=== PATIENT | female | born 1970 | race Caucasian/White ===

== ENCOUNTER 2019-08-29 17:28 | Emergency (ER) | payer MEDICARE, SELFPAY ==
[2019-08-29 17:28] VITALS: BP 150/85; BMI 53.7
[2019-08-29 17:34] VITALS: BP 175/94; PULSE 75; RESP 18; TEMP 36.6; O2SAT 99; BMI 51.6
--- NOTE | 2019-08-29 17:40 | XR_ITS ---
WS: [id number] CHEST XRAY TECHNIQUE: Portable chest. CLINICAL INFORMATION: chest pain COMPARISON: None. FINDINGS: Heart: Normal cardiac silhouette. Lungs: Lungs are clear. No consolidation or pleural effusion. No focal pneumonia. Bones: Hypertrophic changes thoracic spine. Mild thoracic curve convex right. XR/XR chest 1V portable [id number] IMPRESSION: No acute chest findings
--- NOTE | 2019-08-29 17:40 | ECG_ITS ---
Measurements Intervals [place] Rate: 73 P: 30 TN: 150 QRS: -33 QRSD: 93 T: 61 QT: 389 QTc: 430 SINUS RHYTHM Possible old septal LA MARKED LEFT AXIS DEVIATION [QRS AXIS < -30] LOW QRS VOLTAGE IN PRECORDIAL LEADS [QRS DEFLECTION < 1.0 mV IN CHEST LEADS] Compared to ECG 07/31/2019 11:41:28 No significant changes Electronically Signed On 08-30-2019 20:21:47 PUBLIC HEALTH EDUCATOR by Lizz Galan M.D. [email or web address]
[2019-08-29 18:26] LABS: Basophils % 0.3 %; Eosinophils # 0.2 10^3/uL (0.0-0.8); Eosinophils % 2.2 %; Hematocrit 42.3 % (37.0-47.0); Hemoglobin 13.5 g/dL (11.5-15.3); Lymphocytes # 3.2 10^3/uL (0.8-4.8); Lymphocytes % 35.9 %; Mean Corpuscular HGB Conc 31.9 g/dL (30.0-36.0); Mean Corpuscular Hemoglobin 27.1 pg (28.0-34.0); Mean Corpuscular Volume 84.9 fL (81-99); Mean Platelet Volume 11.5 fL (7.4-10.4); Monocytes # 0.5 10^3/uL (0.2-0.9); Neutrophils # 4.9 10^3/uL (1.8-7.7); Neutrophils % 55.3 %; Nucleated Red Blood Cells % 0 %; Platelet Count 262 10^3/cmm (130-400); Red Blood Count 4.98 10^6/uL (4.1-5.3); White Blood Count 8.8 10^3/uL (4.0-10.0)
[2019-08-29 18:45] LABS: Alanine Aminotransferase 16 U/L (0-33); Albumin Level 4.2 g/dL (3.5-5.2); Alkaline Phosphatase 101 IU/L (35-105); Anion Gap 15.3 (5-19); Aspartate Amino Transferase 14 U/L (0-32); Blood Urea Nitrogen 15 mg/dL (6-20); Carbon Dioxide 26 mmol/L (22-29); Chloride 101 mmol/L (98-107); Globulin 3.3 g/dL (1.3-4.6); Glomerular Filtration Rate 106.3 mL/min (90-130); Glucose 237 mg/dL (74-109); Potassium 4.3 mmol/L (3.5-5.1); Sodium 138 mmol/L (136-145); Total Bilirubin 0.6 mg/dL (0.15-1.2); Total Protein 7.5 g/dL (6.6-8.7)
[2019-08-29 18:46] LABS: Troponin(5th) Baseline 8 ng/mL (0-10)
--- NOTE | 2019-08-29 19:40 | ECG_ITS ---
Measurements Intervals [place] Rate: 70 P: 41 CO: 157 QRS: -29 QRSD: 93 T: 57 QT: 382 QTc: 414 SINUS RHYTHM BORDERLINE LEFT AXIS DEVIATION [QRS AXIS < -20] LOW QRS VOLTAGE IN PRECORDIAL LEADS [QRS DEFLECTION < 1.0 mV IN CHEST LEADS] Compared to ECG 07/31/2019 11:41:28 No significant changes Electronically Signed On 08-30-2019 20:31:58 FILTER TIP CATCHER by Lizz Galan M.D. [id number]
[2019-08-29 20:15] LABS: Troponin 5 2HR 8.68 ng/mL (0-10); Troponin 5 2HR Delta 0.68 ABS# (0-10)
--- NOTE | 2019-08-29 20:26 | ED_ITS ---
Entered by Winsome Goyal, acting as scribe for Trey Tomas MD, [facility] Aug 29, 2019 17:28 HPI - Chest Pain General: Chief Complaint: Chest Pain Stated Complaint: left arm pain/cp Time Seen by Provider: 08/29/19 20:26 Source: patient Mode of arrival: ambulatory Limitations: no limitations History of Present Illness: HPI narrative: 49 yo Female presents to ED with complaint of chest pain. Pt states that she was watching tv when her left arm started hurting. Pt states that she has had heart problems before. Pt states that her chest started hurting. Pt states that her chest pain has stopped but she can barely move her arm and her pain is a 10/10. Pt states that her pain goes from her shoulder down to her wrist. Pt states that she takes hydrocodone 10-325 at home. MD complaint: chest pain Pertinent past history: prior [place] Onset (ago): hour(s) Timing of current episode: still present Prior episodes: No Onset: during rest Pain location: left chest Pain radiation: left arm Pain scale (0-10): 10 Quality: sharp Relieving factors: nothing Exacerbating factors: nothing Associated symptoms: Deny abdominal pain, dyspnea, fever(s), nausea, palpitations or vomiting Review of Systems General: Reports: 10 or more systems reviewed and unremarkable except in HPI and below Const: Denies: fever, chills or body aches Eyes: Reports: blind spots; Denies: change in vision or blurry vision ENMT: Denies: throat pain, enlarged tonsils, painful swallowing, hoarseness, mouth pain or swelling of lips/tongue Card: Reports: chest pain; Denies: palpitations, irregular heart rhythm, edema or swelling of feet/ankles Resp: Denies: shortness of breath, productive cough or non-productive cough GI: Denies: abdominal pain, nausea or vomiting : Denies: flank pain, difficulty urinating, painful urination, urinary frequency, urinary urgency or urinary hesitancy Musc: Reports: extremity pain (left shoulder), joint pain (left shoulder) and limited range of motion; Denies: neck pain, back pain or extremity swelling Skin/Breast: Denies: rash, itching or redness Neuro: Denies: headache, numbness in extremities or weakness in extremities Endo: Denies: excessive urination, excessive thirst or tired all the time PFSH ED PFSH: Statuses (acute, chronic, etc) shown below reflect problem list status as previously entered and may not be historically accurate Medical History (Updated 08/29/19 @ 21:12 by Trey Tomas MD, [facility] [place]) Diabetes (Acute) Social History Smoking and tobacco status: never smoked Physical Exam Const: COMMON NORMALS: no apparent distress, average body habitus, oriented x3, no limitations, healthy appearing, alert and well nourished HENMT: COMMON NORMALS: normocephalic, head/scalp atraumatic and moist oral mucous membranes HEAD & SCALP: normocephalic and atraumatic Eye: COMMON NORMALS: PERRL, EOMs intact bilaterally, conjunctivae normal and no scleral icterus CONJUNCTIVA: Yes conjunctivae normal PUPIL: Yes PERRL Neck/C-Spine: COMMON NORMALS: full ROM, supple, no meningeal signs, no JVD and no carotid bruits Chest: COMMONS NORMALS: inspection of chest normal and palpation of chest normal Resp: COMMON NORMALS: normal respiratory effort, no retractions, no use of accessory muscles, clear to auscultation bilaterally and percussion normal AUSCULTATION: clear to auscultation bilaterally PERCUSSION: percussion normal Cardio: COMMON NORMALS: no JVD, regular rate, regular rhythm, S1 normal heart sound, S2 normal heart sound, no gallops, no clicks, no murmurs, no rub and peripheral pulses 2+ throughout RATE: regular rate RHYTHM: regular rhythm HEART SOUNDS: S1 normal and S2 normal PERIPHERAL PULSES: pulses 2+ throughout GI: COMMON NORMALS: normal to inspection, nondistended, normoactive bowel sounds, soft to palpation, non-tender, no hepatosplenomegaly, no masses and no bruits PALPATION: Yes soft and Yes no hepatosplenomegaly : COMMON NORMALS: Yes no CVA tenderness BLADDER/KIDNEY EXAM: Yes no CVA tenderness Back/Pelvis: COMMON NORMALS: no CVA tenderness Extremity: COMMON NORMALS: normal to inspection, full ROM, normal capillary refill, no calf tenderness and no pedal edema Neuro: COMMON NORMALS: oriented x3 SENSORIUM/ORIENTATION: Yes alert MENINGEAL SIGNS: Yes no meningeal signs Skin: COMMON NORMALS: no rashes or lesions noted, no wounds, skin turgor normal, no jaundice, no petechiae and no mottling GENERAL SKIN EXAM: no rashes or lesions noted and turgor normal Course Vital Signs: Vital signs: Vital Signs Temperature 97.8 F 08/29/19 17:34 Pulse Rate 71 08/29/19 22:02 Respiratory Rate 16 08/29/19 22:02 Blood Pressure 149/99 08/29/19 22:02 Pulse Oximetry 98 08/29/19 22:02 MDM - Chest Pain MDM Narrative: Medical decision making narrative: Patient who presents with left arm/shoulder pain which radiated to her chest. She has had 2 negative high sensitive troponins. Other labs and chest x-ray normal. Her examination findings are consistent with rotator cuff tendinitis of the left shoulder. Advised that she needs to get an MRI of the shoulder and perform exercises for the shoulder. She declined steroids as she is diabetic and does not want to increase her blood glucose. She will be discharged home on NSAIDs and she is to follow-up with her primary care provider soon as she can get them. She voiced understanding and is in agreement with the plan. Lab Data: Labs: Lab Results 08/29/19 08/29/19 08/29/19 Range/Units 18:12 18:12 18:12 WBC 8.8 (4.0-10.0) 10^3/ uL RBC 4.98 (4.1-5.3) 10^6/u L Hgb 13.5 (11.5-15.3) g/dL Hct 42.3 (37.0-47.0) % MCV 84.9 (81-99) fL MCH 27.1 L (28.0-34.0) pg MCHC 31.9 (30.0-36.0) g/dL RDW 14.0 (12.1-15.1) % Plt Count 262 (130-400) 10^3/c mm MPV 11.5 H (7.4-10.4) fL Neut % (Auto) 55.3 % Lymph % (Auto) 35.9 % Chaves % (Auto) 6.0 % Eos % (Auto) 2.2 % Baso % (Auto) 0.3 % Neut # (Auto) 4.9 (1.8-7.7) 10^3/u L Lymph # (Auto) 3.2 (0.8-4.8) 10^3/u L Chaves # (Auto) 0.5 (0.2-0.9) 10^3/u L Eos # (Auto) 0.2 (0.0-0.8) 10^3/u L Baso # (Auto) 0.0 (0.0-0.1) 10^3/u L Nucleated RBC % (a uto) 0 % Nucleated RBCs # 0.0 /100WBC Sodium 138 (136-145) mmol/L Potassium 4.3 (3.5-5.1) mmol/L Chloride 101 (98-107) mmol/L Carbon Dioxide 26 (22-29) mmol/L Anion Gap 15.3 (5-19) BUN 15 (6-20) mg/dL Creatinine 0.6 (0.5-0.9) mg/dL GFR Calculation 106.3 (90-130) mL/min Glucose 237 H (74-109) mg/dL Calcium 10.0 (8.6-10.0) mg/Dl Total Bilirubin 0.6 (0.15-1.2) mg/dL AST 14 (0-32) U/L ALT 16 (0-33) U/L Alkaline Phosphata se 101 (35-105) IU/L Troponin T Baselin e 8 (0-10) ng/mL Troponin T 120 Min [place] (0-10) ng/mL Delta Troponin T (0-10) ABS# Total Protein 7.5 (6.6-8.7) g/dL Albumin 4.2 (3.5-5.2) g/dL Globulin 3.3 (1.3-4.6) g/dL 08/29/19 Range/Units 19:46 WBC (4.0-10.0) 10^3/ uL RBC (4.1-5.3) 10^6/u L Hgb (11.5-15.3) g/dL Hct (37.0-47.0) % MCV (81-99) fL MCH (28.0-34.0) pg MCHC (30.0-36.0) g/dL RDW (12.1-15.1) % Plt Count (130-400) 10^3/c mm MPV (7.4-10.4) fL Neut % (Auto) % Lymph % (Auto) % Chaves % (Auto) % Eos % (Auto) % Baso % (Auto) % Neut # (Auto) (1.8-7.7) 10^3/u L Lymph # (Auto) (0.8-4.8) 10^3/u L Chaves # (Auto) (0.2-0.9) 10^3/u L Eos # (Auto) (0.0-0.8) 10^3/u L Baso # (Auto) (0.0-0.1) 10^3/u L Nucleated RBC % (a uto) % Nucleated RBCs # /100WBC Sodium (136-145) mmol/L Potassium (3.5-5.1) mmol/L Chloride (98-107) mmol/L Carbon Dioxide (22-29) mmol/L Anion Gap (5-19) BUN (6-20) mg/dL Creatinine (0.5-0.9) mg/dL GFR Calculation (90-130) mL/min Glucose (74-109) mg/dL Calcium (8.6-10.0) mg/Dl Total Bilirubin (0.15-1.2) mg/dL AST (0-32) U/L ALT (0-33) U/L Alkaline Phosphata se (35-105) IU/L Troponin T Baselin e (0-10) ng/mL Troponin T 120 Min [place] 8.68 (0-10) ng/mL Delta Troponin T 0.68 (0-10) ABS# Total Protein (6.6-8.7) g/dL Albumin (3.5-5.2) g/dL Globulin (1.3-4.6) g/dL EKG Data^: EKG 1: Attestation: I personally reviewed and interpreted this EKG as follows: EKG interpretation date: 08/29/19 EKG interpretation time: 17:37 Prior EKG tracings: not available for review Interpretation: Normal sinus rhythm. Heart rate 73. Left axis deviation. Discharge Plan Discharge Patient Disposition: Home, Self-Care Clinical Impression: Tendonitis of left rotator cuff Condition: Stable Prescriptions: New naproxen 500 mg tablet,delayed release (DR/EC) 500 mg PO BID PRN (Reason: pain) Qty: 30 RF: 0 Discharge Orders: Discharge Order (Routine); Ordered 08/29/19 Ordered By: Trey Tomas Referrals: Delaney Frazier MD [Primary Care Provider] - 1-3 days Activity Restrictions/Additional Instructions: Return for any new or worsening symptoms. Follow-up with your primary care provider within 3 days. Perform the shoulder exercises that I showed you. Take the naproxen as needed for pain. You probably need an MRI of the shoulder to look at your rotator cuff muscles and to see if you need further evaluation by orthopedic surgery. Discharge Date/Time: 08/29/19 22:01 Coding Level of Care Code ED Graduation Coach for Chg Fwd Exam Problem Focused The documentation recorded by the Jay Jay garvin Carmen, accurately reflects the service I personally performed and the decisions made by , Trey Tomas MD, [facility] Aug 29, 2019 17:28
[2019-08-29 20:40] VITALS: BP 155/93; PULSE 72; RESP 14; O2SAT 98
[2019-08-29] MEDS: orphenadrine 30 mg/mL Inj 2 mL 60 MG IM (21:22)
[2019-08-29] MEDS: acetaminophen 500 mg Tablet PO (21:22)
[2019-08-29] MEDS: ketorolac 60 mg/2 mL INJ IM (21:22)
[2019-08-29 22:02] VITALS: BP 149/99; PULSE 71; RESP 16; O2SAT 98
== END 2019-08-29 22:01 | disposition home or self-care (01) ==
PROVIDERS: Family Medicine; Emergency Provider Family Medicine; Family Provider Family Medicine; PCP Family Medicine
DX: M77.9 Enthesopathy, unspecified (principal); E11.9 Type 2 diabetes mellitus without complications
CPT/HCPCS: 36415; 71045; 80053; 84484; 85025; 93005; 96372; 99281; J1885; J2360

== ENCOUNTER 2019-09-14 10:30 | Outpatient (CLI) | payer MEDICARE, SELFPAY | END 2019-09-24 13:24 | disposition home or self-care (01) | LOC: ER 09-24 13:54 → LAB 09-26 11:57 | PROVIDERS: Family Provider Family Medicine; PCP Family Medicine; Visit Provider Specialist | DX: Z76.89 Persons encountering health services in other specified circumstances (principal) ==

== ENCOUNTER → 2019-09-22 13:39 | Outpatient (BNVA) | payer MEDICARE, SELFPAY | PROVIDERS: Family Provider Family Medicine; PCP Family Medicine; Visit Provider Anesthesiology | DX: G89.29 Other chronic pain (principal); M54.5 Low back pain; M79.651 Pain in right thigh; M79.652 Pain in left thigh; Z79.891 Long term (current) use of opiate analgesic | CPT/HCPCS: 99214 ==

== ENCOUNTER 2019-09-24 12:14 | Emergency (ER) | payer MEDICARE, SELFPAY ==
[2019-09-24 12:23] VITALS: BP 151/102; PULSE 76; RESP 16; TEMP 36.6; O2SAT 98; BMI 52.7
--- NOTE | 2019-09-24 12:32 | ED_ITS ---
Entered by Anusha Ba, acting as scribe for Trey Tomas MD, [facility] HPI - General Adult General: Chief complaint: General Medical Stated complaint: Tongue issuses Time Seen by Provider: 09/24/19 12:32 Source: patient and RN notes reviewed Mode of arrival: ambulatory Limitations: no limitations History of Present Illness: HPI narrative: 49 yo female presents to ED with complaints of her tongue having a white coating and it is painful. 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 She has been taking Doxycycline since 09.14.2019. She is having slight difficulty swallowing. The patient has a healing wound on her nose. MD complaint: tongue pain, white film on tongue Onset (ago): day(s) (1) Location: mouth Radiation: non-radiation Severity: mild Quality: aching and constant Pain Consistency: constant Relieving factors: none Exacerbating factors: none Associated symptoms: Reports chest pain and other (difficulty swallowing); Deny dyspnea, headache(s), nausea, rash, palpitations or vomiting Treatments prior to arrival: none Review of Systems General: Reports: 10 or more systems reviewed and unremarkable except in HPI and below Const: Denies: fever, chills or body aches Eyes: Reports: blind spots; Denies: change in vision or blurry vision ENMT: Denies: throat pain, enlarged tonsils, painful swallowing, hoarseness, mouth pain or swelling of lips/tongue Card: Reports: chest pain; Denies: palpitations, irregular heart rhythm, edema or swelling of feet/ankles Resp: Denies: shortness of breath, productive cough or non-productive cough GI: Denies: abdominal pain, nausea or vomiting : Denies: flank pain, difficulty urinating, painful urination, urinary frequency, urinary urgency or urinary hesitancy Musc: Denies: neck pain, back pain or extremity swelling Skin/Breast: Reports: surgical incision (nose); Denies: rash, itching or redness Neuro: Denies: headache, numbness in extremities or weakness in extremities Endo: Denies: excessive urination, excessive thirst or tired all the time [facility] ED PFSH: Medical History (Updated 09/24/19 @ 12:42 by Trey Tomas MD, [facility]) Chronic back pain Diabetes Encounter for long-term use of opiate analgesic Family History (Updated 09/22/19 @ 13:53 by Mckenna Bejarano LPN) Other Cancer Diabetes Stroke Social History (Updated 09/22/19 @ 13:52 by Mckenna Bejarano LPN) Smoking and tobacco status: never smoked Alcohol intake: unknown Physical Exam Const: COMMON NORMALS: no apparent distress, average body habitus, oriented x3, no limitations, healthy appearing, alert and well nourished HENMT: COMMON NORMALS: normocephalic, head/scalp atraumatic and moist oral mucous membranes; external nose not normal (Patient with a surgical wound on her nose, healing well. No drainage.) HEAD & SCALP: normocephalic and atraumatic NOSE: external nose not normal (Patient with a surgical wound on her nose, healing well. No drainage.) MOUTH: oral and palatal mucosa abnormal white patches (on tongue, adherent, consistent with thrush) Eye: COMMON NORMALS: PERRL, EOMs intact bilaterally, conjunctivae normal and no scleral icterus CONJUNCTIVA: Yes conjunctivae normal PUPIL: Yes PERRL Neck/C-Spine: COMMON NORMALS: full ROM, supple, no meningeal signs, no JVD and no carotid bruits Chest: COMMONS NORMALS: inspection of chest normal and palpation of chest normal Resp: COMMON NORMALS: normal respiratory effort, no retractions, no use of accessory muscles, clear to auscultation bilaterally and percussion normal AUSCULTATION: clear to auscultation bilaterally PERCUSSION: percussion normal Cardio: COMMON NORMALS: no JVD, regular rate, regular rhythm, S1 normal heart sound, S2 normal heart sound, no gallops, no clicks, no murmurs, no rub and peripheral pulses 2+ throughout RATE: regular rate RHYTHM: regular rhythm HEART SOUNDS: S1 normal and S2 normal PERIPHERAL PULSES: pulses 2+ throughout GI: COMMON NORMALS: normal to inspection, nondistended, normoactive bowel sounds, soft to palpation, non-tender, no hepatosplenomegaly, no masses and no bruits PALPATION: Yes soft and Yes no hepatosplenomegaly : COMMON NORMALS: Yes no CVA tenderness BLADDER/KIDNEY EXAM: Yes no CVA tenderness Back/Pelvis: COMMON NORMALS: no CVA tenderness Extremity: COMMON NORMALS: normal to inspection, full ROM, normal capillary refill, no calf tenderness and no pedal edema Neuro: COMMON NORMALS: oriented x3 SENSORIUM/ORIENTATION: Yes alert MENINGEAL SIGNS: Yes no meningeal signs Skin: COMMON NORMALS: no rashes or lesions noted, no wounds, skin turgor normal, no jaundice, no petechiae and no mottling GENERAL SKIN EXAM: no rashes or lesions noted and turgor normal Course Vital Signs: Vital signs: Vital Signs Temperature 98 F 09/24/19 12:23 Pulse Rate 76 09/24/19 12:23 Respiratory Rate 16 09/24/19 12:23 Blood Pressure 151/102 09/24/19 12:23 Pulse Oximetry 98 09/24/19 12:23 MDM - General Adult MDM Narrative: Medical decision making narrative: patient who has been on antibiotics for about 10 days following nasal surgery. She now has tongue pain and exam findings are consistent with oral candidiasis. She is discharged home on nystatin swish and swallow. She is to f/u with her PCP. Medical Records: Attestation: I reviewed the patient's medical records. Discharge Plan Discharge Patient Disposition: Home, Self-Care Clinical Impression: Candidiasis of mouth Condition: Stable Prescriptions: New nystatin 100,000 unit/mL suspension 4 ml BUCCAL QID Qty: 200 RF: 0 Continued metoprolol tartrate 25 mg tablet 12.5 mg PO DAILY RF: 0 clopidogrel [Plavix] 75 mg tablet 75 mg PO DAILY RF: 0 pravastatin 40 mg tablet 40 mg PO DAILY RF: 0 Levemir FlexTouch U-100 Insuln 100 unit/mL (3 mL) insulin pen 46 unit SUBCUT .AT BEDTIME RF: 0 Victoza 3-Olman 0.6 mg/0.1 mL (18 mg/3 mL) pen injector See Rx Instructions SUBCUT DAILY RF: 0 levothyroxine 50 mcg capsule See Rx Instructions PO DAILY RF: 0 aspirin [Adult Aspirin Regimen] 81 mg tablet,delayed release (DR/EC) 81 mg PO DAILY RF: 0 metformin 500 mg tablet 500 mg PO BID RF: 0 hydrocodone-acetaminophen 10-325 mg tablet 1 tab PO TID PRN (Reason: pain) 30 Days Qty: 90 RF: 0 Discharge Orders: Discharge Order (Routine); Ordered 09/24/19 Ordered By: Trey Tomas Referrals: Delaney Frazier MD [Primary Care Provider] - 4-7 days Patient Instructions: Oral Candidiasis (ED) Activity Restrictions/Additional Instructions: return for any new or worsening symptoms. Take the medication as prescribed. FOllow up with your primary care provider within one week. Coding Level of Care Code ED Speeder Machine Operator for Chg Fwd Exam Comprehensive The documentation recorded by the Mejia garvin Valerie R, accurately reflects the service I personally performed and the decisions made by Thom ramirez Adegoke I, MD, [facility]
--- NOTE | 2019-09-24 12:34 | PC.NURSE ---
Patient presents to ED with complaints of tongue discomfort. Patient is on Day 11 of Doxycycline. Patient reports discomfort in tongue started yesterday, nothing makes it better or worse. Patient has some white discoloration to generalized tongue area.
[2019-09-24 13:19] VITALS: PULSE 97; RESP 16; O2SAT 98
== END 2019-09-24 13:18 | disposition home or self-care (01) ==
LOC: ER 12:53
PROVIDERS: Emergency Provider Family Medicine; Family Provider Family Medicine; PCP Family Medicine
DX: B37.0 Candidal stomatitis (principal); E11.9 Type 2 diabetes mellitus without complications; Z79.4 Long term (current) use of insulin
CPT/HCPCS: 99281

== ENCOUNTER → 2019-12-11 08:16 | Outpatient (BNVA) | payer MEDICARE, SELFPAY | PROVIDERS: Family Provider Family Medicine; PCP Family Medicine; Visit Provider Psychiatry & Neurology Psychiatry | DX: F43.12 Post-traumatic stress disorder, chronic (principal); F33.2 Major depressive disorder, recurrent severe without psychotic features | CPT/HCPCS: 99204 ==

== ENCOUNTER → 2020-01-11 10:35 | Outpatient (BNVA) | payer MEDICARE, SELFPAY | PROVIDERS: Family Provider Family Medicine; PCP Family Medicine; Visit Provider Anesthesiology | DX: G89.29 Other chronic pain (principal); M54.42 Lumbago with sciatica, left side; M54.9 Dorsalgia, unspecified; Z79.891 Long term (current) use of opiate analgesic; M54.41 Lumbago with sciatica, right side | CPT/HCPCS: 99213; 99214 ==

== ENCOUNTER 2020-01-23 05:26 | Emergency (ER) | payer MEDICARE, SELFPAY ==
[2020-01-11 11:16] VITALS: BP 150/85; BMI 53.7
[2020-01-23 05:34] VITALS: BP 153/91; PULSE 84; RESP 18; TEMP 35.7; O2SAT 98; BMI 54.9
--- NOTE | 2020-01-23 05:46 | PC.NURSE ---
Received patient to Er via pov with complaint of right flank pain. Patient stated she has had multiple UTI's and kidney problems in the past.
--- NOTE | 2020-01-23 06:37 | CTR_ITS ---
PROCEDURE INFORMATION: Exam: CT Abdomen And Pelvis Without Contrast Exam date and time: 01/23/2020 6:41 AM Age: 49 years old Clinical indication: Abdominal pain; Prior surgery; Surgery type: Hysterectomy; Patient HX: Severe left flank pain. TECHNIQUE: Imaging protocol: Computed tomography of the abdomen and pelvis without contrast. Radiation optimization: All CT scans at this facility use at least one of these dose optimization techniques: automated exposure control; mA and/or kV adjustment per patient size (includes targeted exams where dose is matched to clinical indication); or iterative reconstruction. COMPARISON: No relevant prior studies available. RADIATION DOSE METRICS: Total DLP: 1193.84 mGy-cm FINDINGS: Liver: Normal. No mass. Gallbladder and bile ducts: Normal. No calcified stones. No ductal dilation. Pancreas: Severe pancreatic atrophy. Spleen: Normal. No splenomegaly. Adrenals: Normal. No mass. Kidneys and ureters: Left renal lower pole 1.8 mm calyceal calculus. No left hydronephrosis. Mild right renal pelviectasis. Stomach and bowel: There is mild caliber prominence of the distal duodenum and a few proximal jejunal small bowel loops with increased intraluminal fluid and without definite wall thickening. No abrupt caliber transition identified. Sigmoid colonic diverticula are present without evidence of diverticulitis. Appendix: The vermiform appendix is normal. Intraperitoneal space: Unremarkable. No free air. No significant fluid collection. Vasculature: Atherosclerotic calcifications are present involving the RCA coronary artery. Lymph nodes: No enlarged lymph nodes. Bladder: Unremarkable as visualized. Reproductive: The uterus is status post hysterectomy. The ovaries are not identified. Bones/joints: Unremarkable. No acute fracture. Soft tissues: A tiny paraumbilical hernia containing only abdominal fat is noted. Anterior left abdominal wall subcutaneous adipose edema consistent with prior injections. CT/CT kidney stone [id number] IMPRESSION: 1. Left renal calyceal lithiasis. 2. Mild right renal pelviectasis. 3. Possible mild enteritis. Clinical correlation is recommended. 4. Diverticulosis. 5. Prior hysterectomy. 6. Coronary atherosclerosis. Radiation Dose CTDIVOL = (mGy): DLP = 1193.84 (mGy-cm)
--- NOTE | 2020-01-23 06:37 | ED_ITS ---
HPI - Back Pain/Injury General: Chief Complaint: Back Pain/Injury Stated Complaint: lower back pain; vaginal bleed last week Time Seen by Provider: 01/23/20 05:37 History of Present Illness: HPI Narrative: 49 yo female comes in complaining of back pain she had some hematuria couple days ago she has a little bit of dysuria she complains of some left right flank pain radiating down into her groin area. She has not noticed any gross hematuria yet today. She denies any fever sweats or chills. She does have a history of nephrolithiasis. MD elicited complaint: back pain Pertinent past history: prior back pain Onset (ago): day(s) Timing: constant Severity: severe Similar Symptoms Previously: Yes Quality: aching and spasming Location: lumbar spine and right lower back Radiation: groin Exacerbating factors: movement Associated symptoms: Reports hematuria; Deny abdominal pain, chills, dysuria, fatigue, fever(s), nausea, urinary urgency or vomiting Treatments prior to arrival: other medications Work related injury: No Review of Systems Const: Denies: fever(s), chills, body aches, change in appetite, fatigue or malaise ENMT: Denies: throat pain, ear or mastoid pain, nasal discharge or nasal congestion Card: Denies: chest pain, edema, dyspnea on exertion or orthopnea Resp: Denies: dyspnea, productive cough or non-productive cough GI: Denies: abdominal pain, nausea, vomiting, hematemesis, coffee ground emesis, diarrhea, constipation, bloating, hematochezia or melena : Reports: hematuria; Denies: flank pain, difficulty voiding, dysuria, urinary frequency or urinary urgency Skin/Breast: Denies: rash or pruritus PFSH ED PFSH: Medical History Chronic back pain Diabetes Encounter for long-term use of opiate analgesic HTN (hypertension) with goal to be determined Family History Other Cancer Diabetes Stroke Social History Smoking and tobacco status: never smoked Second hand smoke exposure: No Alcohol intake: never History of recent travel: No Physical Exam Const: COMMON NORMALS: average body habitus, patient oriented x3 and alert GENERAL APPEARANCE: cooperative, comfortable, well kempt and well developed NUTRITIONAL APPEARANCE: obese ORIENTATION/CONSCIOUSNESS: Yes awake, Yes oriented to person and Yes oriented to place HENMT: COMMON NORMALS: normocephalic, atraumatic, EAC's normal, TM's normal bilaterally, Normal external nose present, moist oral mucous membranes and oropharynx normal HEAD & SCALP: normocephalic and atraumatic NOSE: Normal external nose present EXTERNAL AUDITORY CANAL: EAC's normal TYMPANIC MEMBRANE: TM's normal bilaterally MOUTH: Normal oral and palatal mucosa present, lip normal and tongue normal THROAT: posterior oropharynx normal and tonsils normal Eye: COMMON NORMALS: Equal, round and reactive pupils present, EOMs intact bilaterally, conjunctivae normal and no scleral icterus CONJUNCTIVA: Yes conjunctivae normal PUPIL: Yes Equal, round and reactive pupils present Neck/C-Spine: COMMON NORMALS: full ROM, no lymphadenopathy, supple, no mening eal signs and Thyroid normal THYROID: Thyroid normal and asymmetrical Lymph: LYMPHATIC: no lymphadenopathy noted Resp: COMMON NORMALS: normal respiratory effort, No retractions, No use of accessory muscles and clear to auscultation bilaterally AUSCULTATION: clear to auscultation bilaterally Cardio: COMMON NORMALS: regular rate and regular rhythm RATE: regular rate RHYTHM: regular rhythm HEART SOUNDS: no murmurs GI: COMMON NORMALS: Normal to inspection, nondistended, normoactive bowel sounds present, Soft to palpation and No hepatosplenomegaly present PALPATION: Yes Soft to palpation and Yes No hepatosplenomegaly present : COMMON NORMALS: Yes no CVA tenderness BLADDER/KIDNEY EXAM: Yes no CVA tenderness Back/Pelvis: COMMON NORMALS: no CVA tenderness LUMBAR SPINE/LOWER BACK: Yes normal to inspection Extremity: COMMON NORMALS: no clubbing, cyanosis or edema, no calf tenderness and no pedal edema Neuro: COMMON NORMALS: patient oriented x3 SENSORIUM/ORIENTATION: Yes aler t, Yes oriented to person and Yes oriented to place MENINGEAL SIGNS: Yes no meningeal signs Psych: APPEARANCE: Yes well kempt Skin: COMMON NORMALS: no rashes or lesions noted and turgor normal GENERAL SKIN EXAM: no rashes or lesions noted and turgor normal Course Vital Signs: Vital signs: Vital Signs Temperature 96.2 F L 06/16/20 05:34 Pulse Rate 70 01/23/20 07:29 Respiratory Rate 19 H 01/23/20 07:55 Blood Pressure 151/105 01/23/20 07:29 Pulse Oximetry 99 01/23/20 07:29 MDM - Back Pain/Injury MDM Narrative: Medical decision making narrative: Reviewed findings the patient CT does not show any nephrolithiasis she does not have any hematuria will treat as exacerbation of her chronic back pain is given more medications here as well as a muscle relaxer and some narcotics for immediate relief. She has oral narcotics she can use at home gave her prescription for tizanidine as well consider giving her steroids but she already has significant hyperglycemia with her diabetes and is poorly controlled to steroids and make that even more difficult. Lab Data: Labs: Lab Results 01/23/20 01/23/20 01/23/20 Range/Units 06:00 06:50 06:50 WBC 10.4 H (4.0-10.0) 10^3/ uL RBC 4.88 (4.1-5.3) 10^6/u L Hgb 13.1 (11.5-15.3) g/dL Hct 41.5 (37.0-47.0) % MCV 85.0 (81-99) fL MCH 26.8 L (28.0-34.0) pg MCHC 31.6 (30.0-36.0) g/dL RDW 12.8 (12.1-15.1) % Plt Count 266 (130-400) 10^3/c mm MPV 11.6 H (7.4-10.4) fL Neut % (Auto) 60.1 % Lymph % (Auto) 32.0 % [place] % (Auto) 5.5 % Eos % (Auto) 1.8 % Baso % (Auto) 0.3 % Neut # (Auto) 6.3 (1.8-7.7) 10^3/u L Lymph # (Auto) 3.3 (0.8-4.8) 10^3/u L [place] # (Auto) 0.6 (0.2-0.9) 10^3/u L Eos # (Auto) 0.2 (0.0-0.8) 10^3/u L Baso # (Auto) 0.0 (0.0-0.1) 10^3/u L Nucleated RBC % (a uto) 0 % Nucleated RBCs # 0.0 /100WBC Sodium 136 (136-145) mmol/L Potassium 4.5 (3.5-5.1) mmol/L Chloride 98 (98-107) mmol/L Carbon Dioxide 26 (22-29) mmol/L Anion Gap 16.5 (5-19) BUN 16 (6-20) mg/dL Creatinine 0.5 (0.5-0.9) mg/dL GFR Calculation 131.1 H (90-130) mL/min Glucose 352 H (65-115) mg/dL Calculated Osmolal ity 292 (285-295) mOsm/k g Lactate (0.5-2.2) mmol/L Calcium 10.1 (8.5-10.5) mg/dL Total Bilirubin 0.5 (0.15-1.2) mg/dL AST 14 (0-32) U/L ALT 18 (0-33) U/L Alkaline Phosphata se 108 H (35-105) IU/L Total Protein 7.1 (6.6-8.7) g/dL Albumin 4.4 (3.5-5.2) g/dL Globulin 2.7 (1.3-4.6) g/dL Lipase 60 (13-60) U/L Urine Color Yellow (Yellow) Urine Appearance Clear (CLEAR) Urine pH 5 (5-7) Ur Specific Gravit y 1.020 (1.005-1.030) Urine Protein Neg (Negative) Urine Glucose (UA) 4+ H (Normal) Urine Ketones Negative (Negative) Urine Blood Neg (Negative) Urine Nitrate Negative (Negative) Urine Bilirubin Neg (NEGATIVE) Urine Urobilinogen Norm (Negative) mg/dL Ur Leukocyte Raquel ase Negative (Negative) 01/23/20 Range/Units 06:50 WBC (4.0-10.0) 10^3/ uL RBC (4.1-5.3) 10^6/u L Hgb (11.5-15.3) g/dL Hct (37.0-47.0) % MCV (81-99) fL MCH (28.0-34.0) pg MCHC (30.0-36.0) g/dL RDW (12.1-15.1) % Plt Count (130-400) 10^3/c mm MPV (7.4-10.4) fL Neut % (Auto) % Lymph % (Auto) % [place] % (Auto) % Eos % (Auto) % Baso % (Auto) % Neut # (Auto) (1.8-7.7) 10^3/u L Lymph # (Auto) (0.8-4.8) 10^3/u L [place] # (Auto) (0.2-0.9) 10^3/u L Eos # (Auto) (0.0-0.8) 10^3/u L Baso # (Auto) (0.0-0.1) 10^3/u L Nucleated RBC % (a uto) % Nucleated RBCs # /100WBC Sodium (136-145) mmol/L Potassium (3.5-5.1) mmol/L Chloride (98-107) mmol/L Carbon Dioxide (22-29) mmol/L Anion Gap (5-19) BUN (6-20) mg/dL Creatinine (0.5-0.9) mg/dL GFR Calculation (90-130) mL/min Glucose (65-115) mg/dL Calculated Osmolal ity (285-295) mOsm/k g Lactate 1.2 (0.5-2.2) mmol/L Calcium (8.5-10.5) mg/dL Total Bilirubin (0.15-1.2) mg/dL AST (0-32) U/L ALT (0-33) U/L Alkaline Phosphata se (35-105) IU/L Total Protein (6.6-8.7) g/dL Albumin (3.5-5.2) g/dL Globulin (1.3-4.6) g/dL Lipase (13-60) U/L Urine Color (Yellow) Urine Appearance (CLEAR) Urine pH (5-7) Ur Specific Gravit y (1.005-1.030) Urine Protein (Negative) Urine Glucose (UA) (Normal) Urine Ketones (Negative) Urine Blood (Negative) Urine Nitrate (Negative) Urine Bilirubin (NEGATIVE) Urine Urobilinogen (Negative) mg/dL Ur Leukocyte Raquel ase (Negative) Discharge Plan Discharge Patient Disposition: Home, Self-Care Clinical Impression: Chronic back pain, HTN (hypertension) with goal to be determined Condition: Stable Prescriptions: New tizanidine 4 mg capsule 4 mg PO Q6H PRN (Reason: muscle spasticity) Qty: 20 RF: 0 No Action metoprolol tartrate 25 mg tablet 12.5 mg PO DAILY RF: 0 clopidogrel [Plavix] 75 mg tablet 75 mg PO DAILY RF: 0 pravastatin 40 mg tablet 40 mg PO DAILY RF: 0 Levemir FlexTouch U-100 Insuln 100 unit/mL (3 mL) insulin pen 46 unit SUBCUT .AT BEDTIME RF: 0 Victoza 3-Olman 0.6 mg/0.1 mL (18 mg/3 mL) pen injector See Rx Instructions SUBCUT DAILY RF: 0 levothyroxine 50 mcg capsule See Rx Instructions PO DAILY RF: 0 aspirin [Adult Aspirin Regimen] 81 mg tablet,delayed release (DR/EC) 81 mg PO DAILY RF: 0 metformin 500 mg tablet 500 mg PO BID RF: 0 prazosin 5 mg capsule 5 mg PO .HS Qty: 30 RF: 1 lamotrigine [Lamictal] 25 mg tablet 25 mg PO DAILY Qty: 150 RF: 0 hydrocodone-acetaminophen 10-325 mg tablet 1 tab PO TID PRN (Reason: pain) 30 Days Qty: 90 RF: 0 hydrocodone-acetaminophen 10-325 mg tablet 1 tab PO TID PRN (Reason: pain) 30 Days Qty: 90 RF: 0 nystatin 100,000 unit/mL suspension 4 ml BUCCAL QID Qty: 200 RF: 0 Discharge Orders: Discharge Order (Routine); Ordered 01/23/20 Ordered By: Freddy Phan Referrals: Delaney Frazier MD [Primary Care Provider] - Discharge Diet: Advance as tolerated Discharge Activity: Increase activity as tolerated Activity Restrictions/Additional Instructions: Follow-up with your primary care doctor. Coding Level of Care Code ED Production Director for Glenn Zuniga
[2020-01-23] MEDS: sodium chloride 0.9% 1,000 ML 999 ML IV (06:53)
[2020-01-23] MEDS: ondansetron 2 mg/ML SDV 2 mL 4 MG IVP (06:53)
[2020-01-23] MEDS: morphine 4 mg/mL SDV 1 mL IVP ×2 (06:53→07:55)
--- NOTE | 2020-01-23 07:00 | PC.NURSE ---
Report received from KAY Macdonald.
[2020-01-23 07:04] LABS: Add Urine Microscopic? NO
[2020-01-23 07:06] LABS: Basophils % 0.3 %; Eosinophils # 0.2 10^3/uL (0.0-0.8); Eosinophils % 1.8 %; Hematocrit 41.5 % (37.0-47.0); Hemoglobin 13.1 g/dL (11.5-15.3); Lymphocytes # 3.3 10^3/uL (0.8-4.8); Mean Corpuscular HGB Conc 31.6 g/dL (30.0-36.0); Mean Corpuscular Hemoglobin 26.8 pg (28.0-34.0); Mean Platelet Volume 11.6 fL (7.4-10.4); Monocytes # 0.6 10^3/uL (0.2-0.9); Monocytes % 5.5 %; Neutrophils # 6.3 10^3/uL (1.8-7.7); Neutrophils % 60.1 %; Nucleated Red Blood Cells % 0 %; Platelet Count 266 10^3/cmm (130-400); Red Blood Count 4.88 10^6/uL (4.1-5.3); Red Cell Distribution Width 12.8 % (12.1-15.1); White Blood Count 10.4 10^3/uL (4.0-10.0)
[2020-01-23 07:10] LABS: Bilirubin Urine Neg (NEGATIVE); Blood Urine Neg (Negative); Glucose Urine UA 4+ (Normal); Ketones Urine Negative (Negative); Leukocyte Esterase Urine Negative (Negative); Nitrate Urine Negative (Negative); Protein Urine Neg (Negative); Urine Appearance Clear (CLEAR); Urine Color Yellow (Yellow); Urobilinogen Urine Norm (Negative); pH Urine 5 (5-7)
[2020-01-23 07:17] LABS: Alanine Aminotransferase 18 U/L (0-33); Albumin Level 4.4 g/dL (3.5-5.2); Alkaline Phosphatase 108 IU/L (35-105); Anion Gap 16.5 (5-19); Aspartate Amino Transferase 14 U/L (0-32); Blood Urea Nitrogen 16 mg/dL (6-20); Calcium 10.1 mg/dL (8.5-10.5); Carbon Dioxide 26 mmol/L (22-29); Chloride 98 mmol/L (98-107); Globulin 2.7 g/dL (1.3-4.6); Glomerular Filtration Rate 131.1 mL/min (90-130); Glucose 352 mg/dL (65-115); Lactate (Lactic Acid level) 1.2 mmol/L (0.5-2.2); Lipase 60 U/L (13-60); Osmolality Calculated 292 mOsm/kg (285-295); Potassium 4.5 mmol/L (3.5-5.1); Sodium 136 mmol/L (136-145); Total Bilirubin 0.5 mg/dL (0.15-1.2); Total Protein 7.1 g/dL (6.6-8.7)
[2020-01-23 07:29] VITALS: BP 151/105; PULSE 70; RESP 18; O2SAT 99
[2020-01-23] MEDS: ketorolac 30 mg/mL INJ IVP (07:54)
[2020-01-23 07:55] VITALS: RESP 19
[2020-01-23] MEDS: orphenadrine 30 mg/mL Inj 2 mL 60 MG IVP (08:19)
[2020-01-23 08:25] VITALS: BP 138/90; PULSE 76; RESP 17; O2SAT 97
== END 2020-01-23 08:25 | disposition home or self-care (01) ==
PROVIDERS: Emergency Provider Family Medicine; PCP Family Medicine
DX: G89.29 Other chronic pain (principal); M54.9 Dorsalgia, unspecified; I10 Essential (primary) hypertension; Z79.02 Long term (current) use of antithrombotics/antiplatelets; Z79.4 Long term (current) use of insulin; Z79.82 Long term (current) use of aspirin
CPT/HCPCS: 12345; 74176; 80053; 81003; 83605; 83690; 85025; 87040; 96360; 96361; 96374; 96375; 96376; 99282; 99284; J1885; J2270; J2360; J2405; J7030

== ENCOUNTER 2020-01-25 09:32 | Outpatient (CLI) | payer MEDICARE, SELFPAY ==
[2020-01-11 11:16] VITALS: BP 150/85; BMI 53.7
--- NOTE | 2020-01-25 10:00 | XR_ITS ---
WS: [id number] XR KUB [id number] REASON FOR EXAM: STONE FINDINGS: Nonspecific gas and feces are seen throughout the colon. No definite calcifications are not ed in the region of the kidneys, ureters, bladder. XR/XR KUB [id number] IMPRESSION: No stones are demonstrated by radiographic means.
== END 2020-01-25 09:33 | disposition home or self-care (01) ==
LOC: RAD 09:40
PROVIDERS: PCP Family Medicine; Visit Provider Urology
DX: N20.0 Calculus of kidney (principal); N20.9 Urinary calculus, unspecified; R10.9 Unspecified abdominal pain; R30.0 Dysuria; B37.3 Candidiasis of vulva and vagina
CPT/HCPCS: 74018; 80053; 87077; 87086; 87186

== ENCOUNTER 2020-03-18 18:03 | Emergency (ER) | payer MEDICARE, SELFPAY ==
[2020-01-11 11:16] VITALS: BP 150/85; BMI 53.7
[2020-03-18 18:15] VITALS: BP 139/87; PULSE 78; RESP 18; TEMP 36.6; O2SAT 95; BMI 54.9
[2020-03-18 18:54] LABS: Basophils % 0.3 %; Eosinophils # 0.2 10^3/uL (0.0-0.8); Eosinophils % 1.6 %; Hematocrit 43.4 % (37.0-47.0); Hemoglobin 13.7 g/dL (11.5-15.3); Lymphocytes # 2.8 10^3/uL (0.8-4.8); Lymphocytes % 30.2 %; Mean Corpuscular HGB Conc 31.6 g/dL (30.0-36.0); Mean Corpuscular Hemoglobin 26.5 pg (28.0-34.0); Mean Corpuscular Volume 83.9 fL (81-99); Mean Platelet Volume 11.4 fL (7.4-10.4); Monocytes # 0.5 10^3/uL (0.2-0.9); Monocytes % 5.4 %; Neutrophils # 5.84 10^3/uL (1.8-7.7); Neutrophils % 62.3 %; Nucleated Red Blood Cells % 0 %; Platelet Count 302 10^3/cmm (130-400); Red Blood Count 5.17 10^6/uL (4.1-5.3); Red Cell Distribution Width 13.2 % (12.1-15.1); White Blood Count 9.4 10^3/uL (4.0-10.0)
[2020-03-18 19:06] LABS: HCG, Serum Qual Negative (Negative)
[2020-03-18 19:11] LABS: Alanine Aminotransferase 19 U/L (0-33); Albumin Level 4.3 g/dL (3.5-5.2); Alkaline Phosphatase 109 IU/L (35-105); Aspartate Amino Transferase 16 U/L (0-32); Blood Urea Nitrogen 13 mg/dL (6-20); Carbon Dioxide 25 mmol/L (22-29); Chloride 99 mmol/L (98-107); Globulin 2.7 g/dL (1.3-4.6); Glomerular Filtration Rate 106.3 mL/min (90-130); Glucose 403 mg/dL (65-115); Lipase 174 U/L (13-60); Osmolality Calculated 289 mOsm/kg (285-295); Sodium 133 mmol/L (136-145); Total Bilirubin 0.7 mg/dL (0.15-1.2)
[2020-03-18 19:47] VITALS: BP 149/101; PULSE 82; RESP 20; O2SAT 98
--- NOTE | 2020-03-18 19:47 | CTR_ITS ---
PROCEDURE INFORMATION: Exam: CT Abdomen And Pelvis Without Contrast Exam date and time: 03/18/2020 7:52 PM Age: 49 years old Clinical indication: Abdominal pain; Localized; Left upper quadrant (luq); Prior surgery; Surgery type: Hyst; Additional info: Abd pain TECHNIQUE: Imaging protocol: Computed tomography of the abdomen and pelvis without contrast. Radiation optimization: All CT scans at this facility use at least one of these dose optimization techniques: automated exposure control; mA and/or kV adjustment per patient size (includes targeted exams where dose is matched to clinical indication); or iterative reconstruction. COMPARISON: CT Abdomen/Pelvis Renal [id number] 10/27/2018 8:06 PM RADIATION DOSE METRICS: Total DLP (mGy-cm): 1938.2 FINDINGS: Mediastinal space: A small hiatal hernia is present. Liver: Unremarkable.No mass. Gallbladder and bile ducts: Normal. No calcified stones. No ductal dilation. Pancreas: Normal. No ductal dilation. Spleen: Normal. No splenomegaly. Adrenals: Normal. No mass. Kidneys and ureters: There is punctate nephrolithiasis. No hydronephrosis or obstructing calculi. Stomach and bowel: Moderate diverticulosis is present in the distal colon. There is no evidence of colitis/diverticulitis. Appendix: A normal appendix is identified. Intraperitoneal space: Unremarkable. No free air. No significant fluid collection. Vasculature: Unremarkable.No abdominal aortic aneurysm. Lymph nodes: Unremarkable.No enlarged lymph nodes. Bladder: Unremarkable as visualized. Reproductive: There has been a hysterectomy. Bones/joints: Unremarkable. No acute fracture. Soft tissues: There is mild subcutaneous edema in the upper abdominal wall that may be due to a contusion, cellulitis or subcutaneous injections. No subcutaneous abscess. No ventral hernia is identified. Postoperative changes of probable ventral hernia repair are noted. CT/CT abdomen pelvis wo con [id number] IMPRESSION: 1. There is mild subcutaneous edema in the upper abdominal wall that may be due to a contusion, cellulitis or subcutaneous injections. 2. Otherwise no acute abnormality. No bowel thickening or inflammatory changes. There is incidental nonobstructive nephrolithiasis. Radiation Dose CTDIVOL = (mGy): DLP = 1938.2 (mGy-cm)
--- NOTE | 2020-03-18 19:49 | W.ED.ABDPA2 ---
HPI - Abdominal Pain General: Chief Complaint: Abdominal Pain Stated Complaint: upper abd pain Time Seen by Provider: 03/18/20 19:38 Source: patient Mode of arrival: ambulatory Limitations: no limitations History of Present Illness: HPI narrative: 49-year-old female states she been having epigastric along with left upper quadrant abdominal pain over the last week. States he got much worse today and rates it a 9 out of 10. She had some nausea denies vomiting or fever. She denies any worsening or improving factors. MD elicited complaint: abdominal pain Pertinent past history: none Onset (ago): day(s) Pain Consistency: constant Location: LUQ Severity: moderate Quality: stabbing Radiation: none Exacerbating factors: nothing Relieving factors: nothing Associated Symptoms: Denies chills, dysuria and fever(s) Review of Systems Const: Denies: fever(s), chills, body aches or change in appetite Eyes: Denies: blurry vision or eye discomfort ENMT: Denies: throat pain or dental pain Card: Denies: chest pain Resp: Denies: dyspnea GI: Reports: abdominal pain : Denies: dysuria Musc: Denies: neck pain or back pain Skin/Breast: Denies: rash Neuro: Denies: headache(s) Psych: Denies: depression Farhan/Lymph: Denies: easy bruising All/Imm: Denies: urticaria PFSH ED PFSH: Medical History Chronic back pain Diabetes Encounter for long-term use of opiate analgesic HTN (hypertension) with goal to be determined Urolithiasis Family History Other Cancer Diabetes Stroke Social History Smoking and tobacco status: never smoked Second hand smoke exposure: No Alcohol intake: never Adopted: No Caregiver/support person: No Lives independently: No Household members: spouse Marital status: Current occupational status: disabled History of recent travel: No Physical Exam Const: COMMON NORMALS: no acute distress, patient oriented x3 and healthy appearing HENMT: COMMON NORMALS: normocephalic and atraumatic HEAD & SCALP: normocephalic and atraumatic Eye: COMMON NORMALS: Equal, round and reactive pupils present and EOMs intact bilaterally PUPIL: Yes Equal, round and reactive pupils present Neck/C-Spine: COMMON NORMALS: full ROM and supple Chest: COMMONS NORMALS: normal inspection of the chest and normal palpation of entire chest wall Resp: COMMON NORMALS: normal respiratory effort, No retractions, No use of accessory muscles and clear to auscultation bilaterally AUSCULTATION: clear to auscultation bilaterally Cardio: COMMON NORMALS: regular rate, regular rhythm and No murmurs present (Cardio) RATE: regular rate RHYTHM: regular rhythm GI: COMMON NORMALS: Normal to inspection, nondistended, normoactive bowel sounds present, Soft to palpation and no masses PALPATION: Yes Soft to palpation and Yes Tenderness to palpation present (GI) Details: LUQ Extremity: COMMON NORMALS: normal to inspection and full ROM Neuro: COMMON NORMALS: patient oriented x3, moves all extremities and no focal motor deficits Psych: COMMON NORMALS: mental status grossly normal, Normal thought process present and cooperative THOUGHT PROCESS: Normal thought process present Skin: COMMON NORMALS: no rashes or lesions noted and no wounds GENERAL SKIN EXAM: no rashes or lesions noted Course Vital Signs: Vital signs: Vital Signs Temperature 97.8 F 03/18/20 18:15 Pulse Rate 82 03/18/20 19:47 Respiratory Rate 20 H 03/18/20 19:47 Blood Pressure 149/101 03/18/20 19:47 Pulse Oximetry 98 03/18/20 19:47 MDM - Abdominal Pain MDM Narrative: Medical decision making narrative: Fatou presents with abdominal pain that is improved. CT scan here shows either contusion or cellulitis at the area. Will start her on antibiotics to cover for possible cellulitis. No other acute findings. Patient is stable for discharge and is to return if worsening. Lab Data: Labs: Lab Results 03/18/20 03/18/20 03/18/20 Range/Units 08:30 18:40 18:40 WBC 9.4 (4.0-10.0) 10^3/ uL RBC 5.17 (4.1-5.3) 10^6/u L Hgb 13.7 (11.5-15.3) g/dL Hct 43.4 (37.0-47.0) % MCV 83.9 (81-99) fL MCH 26.5 L (28.0-34.0) pg MCHC 31.6 (30.0-36.0) g/dL RDW 13.2 (12.1-15.1) % Plt Count 302 (130-400) 10^3/c mm MPV 11.4 H (7.4-10.4) fL Neut % (Auto) 62.3 % Lymph % (Auto) 30.2 % [place] % (Auto) 5.4 % Eos % (Auto) 1.6 % Baso % (Auto) 0.3 % Neut # (Auto) 5.84 (1.8-7.7) 10^3/u L Lymph # (Auto) 2.8 (0.8-4.8) 10^3/u L [place] # (Auto) 0.5 (0.2-0.9) 10^3/u L Eos # (Auto) 0.2 (0.0-0.8) 10^3/u L Baso # (Auto) 0.0 (0.0-0.1) 10^3/u L Nucleated RBC % (a uto) 0 % Nucleated RBCs # 0.0 /100WBC Sodium 133 L (136-145) mmol/L Potassium 4.0 (3.5-5.1) mmol/L Chloride 99 (98-107) mmol/L Carbon Dioxide 25 (22-29) mmol/L Anion Gap 13.0 (5-19) BUN 13 (6-20) mg/dL Creatinine 0.6 (0.5-0.9) mg/dL GFR Calculation 106.3 (90-130) mL/min Glucose 403 H (65-115) mg/dL Calculated Osmolal ity 289 (285-295) mOsm/k g Calcium 10.0 (8.5-10.5) mg/dL Total Bilirubin 0.7 (0.15-1.2) mg/dL AST 16 (0-32) U/L ALT 19 (0-33) U/L Alkaline Phosphata se 109 H (35-105) IU/L Total Protein 7.0 (6.6-8.7) g/dL Albumin 4.3 (3.5-5.2) g/dL Globulin 2.7 (1.3-4.6) g/dL Lipase 174 H (13-60) U/L HCG, Qual (Negative) Urine Color Yellow (Yellow) Urine Appearance Clear (CLEAR) Urine pH 6 (5-7) Ur Specific Gravit y 1.020 (1.005-1.030) Urine Protein Neg (Negative) Urine Glucose (UA) 4+ H (Normal) Urine Ketones Negative (Negative) Urine Blood Neg (Negative) Urine Nitrate Negative (Negative) Urine Bilirubin Neg (NEGATIVE) Urine Urobilinogen Norm (Negative) mg/dL Ur Leukocyte Raquel ase Negative (Negative) 03/18/20 Range/Units 18:40 WBC (4.0-10.0) 10^3/ uL RBC (4.1-5.3) 10^6/u L Hgb (11.5-15.3) g/dL Hct (37.0-47.0) % MCV (81-99) fL MCH (28.0-34.0) pg MCHC (30.0-36.0) g/dL RDW (12.1-15.1) % Plt Count (130-400) 10^3/c mm MPV (7.4-10.4) fL Neut % (Auto) % Lymph % (Auto) % [place] % (Auto) % Eos % (Auto) % Baso % (Auto) % Neut # (Auto) (1.8-7.7) 10^3/u L Lymph # (Auto) (0.8-4.8) 10^3/u L [place] # (Auto) (0.2-0.9) 10^3/u L Eos # (Auto) (0.0-0.8) 10^3/u L Baso # (Auto) (0.0-0.1) 10^3/u L Nucleated RBC % (a uto) % Nucleated RBCs # /100WBC Sodium (136-145) mmol/L Potassium (3.5-5.1) mmol/L Chloride (98-107) mmol/L Carbon Dioxide (22-29) mmol/L Anion Gap (5-19) BUN (6-20) mg/dL Creatinine (0.5-0.9) mg/dL GFR Calculation (90-130) mL/min Glucose (65-115) mg/dL Calculated Osmolal ity (285-295) mOsm/k g Calcium (8.5-10.5) mg/dL Total Bilirubin (0.15-1.2) mg/dL AST (0-32) U/L ALT (0-33) U/L Alkaline Phosphata se (35-105) IU/L Total Protein (6.6-8.7) g/dL Albumin (3.5-5.2) g/dL Globulin (1.3-4.6) g/dL Lipase (13-60) U/L HCG, Qual Negative (Negative) Urine Color (Yellow) Urine Appearance (CLEAR) Urine pH (5-7) Ur Specific Gravit y (1.005-1.030) Urine Protein (Negative) Urine Glucose (UA) (Normal) Urine Ketones (Negative) Urine Blood (Negative) Urine Nitrate (Negative) Urine Bilirubin (NEGATIVE) Urine Urobilinogen (Negative) mg/dL Ur Leukocyte Raquel ase (Negative) Imaging Data ^: CT Abd/Pel: Radiologist's impression: [place] [address] CT Scan Report Signed Patient: Fatou Khanna Unit #: [id number] : 1970 Age/Sex: 49 / F ADM Date: 03/18/20 Loc: ER Room/Bed: Attending Dr: Ordering Provider/Ordering MD: Carmenza Blevins MD Date of Service: 03/18/20 Procedure(s): CT abdomen pelvis wo con [id number] Accession Number(s): [id number] Report Number: [id number] PROCEDURE INFORMATION: Exam: CT Abdomen And Pelvis Without Contrast Exam date and time: 03/18/2020 7:52 PM Age: 49 years old Clinical indication: Abdominal pain; Localized; Left upper quadrant (luq); Prior surgery; Surgery type: Hyst; Additional info: Abd pain TECHNIQUE: Imaging protocol: Computed tomography of the abdomen and pelvis without contrast. Radiation optimization: All CT scans at this facility use at least one of these dose optimization techniques: automated exposure control; mA and/or kV adjustment per patient size (includes targeted exams where dose is matched to clinical indication); or iterative reconstruction. COMPARISON: CT Abdomen/Pelvis Renal [id number] 10/27/2018 8:06 PM RADIATION DOSE METRICS: Total DLP (mGy-cm): 1938.2 FINDINGS: Mediastinal space: A small hiatal hernia is present. Liver: Unremarkable.No mass. Gallbladder and bile ducts: Normal. No calcified stones. No ductal dilation. Pancreas: Normal. No ductal dilation. Spleen: Normal. No splenomegaly. Adrenals: Normal. No mass. Kidneys and ureters: There is punctate nephrolithiasis. No hydronephrosis or obstructing calculi. Stomach and bowel: Moderate diverticulosis is present in the distal colon. There is no evidence of colitis/diverticulitis. Appendix: A normal appendix is identified. Intraperitoneal space: Unremarkable. No free air. No significant fluid collection. Vasculature: Unremarkable.No abdominal aortic aneurysm. Lymph nodes: Unremarkable.No enlarged lymph nodes. Bladder: Unremarkable as visualized. Reproductive: There has been a hysterectomy. Bones/joints: Unremarkable. No acute fracture. Soft tissues: There is mild subcutaneous edema in the upper abdominal wall that may be due to a contusion, cellulitis or subcutaneous injections. No subcutaneous abscess. No ventral hernia is identified. Postoperative changes of probable ventral hernia repair are noted. CT/CT abdomen pelvis wo con [id number] IMPRESSION: 1. There is mild subcutaneous edema in the upper abdominal wall that may be due to a contusion, cellulitis or subcutaneous injections. 2. Otherwise no acute abnormality. No bowel thickening or inflammatory changes. There is incidental nonobstructive nephrolithiasis. Discharge Plan Discharge Patient Disposition: Home Clinical Impression: Abdominal pain Qualifiers: Abdominal location: left upper quadrant Qualified Code(s): R10.12 - Left upper quadrant pain Condition: Stable Prescriptions: New Keflex 500 mg capsule 500 mg PO Q6H 7 Days Qty: 28 RF: 0 No Action clopidogrel [Plavix] 75 mg tablet 75 mg PO DAILY RF: 0 pravastatin 40 mg tablet 40 mg PO DAILY RF: 0 Levemir FlexTouch U-100 Insuln 100 unit/mL (3 mL) insulin pen 46 unit SUBCUT .AT BEDTIME RF: 0 Victoza 3-Olman 0.6 mg/0.1 mL (18 mg/3 mL) pen injector See Rx Instructions SUBCUT DAILY RF: 0 aspirin [Adult Aspirin Regimen] 81 mg tablet,delayed release (DR/EC) 81 mg PO DAILY RF: 0 metformin 500 mg tablet 500 mg PO BID RF: 0 hydrocodone-acetaminophen 10-325 mg tablet 1 tab PO TID PRN (Reason: pain) 30 Days Qty: 90 RF: 0 metoprolol tartrate 25 mg tablet 12.5 mg PO DAILY Qty: 45 RF: 3 Euthyrox 75 mcg tablet 75 mcg PO DAILY RF: 0 Discharge Orders: Discharge Order (Routine); Ordered 03/18/20 Ordered By: Carmenza Blevins Discharge Diet: Advance as tolerated Discharge Activity: Resume usual activity Patient Instructions: Abdominal Pain (ED) Coding Level of Care Code ED Slitter Processed Film for Deong Fwd Exam Comprehensive
[2020-03-18 19:53] LABS: Add Urine Microscopic? NO
[2020-03-18 20:08] LABS: Bilirubin Urine Neg (NEGATIVE); Blood Urine Neg (Negative); Glucose Urine UA 4+ (Normal); Ketones Urine Negative (Negative); Leukocyte Esterase Urine Negative (Negative); Nitrate Urine Negative (Negative); Protein Urine Neg (Negative); Urine Appearance Clear (CLEAR); Urine Color Yellow (Yellow); Urobilinogen Urine Norm (Negative); pH Urine 6 (5-7)
[2020-03-18] MEDS: ondansetron 2 mg/ML SDV 2 mL 4 MG IVP (20:56)
[2020-03-18] MEDS: cefTRIAXone 1,000 MG in sodium chloride 0.9% (plus) 50 ML 100 MG IV (20:56)
[2020-03-18] MEDS: morphine 4 mg/mL SDV 1 mL IVP ×2 (20:56)
[2020-03-18 21:05] VITALS: BP 140/92; PULSE 86; RESP 14; O2SAT 97
[2020-03-18] MEDS: fluconazole 100 mg Tablet 150 MG PO (21:19)
== END 2020-03-18 21:33 | disposition home or self-care (01) ==
PROVIDERS: Physician Assistant; Emergency Provider Emergency Medicine
DX: R10.12 Left upper quadrant pain (principal); Z79.02 Long term (current) use of antithrombotics/antiplatelets; Z79.82 Long term (current) use of aspirin; Z79.4 Long term (current) use of insulin; E11.9 Type 2 diabetes mellitus without complications; I10 Essential (primary) hypertension
CPT/HCPCS: 12345; 36415; 74176; 80053; 81003; 83690; 84703; 85025; 96365; 96375; 96376; 99283; J0696; J2270; J2405

== ENCOUNTER 2020-03-20 07:00 | Emergency (ER) | payer OTHER, MEDICARE, SELFPAY ==
[2020-01-11 11:16] VITALS: BP 150/85; BMI 53.7
[2020-03-20 07:10] VITALS: BMI 54.9
--- NOTE | 2020-03-20 07:10 | XR_ITS ---
WS: [id number] Portable AP upright chest, 03/20/2020 Clinical Data: abd pain Comparison: Portable chest, 08/29/2019. Findings: No nodules, masses or effusions are seen. The heart is normal. The pulmonary vascularity is not increased. No pneumonia or pneumothorax is seen. XR/XR chest 1V portable [id number] Impression: Negative chest.
[2020-03-20 07:13] VITALS: BP 143/101; PULSE 91; RESP 18; TEMP 36.7; O2SAT 98
--- NOTE | 2020-03-20 07:23 | CT_ITS ---
WS: [id number] CT ABDOMEN PELVIS TECHNIQUE: Contrast-enhanced CT of the abdomen and pelvis with coronal and sagittal reformatted image s. CLINICAL INFORMATION: abd pain COMPARISON: CTA May 28, 2020 DLP: 1945.[address] scans at [facility] use at least one of these dose optimization techniques: automat ed exposure control; mA and/or kV adjustment per patient size (includes targeted exams where dose is matched to clinical indication); or iterative reconstruction. FINDINGS: Normal liver. Normal gallbladder. Normal portal vein and splenic vein. Normal spleen. Fatty atrophy o f the pancreas. No evidence of pancreatitis. Adrenal glands are normal. No hydronephrosis. Normal ana al cortical atrophy. Small left renal cyst. Normal caliber abdominal aorta. No abdominal lymphadenopa thy. Lung bases are well aerated. Normal appendix. Evidence of prior ventral abdominal wall hernia repair. Surgical clips in the pelvis. Normal sigmoid colon. Normal lumbar spine. Induration in the subcutane ous fat left abdominal wall likely due to prior injections or contusion. This is unchanged from previ ous. No drainable abscess or fluid collection. Notified Freddy Phan DO at 03/20/2020 8:[address]/CT abdomen pelvis w con* [id number] IMPRESSION: 1. Normal pancreas. No evidence of pancreatitis. 2. Normal caliber abdominal aorta. 3. No hydronephrosis in either kidney. 4. No abdominal or pelvic lymphadenopathy. 5. No free Fluid in the pelvis. 6. Normal appendix in the right lower quadrant. 7. Prior ventral abdominal wall hernia repair. Surgical clips in the pelvis. 8. Subcutaneous edema in the left ventral abdominal wall is unchanged since 2019 likely due to injections or contusion.
--- NOTE | 2020-03-20 07:23 | ED_ITS ---
HPI - Abdominal Pain General: Chief Complaint: Abdominal Pain Stated Complaint: abd pain Time Seen by Provider: 03/20/20 07:01 History of Present Illness: HPI narrative: 49-year-old female who was seen 2 days ago with abdominal pain found to have pancreatitis and discharged home with some oral antibiotics she states her pain is worsening since then she vomited once this morning did not have any bright red blood. She had no bowel movement since then she has had very poor p.o. intake since she received a 810. She denies any dysuria urgency or frequency she is not had any chest pain she denies any respiratory symptoms. MD elicited complaint: abdominal pain Pertinent past history: other (Pancreatitis) Onset (ago): day(s) Pain Consistency: constant Location: LUQ Severity: severe Quality: cramping and stabbing Radiation: back Migration to: no migration Exacerbating factors: eating Relieving factors: other (Not eating) Associated Symptoms: Reports bloating, constipation, GI cramping and poor appetite; Denies anorexia, coffee ground emesis, diarrhea, dyspepsia, dysuria, fever(s), heartburn, hematochezia, hematuria, hematemesis, fecal incontinence, loose stools, melena and vomiting Treatments prior to arrival: other Review of Systems Const: Denies: fever(s) ENMT: Denies: throat pain, ear or mastoid pain, nasal discharge or nasal congestion Card: Denies: chest pain, edema, dyspnea on exertion or orthopnea Resp: Denies: dyspnea, productive cough or non-productive cough GI: Reports: constipation, bloating and GI cramping; Denies: vomiting, hematemesis, coffee ground emesis, heartburn, diarrhea, fecal incontinence, hematochezia or melena : Denies: dysuria or hematuria Skin/Breast: Denies: rash or pruritus PFSH ED PFSH: Medical History Chronic back pain Diabetes Encounter for long-term use of opiate analgesic HTN (hypertension) with goal to be determined Urolithiasis Family History Other Cancer Diabetes Stroke Social History Smoking and tobacco status: never smoked Second hand smoke exposure: No Alcohol intake: never Adopted: No Caregiver/support person: No Lives independently: No Household members: spouse Marital status: Current occupational status: disabled History of recent travel: No Physical Exam Const: COMMON NORMALS: no acute distress GENERAL APPEARANCE: cooperative and comfortable ORIENTATION/CONSCIOUSNESS: Yes awake, Yes oriented to person, Yes oriented to place and Yes oriented to time HENMT: COMMON NORMALS: normocephalic, atraumatic and hearing grossly normal bilaterally HEAD & SCALP: normocephalic and atraumatic Eye: COMMON NORMALS: Equal, round and reactive pupils present, EOMs intact bilaterally, conjunctivae normal and no scleral icterus CONJUNCTIVA: Yes conjunctivae normal PUPIL: Yes Equal, round and reactive pupils present Neck/C-Spine: COMMON NORMALS: full ROM, no lymphadenopathy, supple and no JVD Lymph: LYMPHATIC: no lymphadenopathy noted and no lymphedema noted Resp: COMMON NORMALS: normal respiratory effort, No retractions, No use of accessory muscles and clear to auscultation bilaterally AUSCULTATION: clear to auscultation bilaterally Cardio: COMMON NORMALS: no JVD, regular rate, regular rhythm and No murmurs present (Cardio) RATE: regular rate RHYTHM: regular rhythm GI: COMMON NORMALS: No hepatosplenomegaly present AUSCULTATION: Yes normoactive bowel sounds PALPATION: Yes Tenderness to palpation present (GI) Details: LUQ, No Guarding due to palpation present (GI) and Yes No hepatosplenomegaly present Extremity: COMMON NORMALS: normal to inspection, capillary refill normal, no clubbing, cyanosis or edema, no calf tenderness and no pedal edema Neuro: SENSORIUM/ORIENTATION: Yes oriented to person, Yes oriented to place and Yes oriented to time Skin: COMMON NORMALS: no rashes or lesions noted NARRATIVE SKIN EXAM: No rash or sign of varicella on the skin in the left upper quadrant area where the pain is located GENERAL SKIN EXAM: no rashes or lesions noted LESIONS: no lesions Course Vital Signs: Vital signs: Vital Signs Temperature 98.1 F 03/20/20 07:13 Pulse Rate 73 03/20/20 10:09 Respiratory Rate 18 03/20/20 10:09 Blood Pressure 144/96 03/20/20 10:09 Pulse Oximetry 96 03/20/20 10:09 MDM - Abdominal Pain MDM Narrative: Medical decision making narrative: Reviewed findings with the patient her lipase has significantly decreased to normal range she does have a bladder infection at this time we will start her on Keflex have her follow-up with culture when available continue clear liquid diet for the next 24 to 48 hours then advance as tolerated if has worsening symptoms recheck follow-up with primary care doctor for follow-up on urine culture results Lab Data: Attestation: I reviewed the patient's lab results. Labs: Lab Results 03/20/20 03/20/20 03/20/20 Range/Units 08:07 08:07 08:45 WBC 10.0 (4.0-10.0) 10^3/ uL RBC 4.78 (4.1-5.3) 10^6/u L Hgb 12.9 (11.5-15.3) g/dL Hct 40.1 (37.0-47.0) % MCV 83.9 (81-99) fL MCH 27.0 L (28.0-34.0) pg MCHC 32.2 (30.0-36.0) g/dL RDW 13.2 (12.1-15.1) % Plt Count 232 (130-400) 10^3/c mm MPV 11.6 H (7.4-10.4) fL Neut % (Auto) 64.8 % Lymph % (Auto) 26.5 % [place] % (Auto) 6.5 % Eos % (Auto) 1.5 % Baso % (Auto) 0.4 % Neut # (Auto) 6.51 (1.8-7.7) 10^3/u L Lymph # (Auto) 2.7 (0.8-4.8) 10^3/u L [place] # (Auto) 0.7 (0.2-0.9) 10^3/u L Eos # (Auto) 0.2 (0.0-0.8) 10^3/u L Baso # (Auto) 0.0 (0.0-0.1) 10^3/u L Nucleated RBC % (a uto) 0 % Nucleated RBCs # 0.0 /100WBC Sodium 133 L (136-145) mmol/L Potassium 3.7 (3.5-5.1) mmol/L Chloride 99 (98-107) mmol/L Carbon Dioxide 24 (22-29) mmol/L Anion Gap 13.7 (5-19) BUN 14 (6-20) mg/dL Creatinine 0.6 (0.5-0.9) mg/dL GFR Calculation 106.3 (90-130) mL/min Glucose 288 H (65-115) mg/dL Calculated Osmolal ity 283 L (285-295) mOsm/k g Calcium 9.1 (8.5-10.5) mg/dL Total Bilirubin 0.9 (0.15-1.2) mg/dL AST 19 (0-32) U/L ALT 20 (0-33) U/L Alkaline Phosphata se 102 (35-105) IU/L Total Protein 6.7 (6.6-8.7) g/dL Albumin 4.1 (3.5-5.2) g/dL Globulin 2.6 (1.3-4.6) g/dL Lipase 44 (13-60) U/L Urine Color Yellow (Yellow) Urine Appearance Clear (CLEAR) Urine pH 6.0 (5-7) Ur Specific Gravit y 1.010 (1.005-1.030) Urine Protein Neg (Negative) Urine Glucose (UA) 2+ (Normal) Urine Ketones 1+ H (Negative) Urine Blood Neg (Negative) Urine Nitrate Negative (Negative) Urine Bilirubin Neg (NEGATIVE) Urine Urobilinogen Norm (Negative) mg/dL Ur Leukocyte Raquel ase 2+ H (Negative) Urine RBC 10-15 H (0-2) /hpf Urine WBC 25-40 H (0-5) /hpf Ur Squamous Epith Cells 0-4 H (0-5) Amorphous Sediment Not Reportable Urine Bacteria Trace (NONE) Discharge Plan Discharge Patient Disposition: Home Clinical Impression: Cystitis Condition: Stable Prescriptions: Discontinued cephalexin [Keflex] 500 mg capsule 500 mg PO Q6H 7 Days Qty: 28 RF: 0 No Action clopidogrel [Plavix] 75 mg tablet 75 mg PO DAILY RF: 0 pravastatin 40 mg tablet 40 mg PO BEDTIME RF: 0 Levemir FlexTouch U-100 Insuln 100 unit/mL (3 mL) insulin pen 34 unit SUBCUT QPM RF: 0 Victoza 3-Olman 0.6 mg/0.1 mL (18 mg/3 mL) pen injector See Rx Instructions SUBCUT DAILY RF: 0 aspirin [Adult Aspirin Regimen] 81 mg tablet,delayed release (DR/EC) 81 mg PO DAILY RF: 0 metformin 500 mg tablet 500 mg PO BID RF: 0 hydrocodone-acetaminophen 10-325 mg tablet 1 tab PO TID PRN (Reason: pain) 30 Days Qty: 90 RF: 0 metoprolol tartrate 25 mg tablet 12.5 mg PO DAILY Qty: 45 RF: 3 levothyroxine [Euthyrox] 75 mcg tablet 75 mcg PO DAILY RF: 0 Discharge Orders: Discharge Order (Routine); Ordered 03/20/20 Ordered By: Freddy Phan Discharge Diet: Usual diet Discharge Activity: Resume usual activity Activity Restrictions/Additional Instructions: Follow-up with your primary care doctor in 3 to 5 days if not improving Discharge Date/Time: 03/20/20 10:06 Coding Level of Care Code ED Runstitching Machine Operator for Glenn Fwfahad Exam Comprehensive
[2020-03-20 08:16] VITALS: RESP 18
[2020-03-20] MEDS: ondansetron 2 mg/ML SDV 2 mL 4 MG IVP (08:16)
[2020-03-20] MEDS: morphine 4 mg/mL SDV 1 mL IVP (08:16)
[2020-03-20] MEDS: diphenhydrAMINE 50 mg/mL SDV 1mL IVP (08:17)
[2020-03-20] MEDS: hydrocortisone 100 mg/2 mL SDV IVP (08:17)
[2020-03-20] MEDS: sodium chloride 0.9% 1,000 ML 999 ML IV (08:17)
[2020-03-20 08:24] LABS: Basophils % 0.4 %; Eosinophils # 0.2 10^3/uL (0.0-0.8); Eosinophils % 1.5 %; Hematocrit 40.1 % (37.0-47.0); Hemoglobin 12.9 g/dL (11.5-15.3); Lymphocytes # 2.7 10^3/uL (0.8-4.8); Lymphocytes % 26.5 %; Mean Corpuscular HGB Conc 32.2 g/dL (30.0-36.0); Mean Corpuscular Volume 83.9 fL (81-99); Mean Platelet Volume 11.6 fL (7.4-10.4); Monocytes # 0.7 10^3/uL (0.2-0.9); Monocytes % 6.5 %; Neutrophils # 6.51 10^3/uL (1.8-7.7); Neutrophils % 64.8 %; Nucleated Red Blood Cells % 0 %; Platelet Count 232 10^3/cmm (130-400); Red Blood Count 4.78 10^6/uL (4.1-5.3); Red Cell Distribution Width 13.2 % (12.1-15.1)
[2020-03-20] MEDS: iodixanol 320 mg/mL 100mL Btl IV (08:34)
[2020-03-20 08:50] LABS: Alanine Aminotransferase 20 U/L (0-33); Albumin Level 4.1 g/dL (3.5-5.2); Alkaline Phosphatase 102 IU/L (35-105); Anion Gap 13.7 (5-19); Aspartate Amino Transferase 19 U/L (0-32); Blood Urea Nitrogen 14 mg/dL (6-20); Calcium 9.1 mg/dL (8.5-10.5); Carbon Dioxide 24 mmol/L (22-29); Chloride 99 mmol/L (98-107); Globulin 2.6 g/dL (1.3-4.6); Glomerular Filtration Rate 106.3 mL/min (90-130); Glucose 288 mg/dL (65-115); Lipase 44 U/L (13-60); Osmolality Calculated 283 mOsm/kg (285-295); Potassium 3.7 mmol/L (3.5-5.1); Sodium 133 mmol/L (136-145); Total Bilirubin 0.9 mg/dL (0.15-1.2); Total Protein 6.7 g/dL (6.6-8.7)
[2020-03-20 09:12] LABS: Add Urine Microscopic? YES; Bilirubin Urine Neg (NEGATIVE); Blood Urine Neg (Negative); Glucose Urine UA 2+ (Normal); Ketones Urine 1+ (Negative); Leukocyte Esterase Urine 2+ (Negative); Nitrate Urine Negative (Negative); Protein Urine Neg (Negative); Urine Appearance Clear (CLEAR); Urine Color Yellow (Yellow); Urobilinogen Urine Norm (Negative)
[2020-03-20 09:24] LABS: Add Urine Culture? Yes; Bacteria Urine TRACE; Squamous Epithelial Cell Urine 0-4 (0-5); WBC Urine 25-40 /hpf (0-5)
[2020-03-20 10:09] VITALS: BP 144/96; PULSE 73; RESP 18; O2SAT 96
== END 2020-03-20 10:06 | disposition home or self-care (01) ==
PROVIDERS: Emergency Provider Family Medicine
DX: N30.90 Cystitis, unspecified without hematuria (principal); Z79.02 Long term (current) use of antithrombotics/antiplatelets; Z79.82 Long term (current) use of aspirin; Z79.4 Long term (current) use of insulin; E11.9 Type 2 diabetes mellitus without complications; I10 Essential (primary) hypertension
CPT/HCPCS: 12345; 36415; 71045; 74177; 80053; 81001; 83690; 85025; 87086; 96361; 96374; 96375; 99282; 99283; J1200; J1720; J2270; J2405; J7030; Q9967

== ENCOUNTER → 2020-03-26 07:44 | Outpatient (BNVA) | payer MEDICARE, SELFPAY ==
[2020-01-11 11:16] VITALS: BP 150/85; BMI 53.7
== END ==
PROVIDERS: Visit Provider Anesthesiology
DX: G89.29 Other chronic pain (principal); M54.42 Lumbago with sciatica, left side; M54.9 Dorsalgia, unspecified; Z79.891 Long term (current) use of opiate analgesic
CPT/HCPCS: 99213; 99214

== ENCOUNTER 2020-04-07 18:49 | Emergency (ER) | payer MEDICARE, SELFPAY ==
[2020-01-11 11:16] VITALS: BP 150/85; BMI 53.7
[2020-04-07 19:07] VITALS: BP 183/101; PULSE 82; RESP 16; TEMP 36.7; O2SAT 98; BMI 54.9
[2020-04-07 19:52] VITALS: BP 150/101; PULSE 77; RESP 16; O2SAT 97
[2020-04-07 19:54] LABS: Basophils % 0.3 %; Eosinophils # 0.1 10^3/uL (0.0-0.8); Eosinophils % 1.6 %; Hematocrit 43.5 % (37.0-47.0); Hemoglobin 13.8 g/dL (11.5-15.3); Lymphocytes # 2.5 10^3/uL (0.8-4.8); Lymphocytes % 28.3 %; Mean Corpuscular HGB Conc 31.7 g/dL (30.0-36.0); Mean Corpuscular Hemoglobin 26.5 pg (28.0-34.0); Mean Corpuscular Volume 83.7 fL (81-99); Mean Platelet Volume 11.6 fL (7.4-10.4); Monocytes # 0.5 10^3/uL (0.2-0.9); Neutrophils # 5.69 10^3/uL (1.8-7.7); Neutrophils % 63.7 %; Nucleated Red Blood Cells % 0 %; Platelet Count 267 10^3/cmm (130-400); Red Cell Distribution Width 13.3 % (12.1-15.1); White Blood Count 8.9 10^3/uL (4.0-10.0)
[2020-04-07 20:06] LABS: HCG, Serum Qual Negative (Negative)
[2020-04-07 20:13] LABS: Alanine Aminotransferase 17 U/L (0-33); Albumin Level 4.3 g/dL (3.5-5.2); Alkaline Phosphatase 91 IU/L (35-105); Aspartate Amino Transferase 13 U/L (0-32); Blood Urea Nitrogen 10 mg/dL (6-20); Carbon Dioxide 30 mmol/L (22-29); Chloride 102 mmol/L (98-107); Globulin 3.1 g/dL (1.3-4.6); Glomerular Filtration Rate 131.1 mL/min (90-130); Glucose 275 mg/dL (65-115); H. Pylori IgG Antibody Positive (Negative); Lipase 46 U/L (13-60); Osmolality Calculated 292 mOsm/kg (285-295); Sodium 138 mmol/L (136-145); Total Bilirubin 0.8 mg/dL (0.15-1.2); Total Protein 7.4 g/dL (6.6-8.7)
--- NOTE | 2020-04-07 20:23 | CTR_ITS ---
PROCEDURE INFORMATION: Exam: CT Abdomen And Pelvis Without Contrast Exam date and time: 04/07/2020 8:30 PM Age: 49 years old Clinical indication: Abdominal pain; Localized; Left upper quadrant (luq); Prior surgery; Surgery date: 6+ months; Surgery type: Heat, hyst; Patient HX: C/O luq abd pain w nausea; Additional info: Luq pian TECHNIQUE: Imaging protocol: Computed tomography of the abdomen and pelvis without contrast. Radiation optimization: All CT scans at this facility use at least one of these dose optimization techniques: automated exposure control; mA and/or kV adjustment per patient size (includes targeted exams where dose is matched to clinical indication); or iterative reconstruction. COMPARISON: CT abdomen pelvis w con* [id number] 03/20/2020 8:27 AM RADIATION DOSE METRICS: Total DLP (mGy-cm): 1839.08 FINDINGS: Liver: Normal. No mass. Gallbladder and bile ducts: Normal. No calcified stones. No ductal dilation. Pancreas: Normal. No ductal dilation. Spleen: Normal. No splenomegaly. Adrenals: Normal. No mass. Kidneys and ureters: A tiny renal stone is present in the left kidney. No ureteral stone or hydronephrosis. Mild bilateral perinephric stranding is again seen which is due to chronic changes. Stomach and bowel: Diverticulosis coli is seen, without evidence of diverticulitis. No intestinal obstruction. Appendix: The appendix is normal. Intraperitoneal space: Unremarkable. No free air. No significant fluid collection. Vasculature: Unremarkable. No abdominal aortic aneurysm. Lymph nodes: Unremarkable. No enlarged lymph nodes. Bladder: Unremarkable as visualized. Reproductive: The uterus has been resected. Bones/joints: Unremarkable. No acute fracture. Soft tissues: Small focus of superficial subcutaneous fat stranding is again seen in the anterior abdominal wall in the left supraumbilical region, which is nonspecific and may be an area of scarring. No abscess is seen. CT/CT abdomen pelvis wo con [id number] IMPRESSION: 1. No acute abnormality is seen in the abdomen or pelvis. 2. Nonobstructing left kidney renal stone. No ureteral stone or hydronephrosis. 3. Diverticulosis coli is noted. The Radiation Dose CTDIVOL = (mGy): DLP = 1839.08 (mGy-cm)
--- NOTE | 2020-04-07 20:38 | ED_ITS ---
HPI - Abdominal Pain General: Chief Complaint: Abdominal Pain Stated Complaint: upper abd pain/ [place] Time Seen by Provider: 04/07/20 19:55 History of Present Illness: HPI narrative: 49-year-old female presenting with left upper quadrant pain. This is her third visit to the ER for the same complaint. She states is been going on about a month. She says that her skin is even somewhat tender. Sometimes closer to it. She has not noticed a rash. She is not vomited more than a couple of times. She has had no fever, no diarrhea. No dark stool. She has been treated for pancreatitis versus cystitis in the past. MD elicited complaint: abdominal pain Pain Consistency: constant Location: LUQ Severity: moderate Quality: stabbing and sharp Radiation: L flank and back Migration to: no migration Exacerbating factors: movement Relieving factors: nothing Associated Symptoms: Reports nausea and vomiting; Denies diarrhea, dysuria, fever(s), hematochezia, hematuria, hematemesis and fecal incontinence Review of Systems Const: Denies: fever(s) Eyes: Denies: change in vision or blurry vision ENMT: Denies: swelling of lips/tongue, dental pain, change in hearing or sinus pain Card: Denies: chest pain, palpitations or irregular heart rhythm Resp: Denies: dyspnea, productive cough, non-productive cough or wheezing GI: Reports: nausea and vomiting; Denies: hematemesis, diarrhea, fecal incontinence or hematochezia : Denies: dysuria, urinary frequency or hematuria Musc: Reports: back pain; Denies: neck pain Skin/Breast: Denies: rash, pruritus or erythema Neuro: Denies: headache(s), dizziness, vertigo or confusion Psych: Denies: anxiety PFSH ED PFSH: Medical History (Updated 04/07/20 @ 21:29 by Bereket Chapman DO) Chronic back pain Diabetes Encounter for long-term use of opiate analgesic HTN (hypertension) with goal to be determined Urolithiasis Family History Other Cancer Diabetes Stroke Social History Smoking and tobacco status: never smoked Second hand smoke exposure: No Alcohol intake: never Adopted: No Caregiver/support person: No Lives independently: No Household members: spouse Marital status: Current occupational status: disabled History of recent travel: No Physical Exam Const: GENERAL APPEARANCE: well developed ORIENTATION/CONSCIOUSNESS: Yes oriented to person, Yes oriented to place and Yes oriented to time HENMT: COMMON NORMALS: normocephalic, external ears normal and Normal external nose present HEAD & SCALP: normocephalic FACE & SINUS: normal facial exam NOSE: Normal external nose present and No nasal discharge present EXTERNAL EAR: Yes external ears normal Eye: COMMON NORMALS: Equal, round and reactive pupils present, EOMs intact bilaterally and conjunctivae normal EYELID: eyelids normal CONJUNCTIVA: Yes conjunctivae normal PUPIL: Yes Equal, round and reactive pupils present Neck/C-Spine: GENERAL: No tracheal deviation Chest: COMMONS NORMALS: normal inspection of the chest CHEST: No tenderness Resp: COMMON NORMALS: clear to auscultation bilaterally EFFORT & INSPECTION: No tachypneic, No respiratory distress, No retractions, No uses accessory muscles and No tracheal deviation AUSCULTATION: clear to auscultation bilaterally, no rhonchi, no wheezes and lung sounds not diminished Cardio: COMMON NORMALS: regular rate and regular rhythm RATE: regular rate RHYTHM: regular rhythm HEART SOUNDS: no murmurs PERIPHERAL PULSES: radial pulses present GI: INSPECTION: No abdominal distension AUSCULTATION: No Hyperactive bowel sounds present and No Hypoactive bowel sounds present PALPATION: Yes Tenderness to palpation present (GI) Details: LUQ, Yes Guarding due to palpation present (GI) and No Rigid due to palpation PERCUSSION: no dullness to percussion and no tympanic to percussion Neuro: SENSORIUM/ORIENTATION: Yes oriented to person, Yes oriented to place an d Yes oriented to time Psych: COMMON NORMALS: mental status grossly normal Skin: COMMON NORMALS: no rashes or lesions noted GENERAL SKIN EXAM: no rashes or lesions noted Course Vital Signs: Vital signs: Vital Signs Temperature 98.0 F 04/07/20 19:07 Pulse Rate 74 04/07/20 21:20 Respiratory Rate 16 04/07/20 21:20 Blood Pressure 132/89 04/07/20 21:20 Pulse Oximetry 96 04/07/20 21:20 MDM - Abdominal Pain MDM Narrative: Medical decision making narrative: This patient has had 3 visits for the same complaint. She holds her left upper quadrant. Her white count is 9. Hemoglobin 13.8. Her lipase is 46. Liver enzymes are normal. Other labs are benign, save a positive IgG antibody for H. pylori. To be treated for gastric ulcer. Lab Data: Attestation: I reviewed the patient's lab results. Labs: Lab Results 04/07/20 04/07/20 04/07/20 Range/Units 19:44 19:44 19:44 WBC 8.9 (4.0-10.0) 10^3/ uL RBC 5.20 (4.1-5.3) 10^6/u L Hgb 13.8 (11.5-15.3) g/dL Hct 43.5 (37.0-47.0) % MCV 83.7 (81-99) fL MCH 26.5 L (28.0-34.0) pg MCHC 31.7 (30.0-36.0) g/dL RDW 13.3 (12.1-15.1) % Plt Count 267 (130-400) 10^3/c mm MPV 11.6 H (7.4-10.4) fL Neut % (Auto) 63.7 % Lymph % (Auto) 28.3 % [place] % (Auto) 6.0 % Eos % (Auto) 1.6 % Baso % (Auto) 0.3 % Neut # (Auto) 5.69 (1.8-7.7) 10^3/u L Lymph # (Auto) 2.5 (0.8-4.8) 10^3/u L [place] # (Auto) 0.5 (0.2-0.9) 10^3/u L Eos # (Auto) 0.1 (0.0-0.8) 10^3/u L Baso # (Auto) 0.0 (0.0-0.1) 10^3/u L Nucleated RBC % (a uto) 0 % Nucleated RBCs # 0.0 /100WBC Sodium 138 (136-145) mmol/L Potassium 4.0 (3.5-5.1) mmol/L Chloride 102 (98-107) mmol/L Carbon Dioxide 30 H (22-29) mmol/L Anion Gap 10.0 (5-19) BUN 10 (6-20) mg/dL Creatinine 0.5 (0.5-0.9) mg/dL GFR Calculation 131.1 H (90-130) mL/min Glucose 275 H (65-115) mg/dL Calculated Osmolal ity 292 (285-295) mOsm/k g Calcium 9.0 (8.5-10.5) mg/dL Total Bilirubin 0.8 (0.15-1.2) mg/dL AST 13 (0-32) U/L ALT 17 (0-33) U/L Alkaline Phosphata se 91 (35-105) IU/L Total Protein 7.4 (6.6-8.7) g/dL Albumin 4.3 (3.5-5.2) g/dL Globulin 3.1 (1.3-4.6) g/dL Lipase 46 (13-60) U/L HCG, Qual (Negative) Urine Color (Yellow) Urine Appearance (CLEAR) Urine pH (5-7) Ur Specific Gravit y (1.005-1.030) Urine Protein (Negative) Urine Glucose (UA) (Normal) Urine Ketones (Negative) Urine Blood (Negative) Urine Nitrate (Negative) Urine Bilirubin (NEGATIVE) Urine Urobilinogen (Negative) mg/dL Ur Leukocyte Raquel ase (Negative) Urine RBC (0-2) /hpf Urine WBC (0-5) /hpf Ur Squamous Epith Cells (0-5) Amorphous Sediment Urine Bacteria (NONE) Urine Mucus H. pylori IgG Anti body Positive H (Negative) 04/07/20 04/07/20 Range/Units 19:44 20:05 WBC (4.0-10.0) 10^3/ uL RBC (4.1-5.3) 10^6/u L Hgb (11.5-15.3) g/dL Hct (37.0-47.0) % MCV (81-99) fL MCH (28.0-34.0) pg MCHC (30.0-36.0) g/dL RDW (12.1-15.1) % Plt Count (130-400) 10^3/c mm MPV (7.4-10.4) fL Neut % (Auto) % Lymph % (Auto) % [place] % (Auto) % Eos % (Auto) % Baso % (Auto) % Neut # (Auto) (1.8-7.7) 10^3/u L Lymph # (Auto) (0.8-4.8) 10^3/u L [place] # (Auto) (0.2-0.9) 10^3/u L Eos # (Auto) (0.0-0.8) 10^3/u L Baso # (Auto) (0.0-0.1) 10^3/u L Nucleated RBC % (a uto) % Nucleated RBCs # /100WBC Sodium (136-145) mmol/L Potassium (3.5-5.1) mmol/L Chloride (98-107) mmol/L Carbon Dioxide (22-29) mmol/L Anion Gap (5-19) BUN (6-20) mg/dL Creatinine (0.5-0.9) mg/dL GFR Calculation (90-130) mL/min Glucose (65-115) mg/dL Calculated Osmolal ity (285-295) mOsm/k g Calcium (8.5-10.5) mg/dL Total Bilirubin (0.15-1.2) mg/dL AST (0-32) U/L ALT (0-33) U/L Alkaline Phosphata se (35-105) IU/L Total Protein (6.6-8.7) g/dL Albumin (3.5-5.2) g/dL Globulin (1.3-4.6) g/dL Lipase (13-60) U/L HCG, Qual Negative (Negative) Urine Color Yellow (Yellow) Urine Appearance Sl hazy (CLEAR) Urine pH 7 (5-7) Ur Specific Gravit y 1.005 (1.005-1.030) Urine Protein Neg (Negative) Urine Glucose (UA) 2+ (Normal) Urine Ketones Negative (Negative) Urine Blood Neg (Negative) Urine Nitrate Negative (Negative) Urine Bilirubin Neg (NEGATIVE) Urine Urobilinogen Norm (Negative) mg/dL Ur Leukocyte Raquel ase 2+ H (Negative) Urine RBC 0-4 H (0-2) /hpf Urine WBC 25-40 H (0-5) /hpf Ur Squamous Epith Cells 40-55 H (0-5) Amorphous Sediment Not Reportable Urine Bacteria Trace (NONE) Urine Mucus Trace H. pylori IgG Anti body (Negative) Discharge Plan Discharge Patient Disposition: Home Clinical Impression: Gastric ulcer Qualifiers: Gastric ulcer chronicity: acute Gastric ulcer complication status: without hemorrhage or perforation Qualified Code(s): K25.3 - Acute gastric ulcer without hemorrhage or perforation Condition: Stable Prescriptions: New Prevacid 30 mg capsule,delayed release(DR/EC) 30 mg PO BID Qty: 60 RF: 0 Carafate 1 gram tablet 1 gm PO Q6H 28 Days Qty: 112 RF: 0 clarithromycin 500 mg tablet 500 mg PO Q12H Qty: 60 RF: 0 amoxicillin 875 mg tablet 875 mg PO BID Qty: 60 RF: 0 No Action clopidogrel [Plavix] 75 mg tablet 75 mg PO DAILY RF: 0 pravastatin 40 mg tablet 40 mg PO BEDTIME RF: 0 Levemir FlexTouch U-100 Insuln 100 unit/mL (3 mL) insulin pen 34 unit SUBCUT QPM RF: 0 Victoza 3-Olman 0.6 mg/0.1 mL (18 mg/3 mL) pen injector See Rx Instructions SUBCUT DAILY RF: 0 aspirin [Adult Aspirin Regimen] 81 mg tablet,delayed release (DR/EC) 81 mg PO DAILY RF: 0 metformin 500 mg tablet 500 mg PO BID RF: 0 hydrocodone-acetaminophen 10-325 mg tablet 1 tab PO TID PRN (Reason: pain) 30 Days Qty: 90 RF: 0 hydrocodone-acetaminophen 10-325 mg tablet 1 tab PO TID PRN (Reason: pain) 30 Days Qty: 90 RF: 0 metoprolol tartrate 25 mg tablet 12.5 mg PO DAILY Qty: 45 RF: 3 levothyroxine [Euthyrox] 75 mcg tablet 75 mcg PO DAILY RF: 0 Discharge Orders: Discharge Order (Routine); Ordered 04/07/20 Ordered By: Bereket Chapman Discharge Diet: Advance as tolerated Discharge Activity: Increase activity as tolerated Patient Instructions: Peptic Ulcer (ED) Activity Restrictions/Additional Instructions: Return for worsening pain despite treatment, vomiting liquids or medications, passage of blood or large amounts of black tarry stool, fever greater than 100, other concerning symptoms. Coding Level of Care Code ED Assisted Living Manager for Glenn Fwd Exam Comprehensive
[2020-04-07] MEDS: lidocaine 2% viscous 15 ML, aluminum-mag hydrox-simethicon 30 ML, sucralfate oral liq 1 GM PO (20:42)
[2020-04-07] MEDS: ondansetron 2 mg/ML SDV 2 mL 4 MG IVP (20:43)
[2020-04-07 20:44] VITALS: RESP 17
[2020-04-07] MEDS: fentaNYL 50 mcg/mL INJ 2mL 100 MCG IVP (20:44)
[2020-04-07 20:46] LABS: Urine Appearance SL Hazy (CLEAR); Urine Color Yellow (Yellow)
[2020-04-07 20:47] LABS: Add Urine Microscopic? YES; Bilirubin Urine Neg (NEGATIVE); Blood Urine Neg (Negative); Glucose Urine UA 2+ (Normal); Ketones Urine Negative (Negative); Leukocyte Esterase Urine 2+ (Negative); Nitrate Urine Negative (Negative); Protein Urine Neg (Negative); Specific Gravity, Urine 1.005 (1.005-1.030); Urobilinogen Urine Norm (Negative); pH Urine 7 (5-7)
[2020-04-07 20:49] LABS: RBC Urine 0-4 /hpf (0-2); Squamous Epithelial Cell Urine 40-55 (0-5); WBC Urine 25-40 /hpf (0-5)
[2020-04-07 20:50] LABS: Add Urine Culture? No; Bacteria Urine TRACE; Mucus Urine TRACE
[2020-04-07 21:20] VITALS: BP 132/89; PULSE 74; RESP 16; O2SAT 96
== END 2020-04-07 21:39 | disposition home or self-care (01) ==
PROVIDERS: Emergency Medicine; Emergency Provider Emergency Medicine
DX: K25.3 Acute gastric ulcer without hemorrhage or perforation (principal); Z79.02 Long term (current) use of antithrombotics/antiplatelets; Z79.82 Long term (current) use of aspirin; Z79.4 Long term (current) use of insulin; E11.9 Type 2 diabetes mellitus without complications; I10 Essential (primary) hypertension
CPT/HCPCS: 12345; 74176; 80053; 81001; 83690; 84703; 85025; 86677; 96374; 96375; 99283; J2405; J3010

== ENCOUNTER → 2020-06-05 12:45 | Outpatient (BNVA) | payer MEDICARE, SELFPAY ==
[2020-01-11 11:16] VITALS: BP 150/85; BMI 53.7
== END ==
PROVIDERS: Visit Provider Anesthesiology
DX: G89.29 Other chronic pain (principal); M54.42 Lumbago with sciatica, left side; M54.9 Dorsalgia, unspecified; R10.12 Left upper quadrant pain; Z79.891 Long term (current) use of opiate analgesic
CPT/HCPCS: 99214

== ENCOUNTER → 2020-07-24 14:18 | Outpatient (BNVA) | payer MEDICARE, SELFPAY ==
[2020-01-11 11:16] VITALS: BP 150/85; BMI 53.7
== END ==
PROVIDERS: Visit Provider Nurse Practitioner
DX: G89.29 Other chronic pain (principal); M54.9 Dorsalgia, unspecified; G62.9 Polyneuropathy, unspecified; E66.01 Morbid (severe) obesity due to excess calories; M62.830 Muscle spasm of back; Z79.891 Long term (current) use of opiate analgesic
CPT/HCPCS: 99214

== ENCOUNTER → 2020-07-25 08:33 | Outpatient (BNVA) | payer MEDICARE, SELFPAY ==
[2020-01-11 11:16] VITALS: BP 150/85; BMI 53.7
== END ==
PROVIDERS: Visit Provider Psychiatry & Neurology Psychiatry
DX: F33.2 Major depressive disorder, recurrent severe without psychotic features (principal); F43.12 Post-traumatic stress disorder, chronic
CPT/HCPCS: 99214

== ENCOUNTER 2020-08-07 14:24 | Outpatient (RCR) | payer MEDICARE, SELFPAY ==
[2020-01-11 11:16] VITALS: BP 150/85; BMI 53.7
== END 2020-08-08 23:59 | disposition home or self-care (01) ==
LOC: SPT 14:24
PROVIDERS: PCP Internal Medicine; Referring Provider Nurse Practitioner; Visit Provider Nurse Practitioner
DX: M54.9 Dorsalgia, unspecified (principal); G89.29 Other chronic pain; E66.01 Morbid (severe) obesity due to excess calories
CPT/HCPCS: 97161

== ENCOUNTER → 2020-08-21 13:28 | Outpatient (BNVA) | payer MEDICARE, SELFPAY ==
[2020-01-11 11:16] VITALS: BP 150/85; BMI 53.7
== END ==
PROVIDERS: PCP Internal Medicine; Visit Provider Nurse Practitioner
DX: G89.29 Other chronic pain (principal); M54.41 Lumbago with sciatica, right side; M54.42 Lumbago with sciatica, left side; M54.9 Dorsalgia, unspecified; E66.01 Morbid (severe) obesity due to excess calories; Z79.891 Long term (current) use of opiate analgesic
CPT/HCPCS: 99213

== ENCOUNTER → 2020-10-25 10:00 | Outpatient (BNVA) | payer MEDICARE, SELFPAY ==
[2020-01-11 11:16] VITALS: BP 150/85; BMI 53.7
== END ==
PROVIDERS: PCP Internal Medicine; Visit Provider Anesthesiology
DX: G89.29 Other chronic pain (principal); M54.9 Dorsalgia, unspecified; M62.830 Muscle spasm of back; Z79.891 Long term (current) use of opiate analgesic
CPT/HCPCS: 99213

== ENCOUNTER → 2020-12-19 08:38 | Outpatient (BNVA) | payer MEDICARE, SELFPAY ==
[2020-01-11 11:16] VITALS: BP 150/85; BMI 53.7
== END ==
PROVIDERS: PCP Internal Medicine; Visit Provider Psychiatry & Neurology Psychiatry
DX: F33.2 Major depressive disorder, recurrent severe without psychotic features (principal); F43.12 Post-traumatic stress disorder, chronic
CPT/HCPCS: 99214

== ENCOUNTER → 2020-12-24 12:48 | Outpatient (BNVA) | payer OTHER, SELFPAY ==
[2020-01-11 11:16] VITALS: BP 150/85; BMI 53.7
== END ==
PROVIDERS: PCP Family Medicine; Visit Provider Nurse Practitioner
DX: G89.29 Other chronic pain (principal); M54.9 Dorsalgia, unspecified; M25.561 Pain in right knee; M25.562 Pain in left knee; M54.2 Cervicalgia; R10.9 Unspecified abdominal pain; M62.830 Muscle spasm of back; Z79.891 Long term (current) use of opiate analgesic
CPT/HCPCS: 99214

== ENCOUNTER → 2021-03-11 13:15 | Outpatient (BNVA) | payer MEDICARE, SELFPAY ==
[2020-01-11 11:16] VITALS: BP 150/85; BMI 53.7
== END ==
PROVIDERS: Visit Provider Nurse Practitioner
DX: G89.29 Other chronic pain (principal); M54.9 Dorsalgia, unspecified; M25.561 Pain in right knee; M25.562 Pain in left knee; M54.2 Cervicalgia; E13.9 Other specified diabetes mellitus without complications; M62.830 Muscle spasm of back; Z79.891 Long term (current) use of opiate analgesic
CPT/HCPCS: 99213

== ENCOUNTER → 2021-05-15 12:47 | Outpatient (BNVA) | payer MEDICARE, SELFPAY ==
[2020-01-11 11:16] VITALS: BP 150/85; BMI 53.7
== END ==
PROVIDERS: PCP Nurse Practitioner Family; Visit Provider Anesthesiology
DX: G89.29 Other chronic pain (principal); M54.2 Cervicalgia; M54.50 Low back pain, unspecified; Z79.891 Long term (current) use of opiate analgesic
CPT/HCPCS: 99214

== ENCOUNTER 2021-07-24 19:30 | Emergency (ER) | payer MEDICARE, SELFPAY ==
[2020-01-11 11:16] VITALS: BP 150/85; BMI 53.7
[2021-07-24 19:52] VITALS: BP 136/92; PULSE 72; RESP 16; TEMP 36.8; O2SAT 100
[2021-07-24 21:13] LABS: Add Urine Culture? No; Add Urine Microscopic? YES; Bacteria Urine TRACE /hpf; Bilirubin Urine Neg (Negative); Blood Urine 2+ (Negative); Glucose Urine UA Norm (Normal); Ketones Urine Negative (Negative); Leukocyte Esterase Urine Negative (Negative); Nitrate Urine Negative (Negative); Protein Urine Neg (Negative); RBC Urine 0-4 /hpf (0-2); Specific Gravity, Urine 1.025 (1.005-1.030); Squamous Epithelial Cell Urine 0-4 /hpf (0-5); Urine Appearance Clear (CLEAR); Urine Color Yellow (Yellow); Urobilinogen Urine Norm (Negative); WBC Urine 0-4 /hpf (0-5); pH Urine 7 (5-7)
--- NOTE | 2021-07-24 21:18 | CTR_ITS ---
PROCEDURE INFORMATION: Exam: CT Abdomen And Pelvis Without Contrast Exam date and time: 07/24/2021 9:18 PM Age: 50 years old Clinical indication: Abdominal pain; Flank; Other: Bilateral; Prior surgery; Surgery type: Hyst; Additional info: Kidney pain TECHNIQUE: Imaging protocol: Computed tomography of the abdomen and pelvis without contrast. Radiation optimization: All CT scans at this facility use at least one of these dose optimization techniques: automated exposure control; mA and/or kV adjustment per patient size (includes targeted exams where dose is matched to clinical indication); or iterative reconstruction. COMPARISON: CT abdomen pelvis wo con [id number] 04/07/2020 8:28 PM RADIATION DOSE METRICS: Total DLP (mGy-cm): 1953.24 FINDINGS: Liver: Normal. No mass. Gallbladder and bile ducts: Normal. No calcified stones. No ductal dilation. Pancreas: Normal. No ductal dilation. Spleen: Normal. No splenomegaly. Adrenal glands: Normal. No mass. Kidneys and ureters: Mild chronic perinephric stranding. The kidneys are otherwise normal. No calculus or hydronephrosis. Stomach and bowel: Mild diverticulosis of the colon. No diverticulitis. Submucosal fatty deposition in the proximal colon. The stomach and small bowel are unremarkable. No obstruction. Appendix: The appendix is visualized and is normal. Intraperitoneal space: Surgical clips in the lower abdomen and pelvis. Vasculature: Unremarkable. No abdominal aortic aneurysm. Lymph nodes: Unremarkable. No enlarged lymph nodes. Urinary bladder: Unremarkable as visualized. Reproductive: The uterus and ovaries are absent. Bones/joints: Unremarkable. No acute fracture. Soft tissues: Subcutaneous fat stranding and skin thickening in the anterior left abdominal wall could represent medication injection sites or a small region of cellulitis. Mild subcutaneous edema in the flank and lumbar regions. CT/CT kidney stone [id number] IMPRESSION: 1. No acute abnormality identified in the abdomen or pelvis. 2. Mild diverticulosis of the colon. 3. Medication injection sites versus focal cellulitis in the anterior left abdominal wall.
[2021-07-24 22:07] VITALS: BP 108/92; PULSE 71; RESP 18; O2SAT 99
[2021-07-24] MEDS: sodium chloride 0.9% 1,000 ML 999 ML IV (22:20)
[2021-07-24 22:31] LABS: Basophils % 0.3 %; Eosinophils # 0.2 10^3/uL (0.0-0.8); Eosinophils % 1.8 %; Hematocrit 39.1 % (37.0-47.0); Hemoglobin 12.6 g/dL (11.5-15.3); Lymphocytes # 2.7 10^3/uL (0.8-4.8); Lymphocytes % 29.7 %; Mean Corpuscular HGB Conc 32.2 g/dL (30.0-36.0); Mean Corpuscular Hemoglobin 27.9 pg (28.0-34.0); Mean Corpuscular Volume 86.7 fl (81-99); Monocytes # 0.6 10^3/uL (0.2-0.9); Monocytes % 6.7 %; Neutrophils # 5.55 10^3/uL (1.8-7.7); Neutrophils % 61.2 %; Nucleated Red Blood Cells % 0 %; Platelet Count 270 10^3/cmm (130-400); Red Blood Count 4.51 10^6/uL (4.1-5.3); Red Cell Distribution Width 13.3 % (12.1-15.1); White Blood Count 9.1 10^3/uL (4.0-10.0)
--- NOTE | 2021-07-24 22:53 | W.ED.GENADLT ---
HPI - General Adult General: Chief complaint: Abdominal Pain Stated complaint: Lower back Pain Poss Kidney Stones Time Seen by Provider: 07/24/21 21:49 History of Present Illness: HPI narrative: Patient complained about back pain. Patient complains about the back pain after doing some heavy lifting after recently moving a lot of stuff. Patient states pain radiates down left side and into her groin on that side and hurts with that range of motion. Denies fever. Onset (ago): hour(s) Location: back Radiation: abdomen Severity: mild Severity scale (1-10): 3 Quality: aching Pain Consistency: constant Relieving factors: immobilization Exacerbating factors: movement Associated symptoms: Reports no associated symptoms; Deny chest pain, headache(s), rash or vomiting Review of Systems Const: Denies: fever(s), chills or body aches Eyes: Denies: eye discharge ENMT: Denies: throat pain, oral sores or nasal congestion Card: Denies: chest pain or dyspnea on exertion Resp: Reports: non-productive cough; Denies: wheezing or stridor GI: Denies: vomiting or diarrhea Musc: Reports: back pain and muscle cramps; Denies: extremity pain Skin/Breast: Denies: rash Neuro: Denies: headache(s) Psych: Denies: anxiety or depression Farhan/Lymph: Denies: easy bruising PFSH ED PFSH: Medical History (Updated 07/24/21 @ 23:16 by MICKEY Gagnon) Chronic back pain Diabetes Encounter for long-term use of opiate analgesic HTN (hypertension) with goal to be determined Muscle spasm of back Opioid contract exists Status post extracorporeal shock wave therapy Urolithiasis Surgical History Hx of heart artery stent Hx of hysterectomy S/P skin cancer resection Nose Family History Other Cancer Diabetes Stroke Social History (Updated 05/15/21 @ 13:12 by Antonette Frost LPN) Second hand smoke exposure: No Alcohol intake: never Adopted: No Caregiver/support person: No Lives independently: No Household members: spouse Marital status: Current occupational status: disabled History of recent travel: No Physical Exam Const: COMMON NORMALS: no acute distress, average body habitus and patient oriented x3 HENMT: COMMON NORMALS: normocephalic HEAD & SCALP: normal to inspection and normocephalic FACE & SINUS: normal facial exam Eye: COMMON NORMALS: conjunctivae normal GENERAL EYE: appearance normal, both eyes and all related structures CONJUNCTIVA: Yes conjunctivae normal Neck/C-Spine: COMMON NORMALS: no JVD Chest: COMMONS NORMALS: normal inspection of the chest Resp: COMMON NORMALS: normal respiratory effort and clear to auscultation bilaterally AUSCULTATION: clear to auscultation bilaterally Cardio: COMMON NORMALS: no JVD, regular rate and regular rhythm RATE: regular rate RHYTHM: regular rhythm GI: COMMON NORMALS: Normal to inspection, nondistended, normoactive bowel sounds present Neuro: COMMON NORMALS: patient oriented x3 Course Vital Signs: Vital signs: Vital Signs Temperature 98.2 F 07/24/21 19:52 Pulse Rate 89 07/24/21 23:11 Respiratory Rate 18 07/24/21 23:29 Blood Pressure 144/64 07/24/21 23:29 Pulse Oximetry 98 07/24/21 23:11 MDM - General Adult MDM Narrative: Medical decision making narrative: Patient presents with low back pain she said radiating to her front. Patient has a history of kidney stones. Work-up was negative for kidney stone. Then patient relates that she has been moving some furniture and boxes and she has chronic back pain is feels that she irritated her back and says the hydrocodone is not covering her low back pain. Patient denies any other problems. Lab Data: Labs: Lab Results 07/24/21 07/24/21 07/24/21 20:43 22:23 22:23 WBC 9.1 10^3/uL 10^3/ uL (4.0-10.0) RBC 4.51 10^6/uL 10^6 /uL (4.1-5.3) Hgb 12.6 g/dL g/dL (11.5-15.3) Hct 39.1 % % (37.0-47.0) MCV 86.7 fl fl (81-99) MCH 27.9 pg L pg (28.0-34.0) MCHC 32.2 g/dL g/dL (30.0-36.0) RDW 13.3 % % (12.1-15.1) Plt Count 270 10^3/cmm 10^3 /cmm (130-400) MPV 11.0 fL H fL (7.4-10.4) Neut % (Auto) 61.2 % % Lymph % (Auto) 29.7 % % Love % (Auto) 6.7 % % Eos % (Auto) 1.8 % % Baso % (Auto) 0.3 % % Neut # (Auto) 5.55 10^3/uL 10^3 /uL (1.8-7.7) Lymph # (Auto) 2.7 10^3/uL 10^3/ uL (0.8-4.8) Love # (Auto) 0.6 10^3/uL 10^3/ uL (0.2-0.9) Eos # (Auto) 0.2 10^3/uL 10^3/ uL (0.0-0.8) Baso # (Auto) 0.0 10^3/uL 10^3/ uL (0.0-0.1) Nucleated RBC % (a uto) 0 % % Nucleated RBCs # 0.0 /100WBC /100W BC Sodium 141 mmol/L mmol/L (136-145) Potassium 3.9 mmol/L mmol/L (3.5-5.1) Chloride 106 mmol/L mmol/L (98-107) Carbon Dioxide 22 mmol/L mmol/L (22-29) Anion Gap 16.9 (5-19) BUN 11 mg/dL mg/dL (6-20) Creatinine 0.5 mg/dL mg/dL (0.5-0.9) GFR Calculation 130.6 mL/min H mL /min (90-130) Glucose 117 mg/dL H mg/dL (65-115) Calculated Osmolal ity 292 mOsm/kg mOsm/ kg (285-295) Calcium 8.8 mg/dL mg/dL (8.5-10.5) Total Bilirubin 0.6 mg/dL mg/dL (0.15-1.2) AST 13 U/L U/L (0-32) ALT 14 U/L U/L (0-33) Alkaline Phosphata se 83 IU/L IU/L (35-105) Total Protein 6.8 g/dL g/dL (6.6-8.7) Albumin 4.2 g/dL g/dL (3.5-5.2) Globulin 2.6 g/dL g/dL (1.3-4.6) Lipase 34 U/L U/L (13-60) Urine Color Yellow (Yellow) Urine Appearance Clear (CLEAR) Urine pH 7 (5-7) Ur Specific Gravit y 1.025 (1.005-1.030) Urine Protein Neg (Negative) Urine Glucose (UA) Norm (Normal) Urine Ketones Negative (Negative) Urine Blood 2+ H (Negative) Urine Nitrate Negative (Negative) Urine Bilirubin Neg (Negative) Urine Urobilinogen Norm mg/dL mg/dL (Negative) Ur Leukocyte Raquel ase Negative (Negative) Urine RBC 0-4 /hpf H /hpf (0-2) Urine WBC 0-4 /hpf H /hpf (0-5) Ur Squamous Epith Cells 0-4 /hpf H /hpf (0-5) Amorphous Sediment Not Reportable Urine Bacteria Trace /hpf /hpf (NONE) Discharge Plan Discharge Patient Disposition: Home Clinical Impression: Chronic back pain Qualifiers: Back pain location: low back pain Back pain laterality: left Sciatica presence: with sciatica Sciatica laterality: sciatica of left side Qualified Code(s): M54.42 - Lumbago with sciatica, left side Condition: Stable Prescriptions: New Celebrex 100 mg capsule 200 mg PO BID Qty: 20 RF: 0 cyclobenzaprine 5 mg tablet 10 mg PO TID PRN (Reason: muscle spasm) Qty: 10 RF: 0 cephalexin 500 mg capsule 500 mg PO Q8H 3 Days Qty: 9 RF: 0 No Action Levemir FlexTouch U-100 Insuln 100 unit/mL (3 mL) insulin pen 34 unit SUBCUT QPM RF: 0 Victoza 3-Olman 0.6 mg/0.1 mL (18 mg/3 mL) pen injector See Rx Instructions SUBCUT DAILY RF: 0 aspirin [Adult Aspirin Regimen] 81 mg tablet,delayed release (DR/EC) 81 mg PO DAILY RF: 0 metformin 500 mg tablet 500 mg PO BID RF: 0 melatonin 10 mg tablet 10 mg PO BID RF: 0 hydrocodone-acetaminophen 10-325 mg tablet 1 tab PO QID PRN (Reason: pain) 30 Days Qty: 110 RF: 0 clopidogrel [Plavix] 75 mg tablet 75 mg PO DAILY Qty: 90 RF: 0 metoprolol tartrate 25 mg tablet 12.5 mg PO DAILY Qty: 45 RF: 0 pravastatin 40 mg tablet 40 mg PO BEDTIME Qty: 90 RF: 0 hydrocodone-acetaminophen 10-325 mg tablet 1 tab PO QID PRN (Reason: pain) 30 Days Qty: 110 RF: 0 levothyroxine [Euthyrox] 75 mcg tablet 75 mcg PO DAILY RF: 0 Discharge Orders: Discharge ED (Routine); Ordered 07/24/21 Ordered By: Cordell Villa Referrals: Emili Barrera APRN [Primary Care Provider] - Discharge Diet: Usual diet Discharge Activity: Increase activity as tolerated Patient Instructions: Back Pain (ED) Activity Restrictions/Additional Instructions: Follow-up with medical provider as directed. Take medications as prescribed. Return to the ER or your medical provider if condition worsens. Please read and understand discharge instructions. If any questions ask please. No lifting over 10 pounds for next 3 to 4 weeks. Coding Level of Care Code ED Chemical Unit Operator for Glenn Fwd Exam Comprehensive
[2021-07-24 23:02] LABS: Alanine Aminotransferase 14 U/L (0-33); Albumin Level 4.2 g/dL (3.5-5.2); Alkaline Phosphatase 83 IU/L (35-105); Anion Gap 16.9 (5-19); Aspartate Amino Transferase 13 U/L (0-32); Blood Urea Nitrogen 11 mg/dL (6-20); Calcium 8.8 mg/dL (8.5-10.5); Carbon Dioxide 22 mmol/L (22-29); Chloride 106 mmol/L (98-107); Globulin 2.6 g/dL (1.3-4.6); Glomerular Filtration Rate 130.6 mL/min (90-130); Glucose 117 mg/dL (65-115); Lipase 34 U/L (13-60); Osmolality Calculated 292 mOsm/kg (285-295); Potassium 3.9 mmol/L (3.5-5.1); Sodium 141 mmol/L (136-145); Total Bilirubin 0.6 mg/dL (0.15-1.2); Total Protein 6.8 g/dL (6.6-8.7)
[2021-07-24] MEDS: ketorolac 30 mg/mL INJ IVP (23:09)
[2021-07-24 23:11] VITALS: BP 144/64; PULSE 89; RESP 18; O2SAT 98
[2021-07-24] MEDS: cyclobenzaprine 10 mg Tablet PO (23:28)
[2021-07-24] MEDS: cephALEXin 500 mg Capsule PO (23:28)
[2021-07-24 23:29] VITALS: BP 144/64; RESP 18
== END 2021-07-24 23:30 | disposition home or self-care (01) ==
PROVIDERS: Emergency Provider Nurse Practitioner Family; PCP Nurse Practitioner Family
DX: G89.29 Other chronic pain (principal); M54.42 Lumbago with sciatica, left side; Z79.84 Long term (current) use of oral hypoglycemic drugs; Z79.02 Long term (current) use of antithrombotics/antiplatelets; Z79.82 Long term (current) use of aspirin; Z79.4 Long term (current) use of insulin; E11.9 Type 2 diabetes mellitus without complications; I10 Essential (primary) hypertension
CPT/HCPCS: 74176; 80053; 81001; 83690; 85025; 96361; 96374; 99284; J1885; J7030

== ENCOUNTER 2021-07-31 09:58 | Emergency (ER) | payer MEDICARE, SELFPAY ==
[2020-01-11 11:16] VITALS: BP 150/85; BMI 53.7
[2021-07-31 10:12] VITALS: PULSE 100; RESP 20; TEMP 37; O2SAT 96; BMI 50.5
--- NOTE | 2021-07-31 10:23 | XRR_ITS ---
PROCEDURE INFORMATION: Exam: XR Chest Exam date and time: 07/31/2021 10:23 AM Age: 51 years old Clinical indication: Cough and shortness of breath; Prior surgery; Surgery type: Stents; Patient HX: SOB, chest pain, cough x yesterday; Additional info: Chills TECHNIQUE: Imaging protocol: XR of the chest. Views: 1 view. COMPARISON: CR XR chest 1V portable [id number] 03/20/2020 7:37 AM FINDINGS: Lungs: Unremarkable. No consolidation. Pleural spaces: Unremarkable. No pleural effusion. No pneumothorax. Heart/Mediastinum: Unremarkable. No cardiomegaly. Bones/joints: Unremarkable. XR/XR chest 1V portable [id number] IMPRESSION: No acute findings.
--- NOTE | 2021-07-31 10:23 | W.ED.BACK ---
Documented by User: MICKEY Gagnon 07/31/21 14:44 HPI - Back Pain/Injury General: Chief Complaint: Back Pain/Injury Stated Complaint: SEVERE BACK PAIN, ACHING AND HURTING ALL OVER Time Seen by Provider: 07/31/21 10:13 History of Present Illness: HPI Narrative: Patient states she not felt well the last 3 days. Has been having an increase in her chronic back pain. She said she has had chills cough. Said she just had a Covid test done at her local walk-in clinic an hour ago and it was negative. Said she had increased urination kidney hurts left side. Denies any nausea or vomiting vaginal discharge shortness of breath. MD elicited complaint: other (Chills and muscle aches) Pertinent past history: prior back pain Onset (ago): day(s) Timing: constant and progressively worsening Severity: moderate Similar Symptoms Previously: Yes Quality: aching Associated symptoms: Reports chills, dysuria and urinary frequency; Deny abdominal pain, nausea or vomiting Review of Systems Const: Reports: chills Eyes: Denies: change in vision or blurry vision ENMT: Denies: throat pain or nasal congestion Card: Denies: chest pain or dyspnea on exertion Resp: Reports: non-productive cough; Denies: dyspnea or productive cough GI: Denies: abdominal pain, nausea or vomiting : Reports: dysuria Musc: Reports: back pain and other (Myalgias); Denies: extremity pain Skin/Breast: Denies: rash Neuro: Denies: headache(s) Psych: Denies: anxiety or depression Farhan/Lymph: Denies: easy bruising PFS ED PFSH: Medical History (Updated 07/31/21 @ 12:00 by MICKEY Gagnon) Chronic back pain Diabetes Encounter for long-term use of opiate analgesic HTN (hypertension) with goal to be determined Muscle spasm of back Opioid contract exists Status post extracorporeal shock wave therapy Urolithiasis Surgical History Hx of heart artery stent Hx of hysterectomy S/P skin cancer resection Nose Family History Other Cancer Diabetes Stroke Social History (Updated 05/15/21 @ 13:12 by Antonette Frost LPN) Second hand smoke exposure: No Alcohol intake: never Adopted: No Caregiver/support person: No Lives independently: No Household members: spouse Marital status: Current occupational status: disabled History of recent travel: No Physical Exam Const: COMMON NORMALS: no acute distress, average body habitus and patient oriented x3 HENMT: COMMON NORMALS: normocephalic HEAD & SCALP: normal to inspection and normocephalic FACE & SINUS: normal facial exam Eye: COMMON NORMALS: conjunctivae normal GENERAL EYE: appearance normal, both eyes and all related structures CONJUNCTIVA: Yes conjunctivae normal Neck/C-Spine: COMMON NORMALS: no JVD Chest: COMMONS NORMALS: normal inspection of the chest Resp: COMMON NORMALS: normal respiratory effort and clear to auscultation bilaterally AUSCULTATION: clear to auscultation bilaterally Cardio: COMMON NORMALS: no JVD, regular rate and regular rhythm RATE: regular rate RHYTHM: regular rhythm GI: COMMON NORMALS: Normal to inspection, nondistended, normoactive bowel sounds present Extremity: COMMON NORMALS: normal to inspection and full ROM Neuro: COMMON NORMALS: patient oriented x3 Course Vital Signs: Vital signs: Vital Signs Temperature 98.6 F 07/31/21 10:12 Pulse Rate 93 07/31/21 11:37 Respiratory Rate 23 H 07/31/21 11:37 Blood Pressure 171/70 07/31/21 11:37 Pulse Oximetry 96 07/31/21 11:37 MDM - Back Pain/Injury MDM Narrative: Medical decision making narrative: Patient complains about generalized body aches and back pain that is been inflamed and hurting worse than usual. Patient was tested for Covid this morning down to the walk-in clinic and was negative. Patient said she has had little upper respiratory drainage and urinary frequency denies any significant fever or chills. Laboratory studies were all negative. Patient responded well to pain medication was seen here at same time treated for upper respiratory infection and he had Covid test done this week which was negative also. Patient encouraged follow-up primary care provider. Lab Data: Labs: Lab Results 07/31/21 07/31/21 07/31/21 10:53 10:53 11:35 WBC 6.6 10^3/uL 10^3/ uL (4.0-10.0) RBC 4.71 10^6/uL 10^6 /uL (4.1-5.3) Hgb 13.4 g/dL g/dL (11.5-15.3) Hct 40.0 % % (37.0-47.0) MCV 84.9 fl fl (81-99) MCH 28.5 pg pg (28.0-34.0) MCHC 33.5 g/dL g/dL (30.0-36.0) RDW 13.3 % % (12.1-15.1) Plt Count 265 10^3/cmm 10^3 /cmm (130-400) MPV 11.4 fL H fL (7.4-10.4) Neut % (Auto) 71.6 % % Lymph % (Auto) 16.2 % % [place] % (Auto) 11.1 % % Eos % (Auto) 0.3 % % Baso % (Auto) 0.5 % % Neut # (Auto) 4.72 10^3/uL 10^3 /uL (1.8-7.7) Lymph # (Auto) 1.1 10^3/uL 10^3/ uL (0.8-4.8) [place] # (Auto) 0.7 10^3/uL 10^3/ uL (0.2-0.9) Eos # (Auto) 0.0 10^3/uL 10^3/ uL (0.0-0.8) Baso # (Auto) 0.0 10^3/uL 10^3/ uL (0.0-0.1) Nucleated RBC % (a uto) 0 % % Nucleated RBCs # 0.0 /100WBC /100W BC Sodium 139 mmol/L mmol/L (136-145) Potassium 3.5 mmol/L mmol/L (3.5-5.1) Chloride 104 mmol/L mmol/L (98-107) Carbon Dioxide 21 mmol/L L mmol/ L (22-29) Anion Gap 17.5 (5-19) BUN 8 mg/dL mg/dL (6-20) Creatinine 0.4 mg/dL L mg/dL (0.5-0.9) GFR Calculation 168.3 mL/min H mL /min (90-130) Glucose 140 mg/dL H mg/dL (65-115) Calculated Osmolal ity 289 mOsm/kg mOsm/ kg (285-295) Calcium 8.3 mg/dL L mg/dL (8.5-10.5) Urine Color Yellow (Yellow) Urine Appearance Clear (CLEAR) Urine pH 5 (5-7) Ur Specific Gravit y 1.015 (1.005-1.030) Urine Protein Neg (Negative) Urine Glucose (UA) Norm (Normal) Urine Ketones Negative (Negative) Urine Blood Neg (Negative) Urine Nitrate Negative (Negative) Urine Bilirubin Neg (Negative) Urine Urobilinogen Norm mg/dL mg/dL (Negative) Ur Leukocyte Raquel ase Negative (Negative) EKG Data^: EKG 1: EKG interpretation date: 07/31/21 EKG interpretation time: 10:23 Interpretation: Normal sinus rhythm. Septal SD probably old 40+ MS Q wave in V1 V2. Ventricular rate 90 bpm AL interval 122 ms QRS duration 1 1 ms QT is 361 ms Discharge Plan Discharge Patient Disposition: Home Clinical Impression: Viral syndrome Condition: Stable Prescriptions: No Action Levemir FlexTouch U-100 Insuln 100 unit/mL (3 mL) insulin pen 34 unit SUBCUT QPM RF: 0 Victoza 3-Olman 0.6 mg/0.1 mL (18 mg/3 mL) pen injector See Rx Instructions SUBCUT DAILY RF: 0 aspirin [Adult Aspirin Regimen] 81 mg tablet,delayed release (DR/EC) 81 mg PO DAILY RF: 0 metformin 500 mg tablet 500 mg PO BID RF: 0 melatonin 10 mg tablet 10 mg PO BID RF: 0 hydrocodone-acetaminophen 10-325 mg tablet 1 tab PO QID PRN (Reason: pain) 30 Days Qty: 110 RF: 0 clopidogrel [Plavix] 75 mg tablet 75 mg PO DAILY Qty: 90 RF: 0 metoprolol tartrate 25 mg tablet 12.5 mg PO DAILY Qty: 45 RF: 0 pravastatin 40 mg tablet 40 mg PO BEDTIME Qty: 90 RF: 0 hydrocodone-acetaminophen 10-325 mg tablet 1 tab PO QID PRN (Reason: pain) 30 Days Qty: 110 RF: 0 Celebrex 100 mg capsule 200 mg PO BID Qty: 20 RF: 0 cyclobenzaprine 5 mg tablet 10 mg PO TID PRN (Reason: muscle spasm) Qty: 10 RF: 0 levothyroxine [Euthyrox] 75 mcg tablet 75 mcg PO DAILY RF: 0 Discharge Orders: Discharge ED (Routine); Ordered 07/31/21 Ordered By: Cordell Villa Referrals: Emili Barrera APRN [Primary Care Provider] - Discharge Diet: Usual diet Discharge Activity: Increase activity as tolerated Patient Instructions: Viral Syndrome (ED) Activity Restrictions/Additional Instructions: Follow-up with medical provider as directed. Take medications as prescribed. Return to the ER or your medical provider if condition worsens. Please read and understand discharge instructions. If any questions ask please. Coding Level of Care Code ED Senior Information Security Consultant for Chg Fwd Exam Comprehensive Documented by User: Freddy Phan DO 08/01/21 16:13 HPI - Back Pain/Injury General: Chief Complaint: Back Pain/Injury Stated Complaint: SEVERE BACK PAIN, ACHING AND HURTING ALL OVER Time Seen by Provider: 07/31/21 10:13 PFSH ED PFSH: Medical History (Updated 07/31/21 @ 12:00 by MICKEY Gagnon) Chronic back pain Diabetes Encounter for long-term use of opiate analgesic HTN (hypertension) with goal to be determined Muscle spasm of back Opioid contract exists Status post extracorporeal shock wave therapy Urolithiasis Surgical History Hx of heart artery stent Hx of hysterectomy S/P skin cancer resection Nose Family History Other Cancer Diabetes Stroke Social History (Updated 05/15/21 @ 13:12 by Antonette Frost LPN) Second hand smoke exposure: No Alcohol intake: never Adopted: No Caregiver/support person: No Lives independently: No Household members: spouse Marital status: Current occupational status: disabled History of recent travel: No Course Vital Signs: Vital signs: Vital Signs Temperature 98.6 F 07/31/21 10:12 Pulse Rate 93 07/31/21 11:37 Respiratory Rate 23 H 07/31/21 11:37 Blood Pressure 171/70 07/31/21 11:37 Pulse Oximetry 96 07/31/21 11:37 MDM - Back Pain/Injury MDM Narrative: Medical decision making narrative: Chart reviewed and patient discussed with midlevel. Agree with assessment and plan. Lab Data: Labs: Lab Results 07/31/21 07/31/21 07/31/21 10:53 10:53 11:35 WBC 6.6 10^3/uL 10^3/ uL (4.0-10.0) RBC 4.71 10^6/uL 10^6 /uL (4.1-5.3) Hgb 13.4 g/dL g/dL (11.5-15.3) Hct 40.0 % % (37.0-47.0) MCV 84.9 fl fl (81-99) MCH 28.5 pg pg (28.0-34.0) MCHC 33.5 g/dL g/dL (30.0-36.0) RDW 13.3 % % (12.1-15.1) Plt Count 265 10^3/cmm 10^3 /cmm (130-400) MPV 11.4 fL H fL (7.4-10.4) Neut % (Auto) 71.6 % % Lymph % (Auto) 16.2 % % [place] % (Auto) 11.1 % % Eos % (Auto) 0.3 % % Baso % (Auto) 0.5 % % Neut # (Auto) 4.72 10^3/uL 10^3 /uL (1.8-7.7) Lymph # (Auto) 1.1 10^3/uL 10^3/ uL (0.8-4.8) [place] # (Auto) 0.7 10^3/uL 10^3/ uL (0.2-0.9) Eos # (Auto) 0.0 10^3/uL 10^3/ uL (0.0-0.8) Baso # (Auto) 0.0 10^3/uL 10^3/ uL (0.0-0.1) Nucleated RBC % (a uto) 0 % % Nucleated RBCs # 0.0 /100WBC /100W BC Sodium 139 mmol/L mmol/L (136-145) Potassium 3.5 mmol/L mmol/L (3.5-5.1) Chloride 104 mmol/L mmol/L (98-107) Carbon Dioxide 21 mmol/L L mmol/ L (22-29) Anion Gap 17.5 (5-19) BUN 8 mg/dL mg/dL (6-20) Creatinine 0.4 mg/dL L mg/dL (0.5-0.9) GFR Calculation 168.3 mL/min H mL /min (90-130) Glucose 140 mg/dL H mg/dL (65-115) Calculated Osmolal ity 289 mOsm/kg mOsm/ kg (285-295) Calcium 8.3 mg/dL L mg/dL (8.5-10.5) Urine Color Yellow (Yellow) Urine Appearance Clear (CLEAR) Urine pH 5 (5-7) Ur Specific Gravit y 1.015 (1.005-1.030) Urine Protein Neg (Negative) Urine Glucose (UA) Norm (Normal) Urine Ketones Negative (Negative) Urine Blood Neg (Negative) Urine Nitrate Negative (Negative) Urine Bilirubin Neg (Negative) Urine Urobilinogen Norm mg/dL mg/dL (Negative) Ur Leukocyte Raquel ase Negative (Negative) Discharge Plan Discharge Patient Disposition: Home Clinical Impression: Viral syndrome Condition: Stable Prescriptions: No Action Levemir FlexTouch U-100 Insuln 100 unit/mL (3 mL) insulin pen 34 unit SUBCUT QPM RF: 0 Victoza 3-Olman 0.6 mg/0.1 mL (18 mg/3 mL) pen injector See Rx Instructions SUBCUT DAILY RF: 0 aspirin [Adult Aspirin Regimen] 81 mg tablet,delayed release (DR/EC) 81 mg PO DAILY RF: 0 metformin 500 mg tablet 500 mg PO BID RF: 0 melatonin 10 mg tablet 10 mg PO BID RF: 0 hydrocodone-acetaminophen 10-325 mg tablet 1 tab PO QID PRN (Reason: pain) 30 Days Qty: 110 RF: 0 clopidogrel [Plavix] 75 mg tablet 75 mg PO DAILY Qty: 90 RF: 0 metoprolol tartrate 25 mg tablet 12.5 mg PO DAILY Qty: 45 RF: 0 pravastatin 40 mg tablet 40 mg PO BEDTIME Qty: 90 RF: 0 hydrocodone-acetaminophen 10-325 mg tablet 1 tab PO QID PRN (Reason: pain) 30 Days Qty: 110 RF: 0 Celebrex 100 mg capsule 200 mg PO BID Qty: 20 RF: 0 cyclobenzaprine 5 mg tablet 10 mg PO TID PRN (Reason: muscle spasm) Qty: 10 RF: 0 levothyroxine [Euthyrox] 75 mcg tablet 75 mcg PO DAILY RF: 0 Discharge Orders: Discharge ED (Routine); Ordered 07/31/21 Ordered By: Cordell Villa Referrals: Emili Barrera APRN [Primary Care Provider] - Discharge Diet: Usual diet Discharge Activity: Increase activity as tolerated Patient Instructions: Viral Syndrome (ED) Activity Restrictions/Additional Instructions: Follow-up with medical provider as directed. Take medications as prescribed. Return to the ER or your medical provider if condition worsens. Please read and understand discharge instructions. If any questions ask please. Coding Level of Care Code ED Senior Information Security Consultant for Chg Fwd Exam Comprehensive
--- NOTE | 2021-07-31 10:28 | ECG_ITS ---
[facility] Test Date: 2021-07-31 Pat Name: Fatou Khanna Department: Room: Gender: Female Winch Runner: : 1970 Requested By: Cordell Villa Order Number: [id number] Jossy MD: Panchito Fischer M.D. Measurements Intervals [place] Rate: 90 P: 48 HI: 182 QRS: -16 QRSD: 101 T: 55 QT: 361 QTc: 444 Interpretive Statements SINUS RHYTHM SEPTAL MYOCARDIAL INFARCTION , PROBABLY OLD [40+ ms Q WAVE IN V1/V2] Compared to ECG 08/29/2019 19:30:19 Myocardial infarct finding now present Electronically Signed On 07-31-2021 20:39:23 PETROLEUM PLANT OPERATOR by Panchito Fischer M.D. [id number]
[2021-07-31 10:35] VITALS: BP 171/70; PULSE 90; RESP 22; O2SAT 97
[2021-07-31 10:53] VITALS: PULSE 93; RESP 23; O2SAT 96
[2021-07-31] MEDS: HYDROcodone-acetaminophen 7.5-325 mg Tablet 1 TAB PO (11:03)
[2021-07-31 11:23] LABS: Basophils % 0.5 %; Eosinophils % 0.3 %; Hemoglobin 13.4 g/dL (11.5-15.3); Lymphocytes # 1.1 10^3/uL (0.8-4.8); Lymphocytes % 16.2 %; Mean Corpuscular HGB Conc 33.5 g/dL (30.0-36.0); Mean Corpuscular Hemoglobin 28.5 pg (28.0-34.0); Mean Corpuscular Volume 84.9 fl (81-99); Mean Platelet Volume 11.4 fL (7.4-10.4); Monocytes # 0.7 10^3/uL (0.2-0.9); Monocytes % 11.1 %; Neutrophils # 4.72 10^3/uL (1.8-7.7); Neutrophils % 71.6 %; Nucleated Red Blood Cells % 0 %; Platelet Count 265 10^3/cmm (130-400); Red Blood Count 4.71 10^6/uL (4.1-5.3); Red Cell Distribution Width 13.3 % (12.1-15.1); White Blood Count 6.6 10^3/uL (4.0-10.0)
[2021-07-31 11:29] LABS: Anion Gap 17.5 (5-19); Blood Urea Nitrogen 8 mg/dL (6-20); Calcium 8.3 mg/dL (8.5-10.5); Carbon Dioxide 21 mmol/L (22-29); Chloride 104 mmol/L (98-107); Glomerular Filtration Rate 168.3 mL/min (90-130); Glucose 140 mg/dL (65-115); Osmolality Calculated 289 mOsm/kg (285-295); Potassium 3.5 mmol/L (3.5-5.1); Sodium 139 mmol/L (136-145)
[2021-07-31 11:37] VITALS: BP 171/70; PULSE 93; RESP 23; O2SAT 96
[2021-07-31 11:52] LABS: Add Urine Microscopic? NO; Charge for UA Resulting for Rev
[2021-07-31 11:55] LABS: Bilirubin Urine Neg (Negative); Blood Urine Neg (Negative); Glucose Urine UA Norm (Normal); Ketones Urine Negative (Negative); Leukocyte Esterase Urine Negative (Negative); Nitrate Urine Negative (Negative); Protein Urine Neg (Negative); Specific Gravity, Urine 1.015 (1.005-1.030); Urine Appearance Clear (CLEAR); Urine Color Yellow (Yellow); Urobilinogen Urine Norm (Negative); pH Urine 5 (5-7)
== END 2021-07-31 12:06 | disposition home or self-care (01) ==
PROVIDERS: Emergency Provider Nurse Practitioner Family; PCP Nurse Practitioner Family
DX: B34.9 Viral infection, unspecified (principal); Z79.84 Long term (current) use of oral hypoglycemic drugs; Z79.02 Long term (current) use of antithrombotics/antiplatelets; Z79.82 Long term (current) use of aspirin; Z79.4 Long term (current) use of insulin; E11.9 Type 2 diabetes mellitus without complications; I10 Essential (primary) hypertension
CPT/HCPCS: 71045; 80048; 81003; 85025; 93005; 99283

== ENCOUNTER 2021-08-04 05:09 | Emergency (ER) | payer MEDICARE, SELFPAY ==
[2020-01-11 11:16] VITALS: BP 150/85; BMI 53.7
[2021-08-04 05:16] VITALS: BP 201/108; PULSE 76; RESP 18; TEMP 36.6; O2SAT 97; BMI 50.5
--- NOTE | 2021-08-04 06:18 | XRR_ITS ---
PROCEDURE INFORMATION: Exam: XR Chest Exam date and time: 08/04/2021 6:18 AM Age: 51 years old Clinical indication: Prior surgery; Surgery date: 6+ months; Surgery type: Stenets; Patient HX: SOB wheezing coughing since jul 31; Additional info: Dyspnea/cough TECHNIQUE: Imaging protocol: XR of the chest. Views: 1 view. Total images: 1 COMPARISON: CR XR chest 1V portable [id number] 07/31/2021 10:29 AM FINDINGS: Lungs: Left mid lung pulmonary opacity is again noted and appears unchanged from the prior exam. Pleural spaces: Unremarkable. No pleural effusion. No pneumothorax. Heart/Mediastinum: Heart size is stable when compared to the prior exam. Bones/joints: Osseous structures are unchanged from the prior exam. XR/XR chest 1V portable [id number] IMPRESSION: Left mid lung pulmonary opacity is again noted and appears unchanged from the prior exam.
--- NOTE | 2021-08-04 07:21 | ED_ITS ---
HPI - SOB/Dyspnea General: Chief Complaint: Shortness of Breath/Dyspnea Stated Complaint: Wheezing\Cough\Conjestion\SOB Time Seen by Provider: 08/04/21 07:14 History of Present Illness: HPI Narrative: 51-year-old female presents emergency room complaining of shortness of breath cough. Patient is a progressively increasing cough and congestion myalgias for the last several days. 4 days ago she was tested with a rapid test at a local clinic which was negative. She is tried various [id number]-[id number] medications she still has continuing symptoms. Cough is nonproductive. She has subjective fever. Had one episode of diarrhea. Denies any chest pain. MD elicited complaint: shortness of breath and cough Pertinent past history: congestive heart failure Onset (ago): hour(s) Context: recent illness Timing: constant Severity: mild Exacerbating factors: nothing Relieving factors: nothing Associated symptoms: Reports chest congestion, cough and fever(s); Deny abdominal pain, chest pain, nausea, orthopnea or vomiting Treatment prior to arrival: other (Uyfq-urc-tnfiurf medications) Review of Systems Const: Reports: fever(s), fatigue and malaise; Denies: chills, body aches or change in appetite ENMT: Reports: nasal discharge and nasal congestion; Denies: throat pain or ear or mastoid pain Card: Denies: chest pain, edema, dyspnea on exertion or orthopnea Resp: Reports: non-productive cough and chest congestion; Denies: dyspnea or productive cough GI: Denies: abdominal pain, nausea, vomiting, hematemesis, coffee ground emesis, diarrhea, constipation, bloating, hematochezia or melena : Denies: flank pain, difficulty voiding, dysuria, urinary frequency or urinary urgency Skin/Breast: Denies: rash or pruritus PFSH ED PFSH: Medical History Chronic back pain Diabetes Encounter for long-term use of opiate analgesic HTN (hypertension) with goal to be determined Muscle spasm of back Opioid contract exists Status post extracorporeal shock wave therapy Urolithiasis Surgical History Hx of heart artery stent Hx of hysterectomy S/P skin cancer resection Nose Family History Other Cancer Diabetes Stroke Social History Second hand smoke exposure: No Alcohol intake: never Adopted: No Caregiver/support person: No Lives independently: No Household members: spouse Marital status: Current occupational status: disabled History of recent travel: No Physical Exam Const: COMMON NORMALS: no acute distress GENERAL APPEARANCE: cooperative and comfortable ORIENTATION/CONSCIOUSNESS: Yes awake, Yes oriented to person, Yes oriented to place and Yes oriented to time HENMT: COMMON NORMALS: normocephalic, atraumatic and hearing grossly normal bilaterally HEAD & SCALP: normocephalic and atraumatic Neck/C-Spine: COMMON NORMALS: no JVD Resp: COMMON NORMALS: normal respiratory effort, No retractions and No use of accessory muscles AUSCULTATION: crackles and wheezes Cardio: COMMON NORMALS: no JVD, regular rate, regular rhythm and No murmurs present (Cardio) RATE: regular rate RHYTHM: regular rhythm GI: COMMON NORMALS: Soft to palpation and No hepatosplenomegaly present AUSCULTATION: Yes normoactive bowel sounds PALPATION: Yes Soft to palpation, No Tenderness to palpation present (GI), No Guarding due to palpation present (GI) and Yes No hepatosplenomegaly present Extremity: COMMON NORMALS: normal to inspection, capillary refill normal, no clubbing, cyanosis or edema, no calf tenderness and no pedal edema Neuro: SENSORIUM/ORIENTATION: Yes oriented to person, Yes oriented to place and Yes oriented to time Skin: COMMON NORMALS: no rashes or lesions noted GENERAL SKIN EXAM: no rashes or lesions noted Course Vital Signs: Vital signs: Vital Signs Temperature 98.2 F 08/04/21 07:31 Pulse Rate 67 08/04/21 07:31 Respiratory Rate 17 08/04/21 07:31 Blood Pressure 201/108 08/04/21 05:16 Pulse Oximetry 95 08/04/21 07:31 MDM - SOB/Dyspnea MDM Narrative: Medical decision making narrative: Covid PCR is negative. Blood pressure elevated but she has been out of her blood pressure medications. Will add prescription for lisinopril 10 mg once daily and amlodipine 5 mg daily. Encourage patient to follow-up with primary care doctor within the week. She has any worsening symptoms return to the emergency room. And she also does have viral respiratory infection however white count is unremarkable and her chest x- ray does not show any infiltrates at this point I would not recommend any further antibiotics. She did have a PCR today which was negative. She continues to deny any chest pain. Lab Data: Labs: Lab Results 08/04/21 08/04/21 08/04/21 07:25 07:25 07:25 WBC 7.5 10^3/uL 10^3/ uL (4.0-10.0) RBC 4.74 10^6/uL 10^6 /uL (4.1-5.3) Hgb 13.3 g/dL g/dL (11.5-15.3) Hct 40.5 % % (37.0-47.0) MCV 85.4 fl fl (81-99) MCH 28.1 pg pg (28.0-34.0) MCHC 32.8 g/dL g/dL (30.0-36.0) RDW 13.3 % % (12.1-15.1) Plt Count 288 10^3/cmm 10^3 /cmm (130-400) MPV 11.1 fL H fL (7.4-10.4) Neut % (Auto) 68.7 % % Lymph % (Auto) 23.9 % % [place] % (Auto) 6.9 % % Eos % (Auto) 0.1 % % Baso % (Auto) 0.1 % % Neut # (Auto) 5.18 10^3/uL 10^3 /uL (1.8-7.7) Lymph # (Auto) 1.8 10^3/uL 10^3/ uL (0.8-4.8) [place] # (Auto) 0.5 10^3/uL 10^3/ uL (0.2-0.9) Eos # (Auto) 0.0 10^3/uL 10^3/ uL (0.0-0.8) Baso # (Auto) 0.0 10^3/uL 10^3/ uL (0.0-0.1) Nucleated RBC % (a uto) 0 % % Nucleated RBCs # 0.0 /100WBC /100W BC Sodium 139 mmol/L mmol/L (136-145) Potassium 3.9 mmol/L mmol/L (3.5-5.1) Chloride 104 mmol/L mmol/L (98-107) Carbon Dioxide 23 mmol/L mmol/L (22-29) Anion Gap 15.9 (5-19) BUN 9 mg/dL mg/dL (6-20) Creatinine 0.4 mg/dL L mg/dL (0.5-0.9) GFR Calculation 168.3 mL/min H mL /min (90-130) Glucose 142 mg/dL H mg/dL (65-115) Calculated Osmolal ity 289 mOsm/kg mOsm/ kg (285-295) Calcium 8.5 mg/dL mg/dL (8.5-10.5) Total Bilirubin 0.6 mg/dL mg/dL (0.15-1.2) AST 16 U/L U/L (0-32) ALT 15 U/L U/L (0-33) Alkaline Phosphata se 91 IU/L IU/L (35-105) Total Protein 7.0 g/dL g/dL (6.6-8.7) Albumin 4.1 g/dL g/dL (3.5-5.2) Globulin 2.9 g/dL g/dL (1.3-4.6) Coronavirus 229E ( PCR) Not detected (NOT DETECT) Human Metapneumovi r PCR Entero/Rhino (PCR) SARS-CoV-2 (PCR) Not detected (NOT DETECT) 08/04/21 09:31 WBC RBC Hgb Hct MCV MCH MCHC RDW Plt Count MPV Neut % (Auto) Lymph % (Auto) [place] % (Auto) Eos % (Auto) Baso % (Auto) Neut # (Auto) Lymph # (Auto) [place] # (Auto) Eos # (Auto) Baso # (Auto) Nucleated RBC % (a uto) Nucleated RBCs # Sodium Potassium Chloride Carbon Dioxide Anion Gap BUN Creatinine GFR Calculation Glucose Calculated Osmolal ity Calcium Total Bilirubin AST ALT Alkaline Phosphata se Total Protein Albumin Globulin Coronavirus 229E ( PCR) Human Metapneumovi r PCR Detected A (NOT DETECT) Entero/Rhino (PCR) Not detected (NOT DETECT) SARS-CoV-2 (PCR) Discharge Plan Discharge Patient Disposition: Home Clinical Impression: Viral URI with cough, HTN (hypertension) Condition: Stable Prescriptions: New lisinopril 10 mg tablet 10 mg PO DAILY Qty: 30 RF: 0 amlodipine 5 mg tablet 5 mg PO DAILY Qty: 30 RF: 0 No Action Levemir FlexTouch U-100 Insuln 100 unit/mL (3 mL) insulin pen 34 unit SUBCUT QPM RF: 0 Victoza 3-Olman 0.6 mg/0.1 mL (18 mg/3 mL) pen injector See Rx Instructions SUBCUT DAILY RF: 0 aspirin [Adult Aspirin Regimen] 81 mg tablet,delayed release (DR/EC) 81 mg PO DAILY RF: 0 metformin 500 mg tablet 500 mg PO BID RF: 0 melatonin 10 mg tablet 10 mg PO BID RF: 0 hydrocodone-acetaminophen 10-325 mg tablet 1 tab PO QID PRN (Reason: pain) 30 Days Qty: 110 RF: 0 clopidogrel [Plavix] 75 mg tablet 75 mg PO DAILY Qty: 90 RF: 0 metoprolol tartrate 25 mg tablet 12.5 mg PO DAILY Qty: 45 RF: 0 pravastatin 40 mg tablet 40 mg PO BEDTIME Qty: 90 RF: 0 hydrocodone-acetaminophen 10-325 mg tablet 1 tab PO QID PRN (Reason: pain) 30 Days Qty: 110 RF: 0 Celebrex 100 mg capsule 200 mg PO BID Qty: 20 RF: 0 cyclobenzaprine 5 mg tablet 10 mg PO TID PRN (Reason: muscle spasm) Qty: 10 RF: 0 levothyroxine [Euthyrox] 75 mcg tablet 75 mcg PO DAILY RF: 0 Discharge Orders: Discharge ED (Routine); Ordered 08/04/21 Ordered By: Freddy Phan Referrals: Emili Barrera APRN [Primary Care Provider] - Patient Instructions: Opioid Safety Coding Level of Care Code ED Construction Administrative Assistant for Chg Fwd Exam Comprehensive
[2021-08-04 07:31] VITALS: PULSE 67; RESP 17; TEMP 36.8; O2SAT 95
[2021-08-04 07:34] LABS: Basophils % 0.1 %; Eosinophils % 0.1 %; Hematocrit 40.5 % (37.0-47.0); Hemoglobin 13.3 g/dL (11.5-15.3); Lymphocytes # 1.8 10^3/uL (0.8-4.8); Lymphocytes % 23.9 %; Mean Corpuscular HGB Conc 32.8 g/dL (30.0-36.0); Mean Corpuscular Hemoglobin 28.1 pg (28.0-34.0); Mean Corpuscular Volume 85.4 fl (81-99); Mean Platelet Volume 11.1 fL (7.4-10.4); Monocytes # 0.5 10^3/uL (0.2-0.9); Monocytes % 6.9 %; Neutrophils # 5.18 10^3/uL (1.8-7.7); Neutrophils % 68.7 %; Nucleated Red Blood Cells % 0 %; Platelet Count 288 10^3/cmm (130-400); Red Blood Count 4.74 10^6/uL (4.1-5.3); Red Cell Distribution Width 13.3 % (12.1-15.1); White Blood Count 7.5 10^3/uL (4.0-10.0)
[2021-08-04 07:56] LABS: Alanine Aminotransferase 15 U/L (0-33); Albumin Level 4.1 g/dL (3.5-5.2); Alkaline Phosphatase 91 IU/L (35-105); Anion Gap 15.9 (5-19); Aspartate Amino Transferase 16 U/L (0-32); Blood Urea Nitrogen 9 mg/dL (6-20); Calcium 8.5 mg/dL (8.5-10.5); Carbon Dioxide 23 mmol/L (22-29); Chloride 104 mmol/L (98-107); Globulin 2.9 g/dL (1.3-4.6); Glomerular Filtration Rate 168.3 mL/min (90-130); Glucose 142 mg/dL (65-115); Osmolality Calculated 289 mOsm/kg (285-295); Potassium 3.9 mmol/L (3.5-5.1); Sodium 139 mmol/L (136-145); Total Bilirubin 0.6 mg/dL (0.15-1.2)
[2021-08-04 08:26] LABS: Slide Review Slide Review Perform
[2021-08-04 09:25] LABS: Adenovirus Not Detected (NOT DETECT); Chlamydia Pneumoniae Not Detected (NOT DETECT); Coronavirus 229E,HKU1,NL63,OC4 Not Detected (NOT DETECT); Human Metapneumovirus Detected (NOT DETECT); Human Rhinovirus/Enterovirus Not Detected (NOT DETECT); Influenza A Not Detected (NOT DETECT); Influenza A H1 Not Detected (NOT DETECT); Influenza A H1-2009 Not Detected (NOT DETECT); Influenza A H3 Not Detected (NOT DETECT); Influenza B Not Detected (NOT DETECT); Mycoplasma Pneumoniae Not Detected (NOT DETECT); Parainfluenza Virus Type 1 Not Detected (NOT DETECT); Parainfluenza Virus Type 2 Not Detected (NOT DETECT); Parainfluenza Virus Type 3 Not Detected (NOT DETECT); Parainfluenza Virus Type 4 Not Detected (NOT DETECT); Respiratory Syncytial Virus A Not Detected (NOT DETECT); Respiratory Syncytial Virus B Not Detected (NOT DETECT); SARS-COV-2 Not Detected (NOT DETECT)
[2021-08-04 09:32] LABS: Human Metapneumovirus Detected (NOT DETECT); Human Rhinovirus/Enterovirus Not Detected (NOT DETECT); Results from GT
[2021-08-04 10:32] VITALS: BP 152/66; PULSE 68; RESP 15; O2SAT 97
[2021-08-04] MEDS: amlodipine 10 mg Tablet PO (10:32)
== END 2021-08-04 10:26 | disposition home or self-care (01) ==
PROVIDERS: Emergency Provider Family Medicine; PCP Nurse Practitioner Family
DX: J06.9 Acute upper respiratory infection, unspecified (principal); I10 Essential (primary) hypertension; Z79.84 Long term (current) use of oral hypoglycemic drugs; Z79.02 Long term (current) use of antithrombotics/antiplatelets; Z79.82 Long term (current) use of aspirin; Z79.4 Long term (current) use of insulin; E11.9 Type 2 diabetes mellitus without complications; Z20.822 Contact with and (suspected) exposure to COVID-19
CPT/HCPCS: 71045; 80053; 85025; 87635; 87801; 99283

== ENCOUNTER → 2021-08-15 09:59 | Outpatient (BNVA) | payer MEDICARE, SELFPAY ==
[2020-01-11 11:16] VITALS: BP 150/85; BMI 53.7
== END ==
PROVIDERS: PCP Nurse Practitioner Family; Visit Provider Anesthesiology
DX: G89.29 Other chronic pain (principal); M54.42 Lumbago with sciatica, left side; M54.2 Cervicalgia; M25.561 Pain in right knee; M25.562 Pain in left knee; Z79.891 Long term (current) use of opiate analgesic
CPT/HCPCS: 99214

== ENCOUNTER 2021-12-16 18:44 | Emergency (ER) | payer MEDICARE, SELFPAY ==
[2020-01-11 11:16] VITALS: BP 150/85; BMI 53.7
[2021-12-16 19:12] VITALS: PULSE 75; RESP 18; TEMP 36.3; O2SAT 98
--- NOTE | 2021-12-16 19:32 | ED_ITS ---
HPI - Back Pain/Injury General: Chief Complaint: Back Pain/Injury Stated Complaint: Back Pain Time Seen by Provider: 12/16/21 19:19 History of Present Illness: Patient is a 51-year-old female comes to the ED with right flank pain. Symptoms started approximately 3 days ago and it was an acute and sudden onset. Patient is also complaining of having UTI symptoms of dysuria and says her urine has a strong smell. She rates her right flank pain an 8 out of 10. She has a history of kidney stones and states that this pain is similar to her past kidney stones. Endorses nausea but denies any emesis. Denies any fever or bowel symptoms. Associated symptoms: Reports dysuria; Deny abdominal pain, chills, fatigue, fever(s), hematuria, nausea or vomiting Review of Systems Const: Denies: fever(s), chills or fatigue Eyes: Denies: change in vision or eye discomfort ENMT: Denies: throat pain, odynophagia, nasal discharge or nasal congestion Card: Denies: chest pain, palpitations, edema, swelling of feet/ankles, dyspnea on exertion or orthopnea Resp: Denies: dyspnea, productive cough or non-productive cough GI: Denies: abdominal pain, nausea, vomiting, diarrhea, constipation or hematochezia : Reports: flank pain (right flank) and dysuria; Denies: hematuria Musc: Denies: neck pain, back pain or extremity swelling Skin/Breast: Denies: rash or new lesions Neuro: Denies: headache(s), numbness in extremities or weakness in extremities PFS ED PFSH: Medical History Chronic back pain Diabetes Encounter for long-term use of opiate analgesic HTN (hypertension) with goal to be determined Muscle spasm of back Opioid contract exists Status post extracorporeal shock wave therapy Urolithiasis Surgical History Hx of heart artery stent Hx of hysterectomy S/P skin cancer resection Nose Family History Other Cancer Diabetes Stroke Social History Second hand smoke exposure: No Alcohol intake: never Adopted: No Caregiver/support person: No Lives independently: No Household members: spouse Marital status: Current occupational status: disabled History of recent travel: No Physical Exam Const: COMMON NORMALS: patient oriented x3 and alert GENERAL APPEARANCE: cooperative HENMT: COMMON NORMALS: normocephalic HEAD & SCALP: normocephalic MOUTH: Normal oral and palatal mucosa present THROAT: posterior oropharynx normal and uvula midline Neck/C-Spine: COMMON NORMALS: supple GENERAL: Yes normal visual inspection Resp: COMMON NORMALS: normal respiratory effort, No retractions, No use of accessory muscles and clear to auscultation bilaterally AUSCULTATION: clear to auscultation bilaterally Cardio: COMMON NORMALS: regular rate, regular rhythm, S1 normal heart sound present, S2 normal heart sound present, No gallops present (Cardio), No clicks present (Cardio), No murmurs present (Cardio) and Peripheral pulses 2+ throughout RATE: regular rate RHYTHM: regular rhythm HEART SOUNDS: S1 normal heart sound present and S2 normal heart sound present PERIPHERAL PULSES: Peripheral pulses 2+ throughout GI: COMMON NORMALS: Normal to inspection, nondistended, normoactive bowel sounds present, Soft to palpation, non-tender and no masses PALPATION: Yes Soft to palpation : BLADDER/KIDNEY EXAM: Yes CVA tenderness on the right Back/Pelvis: GENERAL BACK: Yes CVA tenderness Extremity: COMMON NORMALS: normal to inspection Neuro: COMMON NORMALS: patient oriented x3 and moves all extremities SENSORIUM/ORIENTATION: Yes alert Skin: GENERAL SKIN EXAM: dry skin Course Vital Signs: Vital signs: Vital Signs Temperature 97.3 F L 12/16/21 19:12 Pulse Rate 75 12/16/21 19:12 Respiratory Rate 14 12/16/21 20:47 Pulse Oximetry 98 12/16/21 19:12 MDM - Back Pain/Injury Medical Decision Making Patient is a 51-year-old female comes to the ED with UTI symptoms and right flank pain. Patient appears nontoxic and in no acute distress or pain. Vitals are stable. Exam shows emergency room tenderness, but rest of exam is benign. CBC and CMP were unremarkable. UA showed signs of an infection. CT of abdomen pelvis showed small umbilical hernia containing omentum without any bowel, cons tipation. No umbilical pain or tenderness. Patient's symptoms likely due to UTI that is progressing. She was put on a prescription for ciprofloxacin. She was also discharged with a prescription for MiraLAX to help with the constipation and I told her to follow-up with her PCP within the next 5 to 7 days for reevaluation and to talk with her PCP about her umbilical hernia and getting referral to general surgery as needed once hernia starts causing symptoms or pain. Return to ED precautions given. Patient understood agree with plan. Labs I reviewed the patient's lab results. : 12/16/21 20:00 12/16/21 20:00 Radiology Impressions Abdomen/Pelvis CT 12/16/21 20:14 IMPRESSION: 1. Small umbilical hernia containing omentum without bowel. 2. Constipation. 3. Diverticulosis without diverticulitis Laboratory Results WBC 10.4 10^3/uL (4.0-10.0) H 12/16/21 20:00 RBC 4.88 10^6/uL (4.1-5.3) 12/16/21 20:00 Hgb 13.5 g/dL (11.5-15.3) 12/16/21 20:00 Hct 41.1 % (37.0-47.0) 12/16/21 20:00 MCV 84.2 fl (81-99) 12/16/21 20:00 MCH 27.7 pg (28.0-34.0) L 12/16/21 20:00 MCHC 32.8 g/dL (30.0-36.0) 12/16/21 20:00 RDW 12.9 % (12.1-15.1) 12/16/21 20:00 Plt Count 278 10^3/cmm (130-400) 12/16/21 20:00 MPV 11.6 fL (7.4-10.4) H 12/16/21 20:00 Neut % (Auto) 66.5 % 12/16/21 20:00 Lymph % (Auto) 25.0 % 12/16/21 20:00 [place] % (Auto) 6.1 % 12/16/21 20:00 Eos % (Auto) 1.5 % 12/16/21 20:00 Baso % (Auto) 0.4 % 12/16/21 20:00 Neut # (Auto) 6.92 10^3/uL (1.8-7.7) 12/16/21 20: Lymph # (Auto) 2.6 10^3/uL (0.8-4.8) 12/16/21 20:00 [place] # (Auto) 0.6 10^3/uL (0.2-0.9) 12/16/21 20:00 Eos # (Auto) 0.2 10^3/uL (0.0-0.8) 12/16/21 20:00 Baso # (Auto) 0.0 10^3/uL (0.0-0.1) 12/16/21 20:00 Nucleated RBC % (auto) 0 % 12/16/21 20:00 Nucleated RBCs # 0.0 /100WBC 12/16/21 20:00 Sodium 136 mmol/L (136-145) 12/16/21 20:00 Potassium 3.8 mmol/L (3.5-5.1) 12/16/21 20:00 Chloride 98 mmol/L (98-107) 12/16/21 20:00 Carbon Dioxide 25 mmol/L (22-29) 12/16/21 20:00 Anion Gap 16.8 (5-19) 12/16/21 20:00 BUN 16 mg/dL (6-20) 12/16/21 20:00 Creatinine 0.5 mg/dL (0.5-0.9) 12/16/21 20:00 GFR Calculation 130.1 mL/min (90-130) H 12/16/21 20:00 Glucose 272 mg/dL (65-115) H 12/16/21 20:00 Calculated Osmolality 293 mOsm/kg (285-295) 12/16/21 20:00 Calcium 9.7 mg/dL (8.5-10.5) 12/16/21 20:00 Total Bilirubin 0.5 mg/dL (0.15-1.2) 12/16/21 20:00 AST 13 U/L (0-32) 12/16/21 20:00 ALT 15 U/L (0-33) 12/16/21 20:00 Alkaline Phosphatase 107 IU/L (35-105) H 12/16/21 20:00 Total Protein 7.6 g/dL (6.6-8.7) 12/16/21 20:00 Albumin 4.3 g/dL (3.5-5.2) 12/16/21 20:00 Globulin 3.3 g/dL (1.3-4.6) 12/16/21 20:00 Lipase 45 U/L (13-60) 12/16/21 20:00 Urine Color Yellow (Yellow) 12/16/21 19:25 Urine Appearance Clear (CLEAR) 12/16/21 19: Urine pH 5 (5-7) 12/16/21 19:25 Ur Specific [place] 1.025 (1.005-1.030) 12/16/21 19: Urine Protein Neg (Negative) 12/16/21 19: Urine Glucose (UA) 4+ (Normal) H 12/16/21 19: Urine Ketones Negative (Negative) 12/16/21: Urine Blood Neg (Negative) 12/16/21: Urine Nitrate Negative (Negative) 12/16/21 19: Urine Bilirubin 1+ (Negative) H 12/16/21 19:25 Urine Urobilinogen 1 mg/dL (Negative) H 12/16/21 19:25 Ur Leukocyte Esterase 1+ (Negative) H 12/16/21 19:25 Urine RBC None /hpf (0-2) 12/16/21 19:25 Urine WBC 15-25 /hpf (0-5) H 12/16/21 19:25 Ur Squamous Epith Cells Rare /hpf (0-5) 12/16/21 19:25 Ur Transition Epith Cell None /hpf 12/16/21 19: Amorphous Sediment Not Reportable 12/16/21 19: Urine Bacteria 2+ /hpf (NONE) H 12/16/21 19:25 Discharge Plan Discharge Patient Disposition: Home Clinical Impression: UTI (urinary tract infection) Qualifiers: Urinary tract infection type: acute cystitis Hematuria presence: without hematuria Qualified Code(s): N30.00 - Acute cystitis without hematuria Constipation Qualifiers: Constipation type: unspecified constipation type Qualified Code(s): K59.00 - Constipation, unspecified Hernia, umbilical Qualifiers: Obstruction and gangrene presence: without obstruction or gangrene Qualified Code(s): K42.9 - Umbilical hernia without obstruction or gangrene Condition: Stable Prescriptions: New ciprofloxacin HCl 500 mg tablet 500 mg PO BID 7 Days Qty: 14 0RF Miralax 17 gram/dose powder 17 g PO DAILY 4 Days Qty: 238 0RF No Action clopidogrel [Plavix] 75 mg tablet 75 mg PO DAILY Qty: 90 0RF Levemir FlexTouch U-100 Insuln 100 unit/mL (3 mL) insulin pen 34 unit SUBCUT QPM 0RF Victoza 3-Olman 0.6 mg/0.1 mL (18 mg/3 mL) pen injector See Rx Instructions SUBCUT DAILY 0RF Rx Instructions: 1.8MG SUBCUT DAILY PT STATES SHE THINKS ITS THE 1.8MG aspirin [Adult Aspirin Regimen] 81 mg tablet,delayed release (DR/EC) 81 mg PO DAILY 0RF metformin 500 mg tablet 500 mg PO BID 0RF melatonin 10 mg tablet 10 mg PO BID 0RF hydrocodone-acetaminophen 10-325 mg tablet 1 tab PO QID PRN (Reason: pain) 30 Days Qty: 110 0RF Rx Instructions: fill on or after 06/18/21 hydrocodone-acetaminophen 10-325 mg tablet 1 tab PO QID PRN (Reason: pain) 30 Days Qty: 110 0RF Rx Instructions: fill on or after 09/13/21 metoprolol tartrate 25 mg tablet 12.5 mg PO DAILY Qty: 45 0RF pravastatin 40 mg tablet 40 mg PO BEDTIME Qty: 90 3RF Celebrex 100 mg capsule 200 mg PO BID Qty: 20 0RF cyclobenzaprine 5 mg tablet 10 mg PO TID PRN (Reason: muscle spasm) Qty: 10 0RF levothyroxine [Euthyrox] 75 mcg tablet 75 mcg PO DAILY 0RF lisinopril 10 mg tablet 10 mg PO DAILY Qty: 30 0RF amlodipine 5 mg tablet 5 mg PO DAILY Qty: 30 0RF Discharge Orders: Discharge ED (Routine); Ordered 12/16/21 Ordered By: Marco Antonio Bacon Referrals: Emili Barrera APRN [Primary Care Provider] - Discharge Diet: Regular Discharge Activity: Increase activity as tolerated Activity Restrictions/Additional Instructions: Follow-up with medical provider as directed in the next 5 to 7 days reevaluation.Take medications as prescribed. Let your primary care physician know about the umbilical hernia and if it you start developing symptoms and pain from umbilical hernia come to the ED or have primary care refer you to general surgeon. return To the ER or your medical provider if condition worsens. Please read and understand discharge instructions. Thank you for choosing [facility] for your healthcare needs today. Please realize this is an emergency room and that we are providing you with a medical screening exam and this may not be complete and all inclusive of all the testing and or work up that you may need to determine your ailment or severity of your illness. It is very important that you follow up as instructed or that you return to the Emergency Department should you have concerns or if your condition changes or worsens in any way. Coding Level of Care Code ED Early Childhood Education Worker for Glenn Zuniga Exam Comprehensive
[2021-12-16 19:38] LABS: Glucose Urine UA 4+ (Normal); Protein Urine Neg (Negative); Specific Gravity, Urine 1.025 (1.005-1.030); Urine Appearance Clear (CLEAR); Urine Color Yellow (Yellow); pH Urine 5 (5-7)
[2021-12-16 19:39] LABS: Add Urine Microscopic? YES; Bilirubin Urine 1+ (Negative); Blood Urine Neg (Negative); Ketones Urine Negative (Negative); Leukocyte Esterase Urine 1+ (Negative); Nitrate Urine Negative (Negative); Urobilinogen Urine 1 mg/dL (Negative)
[2021-12-16 19:40] LABS: Bacteria Urine 2+ /hpf; Squamous Epithelial Cell Urine RARE /hpf (0-5); WBC Urine 15-25 /hpf (0-5)
[2021-12-16 19:41] LABS: Add Urine Culture? Yes
[2021-12-16 20:10] LABS: Basophils % 0.4 %; Eosinophils # 0.2 10^3/uL (0.0-0.8); Eosinophils % 1.5 %; Hematocrit 41.1 % (37.0-47.0); Hemoglobin 13.5 g/dL (11.5-15.3); Lymphocytes # 2.6 10^3/uL (0.8-4.8); Mean Corpuscular HGB Conc 32.8 g/dL (30.0-36.0); Mean Corpuscular Hemoglobin 27.7 pg (28.0-34.0); Mean Corpuscular Volume 84.2 fl (81-99); Mean Platelet Volume 11.6 fL (7.4-10.4); Monocytes # 0.6 10^3/uL (0.2-0.9); Monocytes % 6.1 %; Neutrophils # 6.92 10^3/uL (1.8-7.7); Neutrophils % 66.5 %; Nucleated Red Blood Cells % 0 %; Platelet Count 278 10^3/cmm (130-400); Red Blood Count 4.88 10^6/uL (4.1-5.3); Red Cell Distribution Width 12.9 % (12.1-15.1); White Blood Count 10.4 10^3/uL (4.0-10.0)
--- NOTE | 2021-12-16 20:14 | CTR_ITS ---
PROCEDURE INFORMATION: Exam: CT Abdomen And Pelvis Without Contrast Exam date and time: 12/16/2021 8:27 PM Age: 51 years old Clinical indication: Pain; Other: RT flank; Prior surgery; Surgery date: 6+ months; Surgery type: Hyst; Additional info: Right flank pain TECHNIQUE: Imaging protocol: Computed tomography of the abdomen and pelvis without contrast. Radiation optimization: All CT scans at this facility use at least one of these dose optimization techniques: automated exposure control; mA and/or kV adjustment per patient size (includes targeted exams where dose is matched to clinical indication); or iterative reconstruction. COMPARISON: CT kidney stone [id number] 07/24/2021 9:28 PM RADIATION DOSE METRICS: Total DLP (mGy-cm): 1874.66 FINDINGS: Liver: Normal. No mass. Gallbladder and bile ducts: Normal. No calcified stones. No ductal dilation. Pancreas: Normal. No ductal dilation. Spleen: Normal. No splenomegaly. Adrenal glands: Normal. No mass. Kidneys and ureters: Normal. No hydronephrosis. Stomach and bowel: Constipation. Diverticulosis without diverticulitis Appendix: No evidence of appendicitis. Intraperitoneal space: Unremarkable. No free air. No significant fluid collection. Vasculature: Unremarkable. No abdominal aortic aneurysm. Lymph nodes: Unremarkable. No enlarged lymph nodes. Urinary bladder: Unremarkable as visualized. Reproductive: Unremarkable as visualized. Bones/joints: Unremarkable. No acute fracture. Soft tissues: Small umbilical hernia containing omentum without bowel. CT/CT kidney stone [id number] IMPRESSION: 1. Small umbilical hernia containing omentum without bowel. 2. Constipation. 3. Diverticulosis without diverticulitis
[2021-12-16 20:24] LABS: Alanine Aminotransferase 15 U/L (0-33); Albumin Level 4.3 g/dL (3.5-5.2); Alkaline Phosphatase 107 IU/L (35-105); Anion Gap 16.8 (5-19); Aspartate Amino Transferase 13 U/L (0-32); Blood Urea Nitrogen 16 mg/dL (6-20); Calcium 9.7 mg/dL (8.5-10.5); Carbon Dioxide 25 mmol/L (22-29); Chloride 98 mmol/L (98-107); Globulin 3.3 g/dL (1.3-4.6); Glomerular Filtration Rate 130.1 mL/min (90-130); Glucose 272 mg/dL (65-115); Lipase 45 U/L (13-60); Osmolality Calculated 293 mOsm/kg (285-295); Potassium 3.8 mmol/L (3.5-5.1); Sodium 136 mmol/L (136-145); Total Bilirubin 0.5 mg/dL (0.15-1.2); Total Protein 7.6 g/dL (6.6-8.7)
[2021-12-16] MEDS: sodium chloride 0.9% 500 ML 999 ML IV (20:34)
[2021-12-16 20:47] VITALS: RESP 14
[2021-12-16] MEDS: morphine 4 mg/mL SDV 1 mL IVP (20:47)
[2021-12-16] MEDS: ondansetron 2 mg/ML SDV 2 mL 4 MG IVP (20:48)
[2021-12-16] MEDS: ciprofloxacin 500 mg Tablet PO (21:20)
== END 2021-12-16 21:26 | disposition home or self-care (01) ==
PROVIDERS: Emergency Provider Physician Assistant; PCP Nurse Practitioner Family
DX: N30.00 Acute cystitis without hematuria (principal); K59.00 Constipation, unspecified; Z79.02 Long term (current) use of antithrombotics/antiplatelets; Z79.82 Long term (current) use of aspirin; Z79.891 Long term (current) use of opiate analgesic
CPT/HCPCS: 74176; 80053; 81001; 83690; 85025; 87086; 96361; 96374; 96375; 99284; J2270; J2405; J7040

== ENCOUNTER → 2022-01-06 09:38 | Outpatient (BNVA) | payer MEDICARE, SELFPAY ==
[2020-01-11 11:16] VITALS: BP 150/85; BMI 53.7
== END ==
PROVIDERS: PCP Nurse Practitioner Family; Referring Provider Dermatology; Visit Provider Surgery
DX: K42.9 Umbilical hernia without obstruction or gangrene (principal)
CPT/HCPCS: 99203

== ENCOUNTER 2022-01-12 08:10 | Day surgery (SDC) | payer MEDICARE, SELFPAY ==
[2020-01-11 11:16] VITALS: BP 150/85; BMI 53.7
[2022-01-09 10:06] VITALS: BMI 54.9
[2022-01-12] VITALS (18 sets, daily range): BP systolic 92–190; BP diastolic 58–102; PULSE 58–81; RESP 10–18; TEMP 36.1–36.2; O2SAT 91–100
--- NOTE | 2022-01-12 09:10 | ANES.PREANE2 ---
Pre-Anesthetic Assessment Height/Weight: Height 1.65 m Weight 149.685 kg Temp Pulse Resp BP Pulse Ox 97.2 F L 81 16 157/102 97 01/12/22 08:30 01/12/22 08:30 01/12/22 08:30 01/12/22 08:30 01/12/22 08:30 Operation Date: 01/12/22 10:00 Proposed Procedures p lap poss open umbilical hernia 52459,K42.9(Not Applicable) - Casper Velasquez DO Familial anesthetic complications: none Was Beta Shannon taken within 24 hours: Yes Was Clonidine taken within 24 hours: N/A Last intake: Intake Last Liquid Date 01/11/22 Last Liquid Time 22:00 Last Solid Date 01/11/22 Last Solid Time 21:30 Social No alcohol and No tobacco Exam alert, oriented x 3, clear to auscultation bilaterally and regular rate & rhythm Airway Mallampati: Class III Dentition: chipped Pulmonary None reported CV/HEM Coronary Artery Disease (stents) and Hypertension Metabolic Diabetes Mellitus, Hyperlipidemia, Morbid Obesity and Thyroid Disease Musc/skel Lower Back Pain Anesthetic Plan ASA status: 3 Anesthesia: General Risk of > 500 ml blood loss (7ml/kg in children): No Medications/Allergies Home Medications Medication Instructions Recorded Confirmed Last Taken Type liraglutide 0.6 mg/0.1 mL (18 mg/3 See Rx Instructions SUBCUT DAILY 09/22/19 01/12/22 01/11/22 History mL) subcutaneous pen injector (Victoza 3-Olman) metformin 500 mg tablet 500 mg PO BID 09/22/19 01/12/22 01/11/22 History levothyroxine 75 mcg tablet 75 mcg PO DAILY 03/18/20 01/12/22 01/11/22 History (Euthyrox) melatonin 10 mg tablet 10 mg PO BID tab 03/11/21 01/12/22 01/09/22 History metoprolol tartrate 25 mg tablet 12.5 mg PO DAILY #45 tab 04/16/21 01/12/22 01/12/22 Rx celecoxib 100 mg capsule (Celebrex) 200 mg PO BID #20 cap 07/24/21 01/12/22 Unknown Rx clopidogrel 75 mg tablet (Plavix) 75 mg PO DAILY #90 tab 10/10/21 01/12/22 01/05/22 Rx pravastatin 40 mg tablet 40 mg PO BEDTIME #90 tab 10/21/21 01/12/22 01/11/22 Rx Basaglar Nuris U-100 Insulin 26 units SUBCUT BEDTIME 01/09/22 01/12/22 01/11/22 History hydrocodone 7.5 mg-acetaminophen 1 tab PO TID PRN 01/12/22 01/12/22 01/12/22 History 325 mg tablet Allergies Allergy/AdvReac Type Severity Reaction Status Date / Time hydromorphone [From Dilaudid] Allergy Severe ALGY-Difficulty Verified 01/12/22 08:42 Breathing Iodine and Iodide Containing Allergy Severe ALGY-Swell Verified 01/12/22 08:42 Produc Lip/Tongue/Throat tramadol Allergy Intermediate ADR-Nausea Verified 01/12/22 08:42 gabapentin AdvReac Intermediate RASH Verified 01/12/22 08:42 [facility] Anesthesia Medical History Chronic back pain Diabetes Encounter for long-term use of opiate analgesic HTN (hypertension) with goal to be determined Muscle spasm of back Opioid contract exists Status post extracorporeal shock wave therapy Urolithiasis Surgical History Hx of heart artery stent Hx of hysterectomy S/P skin cancer resection Nose Family History Other Cancer Diabetes Stroke Social History Smoking and tobacco status: never smoked Second hand smoke exposure: No Alcohol intake: never Adopted: No Caregiver/support person: No Lives independently: No Household members: spouse Marital status: Current occupational status: disabled History of recent travel: No Data Anesthesia Cardiac Studies: No Data to Display
[2022-01-12] MEDS: sodium chloride 0.9% 1,000 ML 30 ML IV (09:15)
[2022-01-12 09:22] LABS: Glucose Point of Care 276 mg/dL (70-110)
[2022-01-12] MEDS: insulin regular-human 100 units/1 mL 10 UNIT IVP (09:47)
[2022-01-12] MEDS: midazolam 1 mg/mL INJ 2 mL 2 MG IVP (10:00)
--- NOTE | 2022-01-12 10:11 | W.PM.OPSUD ---
Surgery/Procedure H&P Update DATE OF PROCEDURE: January 12, 2022 DATE H&P PERFORMED: 01/06/22 CHANGES TO PREVIOUS DOCUMENTATION: NONE PREOP DIAGNOSIS: umbilical hernia PRIMARY INDICATION FOR PROCEDURE: umbilical hernia PLANNED PROCEDURE: Operation Date: 01/12/22 10:00 Proposed Procedures p lap poss open umbilical hernia 80149,K42.9(Not Applicable) - Casper Velasquez DO
[2022-01-12 10:41] LABS: Anion Gap 16.1 (5-19); Blood Urea Nitrogen 14 mg/dL (6-20); Calcium 8.9 mg/dL (8.5-10.5); Carbon Dioxide 23 mmol/L (22-29); Chloride 100 mmol/L (98-107); Glomerular Filtration Rate 168.3 mL/min (90-130); Glucose 268 mg/dL (65-115); Osmolality Calculated 290 mOsm/kg (285-295); Potassium 4.1 mmol/L (3.5-5.1); Sodium 135 mmol/L (136-145)
[2022-01-12] MEDS: ceFAZolin 3,000 MG in sodium chloride 0.9% (100 ml) 100 ML 200 MG IV (11:09)
--- NOTE | 2022-01-12 12:08 | PM.OP ---
Operative Report Date of procedure: January 12, 2022 Pre-op diagnosis: Preop Diagnosis umbilical hernia Post-op diagnosis: same Procedure done: Laparoscopic umbilical hernia repair with mesh Specimens removed/disposition: Hernia sac Surgeon: Dr. Casper Velasquez, DO Estimated blood loss: 2 Complications: None apparent Brief History: Patient with a symptom of laparoscopic repair with mesh was indicated. Risks and benefits were explained and documented. Procedure: Patient was wheeled into the operative room and placed on the OR table in a supine position.? Abdomen was inspected prepped and draped in usual sterile fashion.? Time-out was performed and all present were in agreement.? A 15 blade scalp was used to make a 5 millimeter incision left upper quadrant.? A Veress needle was placed into the incision and intra-abdominal insufflation was brought to 15 millimeters of mercury.? A 2nd 5 millimeter trocar was placed into the left lower quadrant.?A third 5 mm trocar was placed into the left mid abdomen. The energy but device was then used to cut out the hernia sac.? An 11.4 centimeter mesh was placed into the abdomen and brought up through the umbilicus using an 0 Vicryl suture.? The mesh was then tacked in place in a double crown fashion.? The hernia sac was then removed from the abdomen via an endobag at the left lower quadrant.? The 0 Vicryl suture was removed from the mesh.? The left lower quadrant port site was closed with an 0 Vicryl suture in a Asael-Michele in a [id number] fashion.? Incisions were closed with 4 O Vicryl in a subcuticular interrupted fashion.? Skin glue was applied.? A dressing that included cotton balls and a Tegaderm was placed over the umbilicus.? Patient tolerated the procedure well.
[2022-01-12] MEDS: meperidine 50 mg/mL INJ 12.5 MG IVP (12:39)
[2022-01-12] MEDS: fentaNYL 50 mcg/mL INJ 2mL IVP ×2 (12:52→12:58)
[2022-01-12] MEDS: HYDROcodone-acetaminophen 10-325 mg Tablet 1 TAB PO (14:07)
--- NOTE | 2022-01-12 14:11 | ANE.PACU2 ---
Inpatient post-anesthesia follow up: Airway intact: Yes Vital signs: Temperature 97 F Pulse Rate 61 Respiratory Rate 16 Blood Pressure 127/76 Pulse Oximetry 94 Oxygen Delivery Me thod Room Air Oxygen Flow Rate 3 Fraction of Inspir ed Oxygen Hydration adequate: Yes Nausea and vomiting: No Pain level: 1 Mental status: Baseline
== END 2022-01-12 14:22 | disposition home or self-care (01) ==
PROVIDERS: Anesthesiology; PCP Nurse Practitioner Family; Visit Provider Surgery
PROC: 0WQF4ZZ Repair Abdominal Wall, Percutaneous Endoscopic Approach (ICD-10-PCS; CPT 49652; principal; 2022-01-12 10:00)
DX: K42.9 Umbilical hernia without obstruction or gangrene (principal); I25.10 Atherosclerotic heart disease of native coronary artery without angina pectoris; Z95.5 Presence of coronary angioplasty implant and graft; I10 Essential (primary) hypertension; E11.9 Type 2 diabetes mellitus without complications
CPT/HCPCS: 49652; 36415; 36416; 80048; 82962; 88302; C1781; J0330; J0690; J1100; J1200; J1815; J2175; J2250; J2405; J2704; J2710; J3010; J3490; J7030

== ENCOUNTER → 2022-01-23 08:04 | Outpatient (BNVA) | payer MEDICARE, SELFPAY ==
[2020-01-11 11:16] VITALS: BP 150/85; BMI 53.7
== END ==
PROVIDERS: PCP Nurse Practitioner Family; Visit Provider Surgery
DX: Z98.890 Other specified postprocedural states (principal)
CPT/HCPCS: 99024

== ENCOUNTER 2022-02-23 17:53 | Emergency (ER) | payer MEDICARE, SELFPAY ==
[2020-01-11 11:16] VITALS: BP 150/85; BMI 53.7
[2022-02-23 18:22] VITALS: BP 177/79; PULSE 77; RESP 16; TEMP 36.7; O2SAT 98; BMI 53.2
--- NOTE | 2022-02-23 19:17 | XRR_ITS ---
PROCEDURE INFORMATION: Exam: XR Right Knee Exam date and time: 02/23/2022 7:37 PM Age: 51 years old Clinical indication: Injury or trauma; Other: Shelf fell on lower leg; Blunt trauma; Knee; Right TECHNIQUE: Imaging protocol: Radiologic exam of the Right knee. Views: 3 views. COMPARISON: No relevant prior studies available. FINDINGS: Limitations: Study is somewhat limited due to positioning. Bones/joints: Normal. Soft tissues: Normal. XR/XR knee RT 3V* [id number] IMPRESSION: No acute finding.
--- NOTE | 2022-02-23 21:16 | ED_ITS ---
HPI - Extremity Problem General: Chief complaint: Extremity Injury, Lower Stated complaint: Shelf fell on rt leg Time Seen by Provider: 02/23/22 21:14 History of Present Illness: Patient comes in today for concerns of injury to the right rich. Patient dropped a shelf on her leg this morning and since then has had increased swelling and bruising to the rich. Patient is concerned for fracture. Patient is ambulatory. Review of Systems General: Reports: 10 or more systems reviewed and unremarkable except in HPI and below Musc: Reports: extremity pain PFSH ED PFSH: Medical History Chronic back pain Diabetes Encounter for long-term use of opiate analgesic HTN (hypertension) with goal to be determined Muscle spasm of back Opioid contract exists Status post extracorporeal shock wave therapy Urolithiasis Surgical History Hx of heart artery stent Hx of hysterectomy S/P skin cancer resection Nose Family History Other Cancer Diabetes Stroke Social History Smoking and tobacco status: never smoked Second hand smoke exposure: No Alcohol intake: never Adopted: No Caregiver/support person: No Lives independently: No Household members: spouse Marital status: Current occupational status: disabled History of recent travel: No Physical Exam Const: COMMON NORMALS: no acute distress Neck/C-Spine: COMMON NORMALS: full ROM Resp: COMMON NORMALS: normal respiratory effort Cardio: COMMON NORMALS: regular rate RATE: regular rate Extremity: RIGHT LOWER EXTREMITY: Yes lower leg (Mid anterior hematoma to the rich, tenderness and mild ecchymosis) Skin: COMMON NORMALS: no rashes or lesions noted GENERAL SKIN EXAM: no rashes or lesions noted Course Vital Signs: Vital signs: Vital Signs Temperature 98.0 F 02/23/22 18:22 Pulse Rate 77 02/23/22 18:22 Respiratory Rate 16 02/23/22 18:22 Blood Pressure 177/79 02/23/22 18:22 Pulse Oximetry 98 02/23/22 18:22 MDM - Extremity (Nontraumatic) Medical Decision Making 51-year-old female comes in today for complaints of injury to the right lower leg. On exam there is an area of tenderness and bruising with some mild swelling to the right rich. Distal pulses and sensation are intact. Differential diagnosis includes hematoma, fracture, sprain. X-rays noted no fractures. Believe the patient probably just has a contusion/hematoma to her rich. Reviewed exam and recommendations for treatment and follow-up. Patient reported understanding. Discharge Plan Discharge Patient Disposition: Home Clinical Impression: Contusion of right leg Qualifiers: Encounter type: initial encounter Qualified Code(s): S80.11XA - Contusion of right lower leg, initial encounter Condition: Stable Prescriptions: No Action Victoza 3-Olman 0.6 mg/0.1 mL (18 mg/3 mL) pen injector See Rx Instructions SUBCUT DAILY 0RF Rx Instructions: 1.8MG SUBCUT DAILY PT STATES SHE THINKS ITS THE 1.8MG metformin 500 mg tablet 500 mg PO BID 0RF melatonin 10 mg tablet 10 mg PO BID 0RF metoprolol tartrate 25 mg tablet 12.5 mg PO DAILY Qty: 45 0RF pravastatin 40 mg tablet 40 mg PO BEDTIME Qty: 90 3RF clopidogrel [Plavix] 75 mg tablet 75 mg PO DAILY Qty: 90 0RF celecoxib [Celebrex] 100 mg capsule 200 mg PO BID Qty: 20 0RF levothyroxine [Euthyrox] 75 mcg tablet 75 mcg PO DAILY 0RF Basaglar KwikPen U-100 Insulin 26 units SUBCUT BEDTIME 0RF hydrocodone-acetaminophen 7.5-325 mg Tablet 1 tab PO TID PRN (Reason: Pain) 0RF Hold Instructions: Resume on 01/17/22. Do not take until new pain script runs out hydrocodone-acetaminophen 5-325 mg tablet 2 tab PO Q6H Qty: 40 0RF Discharge Orders: Discharge ED (Routine); Ordered 02/23/22 Ordered By: Castro Pierre Referrals: Emili Barrera APRN [Primary Care Provider] - Discharge Diet: Usual diet Discharge Activity: Increase activity as tolerated Patient Instructions: Contusion in Adults (ED) Activity Restrictions/Additional Instructions: Home and rest. Activity as tolerated. Ice packs to the area for swelling and bruising. Use acetaminophen and ibuprofen for pain. Drink plenty of water with medication. Follow-up with primary care for further instruction. Return to ED for new concerns. Coding Level of Care Code ED Jockey Agent for Glenn Fwd Exam Detailed
--- NOTE | 2022-02-23 21:21 | XRR_ITS ---
PROCEDURE INFORMATION: Exam: XR Right Tibia and Fibula Exam date and time: 02/23/2022 9:33 PM Age: 51 years old Clinical indication: Injury or trauma; Other: Shelf fell on lower leg; Blunt trauma; Right TECHNIQUE: Imaging protocol: Radiologic exam of the Right tibia and fibula. Views: 2 views. COMPARISON: CR (LOW EXM, ) 02/23/2022 7:37 PM FINDINGS: Bones/joints: Normal. Soft tissues: Normal. XR/XR tibia fibula RT 2V [id number] IMPRESSION: No acute findings.
== END 2022-02-23 22:47 | disposition home or self-care (01) ==
PROVIDERS: Emergency Provider Nurse Practitioner Family; PCP Nurse Practitioner Family
DX: S80.11XA Contusion of right lower leg, initial encounter (principal); Z79.84 Long term (current) use of oral hypoglycemic drugs; Z79.02 Long term (current) use of antithrombotics/antiplatelets; Z79.4 Long term (current) use of insulin; E11.9 Type 2 diabetes mellitus without complications; I10 Essential (primary) hypertension; W20.8XXA Other cause of strike by thrown, projected or falling object, initial encounter
CPT/HCPCS: 73562; 73590; 99283

== ENCOUNTER → 2022-04-08 14:01 | Outpatient (BNVA) | payer MEDICARE, SELFPAY ==
[2020-01-11 11:16] VITALS: BP 150/85; BMI 53.7
== END ==
PROVIDERS: PCP Nurse Practitioner Family; Visit Provider Internal Medicine Cardiovascular Disease
DX: I25.10 Atherosclerotic heart disease of native coronary artery without angina pectoris (principal); E78.5 Hyperlipidemia, unspecified; E66.01 Morbid (severe) obesity due to excess calories; Z68.43 Body mass index [BMI] 50.0-59.9, adult; I10 Essential (primary) hypertension; E11.9 Type 2 diabetes mellitus without complications; Z79.84 Long term (current) use of oral hypoglycemic drugs
CPT/HCPCS: 93005; 99214

== ENCOUNTER 2022-04-16 13:03 | Emergency (ER) | payer MEDICARE, SELFPAY ==
[2020-01-11 11:16] VITALS: BP 150/85; BMI 53.7
[2022-04-16 13:10] VITALS: BP 154/92; PULSE 74; RESP 16; TEMP 36.8; O2SAT 99; BMI 52.0
[2022-04-16 14:03] LABS: Basophils % 0.4 %; Eosinophils # 0.1 10^3/uL (0.0-0.8); Eosinophils % 1.1 %; Hemoglobin 12.9 g/dL (11.5-15.3); Lymphocytes # 2.1 10^3/uL (0.8-4.8); Lymphocytes % 24.2 %; Mean Corpuscular HGB Conc 31.5 g/dL (30.0-36.0); Mean Corpuscular Hemoglobin 27.6 pg (28.0-34.0); Mean Corpuscular Volume 87.8 fl (81-99); Mean Platelet Volume 11.4 fL (7.4-10.4); Monocytes # 0.4 10^3/uL (0.2-0.9); Neutrophils # 5.91 10^3/uL (1.8-7.7); Neutrophils % 69.1 %; Nucleated Red Blood Cells % 0 %; Platelet Count 246 10^3/cmm (130-400); Red Blood Count 4.67 10^6/uL (4.1-5.3); Red Cell Distribution Width 13.8 % (12.1-15.1); White Blood Count 8.6 10^3/uL (4.0-10.0)
[2022-04-16 14:15] LABS: Specific Gravity, Urine 1.015 (1.005-1.030); Urine Appearance Hazy (CLEAR); Urine Color Yellow (Yellow); pH Urine 5 (5-7)
[2022-04-16 14:16] LABS: Add Urine Microscopic? YES; Bilirubin Urine Neg (Negative); Blood Urine Neg (Negative); Glucose Urine UA Norm (Normal); Ketones Urine Negative (Negative); Leukocyte Esterase Urine 2+ (Negative); Nitrate Urine Negative (Negative); Protein Urine Trace (Negative); RBC Urine 0-4 /hpf (0-2); Urobilinogen Urine Norm (Negative)
[2022-04-16 14:17] LABS: Add Urine Culture? Yes; Bacteria Urine 2+ /hpf; Squamous Epithelial Cell Urine 0-4 /hpf (0-5)
[2022-04-16 14:28] LABS: Lactic Sepsis W/Reflex 1.2 mmol/L (0.5-2.2)
[2022-04-16 14:30] LABS: Alanine Aminotransferase 11 U/L (0-33); Albumin Level 4.1 g/dL (3.5-5.2); Alkaline Phosphatase 94 U/L (35-105); Anion Gap 14.1 (5-19); Aspartate Amino Transferase 12 U/L (0-32); Blood Urea Nitrogen 12 mg/dL (6-20); Calcium 9.1 mg/dL (8.5-10.5); Carbon Dioxide 25 mmol/L (22-29); Chloride 105 mmol/L (98-107); Globulin 2.7 g/dL (1.3-4.6); Glomerular Filtration Rate 105.4 mL/min (90-130); Glucose 150 mg/dL (65-115); Osmolality Calculated 293 mOsm/kg (285-295); Potassium 4.1 mmol/L (3.5-5.1); Sodium 140 mmol/L (136-145); Total Bilirubin 0.8 mg/dL (0.15-1.2); Total Protein 6.8 g/dL (6.6-8.7)
--- NOTE | 2022-04-16 15:55 | CTR_ITS ---
PROCEDURE INFORMATION: Exam: CT Abdomen And Pelvis Without Contrast Exam date and time: 04/16/2022 4:18 PM Age: 51 years old Clinical indication: Abdominal pain; Prior surgery; Surgery date: 6+ months; Surgery type: Hernia, hyst, TECHNIQUE: Imaging protocol: Computed tomography of the abdomen and pelvis without contrast. Radiation optimization: All CT scans at this facility use at least one of these dose optimization techniques: automated exposure control; mA and/or kV adjustment per patient size (includes targeted exams where dose is matched to clinical indication); or iterative reconstruction. COMPARISON: CT kidney stone [id number] 12/16/2021 8:27 PM RADIATION DOSE METRICS: Total DLP (mGy-cm): 1636.47 FINDINGS: Heart: Coronary artery atherosclerotic calcifications. Liver: Normal. No mass. Gallbladder and bile ducts: Normal. No calcified stones. No ductal dilation. Pancreas: Normal. No ductal dilation. Spleen: Normal. No splenomegaly. Adrenal glands: Normal. No mass. Kidneys and ureters: Normal. No hydronephrosis. Stomach and bowel: Constipation. Diverticulosis without diverticulitis. Appendix: No evidence of appendicitis. Intraperitoneal space: Unremarkable. No free air. No significant fluid collection. Vasculature: Unremarkable. No abdominal aortic aneurysm. Lymph nodes: Unremarkable. No enlarged lymph nodes. Urinary bladder: Unremarkable as visualized. Reproductive: Unremarkable as visualized. Bones/joints: Unremarkable. No acute fracture. Soft tissues: Unremarkable. CT/CT abdomen pelvis wo con [id number] IMPRESSION: 1. Negative for acute inflammatory process in the abdomen or pelvis. 2. Coronary artery atherosclerotic calcifications. 3. Constipation. 4. Diverticulosis without diverticulitis.
--- NOTE | 2022-04-16 15:56 | W.ED.ABDPA2 ---
HPI - Abdominal Pain General: Chief Complaint: Abdominal Pain Stated Complaint: post-hernia repair; pain n/v Time Seen by Provider: 04/16/22 15:32 Source: patient Mode of arrival: ambulatory History of Present Illness: 51-year-old female presents emergency room with complaint of abdominal pain in the umbilical area. 2 months ago she had umbilical hernia repair she has not had any bulging she is complaining of pain periumbilical today after doing some housework. She she has had some nausea and vomiting she last had a bowel movement this morning she has not eaten anything since this morning. She took a hydrocodone with no relief she does have some mild dysuria as well no hematemesis or coffee-ground emesis. MD elicited complaint: abdominal pain Pertinent past history: other (2 months ago had umbilical hernia repair) Onset (ago): hour(s) Pain Consistency: intermittent Location: Periumbilical Severity: mild Quality: cramping Radiation: none Exacerbating factors: nothing Relieving factors: nothing Associated Symptoms: Reports nausea, poor appetite and vomiting; Denies anorexia, belching, bloating, change in bowel habits, change in stool character, chills, coffee ground emesis, constipation, GI cramping, diarrhea, dyspepsia, dysuria, excessive flatus, fever(s), heartburn, hematochezia, hematuria, hematemesis, fecal incontinence, loose stools, melena and syncope Review of Systems Const: Denies: fever(s), chills, fatigue or malaise ENMT: Denies: throat pain, ear or mastoid pain, nasal discharge or nasal congestion Card: Denies: syncope Resp: Denies: dyspnea, productive cough or non-productive cough GI: Reports: abdominal pain, nausea and vomiting; Denies: hematemesis, coffee ground emesis, heartburn, diarrhea, constipation, bloating, GI cramping, belching, excessive flatus, fecal incontinence, change in bowel habits, change in stool character, hematochezia or melena : Denies: flank pain, difficulty voiding, dysuria, urinary frequency, urinary urgency or hematuria Skin/Breast: Denies: rash or pruritus PFSH ED PFSH: Medical History Chronic back pain Diabetes Encounter for long-term use of opiate analgesic HTN (hypertension) with goal to be determined Muscle spasm of back Opioid contract 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 Urolithiasis Surgical History Hx of heart artery stent Hx of hysterectomy Hx of umbilical hernia repair 01/12/22 lap poss open umbilical hernia S/P skin cancer resection Nose Family History Father Cancer Stroke Family/Other Cancer Grandmother Diabetes Sister Diabetes Brother Diabetes Sister Diabetes Denies family history of CAD (coronary artery disease) Clotting disorder Dementia Chronic kidney disease (CKD) Suicide Anesthesia complication Bleeding disorder Lung disease Social History Smoking and tobacco status: never smoked Second hand smoke exposure: No Alcohol intake: never Adopted: No Caregiver/support person: No Lives independently: No Household members: spouse Marital status: Current occupational status: disabled History of recent travel: No Physical Exam Const: COMMON NORMALS: no acute distress GENERAL APPEARANCE: cooperative and comfortable ORIENTATION/CONSCIOUSNESS: Yes awake, Yes oriented to person, Yes oriented to place and Yes oriented to time HENMT: COMMON NORMALS: normocephalic, atraumatic and hearing grossly normal bilaterally HEAD & SCALP: normocephalic and atraumatic Resp: COMMON NORMALS: normal respiratory effort, No retractions, No use of accessory muscles and clear to auscultation bilaterally AUSCULTATION: clear to auscultation bilaterally Cardio: COMMON NORMALS: regular rate, regular rhythm and No murmurs present (Cardio) RATE: regular rate RHYTHM: regular rhythm GI: COMMON NORMALS: Soft to palpation and No hepatosplenomegaly present AUSCULTATION: Yes normoactive bowel sounds PALPATION: Yes Soft to palpation, No Tenderness to palpation present (GI), No Guarding due to palpation present (GI) and Yes No hepatosplenomegaly present Extremity: COMMON NORMALS: normal to inspection, capillary refill normal, no clubbing, cyanosis or edema, no calf tenderness and no pedal edema Neuro: SENSORIUM/ORIENTATION: Yes oriented to person, Yes oriented to place and Yes oriented to time Skin: COMMON NORMALS: no rashes or lesions noted GENERAL SKIN EXAM: no rashes or lesions noted Course Vital Signs: Vital signs: Vital Signs Temperature 98.2 F 04/16/22 13:10 Pulse Rate 78 04/16/22 16:05 Respiratory Rate 16 04/16/22 13:10 Blood Pressure 114/69 04/16/22 16:05 Pulse Oximetry 97 04/16/22 16:05 Oxygen Delivery Me thod 04/16/22 16:05 MDM - Abdominal Pain Medical Decision Making Labs imaging and EKG reviewed as found on the chart. CT shows constipation no evidence of any significant pathology. Discussed results with patient follow-up as needed with primary care. Has mild cystitis which we will treat with Macrobid. Medical Records I reviewed the patient's medical records. Lab Data I reviewed the patient's lab results. : 04/16/22 13:47 04/16/22 13:47 Labs/Radiology: Radiology Impressions Abdomen/Pelvis CT 04/16/22 15:55 IMPRESSION: 1. Negative for acute inflammatory process in the abdomen or pelvis. 2. Coronary artery atherosclerotic calcifications. 3. Constipation. 4. Diverticulosis without diverticulitis. Laboratory Results WBC 8.6 10^3/uL (4.0-10.0) 04/16/22 13:47 RBC 4.67 10^6/uL (4.1-5.3) 04/16/22 13:47 Hgb 12.9 g/dL (11.5-15.3) 04/16/22 13:47 Hct 41.0 % (37.0-47.0) 04/16/22 13:47 MCV 87.8 fl (81-99) 04/16/22 13:47 MCH 27.6 pg (28.0-34.0) L 04/16/22 13:47 MCHC 31.5 g/dL (30.0-36.0) 04/16/22 13:47 RDW 13.8 % (12.1-15.1) 04/16/22 13:47 Plt Count 246 10^3/cmm (130-400) 04/16/22 13:47 MPV 11.4 fL (7.4-10.4) H 04/16/22 13:47 Neut % (Auto) 69.1 % 04/16/22 13:47 Lymph % (Auto) 24.2 % 04/16/22 13:47 [place] % (Auto) 5.0 % 04/16/22 13:47 Eos % (Auto) 1.1 % 04/16/22 13:47 Baso % (Auto) 0.4 % 04/16/22 13:47 Neut # (Auto) 5.91 10^3/uL (1.8-7.7) 04/16/22 13:47 Lymph # (Auto) 2.1 10^3/uL (0.8-4.8) 04/16/22 13:47 [place] # (Auto) 0.4 10^3/uL (0.2-0.9) 04/16/22 13:47 Eos # (Auto) 0.1 10^3/uL (0.0-0.8) 04/16/22 13:47 Baso # (Auto) 0.0 10^3/uL (0.0-0.1) 04/16/22 13:47 Nucleated RBC % (auto) 0 % 04/16/22 13:47 Nucleated RBCs # 0.0 /100WBC 04/16/22 13:47 Sodium 140 mmol/L (136-145) 04/16/22 13:47 Potassium 4.1 mmol/L (3.5-5.1) 04/16/22 13:47 Chloride 105 mmol/L (98-107) 04/16/22 13:47 Carbon Dioxide 25 mmol/L (22-29) 04/16/22 13:47 Anion Gap 14.1 (5-19) 04/16/22 13:47 BUN 12 mg/dL (6-20) 04/16/22 13:47 Creatinine 0.6 mg/dL (0.5-0.9) 04/16/22 13:47 GFR Calculation 105.4 mL/min (90-130) 04/16/22 13:47 Glucose 150 mg/dL (65-115) H 04/16/22 13:47 Calculated Osmolality 293 mOsm/kg (285-295) 04/16/22 13:47 Lactic Acid 1.2 mmol/L (0.5-2.2) 04/16/22 13:47 Calcium 9.1 mg/dL (8.5-10.5) 04/16/22 13:47 Total Bilirubin 0.8 mg/dL (0.15-1.2) 04/16/22 13:47 AST 12 U/L (0-32) 04/16/22 13:47 ALT 11 U/L (0-33) 04/16/22 13:47 Alkaline Phosphatase 94 U/L (35-105) 04/16/22 13:47 Total Protein 6.8 g/dL (6.6-8.7) 04/16/22 13:47 Albumin 4.1 g/dL (3.5-5.2) 04/16/22 13:47 Globulin 2.7 g/dL (1.3-4.6) 04/16/22 13:47 Urine Color Yellow (Yellow) 04/16/22 13:45 Urine Appearance Hazy (CLEAR) A 04/16/22 13:45 Urine pH 5 (5-7) 04/16/22 13:45 Ur Specific [place] 1.015 (1.005-1.030) 04/16/22 13:45 Urine Protein Trace (Negative) 04/16/22 13:45 Urine Glucose (UA) Norm (Normal) 04/16/22 13:45 Urine Ketones Negative (Negative) 04/16/22 13:45 Urine Blood Neg (Negative) 04/16/22 13:45 Urine Nitrate Negative (Negative) 04/16/22 13:45 Urine Bilirubin Neg (Negative) 04/16/22 13:45 Urine Urobilinogen Norm mg/dL (Negative) 04/16/22 13:45 Ur Leukocyte Esterase 2+ (Negative) H 04/16/22 13:45 Urine RBC 0-4 /hpf (0-2) H 04/16/22 13:45 Urine WBC 10-15 /hpf (0-5) H 04/16/22 13:45 Ur Squamous Epith Cells 0-4 /hpf (0-5) H 04/16/22 13:45 Amorphous Sediment Not Reportable 04/16/22 13:45 Urine Bacteria 2+ /hpf (NONE) H 04/16/22 13:45 Discharge Plan Discharge Patient Disposition: Home Clinical Impression: Cystitis, Abdominal wall pain, Constipation Condition: Stable Prescriptions: No Action Victoza 3-Olman 0.6 mg/0.1 mL (18 mg/3 mL) pen injector See Rx Instructions SUBCUT DAILY Rx Instructions: 1.8MG SUBCUT DAILY PT STATES SHE THINKS ITS THE 1.8MG metformin 500 mg tablet 500 mg PO BID melatonin 10 mg tablet 10 mg PO .hs levothyroxine 88 mcg tablet 88 mcg PO DAILY Jardiance 10 mg tablet 10 mg PO DAILY 30 Days Qty: 30 5RF metoprolol tartrate 25 mg tablet 12.5 mg PO DAILY Qty: 45 0RF pravastatin 40 mg tablet 40 mg PO BEDTIME Qty: 90 3RF clopidogrel 75 mg tablet See Rx Instructions .ROUTE .COMPLEX Qty: 90 3RF Dose Instruction: Take 1 tablet by mouth once daily Rx Instructions: Take 1 tablet by mouth once daily Discharge Orders: Discharge ED (Routine); Ordered 04/16/22 Ordered By: Freddy Phan Referrals: Emili Barrera APRN [Primary Care Provider] - Discharge Diet: Usual diet Discharge Activity: Increase activity as tolerated Patient Instructions: Abdominal Pain (ED), Opioid Safety Activity Restrictions/Additional Instructions: Start oral antibiotics 1 twice daily for 7 days. Avoid heavy lifting. If discomfort at the umbilical site continues follow-up with surgery. The CT of your abdomen was normal there is no evidence of recurrence of the hernia or other acute pathology at the time you were seen. Coding Level of Care Code ED Photo Offset Printer for Glenn Zuniga
[2022-04-16 16:05] VITALS: BP 114/69; PULSE 78; O2SAT 97
== END 2022-04-16 17:28 | disposition home or self-care (01) ==
PROVIDERS: Emergency Provider Family Medicine; PCP Nurse Practitioner Family
DX: K59.00 Constipation, unspecified (principal); N30.90 Cystitis, unspecified without hematuria; Z79.84 Long term (current) use of oral hypoglycemic drugs; Z79.02 Long term (current) use of antithrombotics/antiplatelets; E11.9 Type 2 diabetes mellitus without complications; I10 Essential (primary) hypertension
CPT/HCPCS: 36415; 74176; 80053; 81001; 83605; 85025; 87077; 87086; 87186; 99284

== ENCOUNTER 2022-09-10 12:29 | Emergency (ER) | payer MEDICARE, SELFPAY ==
[2020-01-11 11:16] VITALS: BP 150/85; BMI 53.7
[2022-09-10 12:41] VITALS: BP 154/87; PULSE 71; RESP 17; TEMP 36.3; O2SAT 97; BMI 54.1
--- NOTE | 2022-09-10 15:10 | CT_ITS ---
WS: [id number] CT ABDOMEN AND PELVIS NONCONTRAST HISTORY: right flank pain TECHNIQUE: Imaging performed through the abdomen and pelvis. Coronal and sagittal reformats are submi tted. All CT scans at [facility] use at least one of these dose optimization techniques: auto mated exposure control; mA and/or kV adjustment per patient size (includes targeted exams where dose is matched to clinical indication); or iterative reconstruction. DLP: 1560.92 mGy.cm COMPARISON: 04/16/2022 Lower thorax: Lung bases are clear. Visualized heart is normal. No hiatal hernia. Liver: Normal size liver. No mass or bile duct dilatation. Gallbladder: Normal gallbladder. Pancreas: Normal size and attenuation. Normal pancreatic duct. No pancreatitis or mass. Spleen: Normal. Adrenal glands: Normal. No mass. Right kidney: Normal size kidney. Small extrarenal pelvis. No hydronephrosis. Left kidney: Normal size. Nonobstructing 2 mm calcification lower pole. Normal sized ureter. Aorta: Mild atherosclerosis abdominal aorta with no aneurysm. No free fluid, intraperitoneal air or significant lymphadenopathy. GI tract: Nondistended stomach. No small bowel obstruction. Normal appendix. Numerous diverticula in the distal colon. No evidence for acute diverticulitis. Abdominal wall: Negative. No hernia. Pelvis: Normal bladder. Prior hysterectomy. No free fluid. Osseous structures: Unremarkable. CT/CT kidney stone [id number] IMPRESSION: 1. No renal obstruction. 2. Normal appendix. 3. Sigmoid diverticular disease without acute diverticulitis. 4. Prior hysterectomy.
--- NOTE | 2022-09-10 15:11 | ED_ITS ---
Documented by User: AVNI Wagner 09/11/22 22:18 HPI - Abdominal Pain General: Chief Complaint: Abdominal Pain Stated Complaint: Abd Pain Time Seen by Provider: 09/10/22 15:02 History of Present Illness: Patient is a 52-year-old female comes to the ED with right flank pain. Symptoms started just prior to arrival. Patient states that she was in a store walking around and then all of a sudden developed sharp intense right flank pain. She states that the pain was so intense that it brought her down to her knees. She says the pain at that time was a 10 out of 10. It lasted for about 12 minutes. She endorses having some nausea during that time as well. Currently here in the ED she says her pain is more moderate and she rates it a 6 out of 10. Denies any episodes of emesis, fever, chills, dysuria, hematuria, constipation or diarrhea. Patient endorses having a history of kidney stones. Associated Symptoms: Denies chills, constipation, diarrhea, dysuria, fever(s), hematochezia, hematuria, nausea and vomiting Review of Systems Const: Denies: fever(s), chills or fatigue Eyes: Denies: change in vision or eye discomfort ENMT: Denies: throat pain, odynophagia, nasal discharge or nasal congestion Card: Denies: chest pain, palpitations, edema, swelling of feet/ankles, dyspnea on exertion or orthopnea Resp: Denies: dyspnea, productive cough or non-productive cough GI: Denies: abdominal pain, nausea, vomiting, diarrhea, constipation or hematochezia : Reports: flank pain (Right flank); Denies: dysuria or hematuria Musc: Denies: neck pain, back pain or extremity swelling Skin/Breast: Denies: rash or new lesions Neuro: Denies: headache(s), numbness in extremities or weakness in extremities PFS ED PFSH: Medical History Chronic back pain Diabetes Encounter for long-term use of opiate analgesic HTN (hypertension) with goal to be determined Muscle spasm of back Opioid contract 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 Urolithiasis Surgical History Hx of heart artery stent Hx of hysterectomy Hx of umbilical hernia repair 6/6/22 lap poss open umbilical hernia S/P skin cancer resection Nose Family History Father Cancer Stroke Family/Other Cancer Grandmother Diabetes Sister Diabetes Brother Diabetes Sister Diabetes Denies family history of CAD (coronary artery disease) Clotting disorder Dementia Chronic kidney disease (CKD) Suicide Anesthesia complication Bleeding disorder Lung disease Social History Smoking and tobacco status: never smoked Second hand smoke exposure: No Alcohol intake: never Adopted: No Caregiver/support person: No Lives independently: No Household members: spouse Marital status: Current occupational status: disabled History of recent travel: No Physical Exam Const: COMMON NORMALS: patient oriented x3 HENMT: COMMON NORMALS: normocephalic HEAD & SCALP: normocephalic MOUTH: Normal oral and palatal mucosa present THROAT: posterior oropharynx normal and uvula midline Neck/C-Spine: COMMON NORMALS: supple GENERAL: Yes normal visual inspection Resp: COMMON NORMALS: normal respiratory effort, No retractions, No use of accessory muscles and clear to auscultation bilaterally AUSCULTATION: clear to auscultation bilaterally Cardio: COMMON NORMALS: regular rate, regular rhythm, S1 normal heart sound present, S2 normal heart sound present, No gallops present (Cardio), No clicks present (Cardio), No murmurs present (Cardio) and Peripheral pulses 2+ throughout RATE: regular rate RHYTHM: regular rhythm HEART SOUNDS: S1 normal heart sound present and S2 normal heart sound present PERIPHERAL PULSES: Peripheral pulses 2+ throughout GI: COMMON NORMALS: Normal to inspection, nondistended, normoactive bowel sounds present, Soft to palpation, non-tender and no masses PALPATION: Yes Soft to palpation : COMMON NORMALS: Yes no CVA tenderness BLADDER/KIDNEY EXAM: Yes no CVA tenderness Back/Pelvis: COMMON NORMALS: no CVA tenderness Extremity: COMMON NORMALS: normal to inspection Neuro: COMMON NORMALS: patient oriented x3 GAIT: Yes Normal gait present Skin: GENERAL SKIN EXAM: dry skin Course Vital Signs: Vital signs: Vital Signs Temperature 97.3 F L 09/10/22 12:41 Pulse Rate 66 09/10/22 15:24 Respiratory Rate 16 09/10/22 15:24 Blood Pressure 152/84 09/10/22 15:24 Pulse Oximetry 97 09/10/22 15:24 Oxygen Delivery Me thod 09/10/22 15:24 MDM - Abdominal Pain Medical Decision Making Patient is a 52-year-old female comes to the ED with right flank pain. Symptoms started just prior to arrival. Patient states that she was in a store walking around and then all of a sudden developed sharp intense right flank pain. She states that the pain was so intense that it brought her down to her knees. She says the pain at that time was a 10 out of 10. It lasted for about 12 minutes. She endorses having some nausea during that time as well. Currently here in the ED she says her pain is more moderate and she rates it a 6 out of 10. Denies any episodes of emesis, fever, chills, dysuria, hematuria, constipation or diarrhea. Patient endorses having a history of kidney stones. Vitals are stable. Exam of patient is benign. CBC and CMP were unremarkable. UA showed a little bit of blood but no sign of infection. CT abdomen pelvis showed no obstructing kidney stone and no other acute findings. Patient was diagnosed with renal colic and was stable for discharge home. She was told to follow-up with her PCP within the next week for reevaluation. She was sent home with a prescription for Zofran to help with any nausea. Patient has pain meds at home she can take as needed. Return ED precautions given. Patient understood and agreed with plan Lab Data I reviewed the patient's lab results. 09/10/22 15:19 09/10/22 15:19 Labs/Radiology: Radiology Impressions Abdomen/Pelvis CT 09/10/22 15:10 IMPRESSION: 1. No renal obstruction. 2. Normal appendix. 3. Sigmoid diverticular disease without acute diverticulitis. 4. Prior hysterectomy. Laboratory Results WBC 9.5 10^3/uL (4.0-10.0) 09/10/22 15:19 RBC 4.78 10^6/uL (4.1-5.3) 09/10/22 15:19 Hgb 13.0 g/dL (11.5-15.3) 09/10/22 15:19 Hct 40.9 % (37.0-47.0) 09/10/22 15:19 MCV 85.6 fl (81-99) 09/10/22 15:19 MCH 27.2 pg (28.0-34.0) L 09/10/22 15:19 MCHC 31.8 g/dL (30.0-36.0) 09/10/22 15:19 RDW 13.2 % (12.1-15.1) 09/10/22 15:19 Plt Count 254 10^3/cmm (130-400) 09/10/22 15:19 MPV 11.4 fL (7.4-10.4) H 09/10/22 15:19 Neut % (Auto) 65.2 % 09/10/22 15:19 Lymph % (Auto) 28.1 % 09/10/22 15:19 [place] % (Auto) 5.0 % 09/10/22 15:19 Eos % (Auto) 1.3 % 09/10/22 15:19 Baso % (Auto) 0.2 % 09/10/22 15:19 Neut # (Auto) 6.19 10^3/uL (1.8-7.7) 09/10/22 15:19 Lymph # (Auto) 2.7 10^3/uL (0.8-4.8) 09/10/22 15:19 [place]ink[place] # (Auto) 0.5 10^3/uL (0.2-0.9) 09/10/22 15:19 Eos # (Auto) 0.1 10^3/uL (0.0-0.8) 09/10/22 15:19 Baso # (Auto) 0.0 10^3/uL (0.0-0.1) 09/10/22 15:19 Nucleated RBC % (auto) 0 % 09/10/22 15:19 Nucleated RBCs # 0.0 /100WBC 09/10/22 15:19 Sodium 137 mmol/L (136-145) 09/10/22 15:19 Potassium 4.0 mmol/L (3.5-5.1) 09/10/22 15:19 Chloride 101 mmol/L (98-107) 09/10/22 15:19 Carbon Dioxide 28 mmol/L (22-29) 09/10/22 15:19 Anion Gap 12.0 (5-19) 09/10/22 15:19 BUN 13 mg/dL (6-20) 09/10/22 15:19 Creatinine 0.5 mg/dL (0.5-0.9) 09/10/22 15:19 GFR Calculation 129.6 mL/min (90-130) 09/10/22 15:19 Glucose 159 mg/dL (65-115) H 09/10/22 15:19 Calculated Osmolality 287 mOsm/kg (285-295) 09/10/22 15:19 Calcium 9.7 mg/dL (8.5-10.5) 09/10/22 15:19 Total Bilirubin 0.6 mg/dL (0.15-1.2) 09/10/22 15:19 AST 15 U/L (0-32) 09/10/22 15:19 ALT 14 U/L (0-33) 09/10/22 15:19 Alkaline Phosphatase 98 U/L (35-105) 09/10/22 15:19 Total Protein 7.6 g/dL (6.6-8.7) 09/10/22 15:19 Albumin 4.2 g/dL (3.5-5.2) 09/10/22 15:19 Globulin 3.4 g/dL (1.3-4.6) 09/10/22 15:19 Lipase 42 U/L (13-60) 09/10/22 15:19 Urine Color Yellow (Yellow) 09/10/22 15:19 Urine Appearance Clear (CLEAR) 09/10/22 15:19 Urine pH 6 (5-7) 09/10/22 15:19 Ur Specific [place] 1.015 (1.005-1.030) 09/10/22 15:19 Urine Protein Neg (Negative) 09/10/22 15:19 Urine Glucose (UA) Norm (Normal) 09/10/22 15:19 Urine Ketones Negative (Negative) 09/10/22 15:19 Urine Blood 3+ (Negative) H 09/10/22 15:19 Urine Nitrate Negative (Negative) 09/10/22 15:19 Urine Bilirubin Neg (Negative) 09/10/22 15:19 Urine Urobilinogen Neg mg/dL (Negative) 09/10/22 15:19 Ur Leukocyte Esterase Negative (Negative) 09/10/22 15:19 Urine RBC 10-15 /hpf (0-2) H 09/10/22 15:19 Urine WBC None /hpf (0-5) 09/10/22 15:19 Ur Squamous Epith Cells 5-10 /hpf (0-5) H 09/10/22 15:19 Amorphous Sediment Not Reportable 09/10/22 15:19 Urine Bacteria None /hpf (NONE) 09/10/22 15:19 Discharge Plan Discharge Patient Disposition: Home Clinical Impression: Renal colic on right side Condition: Stable Prescriptions: New ondansetron 4 mg tablet,disintegrating 4 mg PO Q8H PRN (Reason: nausea and vomiting) Qty: 15 0RF No Action Victoza 3-Olman 0.6 mg/0.1 mL (18 mg/3 mL) pen injector See Rx Instructions SUBCUT DAILY Rx Instructions: 1.8MG SUBCUT DAILY melatonin 10 mg tablet 10 mg PO BEDTIME levothyroxine 88 mcg tablet 88 mcg PO DAILY metoprolol tartrate 25 mg tablet 12.5 mg PO DAILY Qty: 45 0RF pravastatin 40 mg tablet 40 mg PO BEDTIME Qty: 90 3RF hydrocodone-acetaminophen 10-325 mg tablet 1 tab PO QID PRN (Reason: Pain) metformin 1,000 mg tablet 1,000 mg PO BID clopidogrel 75 mg tablet 75 mg PO DAILY Discharge Orders: Discharge ED (Routine); Ordered 09/10/22 Ordered By: Marco Antonio Bacon Referrals: Emili Barrera APRN [Primary Care Provider] - Discharge Diet: Regular Discharge Activity: Increase activity as tolerated Patient Instructions: Renal Colic (ED) Activity Restrictions/Additional Instructions: Follow-up with medical provider as directed in the next 5 to 7 days for reevaluation. Continue taking home medications as previously prescribed. Return to the ER or your medical provider if condition worsens. Please read and understand discharge instructions. Thank you for choosing [facility] for your healthcare needs today. Please realize this is an emergency room and that we are providing you with a medical screening exam and this may not be complete and all inclusive of all the testing and or work up that you may need to determine your ailment or severity of your illness. It is very important that you follow up as instructed or that you return to the Emergency Department should you have concerns or if your condition changes or worsens in any way. 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 Urolithiasis Surgical History Hx of heart artery stent Hx of hysterectomy Hx of umbilical hernia repair 01/12/22 lap poss open umbilical hernia S/P skin cancer resection Nose Family History Father Cancer Stroke Family/Other Cancer Grandmother Diabetes Sister Diabetes Brother Diabetes Sister Diabetes Denies family history of CAD (coronary artery disease) Clotting disorder Dementia Chronic kidney disease (CKD) Suicide Anesthesia complication Bleeding disorder Lung disease Social History Smoking and tobacco status: never smoked Second hand smoke exposure: No Alcohol intake: never Adopted: No Caregiver/support person: No Lives independently: No Household members: spouse Marital status: Current occupational status: disabled History of recent travel: No Course Vital Signs: Vital signs: Vital Signs Temperature 97.3 F L 09/10/22 12:41 Pulse Rate 66 09/10/22 15:24 Respiratory Rate 16 09/10/22 15:24 Blood Pressure 152/84 09/10/22 15:24 Pulse Oximetry 97 09/10/22 15:24 Oxygen Delivery Me thod 09/10/22 15:24 MDM - Abdominal Pain Medical Decision Making Patient is a 52-year-old female comes to the ED with right flank pain. Symptoms started just prior to arrival. Patient states that she was in a store walking around and then all of a sudden developed sharp intense right flank pain. She states that the pain was so intense that it brought her down to her knees. She says the pain at that time was a 10 out of 10. It lasted for about 12 minutes. She endorses having some nausea during that time as well. Currently here in the ED she says her pain is more moderate and she rates it a 6 out of 10. Denies any episodes of emesis, fever, chills, dysuria, hematuria, constipation or diarrhea. Patient endorses having a history of kidney stones. Vitals are stable. Exam of patient is benign. CBC and CMP were unremarkable. UA showed a little bit of blood but no sign of infection. CT abdomen pelvis showed no obstructing kidney stone and no other acute findings. Patient was diagnosed with renal colic and was stable for discharge home. She was told to follow-up with her PCP within the next week for reevaluation. She was sent home with a prescription for Zofran to help with any nausea. Patient has pain meds at home she can take as needed. Return ED precautions given. Patient understood and agreed with plan Chart reviewed and patient discussed with midlevel. Agree with assessment and plan. Lab Data 09/10/22 15:19 09/10/22 15:19 Labs/Radiology: Radiology Impressions Abdomen/Pelvis CT 09/10/22 15:10 IMPRESSION: 1. No renal obstruction. 2. Normal appendix. 3. Sigmoid diverticular disease without acute diverticulitis. 4. Prior hysterectomy. Laboratory Results WBC 9.5 10^3/uL (4.0-10.0) 09/10/22 15: RBC 4.78 10^6/uL (4.1-5.3) 09/10/22 15:19 Hgb 13.0 g/dL (11.5-15.3) 09/10/22 15:19 Hct 40.9 % (37.0-47.0) 09/10/22 15:19 MCV 85.6 fl (81-99) 09/10/22 15:19 MCH 27.2 pg (28.0-34.0) L 09/10/22 15: MCHC 31.8 g/dL (30.0-36.0) 09/10/22 15: RDW 13.2 % (12.1-15.1) 09/10/22 15:19 Plt Count 254 10^3/cmm (130-400) 09/10/22 15:19 MPV 11.4 fL (7.4-10.4) H 09/10/22 15:19 Neut % (Auto) 65.2 % 09/10/22 15:19 Lymph % (Auto) 28.1 % 09/10/22 15:19 [place] % (Auto) 5.0 % 09/10/22 15:19 Eos % (Auto) 1.3 % 09/10/22 15:19 Baso % (Auto) 0.2 % 09/10/22 15:19 Neut # (Auto) 6.19 10^3/uL (1.8-7.7) 09/10/22 15:19 Lymph # (Auto) 2.7 10^3/uL (0.8-4.8) 09/10/22 15:19 [place] # (Auto) 0.5 10^3/uL (0.2-0.9) 09/10/22 15:19 Eos # (Auto) 0.1 10^3/uL (0.0-0.8) 09/10/22 15:19 Baso # (Auto) 0.0 10^3/uL (0.0-0.1) 09/10/22 15:19 Nucleated RBC % (auto) 0 % 09/10/22 15:19 Nucleated RBCs # 0.0 /100WBC 09/10/22 15:19 Sodium 137 mmol/L (136-145) 09/10/22 15:19 Potassium 4.0 mmol/L (3.5-5.1) 09/10/22 15:19 Chloride 101 mmol/L (98-107) 09/10/22 15:19 Carbon Dioxide 28 mmol/L (22-29) 09/10/22 15:19 Anion Gap 12.0 (5-19) 09/10/22 15:19 BUN 13 mg/dL (6-20) 09/10/22 15:19 Creatinine 0.5 mg/dL (0.5-0.9) 09/10/22 15:19 GFR Calculation 129.6 mL/min (90-130) 09/10/22 15:19 Glucose 159 mg/dL (65-115) H 09/10/22 15:19 Calculated Osmolality 287 mOsm/kg (285-295) 09/10/22 15:19 Calcium 9.7 mg/dL (8.5-10.5) 09/10/22 15:19 Total Bilirubin 0.6 mg/dL (0.15-1.2) 09/10/22 15:19 AST 15 U/L (0-32) 09/10/22 15:19 ALT 14 U/L (0-33) 09/10/22 15:19 Alkaline Phosphatase 98 U/L (35-105) 09/10/22 15:19 Total Protein 7.6 g/dL (6.6-8.7) 09/10/22 15:19 Albumin 4.2 g/dL (3.5-5.2) 09/10/22 15:19 Globulin 3.4 g/dL (1.3-4.6) 09/10/22 15:19 Lipase 42 U/L (13-60) 09/10/22 15:19 Urine Color Yellow (Yellow) 09/10/22 15:19 Urine Appearance Clear (CLEAR) 09/10/22 15:19 Urine pH 6 (5-7) 09/10/22 15:19 Ur Specific [place] 1.015 (1.005-1.030) 09/10/22 15:19 Urine Protein Neg (Negative) 09/10/22 15:19 Urine Glucose (UA) Norm (Normal) 09/10/22 15:19 Urine Ketones Negative (Negative) 09/10/22 15:19 Urine Blood 3+ (Negative) H 09/10/22 15:19 Urine Nitrate Negative (Negative) 09/10/22 15:19 Urine Bilirubin Neg (Negative) 09/10/22 15:19 Urine Urobilinogen Neg mg/dL (Negative) 09/10/22 15:19 Ur Leukocyte Esterase Negative (Negative) 09/10/22 15:19 Urine RBC 10-15 /hpf (0-2) H 09/10/22 15:19 Urine WBC None /hpf (0-5) 09/10/22 15:19 Ur Squamous Epith Cells 5-10 /hpf (0-5) H 09/10/22 15:19 Amorphous Sediment Not Reportable 09/10/22 15:19 Urine Bacteria None /hpf (NONE) 09/10/22 15:19 Discharge Plan Discharge Patient Disposition: Home Clinical Impression: Renal colic on right side Condition: Stable Prescriptions: New ondansetron 4 mg tablet,disintegrating 4 mg PO Q8H PRN (Reason: nausea and vomiting) Qty: 15 0RF No Action Victoza 3-Olman 0.6 mg/0.1 mL (18 mg/3 mL) pen injector See Rx Instructions SUBCUT DAILY Rx Instructions: 1.8MG SUBCUT DAILY melatonin 10 mg tablet 10 mg PO BEDTIME levothyroxine 88 mcg tablet 88 mcg PO DAILY metoprolol tartrate 25 mg tablet 12.5 mg PO DAILY Qty: 45 0RF pravastatin 40 mg tablet 40 mg PO BEDTIME Qty: 90 3RF hydrocodone-acetaminophen 10-325 mg tablet 1 tab PO QID PRN (Reason: Pain) metformin 1,000 mg tablet 1,000 mg PO BID clopidogrel 75 mg tablet 75 mg PO DAILY Discharge Orders: Discharge ED (Routine); Ordered 09/10/22 Ordered By: Marco Antonio Bacon Referrals: Emili Barrera APRN [Primary Care Provider] - Discharge Diet: Regular Discharge Activity: Increase activity as tolerated Patient Instructions: Renal Colic (ED) Activity Restrictions/Additional Instructions: Follow-up with medical provider as directed in the next 5 to 7 days for reevaluation. Continue taking home medications as previously prescribed. Return to the ER or your medical provider if condition worsens. Please read and understand discharge instructions. Thank you for choosing [facility] for your healthcare needs today. Please realize this is an emergency room and that we are providing you with a medical screening exam and this may not be complete and all inclusive of all the testing and or work up that you may need to determine your ailment or severity of your illness. It is very important that you follow up as instructed or that you return to the Emergency Department should you have concerns or if your condition changes or worsens in any way. Coding Level of Care Code ED Instrumental Music Teacher for Glenn Zuniga Exam Comprehensive
[2022-09-10 15:24] VITALS: BP 152/84; PULSE 66; RESP 16; O2SAT 97
[2022-09-10 15:26] LABS: Basophils % 0.2 %; Eosinophils # 0.1 10^3/uL (0.0-0.8); Eosinophils % 1.3 %; Hematocrit 40.9 % (37.0-47.0); Lymphocytes # 2.7 10^3/uL (0.8-4.8); Lymphocytes % 28.1 %; Mean Corpuscular HGB Conc 31.8 g/dL (30.0-36.0); Mean Corpuscular Hemoglobin 27.2 pg (28.0-34.0); Mean Corpuscular Volume 85.6 fl (81-99); Mean Platelet Volume 11.4 fL (7.4-10.4); Monocytes # 0.5 10^3/uL (0.2-0.9); Neutrophils # 6.19 10^3/uL (1.8-7.7); Neutrophils % 65.2 %; Nucleated Red Blood Cells % 0 %; Platelet Count 254 10^3/cmm (130-400); Red Blood Count 4.78 10^6/uL (4.1-5.3); Red Cell Distribution Width 13.2 % (12.1-15.1); White Blood Count 9.5 10^3/uL (4.0-10.0)
[2022-09-10 15:43] LABS: Alanine Aminotransferase 14 U/L (0-33); Albumin Level 4.2 g/dL (3.5-5.2); Alkaline Phosphatase 98 U/L (35-105); Aspartate Amino Transferase 15 U/L (0-32); Blood Urea Nitrogen 13 mg/dL (6-20); Calcium 9.7 mg/dL (8.5-10.5); Carbon Dioxide 28 mmol/L (22-29); Chloride 101 mmol/L (98-107); Globulin 3.4 g/dL (1.3-4.6); Glomerular Filtration Rate 129.6 mL/min (90-130); Glucose 159 mg/dL (65-115); Lipase 42 U/L (13-60); Osmolality Calculated 287 mOsm/kg (285-295); Sodium 137 mmol/L (136-145); Total Bilirubin 0.6 mg/dL (0.15-1.2); Total Protein 7.6 g/dL (6.6-8.7)
[2022-09-10 15:51] LABS: Add Urine Microscopic? YES; Bilirubin Urine Neg (Negative); Blood Urine 3+ (Negative); Glucose Urine UA Norm (Normal); Ketones Urine Negative (Negative); Leukocyte Esterase Urine Negative (Negative); Nitrate Urine Negative (Negative); Protein Urine Neg (Negative); Specific Gravity, Urine 1.015 (1.005-1.030); Urine Appearance Clear (CLEAR); Urine Color Yellow (Yellow); Urobilinogen Urine Neg (Negative); pH Urine 6 (5-7)
[2022-09-10 15:52] LABS: Add Urine Culture? No
== END 2022-09-10 17:39 | disposition home or self-care (01) ==
PROVIDERS: Emergency Provider Physician Assistant; PCP Nurse Practitioner Family
DX: N23 Unspecified renal colic (principal)
CPT/HCPCS: 74176; 80053; 81001; 83690; 85025; 99284

== ENCOUNTER 2022-10-13 11:04 | Emergency (ER) | payer MEDICARE, SELFPAY ==
[2020-01-11 11:16] VITALS: BP 150/85; BMI 53.7
[2022-10-13 11:09] VITALS: BP 168/83; PULSE 85; RESP 18; TEMP 36.8; O2SAT 98; BMI 53.7
--- NOTE | 2022-10-13 11:24 | W.ED.BACK ---
HPI - Back Pain/Injury General: Chief Complaint: Back Pain/Injury Stated Complaint: low back pain, headache Time Seen by Provider: 10/13/22 11:24 History of Present Illness: Ms. Khanna is a 52-year-old lady with history of obesity, diabetes, hypertension, hyperlipidemia, chronic back pain presenting to the emergency department for flank pain and headache. Reports onset of symptoms subacutely approximately 1 week ago. Initially pain intermittent however is now become more constant in the left flank. She notes high blood sugars and nausea but no other specific symptoms. She has not noticed any urinary symptoms. She does endorse a frontal throbbing headache without other neurologic symptoms. Overall intensity symptoms is moderate to severe. No other specific changes in health, exacerbating, or alleviating factors identified. Onset (ago): day(s) Timing: intermittent Severity: severe Similar Symptoms Previously: Yes Quality: sharp and aching Location: left flank Radiation: none Exacerbating factors: none Relieving factors: none Associated symptoms: Reports nausea Review of Systems General: Reports: 10 or more systems reviewed and unremarkable except in HPI and below GI: Reports: nausea PFSH ED PFSH: Medical History Chronic back pain Diabetes Encounter for long-term use of opiate analgesic HTN (hypertension) with goal to be determined Muscle spasm of back Opioid contract 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 Urolithiasis Surgical History Hx of heart artery stent Hx of hysterectomy Hx of umbilical hernia repair 01/12/22 lap poss open umbilical hernia S/P skin cancer resection Nose Family History Father Cancer Stroke Family/Other Cancer Grandmother Diabetes Sister Diabetes Brother Diabetes Sister Diabetes Denies family history of CAD (coronary artery disease) Clotting disorder Dementia Chronic kidney disease (CKD) Suicide Anesthesia complication Bleeding disorder Lung disease Social History Smoking and tobacco status: never smoked Second hand smoke exposure: No Alcohol intake: never Adopted: No Caregiver/support person: No Lives independently: No Household members: spouse Marital status: Current occupational status: disabled Physical Exam Const: COMMON NORMALS: alert GENERAL APPEARANCE: cooperative and well developed HENMT: COMMON NORMALS: normocephalic and atraumatic HEAD & SCALP: normocephalic and atraumatic THROAT: posterior oropharynx normal Eye: COMMON NORMALS: conjunctivae normal CONJUNCTIVA: Yes conjunctivae normal SCLERA: sclerae normal Neck/C-Spine: COMMON NORMALS: supple and no meningeal signs GENERAL: Yes trachea midline Resp: COMMON NORMALS: clear to auscultation bilaterally EFFORT & INSPECTION: Yes able to speak in complete sentences AUSCULTATION: clear to auscultation bilaterally Cardio: COMMON NORMALS: regular rate and regular rhythm RATE: regular rate RHYTHM: regular rhythm GI: COMMON NORMALS: Soft to palpation PALPATION: Yes Soft to palpation and No Tenderness to palpation present (GI) Back/Pelvis: OTHER: Left CVA tenderness Extremity: GENERAL: Yes normal exam except as noted and No edema Neuro: COMMON NORMALS: moves all extremities SENSORIUM/ORIENTATION: Yes alert and No Orientation impaired MENINGEAL SIGNS: Yes no meningeal signs Psych: COMMON NORMALS: mental status grossly normal and Normal thought process present THOUGHT PROCESS: Normal thought process present Course Vital Signs: Vital signs: Vital Signs Temperature 98.2 F 10/13/22 11:09 Pulse Rate 85 10/13/22 14:21 Respiratory Rate 16 10/13/22 14:21 Blood Pressure 168/83 10/13/22 11:09 Pulse Oximetry 99 10/13/22 14:21 Oxygen Delivery Me thod 10/13/22 11:09 MDM - Back Pain/Injury Medical Decision Making 52-year-old lady presenting with flank pain. Patient is nontoxic in appearance. Exam as above. Abdominal tenderness in the CVA region with no evidence of acute surgical abdomen. No overlying skin changes. Labs with no significant hematologic abnormality, no significant metabolic abnormality. Urinalysis with only trace leuk esterase, 0-4 WBCs, 0-4 squames and no bacteria. PCR viral panel pending. CT head demonstrates no acute intracranial pathology. CT abdomen pelvis without acute pathology or evidence of renal pathology. Patient improved with analgesia, antiemetic, IV fluids. Most likely etiology of patient's symptoms is nonspecific abdominal pain and headache. Given ED evaluation findings and clinical history patient does not require inpatient management at this time. The results of ED evaluation were discussed with the patient including prescriptions and/or symptomatic cares (if applicable) including appropriate and responsible use, followup plan, and return precautions. The patient verbalized understanding and felt safe for discharge. Medical Records I reviewed the patient's medical records. Labs I reviewed the patient's lab results. 10/13/22 12:11 10/13/22 12:11 Radiology Impressions Abdomen/Pelvis CT 10/13/22 12:53 IMPRESSION: 1. Sigmoid diverticulosis. 2. No hydronephrosis in either kidney. 3. Prior hysterectomy. 4. No acute abdominal or pelvic findings. Head CT 10/13/22 12:53 IMPRESSION: 1. No evidence of intracranial hemorrhage or mass effect. 2. No acute intracranial findings. Laboratory Results WBC 5.3 10^3/uL (4.0-10.0) 10/13/22 12:11 RBC 4.88 10^6/uL (4.1-5.3) 10/13/22 12:11 Hgb 13.2 g/dL (11.5-15.3) 10/13/22 12:11 Hct 42.2 % (37.0-47.0) 10/13/22 12:11 MCV 86.5 fl (81-99) 10/13/22 12:11 MCH 27.0 pg (28.0-34.0) L 10/13/22 12:11 MCHC 31.3 g/dL (30.0-36.0) 10/13/22 12:11 RDW 13.2 % (12.1-15.1) 10/13/22 12:11 Plt Count 233 10^3/cmm (130-400) 10/13/22 12:11 MPV 11.6 fL (7.4-10.4) H 10/13/22 12:11 Neut % (Auto) 74.3 % 10/13/22 12:11 Lymph % (Auto) 12.4 % 10/13/22 12:11 [place] % (Auto) 11.0 % 10/13/22 12:11 Eos % (Auto) 1.7 % 10/13/22 12:11 Baso % (Auto) 0.4 % 10/13/22 12:11 Neut # (Auto) 3.90 10^3/uL (1.8-7.7) 10/13/22 12:11 Lymph # (Auto) 0.7 10^3/uL (0.8-4.8) L 10/13/22 12:11 [place] # (Auto) 0.6 10^3/uL (0.2-0.9) 10/13/22 12:11 Eos # (Auto) 0.1 10^3/uL (0.0-0.8) 10/13/22 12:11 Baso # (Auto) 0.0 10^3/uL (0.0-0.1) 10/13/22 12:11 Nucleated RBC % (auto) 0 % 10/13/22 12:11 Nucleated RBCs # 0.0 /100WBC 10/13/22 12:11 Sodium 138 mmol/L (136-145) 10/13/22 12:11 Potassium 4.2 mmol/L (3.5-5.1) 10/13/22 12:11 Chloride 101 mmol/L (98-107) 10/13/22 12:11 Carbon Dioxide 23 mmol/L (22-29) 10/13/22 12:11 Anion Gap 18.2 (5-19) 10/13/22 12:11 BUN 15 mg/dL (6-20) 10/13/22 12:11 Creatinine 0.6 mg/dL (0.5-0.9) 10/13/22 12:11 GFR Calculation 105.0 mL/min (90-130) 10/13/22 12:11 Glucose 165 mg/dL (65-115) H 10/13/22 12:11 POC Glucose 157 mg/dL (70-110) H 10/13/22 12:04 Calculated Osmolality 291 mOsm/kg (285-295) 10/13/22 12:11 Calcium 9.7 mg/dL (8.5-10.5) 10/13/22 12:11 Total Bilirubin 0.8 mg/dL (0.15-1.2) 10/13/22 12:11 AST 15 U/L (0-32) 10/13/22 12:11 ALT 12 U/L (0-33) 10/13/22 12:11 Alkaline Phosphatase 93 U/L (35-105) 10/13/22 12:11 Total Protein 7.4 g/dL (6.6-8.7) 10/13/22 12:11 Albumin 4.2 g/dL (3.5-5.2) 10/13/22 12:11 Globulin 3.2 g/dL (1.3-4.6) 10/13/22 12:11 Urine Color Yellow (Yellow) 10/13/22 12:11 Urine Appearance Hazy (CLEAR) A 10/13/22 12:11 Urine pH 7 (5-7) 10/13/22 12:11 Ur Specific [place] 1.005 (1.005-1.030) 10/13/22 12:11 Urine Protein Neg (Negative) 10/13/22 12:11 Urine Glucose (UA) Norm (Normal) 10/13/22 12:11 Urine Ketones Negative (Negative) 10/13/22 12:11 Urine Blood Neg (Negative) 10/13/22 12:11 Urine Nitrate Negative (Negative) 10/13/22 12:11 Urine Bilirubin Neg (Negative) 10/13/22 12:11 Urine Urobilinogen Neg mg/dL (Negative) 10/13/22 12:11 Ur Leukocyte Esterase Trace (Negative) H 10/13/22 12:11 Urine RBC None /hpf (0-2) 10/13/22 12:11 Urine WBC 0-4 /hpf (0-5) H 10/13/22 12:11 Ur Squamous Epith Cells 0-4 /hpf (0-5) H 10/13/22 12:11 Amorphous Sediment Not Reportable 10/13/22 12:11 Urine Bacteria None /hpf (NONE) 10/13/22 12:11 Discharge Plan Discharge Patient Disposition: Home Clinical Impression: Headache, Back pain, Abdominal pain Condition: Stable Prescriptions: New Reglan 10 mg tablet 10 mg PO Q6H PRN (Reason: headache) Qty: 10 0RF No Action Victoza 3-Olman 0.6 mg/0.1 mL (18 mg/3 mL) pen injector See Rx Instructions SUBCUT DAILY Rx Instructions: 1.8MG SUBCUT DAILY melatonin 10 mg tablet 10 mg PO BEDTIME levothyroxine 88 mcg tablet 88 mcg PO DAILY pravastatin 40 mg tablet 40 mg PO BEDTIME Qty: 90 3RF amlodipine 2.5 mg tablet 2.5 mg PO DAILY Qty: 30 0RF metoprolol succinate 25 mg tablet extended release 24 hr 25 mg PO DAILY Qty: 30 0RF hydrocodone-acetaminophen 10-325 mg tablet 1 tab PO QID PRN (Reason: Pain) metformin 1,000 mg tablet 1,000 mg PO BID clopidogrel 75 mg tablet 75 mg PO DAILY ondansetron 4 mg tablet,disintegrating 4 mg PO Q8H PRN (Reason: nausea and vomiting) Qty: 15 0RF Discharge Orders: Discharge ED (Routine); Ordered 10/13/22 Ordered By: Jose Barroso Referrals: Emili Barrera APRN [Primary Care Provider] - Discharge Diet: Usual diet Discharge Activity: Increase activity as tolerated Patient Instructions: Acute Headache (ED), Viral Syndrome (ED), Abdominal Pain (ED), Back Pain (ED), Opioid Safety Activity Restrictions/Additional Instructions: Thank you for visiting the emergency department. You were seen and evaluated for headache, back pain, abdominal pain, and generalized illness. The exact cause of your symptoms is unclear however does not appear to need inpatient management at this time. We will prescribe medication that helps with nausea and headache, you can use this with Benadryl with dose as described on the packaging. You may use [id number] medications such as acetaminophen and ibuprofen for pain however please do not exceed the daily recommended dosage as listed on the packaging and please keep in mind that many namebrand medications contain the same active ingredients. Please avoid these medications if previously instructed to do so by another physician due to other underlying medical condition. Please make sure that you are staying hydrated I would expect improvement in the next few days. Please follow-up with your primary care provider. Return to the emergency department for worsening symptoms or anything else that you are concerned about and feel needs emergency department evaluation. Coding Level of Care Code ED [employer] for Glenn Zuniga
[2022-10-13 12:03] VITALS: RESP 16
[2022-10-13] MEDS: sodium chloride 0.9% 1,000 ML 999 ML IV (12:03)
[2022-10-13] MEDS: morphine 4 mg/mL SDV 1 mL IVP (12:03)
[2022-10-13] MEDS: ketorolac 30 mg/mL INJ 15 MG IVP (12:03)
[2022-10-13 12:18] LABS: Glucose Point of Care 157 mg/dL (70-110)
[2022-10-13 12:22] LABS: Basophils % 0.4 %; Eosinophils # 0.1 10^3/uL (0.0-0.8); Eosinophils % 1.7 %; Hematocrit 42.2 % (37.0-47.0); Hemoglobin 13.2 g/dL (11.5-15.3); Lymphocytes # 0.7 10^3/uL (0.8-4.8); Lymphocytes % 12.4 %; Mean Corpuscular HGB Conc 31.3 g/dL (30.0-36.0); Mean Corpuscular Volume 86.5 fl (81-99); Mean Platelet Volume 11.6 fL (7.4-10.4); Monocytes # 0.6 10^3/uL (0.2-0.9); Neutrophils % 74.3 %; Nucleated Red Blood Cells % 0 %; Platelet Count 233 10^3/cmm (130-400); Red Blood Count 4.88 10^6/uL (4.1-5.3); Red Cell Distribution Width 13.2 % (12.1-15.1); White Blood Count 5.3 10^3/uL (4.0-10.0)
[2022-10-13 12:51] LABS: Alanine Aminotransferase 12 U/L (0-33); Albumin Level 4.2 g/dL (3.5-5.2); Alkaline Phosphatase 93 U/L (35-105); Anion Gap 18.2 (5-19); Aspartate Amino Transferase 15 U/L (0-32); Blood Urea Nitrogen 15 mg/dL (6-20); Calcium 9.7 mg/dL (8.5-10.5); Carbon Dioxide 23 mmol/L (22-29); Chloride 101 mmol/L (98-107); Globulin 3.2 g/dL (1.3-4.6); Glucose 165 mg/dL (65-115); Osmolality Calculated 291 mOsm/kg (285-295); Potassium 4.2 mmol/L (3.5-5.1); Sodium 138 mmol/L (136-145); Total Bilirubin 0.8 mg/dL (0.15-1.2); Total Protein 7.4 g/dL (6.6-8.7)
[2022-10-13 12:52] LABS: Add Urine Microscopic? YES; Bilirubin Urine Neg (Negative); Blood Urine Neg (Negative); Glucose Urine UA Norm (Normal); Ketones Urine Negative (Negative); Leukocyte Esterase Urine Trace (Negative); Nitrate Urine Negative (Negative); Protein Urine Neg (Negative); Specific Gravity, Urine 1.005 (1.005-1.030); Urine Appearance Hazy (CLEAR); Urine Color Yellow (Yellow); Urobilinogen Urine Neg (Negative); pH Urine 7 (5-7)
--- NOTE | 2022-10-13 12:53 | CT_ITS ---
WS: [id number] CT ABDOMEN PELVIS TECHNIQUE: Noncontrast CT of the abdomen and pelvis with coronal and sagittal reformatted images. CLINICAL INFORMATION: L back pain, nausea COMPARISON: September 10, 2022 DLP: 1290.[address] scans at [facility] use at least one of these dose optimization techniques: automated e xposure control; mA and/or kV adjustment per patient size (includes targeted exams where dose is matc hed to clinical indication); or iterative reconstruction. FINDINGS: Lung bases are well aerated. Noncontrast liver is normal. Normal GE junction. Noncontrast spleen is n ormal. Fatty atrophy of the pancreas. Adrenal glands are normal. No hydronephrosis in either kidney. No obstructing renal or ureteral calculi. Prior hysterectomy. Sigmoid diverticulosis. No evidence of acute diverticulitis. Normal caliber abdominal aorta. No evidence of high-grade small or large bowel obstruction. CT/CT abdomen pelvis wo con [id number] IMPRESSION: 1. Sigmoid diverticulosis. 2. No hydronephrosis in either kidney. 3. Prior hysterectomy. 4. No acute abdominal or pelvic findings.
--- NOTE | 2022-10-13 12:53 | CT_ITS ---
WS: [id number] CT HEAD TECHNIQUE: Noncontrast CT of the head obtained from the skullbase to the vertex. CLINICAL INFORMATION: frontal headache COMPARISON: 2018 DLP: 1163.[address] scans at [facility] use at least one of these dose optimization techniques: automated e xposure control; mA and/or kV adjustment per patient size (includes targeted exams where dose is matc hed to clinical indication); or iterative reconstruction. FINDINGS: No evidence of intracranial hemorrhage or mass effect. Ventricular system and basal cisterns are gonzales nt. No extra-axial fluid collections. No evidence of mass or mass effect. Normal cummins-white different iation. Paranasal sinuses and mastoid air cells are well aerated. .Normal visualized soft tissues. CT/CT head wo con* [id number] IMPRESSION: 1. No evidence of intracranial hemorrhage or mass effect. 2. No acute intracranial findings.
[2022-10-13 12:58] LABS: Add Urine Culture? No; Squamous Epithelial Cell Urine 0-4 /hpf (0-5); WBC Urine 0-4 /hpf (0-5)
[2022-10-13] MEDS: metoclopramide 5 mg/mL SDV 2 mL 10 MG IVP (14:13)
[2022-10-13 14:21] VITALS: PULSE 85; RESP 16; O2SAT 99
== END 2022-10-13 14:26 | disposition home or self-care (01) ==
PROVIDERS: Emergency Provider Emergency Medicine; PCP Nurse Practitioner Family
DX: M54.50 Low back pain, unspecified (principal); R10.9 Unspecified abdominal pain; R51.9 Headache, unspecified; Z79.02 Long term (current) use of antithrombotics/antiplatelets; Z79.84 Long term (current) use of oral hypoglycemic drugs; K57.30 Diverticulosis of large intestine without perforation or abscess without bleeding; E11.9 Type 2 diabetes mellitus without complications; I10 Essential (primary) hypertension
CPT/HCPCS: 36416; 70450; 74176; 80053; 81001; 82962; 85025; 96374; 96375; 99285; J1885; J2270; J2765; J7030

== ENCOUNTER 2022-10-14 06:25 | Emergency (ER) | payer MEDICARE, SELFPAY ==
[2020-01-11 11:16] VITALS: BP 150/85; BMI 53.7
[2022-10-14 06:49] VITALS: BP 184/87; PULSE 91; RESP 16; TEMP 37.1; O2SAT 98; BMI 55.4
--- NOTE | 2022-10-14 06:57 | XRR_ITS ---
PROCEDURE INFORMATION: Exam: XR Chest Exam date and time: 10/14/2022 7:13 AM Age: 52 years old Clinical indication: Cough and fever and shortness of breath; Prior surgery; Surgery type: Stents; Additional info: Dyspnea/cough TECHNIQUE: Imaging protocol: Radiologic exam of the chest. Views: 1 view. COMPARISON: CR XR chest 1V portable [id number] 08/04/2021 6:38 AM FINDINGS: Lungs: Mild ill-defined opacity at the left lung base. Right lung is clear. Pleural spaces: There is no pleural effusion or pneumothorax. Heart/Mediastinum: Cardiomediastinal contours are unremarkable. Bones/joints: Bones are unremarkable. XR/XR chest 1V portable [id number] IMPRESSION: Nonspecific opacity at the left lung base. Possible atelectasis or infection.
--- NOTE | 2022-10-14 07:14 | W.ED.SOB ---
HPI - SOB/Dyspnea General: Chief Complaint: Shortness of Breath/Dyspnea Stated Complaint: sob Time Seen by Provider: 10/14/22 06:51 Source: patient Mode of arrival: ambulatory History of Present Illness: HPI Narrative: 52-year-old female presents emergency room complaining of flulike symptoms. She was seen yesterday with flank pain. Work-up including CT was unremarkable she did have some lymphocytopenia. She reports complaining of myalgias fever generalized aches and chills malaise. No vomiting no diarrhea nonproductive cough. MD elicited complaint: shortness of breath and cough Onset (ago): day(s) Timing: constant Severity: mild Exacerbating factors: nothing Relieving factors: nothing Associated symptoms: Reports cough, myalgias and nausea; Deny abdominal pain, chest congestion, chest pain, diaphoresis, dizziness, extremity pain, fever(s), hemoptysis, lightheadedness, orthopnea, palpitations, paresthesias, polydipsia, polyuria, rash, sense of impending doom, syncope or vomiting Treatment prior to arrival: none Review of Systems Const: Denies: fever(s) or diaphoresis ENMT: Denies: throat pain, ear or mastoid pain, nasal discharge or nasal congestion Card: Denies: chest pain, palpitations, lightheadedness, syncope or orthopnea Resp: Denies: hemoptysis or chest congestion GI: Reports: nausea; Denies: abdominal pain or vomiting : Denies: flank pain, difficulty voiding, dysuria, urinary frequency or urinary urgency Musc: Denies: extremity pain Skin/Breast: Denies: rash or pruritus Neuro: Denies: dizziness Endo: Denies: polyuria or polydipsia PFSH ED PFSH: Medical History Chronic back pain Diabetes Encounter for long-term use of opiate analgesic HTN (hypertension) with goal to be determined Muscle spasm of back Opioid contract 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 Urolithiasis Surgical History Hx of heart artery stent Hx of hysterectomy Hx of umbilical hernia repair 01/12/22 lap poss open umbilical hernia S/P skin cancer resection Nose Family History Father Cancer Stroke Family/Other Cancer Grandmother Diabetes Sister Diabetes Brother Diabetes Sister Diabetes Denies family history of CAD (coronary artery disease) Clotting disorder Dementia Chronic kidney disease (CKD) Suicide Anesthesia complication Bleeding disorder Lung disease Social History Smoking and tobacco status: never smoked Second hand smoke exposure: No Alcohol intake: never Adopted: No Caregiver/support person: No Lives independently: No Household members: spouse Marital status: Current occupational status: disabled Physical Exam Const: COMMON NORMALS: no acute distress GENERAL APPEARANCE: cooperative and comfortable ORIENTATION/CONSCIOUSNESS: Yes awake, Yes oriented to person, Yes oriented to place and Yes oriented to time HENMT: COMMON NORMALS: normocephalic, atraumatic and hearing grossly normal bilaterally HEAD & SCALP: normocephalic and atraumatic Resp: COMMON NORMALS: normal respiratory effort, No retractions, No use of accessory muscles and clear to auscultation bilaterally AUSCULTATION: clear to auscultation bilaterally Cardio: COMMON NORMALS: regular rate, regular rhythm and No murmurs present (Cardio) RATE: regular rate RHYTHM: regular rhythm GI: COMMON NORMALS: Soft to palpation and No hepatosplenomegaly present AUSCULTATION: Yes normoactive bowel sounds PALPATION: Yes Soft to palpation, No Tenderness to palpation present (GI), No Guarding due to palpation present (GI) and Yes No hepatosplenomegaly present Extremity: COMMON NORMALS: normal to inspection, capillary refill normal, no clubbing, cyanosis or edema, no calf tenderness and no pedal edema Neuro: SENSORIUM/ORIENTATION: Yes oriented to person, Yes oriented to place and Yes oriented to time Skin: COMMON NORMALS: no rashes or lesions noted GENERAL SKIN EXAM: no rashes or lesions noted Course Vital Signs: Vital signs: Vital Signs Temperature 98.8 F 10/14/22 08:02 Pulse Rate 91 10/14/22 08:02 Respiratory Rate 16 10/14/22 08:02 Blood Pressure 184/87 10/14/22 08:02 Pulse Oximetry 98 10/14/22 08:02 MDM - SOB/Dyspnea Medical Decision Making Exam unremarkable her blood pressure is elevated we will change her to Toprol XL 25 mg daily and add amlodipine 2.5 p.o. daily she was given those p.o. here. Blood pressure improved somewhat. Chest x-ray read as possible Yamilka versus infection based on her exam and her normal white count yesterday normal oxygenation today I do not believe she has a pneumonia clinically suspect it is more atelectasis. It does not look COVID-like. Patient was concerned about COVID which is potential with the elevated blood pressure malaise generalized myalgias and her lymphocytopenia on her white count yesterday. However her vital signs are stable there is no hypoxia. We will discharge patient home contact her with the results of her COVID swab. After discharge patient did have a positive COVID result nursing staff called her with the positive result she did request Paxlovid which was called in for her. 300 mg twice daily x5 days. Medical Records I reviewed the patient's medical records. Lab Data I reviewed the patient's lab results. Labs/Radiology: Radiology Impressions Chest X-Ray 10/14/22 06:57 IMPRESSION: Nonspecific opacity at the left lung base. Possible atelectasis or infection. Laboratory Results Coronavirus 229E (PCR) Not detected (NOT DETECT) 10/14/22 07:46 SARS-CoV-2 (PCR) Detected (NOT DETECT) A 10/14/22 07:46 Discharge Plan Discharge Patient Disposition: Home Clinical Impression: Viral URI, Suspected 2019-nCoV infection, HTN (hypertension) Condition: Stable Prescriptions: New amlodipine 2.5 mg tablet 2.5 mg PO DAILY Qty: 30 0RF metoprolol succinate 25 mg tablet extended release 24 hr 25 mg PO DAILY Qty: 30 0RF Discontinued metoprolol tartrate 25 mg tablet 12.5 mg PO DAILY Qty: 45 0RF No Action Victoza 3-Olman 0.6 mg/0.1 mL (18 mg/3 mL) pen injector See Rx Instructions SUBCUT DAILY Rx Instructions: 1.8MG SUBCUT DAILY melatonin 10 mg tablet 10 mg PO BEDTIME levothyroxine 88 mcg tablet 88 mcg PO DAILY pravastatin 40 mg tablet 40 mg PO BEDTIME Qty: 90 3RF hydrocodone-acetaminophen 10-325 mg tablet 1 tab PO QID PRN (Reason: Pain) metformin 1,000 mg tablet 1,000 mg PO BID clopidogrel 75 mg tablet 75 mg PO DAILY ondansetron 4 mg tablet,disintegrating 4 mg PO Q8H PRN (Reason: nausea and vomiting) Qty: 15 0RF Reglan 10 mg tablet 10 mg PO Q6H PRN (Reason: headache) Qty: 10 0RF Discharge Orders: Discharge ED (Routine); Ordered 10/14/22 Ordered By: Freddy Phan Referrals: Emili Barrera APRN [Primary Care Provider] - Patient Instructions: Opioid Safety, Pain Management Activity Restrictions/Additional Instructions: You were seen today for concern of COVID. Your chest x-ray was normal and your vital signs are stable. COVID swab was we will contact you with the result when it is available. Is also noted your blood pressure is elevated you were given a long-acting form of metoprolol in the emergency room we recommend that you change that and add a low-dose of amlodipine daily and recheck your blood pressure with your primary care doctor within the week. Coding Level of Care Code ED [employer] for Glenn Zuniga
[2022-10-14] MEDS: amlodipine 5 mg Tablet 2.5 MG PO (07:47)
[2022-10-14] MEDS: metoprolol succinate ER (24 HR) 25 mg Tablet 12.5 MG PO (07:48)
[2022-10-14 08:02] VITALS: BP 184/87; PULSE 91; RESP 16; TEMP 37.1; O2SAT 98
[2022-10-14 09:44] LABS: Adenovirus Not Detected (NOT DETECT); Chlamydia Pneumoniae Not Detected (NOT DETECT); Coronavirus 229E,HKU1,NL63,OC4 Not Detected (NOT DETECT); Human Metapneumovirus Not Detected (NOT DETECT); Human Rhinovirus/Enterovirus Not Detected (NOT DETECT); Influenza A Not Detected (NOT DETECT); Influenza A H1 Not Detected (NOT DETECT); Influenza A H1-2009 Not Detected (NOT DETECT); Influenza A H3 Not Detected (NOT DETECT); Influenza B Not Detected (NOT DETECT); Mycoplasma Pneumoniae Not Detected (NOT DETECT); Parainfluenza Virus Type 1 Not Detected (NOT DETECT); Parainfluenza Virus Type 2 Not Detected (NOT DETECT); Parainfluenza Virus Type 3 Not Detected (NOT DETECT); Parainfluenza Virus Type 4 Not Detected (NOT DETECT); Respiratory Syncytial Virus A Not Detected (NOT DETECT); Respiratory Syncytial Virus B Not Detected (NOT DETECT); SARS-COV-2 Detected (NOT DETECT)
--- NOTE | 2022-10-14 09:55 | PC.NURSE ---
PT CALLED AT 0955 WITH COVID RESULTS.
--- NOTE | 2022-10-14 12:49 | PC.NURSE ---
PRESCRIPTION CALLED TO [facility] FOR PAXLOVID 300MG BID TIMES 5 DAYS. PATIENT AWARE.
== END 2022-10-14 08:06 | disposition home or self-care (01) ==
PROVIDERS: Emergency Provider Family Medicine; PCP Nurse Practitioner Family
DX: U07.1 COVID-19 (principal); I10 Essential (primary) hypertension; Z79.02 Long term (current) use of antithrombotics/antiplatelets; Z79.84 Long term (current) use of oral hypoglycemic drugs; E11.9 Type 2 diabetes mellitus without complications
CPT/HCPCS: 71045; 87635; 99284

== ENCOUNTER → 2022-11-11 13:16 | Outpatient (BNVA) | payer MEDICARE, SELFPAY ==
[2020-01-11 11:16] VITALS: BP 150/85; BMI 53.7
== END ==
PROVIDERS: PCP Nurse Practitioner Family; Visit Provider Podiatrist Foot & Ankle Surgery
DX: E11.621 Type 2 diabetes mellitus with foot ulcer (principal); L97.521 Non-pressure chronic ulcer of other part of left foot limited to breakdown of skin; E11.42 Type 2 diabetes mellitus with diabetic polyneuropathy; Z79.84 Long term (current) use of oral hypoglycemic drugs; G62.9 Polyneuropathy, unspecified
CPT/HCPCS: 99203

== ENCOUNTER → 2022-11-30 14:51 | Outpatient (BNVA) | payer MEDICARE, SELFPAY ==
[2020-01-11 11:16] VITALS: BP 150/85; BMI 53.7
== END ==
PROVIDERS: PCP Nurse Practitioner Family; Visit Provider Podiatrist Foot & Ankle Surgery
DX: E11.9 Type 2 diabetes mellitus without complications (principal); G62.9 Polyneuropathy, unspecified; Z79.4 Long term (current) use of insulin
CPT/HCPCS: 99213

== ENCOUNTER → 2022-12-13 18:54 | Outpatient (BNVA) | payer MEDICARE, SELFPAY ==
[2020-01-11 11:16] VITALS: BP 150/85; BMI 53.7
== END ==
PROVIDERS: PCP Nurse Practitioner Family; Visit Provider Emergency Medicine
DX: S62.665A Nondisplaced fracture of distal phalanx of left ring finger, initial encounter for closed fracture (principal); W23.0XXA Caught, crushed, jammed, or pinched between moving objects, initial encounter
CPT/HCPCS: 73130

== ENCOUNTER → 2023-02-05 11:15 | Outpatient (BNVA) | payer MEDICARE, SELFPAY ==
[2020-01-11 11:16] VITALS: BP 150/85; BMI 53.7
== END ==
PROVIDERS: Visit Provider Family Medicine
DX: E55.9 Vitamin D deficiency, unspecified (principal); R79.89 Other specified abnormal findings of blood chemistry; E11.9 Type 2 diabetes mellitus without complications; E03.9 Hypothyroidism, unspecified
CPT/HCPCS: 80053; 80061; 82043; 82306; 83036; 84443; 85025

== ENCOUNTER → 2023-03-15 15:16 | Outpatient (BNVA) | payer MEDICARE, SELFPAY ==
[2020-01-11 11:16] VITALS: BP 150/85; BMI 53.7
== END ==
PROVIDERS: Visit Provider Family Medicine
DX: E03.9 Hypothyroidism, unspecified (principal)
CPT/HCPCS: 84439; 84443

== ENCOUNTER 2023-04-06 17:30 | Emergency (ER) | payer MEDICARE, SELFPAY ==
[2020-01-11 11:16] VITALS: BP 150/85; BMI 53.7
[2023-04-06 17:32] VITALS: BP 158/84; PULSE 73; RESP 16; TEMP 36.4; O2SAT 98; BMI 60.2
--- NOTE | 2023-04-06 18:00 | CTR_ITS ---
PROCEDURE INFORMATION: Exam: CT Head Without Contrast Exam date and time: 04/06/2023 6:11 PM Age: 52 years old Clinical indication: Injury or trauma; Fall; Blunt trauma (contusions or hematomas) TECHNIQUE: Imaging protocol: Computed tomography of the head without contrast. Radiation optimization: All CT scans at this facility use at least one of these dose optimization techniques: automated exposure control; mA and/or kV adjustment per patient size (includes targeted exams where dose is matched to clinical indication); or iterative reconstruction. REPORTING DATA: Count of CT and Cardiac NM exams in prior 12 months: This patient has received 4 known CTs and 0 known cardiac nuclear medicine studies in the 12 months prior to the current study. COMPARISON: 1. CT head wo con* [id number] 10/13/2022 1:[address] head wo con* [id number] 09/01/2017 9:37 AM RADIATION DOSE METRICS: Total DLP (mGy-cm): 1122.35 FINDINGS: Brain: Normal. No hemorrhage. Unremarkable white matter. No mass effect. Cerebral ventricles: No ventriculomegaly. Pituitary gland and sella: Pituitary is flattened along the floor of the sella giving a so-called empty sella appearance. Paranasal sinuses: Visualized sinuses are unremarkable. No fluid levels. Mastoid air cells: Visualized mastoid air cells are well aerated. Bones/joints: Unremarkable. No acute fracture. Soft tissues: Unremarkable. CT/CT head wo con* [id number] IMPRESSION: No acute intracranial abnormality.
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
[2023-04-06 18:46] VITALS: BP 143/72; PULSE 74; O2SAT 97
--- NOTE | 2023-04-08 13:39 | DCPLANNER ---
animal ride manager was triggered to call patient due to no primary care physician - patient sees Erum Brown at [facility].
== END 2023-04-06 18:51 | disposition home or self-care (01) ==
PROVIDERS: Emergency Provider Emergency Medicine; PCP Family Medicine
DX: S09.8XXA Other specified injuries of head, initial encounter (principal); Z79.02 Long term (current) use of antithrombotics/antiplatelets; Z79.84 Long term (current) use of oral hypoglycemic drugs; I25.10 Atherosclerotic heart disease of native coronary artery without angina pectoris; E11.9 Type 2 diabetes mellitus without complications; I10 Essential (primary) hypertension; W22.8XXA Striking against or struck by other objects, initial encounter
CPT/HCPCS: 70450; 99284

== ENCOUNTER 2023-06-11 04:17 | Emergency (ER) | payer MEDICARE, SELFPAY ==
[2020-01-11 11:16] VITALS: BP 150/85; BMI 53.7
[2023-06-11 04:21] VITALS: BP 161/103; PULSE 78; RESP 16; TEMP 36.7; O2SAT 97; BMI 54.2
--- NOTE | 2023-06-11 04:31 | ED_ITS ---
HPI - Back Pain/Injury General: Chief Complaint: Back Pain/Injury Stated Complaint: Back Pain In Kidney area Time Seen by Provider: 06/11/23 04:19 Source: patient Mode of arrival: ambulatory Limitations: no limitations History of Present Illness: 52-year-old female states she has had bilateral flank pain with left flank and left lower back pain worse throughout the night. States she has had some pain with urination. States she is currently pain-free states the pain seems to come and go. Has had a history of kidney stones denies any vomiting or diarrhea. Associated symptoms: Reports dysuria; Deny abdominal pain, chills, fever(s), nausea or vomiting Review of Systems Const: Denies: fever(s), chills, body aches or change in appetite Eyes: Denies: eye discomfort ENMT: Denies: throat pain or dental pain Card: Denies: chest pain Resp: Denies: dyspnea GI: Denies: abdominal pain, nausea, vomiting or diarrhea : Reports: flank pain and dysuria Musc: Denies: neck pain or back pain Skin/Breast: Denies: rash Neuro: Denies: headache(s) PFSH ED PFSH: Medical History Acquired hypothyroidism Atherosclerosis of coronary artery of [place] heart without angina pectoris Chronic back pain Diabetes Encounter for long-term use of opiate analgesic HTN (hypertension) with goal to be determined Muscle spasm of back Opioid contract 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 Urolithiasis Surgical History Hx of heart artery stent x 2 Hx of hysterectomy Total - due to endometrial CA. Hx of umbilical hernia repair 01/12/22 lap poss open umbilical hernia S/P skin cancer resection Nose Family History Father Cancer Stroke Family/Other Cancer Grandmother Diabetes Sister Diabetes Brother Diabetes Sister Diabetes Denies family history of CAD (coronary artery disease) Clotting disorder Dementia Chronic kidney disease (CKD) Suicide Anesthesia complication Bleeding disorder Lung disease Social History Smoking and tobacco/nicotine status: never used tobacco/nicotine Second hand smoke exposure: No Alcohol intake: never Substance/Drug Use: never Adopted: No Caregiver/support person: No Lives independently: No Household members: spouse Marital status: Current occupational status: disabled Physical Exam Const: COMMON NORMALS: no acute distress, patient oriented x3 and healthy appearing HENMT: COMMON NORMALS: normocephalic and atraumatic HEAD & SCALP: normocephalic and atraumatic Eye: COMMON NORMALS: Equal, round and reactive pupils present and EOMs intact bilaterally PUPIL: Yes Equal, round and reactive pupils present Neck/C-Spine: COMMON NORMALS: full ROM and supple Chest: COMMONS NORMALS: normal inspection of the chest Resp: COMMON NORMALS: normal respiratory effort, No retractions, No use of accessory muscles and clear to auscultation bilaterally AUSCULTATION: clear to auscultation bilaterally Cardio: COMMON NORMALS: regular rate, regular rhythm and No murmurs present (Cardio) RATE: regular rate RHYTHM: regular rhythm GI: COMMON NORMALS: Normal to inspection, nondistended, normoactive bowel sounds present, Soft to palpation, non-tender and no masses PALPATION: Yes Soft to palpation : COMMON NORMALS: Yes no CVA tenderness BLADDER/KIDNEY EXAM: Yes no CVA tenderness Back/Pelvis: COMMON NORMALS: no CVA tenderness Extremity: COMMON NORMALS: normal to inspection and full ROM Neuro: COMMON NORMALS: patient oriented x3, moves all extremities and no focal motor deficits Psych: COMMON NORMALS: mental status grossly normal, Normal thought process present and cooperative THOUGHT PROCESS: Normal thought process present Skin: COMMON NORMALS: no rashes or lesions noted and no wounds GENERAL SKIN EXAM: no rashes or lesions noted Course Vital Signs: Vital signs: Vital Signs Temperature 98.0 F 06/11/23 04:21 Pulse Rate 67 06/11/23 05:01 Respiratory Rate 16 06/11/23 05:01 Blood Pressure 132/80 06/11/23 05:01 Pulse Oximetry 99 06/11/23 05:01 MDM - Back Pain/Injury Medical Decision Making Patient presents here with back and flank pain that is likely muscular in origin urinalysis is normal no signs of kidney infection no signs of blood in her urine she has no signs of kidney stones she is stable for discharge she is to follow- up PCP and return if worsening. Medical Records I reviewed the patient's medical records. Labs I reviewed the patient's lab results. 06/11/23 04:28 06/11/23 04:28 Laboratory Results WBC 11.22 10^3/uL (3.29-11.43) 06/11/23 04:28 RBC 4.41 10^6/uL (3.85-5.65) 06/11/23 04:28 Hgb 12.10 g/dL (11.27-16.99) 06/11/23 04:28 Hct 38.1 % (36-47) 06/11/23 04:28 MCV 86.4 fl (85-98) 06/11/23 04:28 MCH 27.4 pg (27-33) 06/11/23 04:28 MCHC 31.8 g/dL (30-55) 06/11/23 04:28 RDW 13.6 % (12.1-15.1) 06/11/23 04:28 Plt Count 255 10^3/cmm (157-399) 06/11/23 04:28 MPV 11.4 fL (7.4-10.4) H 06/11/23 04:28 Neut % (Auto) 64.5 % 06/11/23 04:28 Lymph % (Auto) 27.0 % 06/11/23 04:28 [place] % (Auto) 6.3 % 06/11/23 04:28 Eos % (Auto) 1.4 % 06/11/23 04:28 Baso % (Auto) 0.4 % 06/11/23 04:28 Neut # (Auto) 7.24 10^3/uL (1.8-7.7) 06/11/23 04:28 Lymph # (Auto) 3.0 10^3/uL (0.8-4.8) 06/11/23 04:28 [place] # (Auto) 0.7 10^3/uL (0.2-0.9) 06/11/23 04:28 Eos # (Auto) 0.2 10^3/uL (0.0-0.8) 06/11/23 04:28 Baso # (Auto) 0.0 10^3/uL (0.0-0.1) 06/11/23 04:28 Nucleated RBC % (auto) 0 % 06/11/23 04:28 Nucleated RBCs # 0.0 /100WBC 06/11/23 04:28 Sodium 139 mmol/L (136-145) 06/11/23 04:28 Potassium 4.0 mmol/L (3.5-5.1) 06/11/23 04:28 Chloride 101 mmol/L (98-107) 06/11/23 04:28 Carbon Dioxide 27 mmol/L (22-29) 06/11/23 04:28 Anion Gap 15.0 (5-19) 06/11/23 04:28 BUN 22 mg/dL (6-20) H 06/11/23 04:28 Creatinine 0.8 mg/dL (0.5-0.9) 06/11/23 04:28 GFR Calculation 75.3 mL/min (90-130) L 06/11/23 04:28 Glucose 323 mg/dL (65-115) H 06/11/23 04:28 Calculated Osmolality 304 mOsm/kg (285-295) H 06/11/23 04:28 Calcium 9.2 mg/dL (8.5-10.5) 06/11/23 04:28 Total Bilirubin 0.6 mg/dL (0.15-1.2) 06/11/23 04:28 AST 14 U/L (0-32) 06/11/23 04:28 ALT 14 U/L (0-33) 06/11/23 04:28 Alkaline Phosphatase 97 U/L (35-105) 06/11/23 04:28 Total Protein 6.9 g/dL (6.6-8.7) 06/11/23 04:28 Albumin 4.2 g/dL (3.5-5.2) 06/11/23 04:28 Globulin 2.7 g/dL (1.3-4.6) 06/11/23 04:28 Urine Color Light yellow (Yellow) 06/11/23 04:28 Urine Appearance Sl hazy (CLEAR) A 06/11/23 04:28 Urine pH 5 (5-7) 06/11/23 04:28 Ur Specific [place] 1.015 (1.005-1.030) 06/11/23 04:28 Urine Protein Neg (Negative) 06/11/23 04:28 Urine Glucose (UA) 4+ (Normal) H 06/11/23 04:28 Urine Ketones Negative (Negative) 06/11/23 04:28 Urine Blood Neg (Negative) 06/11/23 04:28 Urine Nitrate Negative (Negative) 06/11/23 04:28 Urine Bilirubin Neg (Negative) 06/11/23 04:28 Urine Urobilinogen Neg mg/dL (Negative) 06/11/23 04:28 Ur Leukocyte Esterase Trace (Negative) H 06/11/23 04:28 Urine RBC None /hpf (0-2) 06/11/23 04:28 Urine WBC 0-4 /hpf (0-5) H 06/11/23 04:28 Ur Squamous Epith Cells 10-15 /hpf (0-5) H 06/11/23 04:28 Amorphous Sediment Not Reportable 06/11/23 04:28 Urine Bacteria Trace /hpf (NONE) 06/11/23 04:28 No radiology studies performed this visit Discharge Plan Discharge Patient Disposition: Home Clinical Impression: Bilateral flank pain Condition: Stable Prescriptions: No Action Victoza 3-Olman 0.6 mg/0.1 mL (18 mg/3 mL) pen injector See Rx Instructions SUBCUT DAILY Rx Instructions: 1.8MG SUBCUT DAILY duloxetine [Cymbalta] 20 mg capsule,delayed release(DR/EC) 20 mg PO DAILY Qty: 30 0RF cholecalciferol (vitamin D3) 1,250 mcg (50,000 unit) capsule 50,000 unit PO .weekly Qty: 14 0RF atorvastatin 40 mg tablet 40 mg PO DAILY Qty: 90 0RF levothyroxine 100 mcg capsule 100 mcg PO DAILY MDD in the morning without food Qty: 90 0RF clopidogrel 75 mg tablet See Rx Instructions .ROUTE .COMPLEX Qty: 90 3RF Dose Instruction: Take 1 tablet by mouth once daily Rx Instructions: Take 1 tablet by mouth once daily metoprolol succinate 25 mg tablet extended release 24 hr 25 mg PO DAILY Qty: 30 0RF hydrocodone-acetaminophen 10-325 mg tablet 1 tab PO QID PRN (Reason: Pain) metformin 1,000 mg tablet 1,000 mg PO BID Discharge Orders: Discharge ED (Routine); Ordered 06/11/23 Ordered By: Carmenza Blevins Referrals: Erum Brown DO [Primary Care Provider] - 1-3 days Discharge Diet: Advance as tolerated Discharge Activity: Resume usual activity Patient Instructions: Flank Pain (ED) Coding Level of Care Code ED Avionics Systems Technician for Glenn Zuniga
[2023-06-11] MEDS: sodium chloride 0.9% 1,000 ML 999 ML IV (04:37)
[2023-06-11 04:39] LABS: Basophils % 0.4 %; Eosinophils # 0.2 10^3/uL (0.0-0.8); Eosinophils % 1.4 %; Hematocrit 38.1 % (36-47); Mean Corpuscular HGB Conc 31.8 g/dL (30-55); Mean Corpuscular Hemoglobin 27.4 pg (27-33); Mean Corpuscular Volume 86.4 fl (85-98); Mean Platelet Volume 11.4 fL (7.4-10.4); Monocytes # 0.7 10^3/uL (0.2-0.9); Monocytes % 6.3 %; Neutrophils # 7.24 10^3/uL (1.8-7.7); Neutrophils % 64.5 %; Nucleated Red Blood Cells % 0 %; Platelet Count 255 10^3/cmm (157-399); Red Blood Count 4.41 10^6/uL (3.85-5.65); Red Cell Distribution Width 13.6 % (12.1-15.1); White Blood Count 11.22 10^3/uL (3.29-11.43)
[2023-06-11 04:56] LABS: Alanine Aminotransferase 14 U/L (0-33); Albumin Level 4.2 g/dL (3.5-5.2); Alkaline Phosphatase 97 U/L (35-105); Aspartate Amino Transferase 14 U/L (0-32); Blood Urea Nitrogen 22 mg/dL (6-20); Calcium 9.2 mg/dL (8.5-10.5); Carbon Dioxide 27 mmol/L (22-29); Chloride 101 mmol/L (98-107); Globulin 2.7 g/dL (1.3-4.6); Glomerular Filtration Rate 75.3 mL/min (90-130); Glucose 323 mg/dL (65-115); Osmolality Calculated 304 mOsm/kg (285-295); Sodium 139 mmol/L (136-145); Total Bilirubin 0.6 mg/dL (0.15-1.2); Total Protein 6.9 g/dL (6.6-8.7)
[2023-06-11 04:57] LABS: Bilirubin Urine Neg (Negative); Blood Urine Neg (Negative); Glucose Urine UA 4+ (Normal); Ketones Urine Negative (Negative); Nitrate Urine Negative (Negative); Protein Urine Neg (Negative); Specific Gravity, Urine 1.015 (1.005-1.030); Urine Appearance SL Hazy (CLEAR); Urine Color Light yellow (Yellow); Urobilinogen Urine Neg (Negative); pH Urine 5 (5-7)
[2023-06-11 04:58] LABS: Add Urine Culture? No; Add Urine Microscopic? YES; Bacteria Urine TRACE /hpf; Leukocyte Esterase Urine Trace (Negative); WBC Urine 0-4 /hpf (0-5)
[2023-06-11 05:01] VITALS: BP 132/80; PULSE 67; RESP 16; O2SAT 99
[2023-06-11 05:19] VITALS: BP 132/80; PULSE 67; RESP 16; TEMP 36.7; O2SAT 99
== END 2023-06-11 05:20 | disposition home or self-care (01) ==
PROVIDERS: Emergency Provider Emergency Medicine; PCP Family Medicine
DX: R10.9 Unspecified abdominal pain (principal); Z79.02 Long term (current) use of antithrombotics/antiplatelets; Z79.84 Long term (current) use of oral hypoglycemic drugs; I25.10 Atherosclerotic heart disease of native coronary artery without angina pectoris; E11.9 Type 2 diabetes mellitus without complications; I10 Essential (primary) hypertension; Z87.442 Personal history of urinary calculi
CPT/HCPCS: 80053; 81001; 85025; 96360; 99284; J7030

== ENCOUNTER 2023-07-10 19:18 | Emergency (ER) | payer MEDICARE, MEDICAID, SELFPAY ==
[2020-01-11 11:16] VITALS: BP 150/85; BMI 53.7
[2023-07-10 19:22] VITALS: BP 184/94; PULSE 95; RESP 18; TEMP 36.4; O2SAT 98; BMI 52.4
== END 2023-07-10 20:45 | disposition left against medical advice (07) ==
PROVIDERS: Emergency Provider Family Medicine; PCP Family Medicine
DX: Z53.21 Procedure and treatment not carried out due to patient leaving prior to being seen by health care provider (principal)

== ENCOUNTER 2023-12-25 18:23 | Emergency (ER) | payer MEDICARE, MEDICAID, SELFPAY ==
[2020-01-11 11:16] VITALS: BP 150/85; BMI 53.7
[2023-12-25 18:48] VITALS: BP 138/74; PULSE 67; RESP 16; TEMP 36.5; O2SAT 99; BMI 52.0
--- NOTE | 2023-12-25 19:29 | XRR_ITS ---
PROCEDURE INFORMATION: Exam: XR Chest Exam date and time: 12/25/2023 7:35 PM Age: 53 years old Clinical indication: Patient HX: Dizziness; Lightheaded; SOB; HX cardiac stents TECHNIQUE: Imaging protocol: Radiologic exam of the chest. Views: 1 view. COMPARISON: CR XR chest 1V portable [id number] 10/14/2022 7:13 AM FINDINGS: Lungs: Unremarkable. No consolidation. Pleural spaces: Unremarkable. No pleural effusion. No pneumothorax. Heart/Mediastinum: Unremarkable. No cardiomegaly. Bones/joints: Unremarkable. XR/XR chest 1V portable [id number] IMPRESSION: No acute findings.
--- NOTE | 2023-12-25 19:36 | ED_ITS ---
Documented by User: AVNI Gonzales 12/25/23 22:40 HPI - Dizziness 2 General: Chief Complaint: Dizziness Stated Complaint: Dizzieness,Lightheaded, Low Energy Time Seen by Provider: 12/25/23 19:07 Source: patient Mode of arrival: ambulatory Limitations: no limitations History of Present Illness: HPI Narrative: Patient is a 53-year-old female presenting to the emergency department complaining of intermittent lightheadedness and dizziness for the past 4 to 5 days. She notes she has also steadily gotten weaker to the point where she has needed help transferring from bed to the bathroom. She reports history of 2 cardiac stents, as she has had a heart attack in the past. Has not recently seen her foot caster due to scheduling issues. She denies any urinary symptoms, fevers, chest pain, breathing difficulties, abdominal pain, palpitations, syncope, ear pain, or other symptoms. She does note that she only drinks about 1 bottle of water a day, and believes that she is dehydrated as she has begun to have lower leg cramps. She does have diabetes but no other pertinent past medical history. She comments that her dizziness and lightheadedness feels as if she is drunk and off balance on her feet. No recent changes in medication. MD elicited complaint: dizziness and lightheadedness Onset (ago): day(s) Timing: sudden onset and intermittent Description: lightheadedness and off-balance Associated symptoms: Denies chest pain, chills, headache(s), nausea, palpitations or vomiting Associated neuro symptoms: Deny numbness in extremities Review of Systems 2 General: Reports: 10 or more systems reviewed and unremarkable except in HPI and below Const: Denies: fever(s), chills or fatigue Eyes: Denies: change in vision ENMT: Denies: throat pain, ear or mastoid pain or nasal discharge Card: Reports: lightheadedness; Denies: chest pain, palpitations or swelling of feet/ankles Resp: Denies: dyspnea, productive cough or wheezing GI: Denies: abdominal pain, nausea, vomiting, diarrhea or constipation : Denies: flank pain, difficulty voiding, dysuria or urinary frequency Musc: Reports: muscle cramps; Denies: neck pain, back pain or joint pain Skin/Breast: Denies: rash Neuro: Reports: weakness in extremities, difficulty walking and dizziness; Denies: headache(s) or numbness in extremities PFSH ED 2 PFSH: Medical History Acquired hypothyroidism Atherosclerosis of coronary artery of [place] heart without angina pectoris Scleral ectasia of right eye Opioid contract exists Muscle spasm of back Status post extracorporeal shock wave therapy Urolithiasis HTN (hypertension) with goal to be determined Encounter for long-term use of opiate analgesic Chronic back pain Diabetes Surgical History Hx of umbilical hernia repair 01/12/22 lap poss open umbilical hernia S/P skin cancer resection Nose Hx of heart artery stent x 2 Hx of hysterectomy Total - due to endometrial CA. Family History Father Cancer Stroke Family/Other Cancer Grandmother Diabetes Sister Diabetes Brother Diabetes Sister Diabetes Denies family history of CAD (coronary artery disease) Clotting disorder Dementia Chronic kidney disease (CKD) Suicide Anesthesia complication Bleeding disorder Lung disease Social History Smoking and tobacco/nicotine status: never used tobacco/nicotine Second hand smoke exposure: No Alcohol intake: never Substance/Drug Use: never Adopted: No Caregiver/support person: No Lives independently: No Household members: spouse Marital status: Current occupational status: disabled Physical Exam 2 Const: COMMON NORMALS: no acute distress, patient oriented x3 and no limitations GENERAL APPEARANCE: cooperative, comfortable and well developed NUTRITIONAL APPEARANCE: obese morbidly obese ORIENTATION/CONSCIOUSNESS: Yes awake, Yes oriented to person, Yes oriented to place and Yes oriented to time HENMT: COMMON NORMALS: normocephalic, atraumatic and hearing grossly normal bilaterally HEAD & SCALP: normocephalic and atraumatic OTHER: Dry oral mucosa Eye: COMMON NORMALS: Equal, round and reactive pupils present, EOMs intact bilaterally and conjunctivae normal CONJUNCTIVA: Yes conjunctivae normal P UPIL: Yes Equal, round and reactive pupils present Neck/C-Spine: COMMON NORMALS: full ROM, supple and no JVD Resp: COMMON NORMALS: normal respiratory effort, No retractions, No use of accessory muscles and clear to auscultation bilaterally AUSCULTATION: clear to auscultation bilaterally Cardio: COMMON NORMALS: no JVD, regular rate, regular rhythm, No clicks present (Cardio), No murmurs present (Cardio) and No rub (Cardio) RATE: r egular rate RHYTHM: regular rhythm GI: COMMON NORMALS: Normal to inspection, nondistended, normoactive bowel sounds present, Soft to palpation and non-tender AUSCULTATION: Yes normoactive bowel sounds PALPATION: Yes Soft to palpation RECTAL EXAM: d eferred : COMMON NORMALS: Yes no CVA tenderness BLADDER/KIDNEY EXAM: Yes no CVA tenderness Back/Pelvis: COMMON NORMALS: no CVA tenderness, thoracic and lumbar spine normal to inspection, no thoracic nor lumbar tenderness and thoraco-lumbar ROM normal Extremity: COMMON NORMALS: normal to inspection, full ROM and capillary refill normal Neuro: COMMON NORMALS: patient oriented x3, moves all extremities, no focal motor deficits and no sensory deficits noted SENSORIUM/ORIENTATION: Yes oriented to person, Yes oriented to place and Yes oriented to time Psych: COMMON NORMALS: mental status grossly normal and Normal thought process present THOUGHT PROCESS: Normal thought process present Skin: COMMON NORMALS: no rashes or lesions noted GENERAL SKIN EXAM: no rashes or lesions noted Course 2 Vital Signs: Vital signs: Vital Signs Temperature 97.7 F 12/25/23 22:41 Pulse Rate 72 12/25/23 22:41 Respiratory Rate 16 12/25/23 22:41 Blood Pressure 136/78 12/25/23 22:41 Pulse Oximetry 100 12/25/23 22:41 Oxygen Delivery Me thod Room Air 12/25/23 18:48 MDM - Dizziness Medical Decision Making Patient presented for few days of dizziness, weakness, and lightheadedness, worse when standing. She notes that she has almost no intake of water daily, and recently started Mounjaro for diabetes. Vitals were unremarkable on arrival and her condition has remained stable throughout the ED course. Lab work unremarkable. On exam she did have dry oral mucosa but otherwise normal workup. EKG unremarkable. Due to negative workup, patient is clinically dehydrated and she does note improvement after half a liter of fluids. The other half was not able to be administered due to the IV falling out while patient was in the bathroom. She does still note that she feels better, and will go home and increase her fluid intake to approximately 60 ounces daily. I did offer her to replace the IV, but she denies and states she feels well enough to go home and hydrate orally. Reasons to return thoroughly discussed with the patient, and I did inform her to follow-up with primary care to discuss her ED visit and any further workup. No further workup in the emergency department necessary at this time. Patient discharged home. Lab Data 12/25/23 21:19 12/25/23 21:19 Radiology Impressions Chest X-Ray 12/25/23 19:29 IMPRESSION: No acute findings. Laboratory Results WBC 8.34 10^3/uL (3.29-11.43) 12/25/23 21:19 RBC 4.38 10^6/uL (3.85-5.65) 12/25/23 21:19 Hgb 12.10 g/dL (11.27-16.99) 12/25/23 21:19 Hct 38.0 % (36-47) 12/25/23 21:19 MCV 86.8 fl (85-98) 12/25/23 21:19 MCH 27.6 pg (27-33) 12/25/23 21:19 MCHC 31.8 g/dL (30-55) 12/25/23 21:19 RDW 14.6 % (12.1-15.1) 12/25/23 21:19 Plt Count 237 10^3/cmm (157-399) 12/25/23 21:19 MPV 11.7 fL (7.4-10.4) H 12/25/23 21:19 Neut % (Auto) 58.2 % 12/25/23 21:19 Lymph % (Auto) 32.5 % 12/25/23 21:19 [place] % (Auto) 6.6 % 12/25/23 21:19 Eos % (Auto) 1.9 % 12/25/23 21:19 Baso % (Auto) 0.4 % 12/25/23 21:19 Neut # (Auto) 4.86 10^3/uL (1.8-7.7) 12/25/23 21:19 Lymph # (Auto) 2.7 10^3/uL (0.8-4.8) 12/25/23 21:19 [place] # (Auto) 0.6 10^3/uL (0.2-0.9) 12/25/23 21:19 Eos # (Auto) 0.2 10^3/uL (0.0-0.8) 12/25/23 21:19 Baso # (Auto) 0.0 10^3/uL (0.0-0.1) 12/25/23 21:19 Nucleated RBC % (auto) 0 % 12/25/23 21:19 Nucleated RBCs # 0.0 /100WBC 12/25/23 21:19 Sodium 139 mmol/L (136-145) 12/25/23 21:19 Potassium 4.5 mmol/L (3.5-5.1) 12/25/23 21:19 Chloride 103 mmol/L (98-107) 12/25/23 21:19 Carbon Dioxide 26 mmol/L (22-29) 12/25/23 21:19 Anion Gap 14.5 (5-19) 12/25/23 21:19 BUN 15 mg/dL (6-20) 12/25/23 21:19 Creatinine 0.6 mg/dL (0.5-0.9) 12/25/23 21:19 GFR Calculation 104.6 mL/min (90-130) 12/25/23 21:19 Glucose 124 mg/dL (65-115) H 12/25/23 21:19 Calculated Osmolality 290 mOsm/kg (285-295) 12/25/23 21:19 Calcium 8.9 mg/dL (8.5-10.5) 12/25/23 21:19 Total Bilirubin 0.6 mg/dL (0.15-1.2) 12/25/23 21:19 AST 12 U/L (0-32) 12/25/23 21:19 ALT 10 U/L (0-33) 12/25/23 21:19 Alkaline Phosphatase 79 U/L (35-105) 12/25/23 21:19 NT-Pro-B Natriuret Pep 217 pg/mL (0-125) H 12/25/23 21:19 Total Protein 6.9 g/dL (6.6-8.7) 12/25/23 21:19 Albumin 4.1 g/dL (3.5-5.2) 12/25/23 21:19 Globulin 2.8 g/dL (1.3-4.6) 12/25/23 21:19 Urine Color Colorless (Yellow) 12/25/23 21:47 Urine Appearance Clear (CLEAR) 12/25/23 21:47 Urine pH 6 (5-7) 12/25/23 21:47 Ur Specific [place] 1.010 (1.005-1.030) 12/25/23 21:47 Urine Protein Neg (Negative) 12/25/23 21:47 Urine Glucose (UA) Norm (Normal) 12/25/23 21:47 Urine Ketones Negative (Negative) 12/25/23 21:47 Urine Blood Neg (Negative) 12/25/23 21:47 Urine Nitrate Negative (Negative) 12/25/23 21:47 Urine Bilirubin Neg (Negative) 12/25/23 21:47 Urine Urobilinogen Neg mg/dL (Negative) 12/25/23 21:47 Ur Leukocyte Esterase Negative (Negative) 12/25/23 21:47 All radiology interpretation(s) finalized by discharge Discharge Plan Discharge Patient Disposition: Home Clinical Impression: Dehydration Condition: Stable Prescriptions: No Action Victoza 3-Olman 0.6 mg/0.1 mL (18 mg/3 mL) pen injector See Rx Instructions SUBCUT DAILY Rx Instructions: 1.8MG SUBCUT DAILY duloxetine [Cymbalta] 20 mg capsule,delayed release(DR/EC) 20 mg PO DAILY Qty: 30 0RF fluticasone propionate [Flonase Allergy Relief] 50 mcg/actuation spray,suspension 2 spray intranasal DAILY Qty: 16 0RF Rx Instructions: administer into each nostril loratadine 10 mg tablet 10 mg PO DAILY Qty: 30 0RF cholecalciferol (vitamin D3) 1,250 mcg (50,000 unit) capsule 50,000 unit PO .weekly Qty: 14 0RF atorvastatin 40 mg tablet 40 mg PO DAILY Qty: 90 0RF levothyroxine 100 mcg capsule 100 mcg PO DAILY MDD in the morning without food Qty: 90 0RF clopidogrel 75 mg tablet See Rx Instructions .ROUTE .COMPLEX Qty: 90 3RF Dose Instruction: Take 1 tablet by mouth once daily Rx Instructions: Take 1 tablet by mouth once daily metoprolol succinate 25 mg tablet extended release 24 hr 25 mg PO DAILY Qty: 30 0RF hydrocodone-acetaminophen 10-325 mg tablet 1 tab PO QID PRN (Reason: Pain) metformin 1,000 mg tablet 1,000 mg PO BID Discharge Orders: Discharge ED (Routine); Ordered 12/25/23 Ordered By: Rohith Vu Referrals: Erum Brown DO [Primary Care Provider] - Discharge Diet: Advance as tolerated Discharge Activity: Resume usual activity Patient Instructions: Dehydration (ED) Activity Restrictions/Additional Instructions: Increase your fluid intake as discussed, to 60 ounces of water daily. Monitor blood sugars closely. Continue taking your diabetes medication as prescribed. Follow-up with primary care to discuss ED visit and any further evaluation. Return with any new or concerning symptoms. Coding Level of Care Code ED Environmental Professional for Chg Fwd Documented by User: Freddy Phan DO 12/26/23 07:01 HPI - Dizziness 2 General: Chief Complaint: Dizziness Stated Complaint: Dizzieness,Lightheaded, Low Energy Time Seen by Provider: 12/25/23 19:07 PFSH ED 2 PFSH: Medical History Acquired hypothyroidism Atherosclerosis of coronary artery of [place] heart without angina pectoris Scleral ectasia of right eye Opioid contract exists Muscle spasm of back Status post extracorporeal shock wave therapy Urolithiasis HTN (hypertension) with goal to be determined Encounter for long-term use of opiate analgesic Chronic back pain Diabetes Surgical History Hx of umbilical hernia repair 01/12/22 lap poss open umbilical hernia S/P skin cancer resection Nose Hx of heart artery stent x 2 Hx of hysterectomy Total - due to endometrial CA. Family History Father Cancer Stroke Family/Other Cancer Grandmother Diabetes Sister Diabetes Brother Diabetes Sister Diabetes Denies family history of CAD (coronary artery disease) Clotting disorder Dementia Chronic kidney disease (CKD) Suicide Anesthesia complication Bleeding disorder Lung disease Social History (Reviewed 05/18/24 @ 19:41 by SERJIO Gonzales Smoking and tobacco/nicotine status: never used tobacco/nicotine Second hand smoke exposure: No Alcohol intake: never Substance/Drug Use: never Adopted: No Caregiver/support person: No Lives independently: No Household members: spouse Marital status: Current occupational status: disabled Course 2 Vital Signs: Vital signs: Vital Signs Temperature 97.7 F 12/25/23 22:41 Pulse Rate 72 12/25/23 22:41 Respiratory Rate 16 12/25/23 22:41 Blood Pressure 136/78 12/25/23 22:41 Pulse Oximetry 100 12/25/23 22:41 Oxygen Delivery Me thod Room Air 12/25/23 18:48 MDM - Dizziness Medical Decision Making Patient presented for few days of dizziness, weakness, and lightheadedness, worse when standing. She notes that she has almost no intake of water daily, and recently started Mounjaro for diabetes. Vitals were unremarkable on arrival and her condition has remained stable throughout the ED course. Lab work unremarkable. On exam she did have dry oral mucosa but otherwise normal workup. EKG unremarkable. Due to negative workup, patient is clinically dehydrated and she does note improvement after half a liter of fluids. The other half was not able to be administered due to the IV falling out while patient was in the bathroom. She does still note that she feels better, and will go home and increase her fluid intake to approximately 60 ounces daily. I did offer her to replace the IV, but she denies and states she feels well enough to go home and hydrate orally. Reasons to return thoroughly discussed with the patient, and I did inform her to follow-up with primary care to discuss her ED visit and any further workup. No further workup in the emergency department necessary at this time. Patient discharged home. Chart reviewed Lab Data 12/25/23 21:19 12/25/23 21:19 Radiology Impressions Chest X-Ray 12/25/23 19:29 IMPRESSION: No acute findings. Laboratory Results WBC 8.34 10^3/uL (3.29-11.43) 12/25/23 21:19 RBC 4.38 10^6/uL (3.85-5.65) 12/25/23 21:19 Hgb 12.10 g/dL (11.27-16.99) 12/25/23 21:19 Hct 38.0 % (36-47) 12/25/23 21:19 MCV 86.8 fl (85-98) 12/25/23 21:19 MCH 27.6 pg (27-33) 12/25/23 21:19 MCHC 31.8 g/dL (30-55) 12/25/23 21:19 RDW 14.6 % (12.1-15.1) 12/25/23 21:19 Plt Count 237 10^3/cmm (157-399) 12/25/23 21:19 MPV 11.7 fL (7.4-10.4) H 12/25/23 21:19 Neut % (Auto) 58.2 % 12/25/23 21:19 Lymph % (Auto) 32.5 % 12/25/23 21:19 [place] % (Auto) 6.6 % 12/25/23 21:19 Eos % (Auto) 1.9 % 12/25/23 21:19 Baso % (Auto) 0.4 % 12/25/23 21:19 Neut # (Auto) 4.86 10^3/uL (1.8-7.7) 12/25/23 21:19 Lymph # (Auto) 2.7 10^3/uL (0.8-4.8) 12/25/23 21:19 [place] # (Auto) 0.6 10^3/uL (0.2-0.9) 12/25/23 21:19 Eos # (Auto) 0.2 10^3/uL (0.0-0.8) 12/25/23 21:19 Baso # (Auto) 0.0 10^3/uL (0.0-0.1) 12/25/23 21:19 Nucleated RBC % (auto) 0 % 12/25/23 21:19 Nucleated RBCs # 0.0 /100WBC 12/25/23 21:19 Sodium 139 mmol/L (136-145) 12/25/23 21:19 Potassium 4.5 mmol/L (3.5-5.1) 12/25/23 21:19 Chloride 103 mmol/L (98-107) 12/25/23 21:19 Carbon Dioxide 26 mmol/L (22-29) 12/25/23 21:19 Anion Gap 14.5 (5-19) 12/25/23 21:19 BUN 15 mg/dL (6-20) 12/25/23 21:19 Creatinine 0.6 mg/dL (0.5-0.9) 12/25/23 21:19 GFR Calculation 104.6 mL/min (90-130) 12/25/23 21:19 Glucose 124 mg/dL (65-115) H 12/25/23 21:19 Calculated Osmolality 290 mOsm/kg (285-295) 12/25/23 21:19 Calcium 8.9 mg/dL (8.5-10.5) 12/25/23 21:19 Total Bilirubin 0.6 mg/dL (0.15-1.2) 12/25/23 21:19 AST 12 U/L (0-32) 12/25/23 21:19 ALT 10 U/L (0-33) 12/25/23 21:19 Alkaline Phosphatase 79 U/L (35-105) 12/25/23 21:19 NT-Pro-B Natriuret Pep 217 pg/mL (0-125) H 12/25/23 21:19 Total Protein 6.9 g/dL (6.6-8.7) 12/25/23 21:19 Albumin 4.1 g/dL (3.5-5.2) 12/25/23 21:19 Globulin 2.8 g/dL (1.3-4.6) 12/25/23 21:19 Urine Color Colorless (Yellow) 12/25/23 21:47 Urine Appearance Clear (CLEAR) 12/25/23 21:47 Urine pH 6 (5-7) 12/25/23 21:47 Ur Specific [place] 1.010 (1.005-1.030) 12/25/23 21:47 Urine Protein Neg (Negative) 12/25/23 21:47 Urine Glucose (UA) Norm (Normal) 12/25/23 21:47 Urine Ketones Negative (Negative) 12/25/23 21:47 Urine Blood Neg (Negative) 12/25/23 21:47 Urine Nitrate Negative (Negative) 12/25/23 21:47 Urine Bilirubin Neg (Negative) 12/25/23 21:47 Urine Urobilinogen Neg mg/dL (Negative) 12/25/23 21:47 Ur Leukocyte Esterase Negative (Negative) 12/25/23 21:47 Discharge Plan Discharge Patient Disposition: Home Clinical Impression: Dehydration Condition: Stable Prescriptions: No Action Victoza 3-Olman 0.6 mg/0.1 mL (18 mg/3 mL) pen injector See Rx Instructions SUBCUT DAILY Rx Instructions: 1.8MG SUBCUT DAILY duloxetine [Cymbalta] 20 mg capsule,delayed release(DR/EC) 20 mg PO DAILY Qty: 30 0RF fluticasone propionate [Flonase Allergy Relief] 50 mcg/actuation spray,suspension 2 spray intranasal DAILY Qty: 16 0RF Rx Instructions: administer into each nostril loratadine 10 mg tablet 10 mg PO DAILY Qty: 30 0RF cholecalciferol (vitamin D3) 1,250 mcg (50,000 unit) capsule 50,000 unit PO .weekly Qty: 14 0RF atorvastatin 40 mg tablet 40 mg PO DAILY Qty: 90 0RF levothyroxine 100 mcg capsule 100 mcg PO DAILY MDD in the morning without food Qty: 90 0RF clopidogrel 75 mg tablet See Rx Instructions .ROUTE .COMPLEX Qty: 90 3RF Dose Instruction: Take 1 tablet by mouth once daily Rx Instructions: Take 1 tablet by mouth once daily metoprolol succinate 25 mg tablet extended release 24 hr 25 mg PO DAILY Qty: 30 0RF hydrocodone-acetaminophen 10-325 mg tablet 1 tab PO QID PRN (Reason: Pain) metformin 1,000 mg tablet 1,000 mg PO BID Discharge Orders: Discharge ED (Routine); Ordered 12/25/23 Ordered By: Rohith Vu Referrals: Erum Brown DO [Primary Care Provider] - Discharge Diet: Advance as tolerated Discharge Activity: Resume usual activity Patient Instructions: Dehydration (ED) Activity Restrictions/Additional Instructions: Increase your fluid intake as discussed, to 60 ounces of water daily. Monitor blood sugars closely. Continue taking your diabetes medication as prescribed. Follow-up with primary care to discuss ED visit and any further evaluation. Return with any new or concerning symptoms. Coding Level of Care Code ED Environmental Professional for Glenn Zuniga
--- NOTE | 2023-12-25 20:38 | ECG_ITS ---
[facility] Test Date: 2023-12-25 Pat Name: Fatou Khanna Department: Room: Gender: Female [employer]: : 1970 Requested By: Rohith Espino Order Number: [id number] Jossy MD: Tammi Blackwood M.D. Measurements Intervals [place] Rate: 62 P: -9 SD: 138 QRS: -34 QRSD: 94 T: 41 QT: 399 QTc: 406 Interpretive Statements SINUS RHYTHM SEPTAL MYOCARDIAL INFARCTION , PROBABLY OLD [40+ ms Q WAVE IN V1/V2] Compared to ECG 07/31/2021 10:23:55 Left-axis deviation now present Low QRS voltage now present Myocardial infarct finding still present Electronically Signed On 12-26-2023 13:47:34 CDT by Tammi Blackwood M.D. [email or web address]
[2023-12-25] MEDS: ondansetron 2 mg/ML SDV 2 mL 4 MG IVP (21:15)
[2023-12-25] MEDS: sodium chloride 0.9% 1,000 ML 999 ML IV (21:15)
[2023-12-25 21:45] LABS: Basophils % 0.4 %; Eosinophils # 0.2 10^3/uL (0.0-0.8); Eosinophils % 1.9 %; Lymphocytes # 2.7 10^3/uL (0.8-4.8); Lymphocytes % 32.5 %; Mean Corpuscular HGB Conc 31.8 g/dL (30-55); Mean Corpuscular Hemoglobin 27.6 pg (27-33); Mean Corpuscular Volume 86.8 fl (85-98); Mean Platelet Volume 11.7 fL (7.4-10.4); Monocytes # 0.6 10^3/uL (0.2-0.9); Monocytes % 6.6 %; Neutrophils # 4.86 10^3/uL (1.8-7.7); Neutrophils % 58.2 %; Nucleated Red Blood Cells % 0 %; Platelet Count 237 10^3/cmm (157-399); Red Blood Count 4.38 10^6/uL (3.85-5.65); Red Cell Distribution Width 14.6 % (12.1-15.1); White Blood Count 8.34 10^3/uL (3.29-11.43)
[2023-12-25 22:05] LABS: Add Urine Microscopic? NO; Charge for UA Resulting for Rev
[2023-12-25 22:11] LABS: Bilirubin Urine Neg (Negative); Blood Urine Neg (Negative); Glucose Urine UA Norm (Normal); Ketones Urine Negative (Negative); Leukocyte Esterase Urine Negative (Negative); Nitrate Urine Negative (Negative); Protein Urine Neg (Negative); Urine Appearance Clear (CLEAR); Urine Color Colorless (Yellow); Urobilinogen Urine Neg (Negative); pH Urine 6 (5-7)
[2023-12-25 22:13] LABS: Alanine Aminotransferase 10 U/L (0-33); Albumin Level 4.1 g/dL (3.5-5.2); Alkaline Phosphatase 79 U/L (35-105); Anion Gap 14.5 (5-19); Aspartate Amino Transferase 12 U/L (0-32); Blood Urea Nitrogen 15 mg/dL (6-20); Calcium 8.9 mg/dL (8.5-10.5); Carbon Dioxide 26 mmol/L (22-29); Chloride 103 mmol/L (98-107); Creatinine Clr Calc Pharmacy 155.6949; Globulin 2.8 g/dL (1.3-4.6); Glomerular Filtration Rate 104.6 mL/min (90-130); Glucose 124 mg/dL (65-115); NT Pro B Type Natriuretic Pept 217 pg/mL (0-125); Osmolality Calculated 290 mOsm/kg (285-295); Potassium 4.5 mmol/L (3.5-5.1); Sodium 139 mmol/L (136-145); Total Bilirubin 0.6 mg/dL (0.15-1.2); Total Protein 6.9 g/dL (6.6-8.7)
[2023-12-25 22:41] VITALS: BP 136/78; PULSE 72; RESP 16; TEMP 36.5; O2SAT 100
== END 2023-12-25 22:41 | disposition home or self-care (01) ==
PROVIDERS: Emergency Provider Physician Assistant; PCP Family Medicine
DX: E86.0 Dehydration (principal); I10 Essential (primary) hypertension; E11.9 Type 2 diabetes mellitus without complications; Z79.84 Long term (current) use of oral hypoglycemic drugs; Z79.899 Other long term (current) drug therapy; Z83.3 Family history of diabetes mellitus
CPT/HCPCS: 71045; 80053; 81003; 83880; 85025; 93005; 96361; 96374; 99285; J2405; J7030

== ENCOUNTER 2024-01-02 15:56 | Emergency (ER) | payer MEDICARE, SELFPAY ==
[2020-01-11 11:16] VITALS: BP 150/85; BMI 53.7
[2024-01-02 16:04] VITALS: BP 138/76; PULSE 81; RESP 16; TEMP 36.7; O2SAT 96; BMI 53.5
[2024-01-02 16:23] VITALS: BP 135/72; PULSE 71; RESP 18; O2SAT 97
--- NOTE | 2024-01-02 16:40 | ED_ITS ---
HPI - Abdominal Pain 2 General: Chief Complaint: Abdominal Pain Stated Complaint: LT side abd pain Time Seen by Provider: 01/02/24 16:17 History of Present Illness: 53-year-old female comes in today for co mplaints of left flank pain. Patient reports for the last 2 weeks she has had some discomfort in the left flank but has been using cranberry tabs without much relief. Patient reports a history of kidney stones and since her symptoms had not improved she was concerned that she may have be developing an infection or a renal stone. Review of Systems 2 General: Reports: 10 or more systems reviewed and unremarkable except in HPI and below : Reports: flank pain PFSH ED 2 PFSH: Medical History Acquired hypothyroidism Atherosclerosis of coronary artery of [place] heart without angina pectoris Scleral ectasia of right eye Opioid contract exists Muscle spasm of back Status post extracorporeal shock wave therapy Urolithiasis HTN (hypertension) with goal to be determined Encounter for long-term use of opiate analgesic Chronic back pain Diabetes Surgical History Hx of umbilical hernia repair 01/12/22 lap poss open umbilical hernia S/P skin cancer resection Nose Hx of heart artery stent x 2 Hx of hysterectomy Total - due to endometrial CA. Family History Father Cancer Stroke Family/Other Cancer Grandmother Diabetes Sister Diabetes Brother Diabetes Sister Diabetes Denies family history of CAD (coronary artery disease) Clotting disorder Dementia Chronic kidney disease (CKD) Suicide Anesthesia complication Bleeding disorder Lung disease Social History Smoking and tobacco/nicotine status: never used tobacco/nicotine Second hand smoke exposure: No Alcohol intake: never Substance/Drug Use: never Adopted: No Caregiver/support person: No Lives independently: No Household members: spouse Marital status: Current occupational status: disabled Physical Exam 2 Const: COMMON NORMALS: alert HENMT: COMMON NORMALS: normocephalic HEAD & SCALP: normocephalic Neck/C-Spine: COMMON NORMALS: full ROM Chest: COMMONS NORMALS: normal inspection of the chest Resp: COMMON NORMALS: normal respiratory effort and clear to auscultation bilaterally AUSCULTATION: clear to auscultation bilaterally Cardio: COMMON NORMALS: regular rate and regular rhythm RATE: regular rate RHYTHM: regular rhythm GI: COMMON NORMALS: Soft to palpation and non-tender PALPATION: Yes Soft to palpation : BLADDER/KIDNEY EXAM: Yes CVA tenderness on the left Back/Pelvis: GENERAL BACK: Yes CVA tenderness Neuro: SENSORIUM/ORIENTATION: Yes alert Course 2 Vital Signs: Vital signs: Vital Signs Temperature 98.1 F 01/02/24 16:04 Pulse Rate 72 01/02/24 17:07 Respiratory Rate 18 01/02/24 16:23 Blood Pressure 135/72 01/02/24 16:23 Pulse Oximetry 99 01/02/24 17:07 Oxygen Delivery Me thod Room Air 01/02/24 17:07 MDM - Abdominal Pain Medical Decision Making 53-year-old female comes in today for complaints of left flank pain. On exam patient appears nontoxic. Patient does have some left CVA tenderness with percussion. Vital signs are normal. Differential diagnosis includes pyelonephritis, UTI, gastritis, constipation, diverticulitis, renal calculi. CBC and CMP were unremarkable. Urinalysis was unremarkable. CT of the abdomen and pelvis noted some renal stones but no ureteral stones or hydronephrosis. Patient did have some constipation and some bladder wall thickening suggesting possible cystitis. Will go ahead and treat for cystitis with Keflex 3 times a day for 7 days which may also help with patient's constipation. I cannot believe that the constipation is probably more likely patient's pain then the cystitis. Patient agreed to plan and need for follow-up or return to the ER. Lab Data 01/02/24 17:30 01/02/24 17:30 Labs/Radiology: Radiology Impressions Abdomen/Pelvis CT 01/02/24 16:51 IMPRESSION: 1. Nonspecific bladder wall thickening which may be related to underdistention. Cystitis cannot be excluded. 2. Heavy fecal pattern noted compatible with constipation. Recommend clinical correlation. 3. Nonobstructing bilateral renal stones. Laboratory Results WBC 8.34 10^3/uL (3.29-11.43) 01/02/24 17:30 RBC 4.20 10^6/uL (3.85-5.65) 01/02/24 17:30 Hgb 11.60 g/dL (11.27-16.99) 01/02/24 17:30 Hct 35.8 % (36-47) L 01/02/24 17:30 MCV 85.2 fl (85-98) 01/02/24 17:30 MCH 27.6 pg (27-33) 01/02/24 17:30 MCHC 32.4 g/dL (30-55) 01/02/24 17:30 RDW 14.6 % (12.1-15.1) 01/02/24 17:30 Plt Count 254 10^3/cmm (157-399) 01/02/24 17:30 MPV 11.1 fL (7.4-10.4) H 01/02/24 17:30 Neut % (Auto) 62.2 % 01/02/24 17: Lymph % (Auto) 28.9 % 01/02/24 17:30 Carbon % (Auto) 6.7 % 01/02/24 17:30 Eos % (Auto) 1.8 % 01/02/24 17:30 Baso % (Auto) 0.2 % 01/02/24 17:30 Neut # (Auto) 5.18 10^3/uL (1.8-7.7) 01/02/24 17:30 Lymph # (Auto) 2.4 10^3/uL (0.8-4.8) 01/02/24 17:30 Carbon # (Auto) 0.6 10^3/uL (0.2-0.9) 01/02/24 17:30 Eos # (Auto) 0.2 10^3/uL (0.0-0.8) 01/02/24 17: Baso # (Auto) 0.0 10^3/uL (0.0-0.1) 01/02/24 17: Nucleated RBC % (auto) 0 % 01/02/24 17: Nucleated RBCs # 0.0 /100WBC 01/02/24 17:30 Sodium 141 mmol/L (136-145) 01/02/24 17:30 Potassium 4.2 mmol/L (3.5-5.1) 01/02/24 17:30 Chloride 107 mmol/L (98-107) 01/02/24 17:30 Carbon Dioxide 23 mmol/L (22-29) 01/02/24 17:30 Anion Gap 15.2 (5-19) 01/02/24 17:30 BUN 16 mg/dL (6-20) 01/02/24 17:30 Creatinine 0.6 mg/dL (0.5-0.9) 01/02/24 17:30 GFR Calculation 104.6 mL/min (90-130) 01/02/24 17:30 Glucose 130 mg/dL (65-115) H 01/02/24 17:30 Calculated Osmolality 295 mOsm/kg (285-295) 01/02/24 17:30 Calcium 9.0 mg/dL (8.5-10.5) 01/02/24 17:30 Total Bilirubin 0.7 mg/dL (0.15-1.2) 01/02/24 17:30 AST 12 U/L (0-32) 01/02/24 17:30 ALT 11 U/L (0-33) 01/02/24 17:30 Alkaline Phosphatase 78 U/L (35-105) 01/02/24 17:30 Total Protein 6.8 g/dL (6.6-8.7) 01/02/24 17:30 Albumin 3.9 g/dL (3.5-5.2) 01/02/24 17:30 Globulin 2.9 g/dL (1.3-4.6) 01/02/24 17:30 Lipase 37 U/L (13-60) 01/02/24 17:30 Urine Color Yellow (Yellow) 01/02/24 16:38 Urine Appearance Clear (CLEAR) 01/02/24 16:38 Urine pH 6 (5-7) 01/02/24 16:38 Ur Specific [place] 1.020 (1.005-1.030) 01/02/24 16:38 Urine Protein Neg (Negative) 01/02/24 16:38 Urine Glucose (UA) Norm (Normal) 01/02/24 16:38 Urine Ketones Negative (Negative) 01/02/24 16:38 Urine Blood Neg (Negative) 01/02/24 16:38 Urine Nitrate Negative (Negative) 01/02/24 16:38 Urine Bilirubin 1+ (Negative) H 01/02/24 16:38 Urine Urobilinogen 1 mg/dL (Negative) H 01/02/24 16:38 Ur Leukocyte Esterase Negative (Negative) 01/02/24 16:38 All radiology interpretation(s) finalized by discharge Discharge Plan Discharge Patient Disposition: Home Clinical Impression: Cystitis Condition: Stable Prescriptions: New cephalexin 500 mg capsule 500 mg PO TID 7 Days Qty: 21 0RF No Action Victoza 3-Olman 0.6 mg/0.1 mL (18 mg/3 mL) pen injector See Rx Instructions SUBCUT DAILY Rx Instructions: 1.8MG SUBCUT DAILY duloxetine [Cymbalta] 20 mg capsule,delayed release(DR/EC) 20 mg PO DAILY Qty: 30 0RF fluticasone propionate [Flonase Allergy Relief] 50 mcg/actuation spray,suspension 2 spray intranasal DAILY Qty: 16 0RF Rx Instructions: administer into each nostril loratadine 10 mg tablet 10 mg PO DAILY Qty: 30 0RF cholecalciferol (vitamin D3) 1,250 mcg (50,000 unit) capsule 50,000 unit PO .weekly Qty: 14 0RF atorvastatin 40 mg tablet 40 mg PO DAILY Qty: 90 0RF levothyroxine 100 mcg capsule 100 mcg PO DAILY MDD in the morning without food Qty: 90 0RF clopidogrel 75 mg tablet See Rx Instructions .ROUTE .COMPLEX Qty: 90 3RF Dose Instruction: Take 1 tablet by mouth once daily Rx Instructions: Take 1 tablet by mouth once daily metoprolol succinate 25 mg tablet extended release 24 hr 25 mg PO DAILY Qty: 30 0RF hydrocodone-acetaminophen 10-325 mg tablet 1 tab PO QID PRN (Reason: Pain) metformin 1,000 mg tablet 1,000 mg PO BID Discharge Orders: Discharge ED (Routine); Ordered 01/02/24 Ordered By: Castro Pierre Referrals: Emili Barrera APRN [Primary Care Provider] - Discharge Diet: Usual diet Discharge Activity: Increase activity as tolerated Patient Instructions: Urinary Tract Infection in Women (ED) Activity Restrictions/Additional Instructions: Drink plenty water and fluids. Take antibiotic as directed. Follow-up with primary care in 2 to 3 days for recheck. Return to ED for new concerns Coding Level of Care Code ED Natural Remedy Consultant for Glenn Zuniga
[2024-01-02 16:46] LABS: Add Urine Microscopic? NO; Charge for UA Resulting for Rev
--- NOTE | 2024-01-02 16:51 | CTR_ITS ---
PROCEDURE INFORMATION: Exam: CT Abdomen And Pelvis Without Contrast Exam date and time: 01/02/2024 4:56 PM Age: 53 years old Clinical indication: Abdominal pain; Flank; Left; Prior surgery; Surgery date: 6+ months; Surgery type: Hyster, hernia; Additional info: Left flank pain TECHNIQUE: Imaging protocol: Computed tomography of the abdomen and pelvis without contrast. Radiation optimization: All CT scans at this facility use at least one of these dose optimization techniques: automated exposure control; mA and/or kV adjustment per patient size (includes targeted exams where dose is matched to clinical indication); or iterative reconstruction. COMPARISON: CT abdomen pelvis wo con [id number] 10/13/2022 1:26 PM RADIATION DOSE METRICS: Total DLP (mGy-cm): 1192.39 FINDINGS: Limitations: This study is limited without the use of IV and oral contrast, particularly for the evaluation of infection and malignancy. Lungs: Stable 0.3 cm right lower lobe lung nodule best seen on series 4 image 35. Liver: The liver is unremarkable in appearance. Gallbladder and bile ducts: Gallbladder unremarkable in appearance without radio-opaque stone. No intra or extrahepatic biliary ductal dilation. Pancreas: Pancreas is unremarkable in appearance. No ductal dilation. Spleen: The spleen is normal in size and contour. Adrenal glands: Adrenal glands are unremarkable in appearance. Kidneys and ureters: No hydronephrosis. Nonobstructing bilateral renal stones measuring up to 0.5 cm on the left. Stomach and bowel: Moderate left colon and sigmoid colon diverticulosis. Heavy fecal pattern noted compatible with constipation. Recommend clinical correlation. Appendix: Visualized portions of the appendix are unremarkable. Intraperitoneal space: No ascites. Vasculature: Mild calcified plaque is seen involving the abdominal aorta. Lymph nodes: No abdominal or pelvic lymphadenopathy. Urinary bladder: Nonspecific bladder wall thickening which may be related to underdistention. Cystitis cannot be excluded. Reproductive: Uterus not identified. Bones/joints: No acute bony abnormality. Soft tissues: Umbilical hernia containing fat. Subcutaneous air is noted within the right abdomen which may be related to a subcutaneous injection site. Recommend clinical correlation. CT/CT kidney stone [id number] IMPRESSION: 1. Nonspecific bladder wall thickening which may be related to underdistention. Cystitis cannot be excluded. 2. Heavy fecal pattern noted compatible with constipation. Recommend clinical correlation. 3. Nonobstructing bilateral renal stones.
[2024-01-02 17:02] LABS: Bilirubin Urine 1+ (Negative); Blood Urine Neg (Negative); Glucose Urine UA Norm (Normal); Ketones Urine Negative (Negative); Leukocyte Esterase Urine Negative (Negative); Nitrate Urine Negative (Negative); Protein Urine Neg (Negative); Urine Appearance Clear (CLEAR); Urine Color Yellow (Yellow); Urobilinogen Urine 1 mg/dL (Negative); pH Urine 6 (5-7)
[2024-01-02 17:07] VITALS: PULSE 72; O2SAT 99
[2024-01-02 17:36] LABS: Basophils % 0.2 %; Eosinophils # 0.2 10^3/uL (0.0-0.8); Eosinophils % 1.8 %; Hematocrit 35.8 % (36-47); Lymphocytes # 2.4 10^3/uL (0.8-4.8); Lymphocytes % 28.9 %; Mean Corpuscular HGB Conc 32.4 g/dL (30-55); Mean Corpuscular Hemoglobin 27.6 pg (27-33); Mean Corpuscular Volume 85.2 fl (85-98); Mean Platelet Volume 11.1 fL (7.4-10.4); Monocytes # 0.6 10^3/uL (0.2-0.9); Monocytes % 6.7 %; Neutrophils # 5.18 10^3/uL (1.8-7.7); Neutrophils % 62.2 %; Nucleated Red Blood Cells % 0 %; Platelet Count 254 10^3/cmm (157-399); Red Cell Distribution Width 14.6 % (12.1-15.1); White Blood Count 8.34 10^3/uL (3.29-11.43)
[2024-01-02 17:53] LABS: Alanine Aminotransferase 11 U/L (0-33); Albumin Level 3.9 g/dL (3.5-5.2); Alkaline Phosphatase 78 U/L (35-105); Anion Gap 15.2 (5-19); Aspartate Amino Transferase 12 U/L (0-32); Blood Urea Nitrogen 16 mg/dL (6-20); Carbon Dioxide 23 mmol/L (22-29); Chloride 107 mmol/L (98-107); Globulin 2.9 g/dL (1.3-4.6); Glomerular Filtration Rate 104.6 mL/min (90-130); Glucose 130 mg/dL (65-115); Lipase 37 U/L (13-60); Osmolality Calculated 295 mOsm/kg (285-295); Potassium 4.2 mmol/L (3.5-5.1); Sodium 141 mmol/L (136-145); Total Bilirubin 0.7 mg/dL (0.15-1.2); Total Protein 6.8 g/dL (6.6-8.7)
[2024-01-02] MEDS: cephALEXin 500 mg Capsule PO (18:23)
== END 2024-01-02 18:44 | disposition home or self-care (01) ==
PROVIDERS: Emergency Medicine; Emergency Provider Nurse Practitioner Family; PCP Nurse Practitioner Family
DX: N30.90 Cystitis, unspecified without hematuria (principal); Z79.02 Long term (current) use of antithrombotics/antiplatelets; Z79.84 Long term (current) use of oral hypoglycemic drugs; I25.10 Atherosclerotic heart disease of native coronary artery without angina pectoris; I10 Essential (primary) hypertension; E11.9 Type 2 diabetes mellitus without complications
CPT/HCPCS: 36415; 74176; 80053; 81003; 83690; 85025; 99284

== ENCOUNTER → 2024-04-12 11:43 | Outpatient (BNVA) | payer MEDICARE, SELFPAY ==
[2020-01-11 11:16] VITALS: BP 150/85; BMI 53.7
== END ==
PROVIDERS: PCP Nurse Practitioner Family; Visit Provider Internal Medicine Cardiovascular Disease
DX: I25.10 Atherosclerotic heart disease of native coronary artery without angina pectoris (principal); I10 Essential (primary) hypertension; E78.5 Hyperlipidemia, unspecified; F33.2 Major depressive disorder, recurrent severe without psychotic features; E13.9 Other specified diabetes mellitus without complications; E03.9 Hypothyroidism, unspecified; E66.01 Morbid (severe) obesity due to excess calories; Z68.43 Body mass index [BMI] 50.0-59.9, adult
CPT/HCPCS: 99214

== ENCOUNTER → 2024-05-06 11:43 | Outpatient (BNVA) | payer MEDICARE, SELFPAY ==
[2020-01-11 11:16] VITALS: BP 150/85; BMI 53.7
== END ==
PROVIDERS: PCP Nurse Practitioner Family; Visit Provider Registered Nurse Neonatal Intensive Care
DX: R30.0 Dysuria (principal)
CPT/HCPCS: 81000

== ENCOUNTER 2024-05-17 17:16 | Emergency (ER) | payer MEDICARE, SELFPAY ==
[2020-01-11 11:16] VITALS: BP 150/85; BMI 53.7
[2024-05-17 17:33] VITALS: BP 142/72; PULSE 88; RESP 17; TEMP 36.8; O2SAT 97; BMI 52.3
[2024-05-17 17:59] LABS: Bilirubin Urine Negative (Negative); Blood Urine Negative (Negative); Glucose Urine UA Negative (Normal); Ketones Urine Negative (Negative); Leukocyte Esterase Urine Trace (Negative); Nitrate Urine Negative (Negative); Protein Urine Negative (Negative); Specific Gravity, Urine 1.018 (1.005-1.030); Urine Appearance Clear (CLEAR); Urine Color Yellow (Yellow); pH Urine 5.5 (5-7)
[2024-05-17 18:04] LABS: Add Urine Microscopic? YES; Bacteria Urine None Seen /hpf; Squamous Epithelial Cell Urine 0-5 /hpf (0-5); WBC Urine 0-5 /hpf (0-5)
[2024-05-17 18:08] LABS: Add Urine Culture? No
--- NOTE | 2024-05-17 18:41 | ED_ITS ---
HPI - Abdominal Pain 2 General: Chief Complaint: Abdominal Pain Stated Complaint: pain in side to back area Time Seen by Provider: 05/17/24 18:38 History of Present Illness: Patient presents to the ER with worsening bilateral flank pain worse on the right than the left. And mild abdominal pain. Patient does have a history of kidney stones with her last stone being approximately a year ago. Patient has been on antibiotics for UTI she said she stopped them about a week ago and feels that this is related to that. Patient does have a history of kidney stones and urinary tract infections and kidney infections. Related Data Home Medications Medication Instructions Recorded Confirmed hydrocodone 10 mg-acetaminophen 1 tab PO QID PRN Pain 09/10/22 05/06/24 325 mg tablet metformin 1,000 mg tablet 1,000 mg PO BID 09/10/22 05/06/24 tirzepatide 2.5 mg/0.5 mL mg SUBCUT 04/12/24 05/06/24 subcutaneous pen injector (Migdalia) Previous Rx's Medication Instructions Recorded metoprolol succinate 25 mg 25 mg PO DAILY #30 tabs 10/14/22 tablet,extended release 24 hr atorvastatin 40 mg tablet 40 mg PO DAILY #90 tabs 02/11/23 levothyroxine 100 mcg capsule 100 mcg PO DAILY #90 caps 02/11/23 clopidogrel 75 mg tablet See Rx Instructions .Route 03/22/23 .COMPLEX #90 tabs famotidine 40 mg tablet (Pepcid) 40 mg PO BID #10 tabs 02/05/24 ciprofloxacin HCl 500 mg tablet 500 mg PO Q12H #20 tabs 05/17/24 Allergies Allergy/AdvReac Type Severity Reaction Status Date / Time bee venom protein (honey bee) Allergy Severe ALGY-Anaphy Verified 05/06/24 11:33 laxis hydromorphone [From Dilaudid] Allergy Severe ALGY-Difficulty Verified 05/06/24 11:33 Breathing Iodine and Iodide Containing Allergy Severe ALGY-Swell Verified 05/06/24 11:33 Produc Lip/Tongue/Throat tramadol Allergy Intermediate ADR-Nausea Verified 05/06/24 11:33 gabapentin AdvReac Intermediate RASH Verified 05/06/24 11:33 Review of Systems 2 General: Reports: 10 or more systems reviewed and unremarkable except in HPI and below PFSH ED 2 PFSH: Medical History Acquired hypothyroidism Atherosclerosis of coronary artery of [place] heart without angina pectoris Scleral ectasia of right eye Opioid contract exists Muscle spasm of back Status post extracorporeal shock wave therapy Urolithiasis HTN (hypertension) with goal to be determined Encounter for long-term use of opiate analgesic Chronic back pain Diabetes Surgical History Hx of umbilical hernia repair 01/12/22 lap poss open umbilical hernia S/P skin cancer resection Nose Hx of heart artery stent x 2 Hx of hysterectomy Total - due to endometrial CA. Family History Father Cancer Stroke Family/Other Cancer Grandmother Diabetes Sister Diabetes Brother Diabetes Sister Diabetes Denies family history of CAD (coronary artery disease) Clotting disorder Dementia Chronic kidney disease (CKD) Suicide Anesthesia complication Bleeding disorder Lung disease Social History Smoking and tobacco/nicotine status: never used tobacco/nicotine Second hand smoke exposure: No Alcohol intake: never Substance/Drug Use: never Adopted: No Caregiver/support person: No Lives independently: No Household members: spouse Marital status: Current occupational status: disabled Physical Exam 2 Const: COMMON NORMALS: no acute distress, average body habitus, patient oriented x3, no limitations, healthy appearing, alert and well nourished HENMT: COMMON NORMALS: normocephalic, atraumatic, hearing grossly normal bilaterally, external ears normal, Normal external nose present and moist oral mucous membranes HEAD & SCALP: normocephalic and atraumatic NOSE: Normal external nose present EXTERNAL EAR: Yes external ears normal Eye: COMMON NORMALS: Equal, round and reactive pupils present, EOMs intact bilaterally, conjunctivae normal and no scleral icterus CONJUNCTIVA: Yes conjunctivae normal PUPIL: Yes Equal, round and reactive pupils present Neck/C-Spine: COMMON NORMALS: no JVD Chest: COMMONS NORMALS: normal inspection of the chest and normal palpation of entire chest wall Resp: COMMON NORMALS: normal respiratory effort, No retractions, No use of accessory muscles and clear to auscultation bilaterally AUSCULTATION: clear to auscultation bilaterally Cardio: COMMON NORMALS: no JVD, regular rate, regular rhythm, S1 normal heart sound present, S2 normal heart sound present, No gallops present (Cardio), No clicks present (Cardio), No murmurs present (Cardio) and No rub (Cardio) R ATE: regular rate RHYTHM: regular rhythm HEART SOUNDS: S1 normal heart sound present and S2 normal heart sound present GI: COMMON NORMALS: Normal to inspection, nondistended, normoactive bowel sounds present, Soft to palpation, non-tender, No hepatosplenomegaly present and no masses PALPATION: Yes Soft to palpation and Yes No hepatosplenomegaly present Neuro: COMMON NORMALS: patient oriented x3 SENSORIUM/ORIENTATION: Yes alert Course 2 Vital Signs: Vital signs: Vital Signs Temperature 98.2 F 05/17/24 17:33 Pulse Rate 84 05/17/24 19:31 Respiratory Rate 17 05/17/24 17:33 Blood Pressure 129/65 05/17/24 19:31 Pulse Oximetry 94 05/17/24 19:31 Oxygen Delivery Me thod Room Air 05/17/24 19:31 MDM - Abdominal Pain Medical Decision Making Lab work was reviewed which showed trace leukocyte esterase, abdominal pelvis CT scan showed punctate bilateral nonobstructive renal stones. Patient was last placed on Macrobid her last culture was E. coli that was pansensitive so that should work however we will place her on Cipro at this time. Await culture and sensitivity and have her follow-up with her PCP. Medical Records I reviewed the patient's medical records. Lab Data I reviewed the patient's lab results. 05/17/24 20:07 05/17/24 20:07 Labs/Radiology: Radiology Impressions Abdomen/Pelvis CT 05/17/24 19:36 IMPRESSION: 1. Punctate bilateral nonobstructive renal stones. No hydronephrosis. 2. Diffuse bladder wall thickening, not significantly changed compared to the prior study, which may be due to chronic cystitis. 3. Otherwise, no acute findings. Laboratory Results WBC 9.54 10^3/uL (3.29-11.43) 05/17/24 20:07 RBC 4.44 10^6/uL (3.85-5.65) 05/17/24 20:07 Hgb 12.20 g/dL (11.27-16.99) 05/17/24 20:07 Hct 39.0 % (36-47) 05/17/24 20:07 MCV 87.8 fl (85-98) 05/17/24 20:07 MCH 27.5 pg (27-33) 05/17/24 20:07 MCHC 31.3 g/dL (30-55) 05/17/24 20:07 RDW 14.2 % (12.1-15.1) 05/17/24 20:07 Plt Count 257 10^3/cmm (157-399) 05/17/24 20:07 MPV 11.1 fL (7.4-10.4) H 05/17/24 20:07 Neut % (Auto) 63.1 % 05/17/24 20:07 Lymph % (Auto) 29.5 % 05/17/24 20:07 [place] % (Auto) 5.5 % 05/17/24 20:07 Eos % (Auto) 1.5 % 05/17/24 20:07 Baso % (Auto) 0.2 % 05/17/24 20:07 Neut # (Auto) 6.03 10^3/uL (1.8-7.7) 05/17/24 20:07 Lymph # (Auto) 2.8 10^3/uL (0.8-4.8) 05/17/24 20:07 [place] # (Auto) 0.5 10^3/uL (0.2-0.9) 05/17/24 20:07 Eos # (Auto) 0.1 10^3/uL (0.0-0.8) 05/17/24 20:07 Baso # (Auto) 0.0 10^3/uL (0.0-0.1) 05/17/24 20:07 Nucleated RBC % (auto) 0 % 05/17/24 20:07 Nucleated RBCs # 0.0 /100WBC 05/17/24 20:07 Sodium 134 mmol/L (136-145) L 05/17/24 20:07 Potassium 4.5 mmol/L (3.5-5.1) 05/17/24 20:07 Chloride 101 mmol/L (98-107) 05/17/24 20:07 Carbon Dioxide 26 mmol/L (22-29) 05/17/24 20:07 Anion Gap 11.5 (5-19) 05/17/24 20:07 BUN 19 mg/dL (6-20) 05/17/24 20:07 Creatinine 0.6 mg/dL (0.5-0.9) 05/17/24 20:07 GFR Calculation 104.6 mL/min (90-130) 05/17/24 20:07 Glucose 118 mg/dL (65-115) H 05/17/24 20:07 Calculated Osmolality 281 mOsm/kg (285-295) L 05/17/24 20:07 Calcium 9.2 mg/dL (8.5-10.5) 05/17/24 20:07 Total Bilirubin 0.6 mg/dL (0.15-1.2) 05/17/24 20:07 AST 12 U/L (0-32) 05/17/24 20:07 ALT 12 U/L (0-33) 05/17/24 20:07 Alkaline Phosphatase 86 U/L (35-105) 05/17/24 20:07 Total Protein 7.3 g/dL (6.6-8.7) 05/17/24 20:07 Albumin 4.3 g/dL (3.5-5.2) 05/17/24 20:07 Globulin 3.0 g/dL (1.3-4.6) 05/17/24 20:07 Urine Color Yellow (Yellow) 05/17/24 10:19 Urine Appearance Clear (CLEAR) 05/17/24 10:19 Urine pH 5.5 (5-7) 05/17/24 10:19 Ur Specific [place] 1.018 (1.005-1.030) 05/17/24 10:19 Urine Protein Negative (Negative) 05/17/24 10:19 Urine Glucose (UA) Negative (Normal) 05/17/24 10:19 Urine Ketones Negative (Negative) 05/17/24 10:19 Urine Blood Negative (Negative) 05/17/24 10:19 Urine Nitrate Negative (Negative) 05/17/24 10:19 Urine Bilirubin Negative (Negative) 05/17/24 10:19 Urine Urobilinogen 1.0 mg/dL (Negative) 05/17/24 10:19 Ur Leukocyte Esterase Trace (Negative) A 05/17/24 10:19 Urine RBC 3-5 /hpf (0-2) 05/17/24 10:19 Urine WBC 0-5 /hpf (0-5) 05/17/24 10:19 Ur Squamous Epith Cells 0-5 /hpf (0-5) 05/17/24 10:19 Amorphous Sediment Not Reportable 05/17/24 10:19 Urine Bacteria None seen /hpf (NONE) 05/17/24 10:19 Hyaline Casts 0.40 /lpf 05/17/24 10:19 All radiology interpretation(s) finalized by discharge Discharge Plan Discharge Patient Disposition: Home Clinical Impression: Bilateral kidney stones Condition: Stable Prescriptions: New ciprofloxacin HCl 500 mg tablet 500 mg PO Q12H Qty: 20 0RF Discontinued nitrofurantoin monohyd/m-cryst [Macrobid] 100 mg capsule 100 mg PO BID 5 Days Qty: 10 0RF Rx Instructions: must administer with a meal/food No Action Mounjaro 2.5 mg/0.5 mL pen injector SUBCUT famotidine [Pepcid] 40 mg tablet 40 mg PO BID Qty: 10 0RF atorvastatin 40 mg tablet 40 mg PO DAILY Qty: 90 0RF levothyroxine 100 mcg capsule 100 mcg PO DAILY MDD in the morning without food Qty: 90 0RF clopidogrel 75 mg tablet See Rx Instructions .ROUTE .COMPLEX Qty: 90 3RF Dose Instruction: Take 1 tablet by mouth once daily Rx Instructions: Take 1 tablet by mouth once daily metoprolol succinate 25 mg tablet extended release 24 hr 25 mg PO DAILY Qty: 30 0RF hydrocodone-acetaminophen 10-325 mg tablet 1 tab PO QID PRN (Reason: Pain) metformin 1,000 mg tablet 1,000 mg PO BID Discharge Orders: Discharge ED (Routine); Ordered 05/17/24 Ordered By: James Daniel Referrals: Emili Barrera APRN [Primary Care Provider] - 1 week Patient Instructions: Kidney Stones (ED) Activity Restrictions/Additional Instructions: Your CT showed very small punctate bilateral kidney stones, your urine showed trace leukocyte Estrace which may be significant for an infection you have been placed on ciprofloxacin for this. Please pick it up at the pharmacy and take it as directed. Please follow-up with your family practitioner in the next 7 days for further evaluation and treatment. Coding Level of Care Code ED Radiology Services Manager for Glenn Zuniga
[2024-05-17 19:31] VITALS: BP 129/65; PULSE 84; O2SAT 94
--- NOTE | 2024-05-17 19:36 | CTR_ITS ---
PROCEDURE INFORMATION: Exam: CT Abdomen And Pelvis Without Contrast Exam date and time: 05/17/2024 7:54 PM Age: 53 years old Clinical indication: Abdominal pain; Additional info: Right flank pain, TECHNIQUE: Imaging protocol: Computed tomography of the abdomen and pelvis without contrast. Radiation optimization: All CT scans at this facility use at least one of these dose optimization techniques: automated exposure control; mA and/or kV adjustment per patient size (includes targeted exams where dose is matched to clinical indication); or iterative reconstruction. COMPARISON: 1. CT kidney stone [id number] 01/02/2024 4:[address] abdomen/pelvis dated 04/16/2022. RADIATION DOSE METRICS: Total DLP (mGy-cm): 1495 FINDINGS: Lungs: Stable 4 mm pulmonary nodule, unchanged since 2021. Coronary arteries: Partially imaged coronary artery calcifications. Liver: The liver is unremarkable. Gallbladder and biliary ducts: The gallbladder is unremarkable. No biliary dilation. Pancreas: The pancreas is unremarkable. Spleen: The spleen is unremarkable. Adrenal glands: The adrenal glands are unremarkable. Kidneys and ureters: Punctate bilateral nonobstructive renal stones. No hydronephrosis. Stomach and bowel: Colonic diverticulosis without evidence of diverticulitis. There is no bowel wall thickening. No bowel obstruction. Appendix: A normal appendix is identified. Intraperitoneal space: No significant peritoneal free fluid. No free peritoneal air. Surgical clips within the pelvis. Vasculature: The vasculature demonstrates minimal atherosclerotic calcification. No aneurysm. Lymph nodes: No enlarged lymph nodes by size criteria. Urinary bladder: There is diffuse bladder wall thickening. Reproductive: There has been a hysterectomy. Bones/joints: The spine demonstrates moderate degenerative changes at multiple levels. Soft tissues: There is mild subcutaneous stranding and air in the anterior abdominal wall, consistent with recent injection. CT/CT kidney stone [id number] IMPRESSION: 1. Punctate bilateral nonobstructive renal stones. No hydronephrosis. 2. Diffuse bladder wall thickening, not significantly changed compared to the prior study, which may be due to chronic cystitis. 3. Otherwise, no acute findings.
--- NOTE | 2024-05-17 20:30 | PC.NURSE ---
pt continues to remove VS equipment.
[2024-05-17 20:32] LABS: Basophils % 0.2 %; Eosinophils # 0.1 10^3/uL (0.0-0.8); Eosinophils % 1.5 %; Lymphocytes # 2.8 10^3/uL (0.8-4.8); Lymphocytes % 29.5 %; Mean Corpuscular HGB Conc 31.3 g/dL (30-55); Mean Corpuscular Hemoglobin 27.5 pg (27-33); Mean Corpuscular Volume 87.8 fl (85-98); Mean Platelet Volume 11.1 fL (7.4-10.4); Monocytes # 0.5 10^3/uL (0.2-0.9); Monocytes % 5.5 %; Neutrophils # 6.03 10^3/uL (1.8-7.7); Neutrophils % 63.1 %; Nucleated Red Blood Cells % 0 %; Platelet Count 257 10^3/cmm (157-399); Red Blood Count 4.44 10^6/uL (3.85-5.65); Red Cell Distribution Width 14.2 % (12.1-15.1); White Blood Count 9.54 10^3/uL (3.29-11.43)
[2024-05-17 20:52] LABS: Alanine Aminotransferase 12 U/L (0-33); Albumin Level 4.3 g/dL (3.5-5.2); Alkaline Phosphatase 86 U/L (35-105); Anion Gap 11.5 (5-19); Aspartate Amino Transferase 12 U/L (0-32); Blood Urea Nitrogen 19 mg/dL (6-20); Calcium 9.2 mg/dL (8.5-10.5); Carbon Dioxide 26 mmol/L (22-29); Chloride 101 mmol/L (98-107); Glomerular Filtration Rate 104.6 mL/min (90-130); Glucose 118 mg/dL (65-115); Osmolality Calculated 281 mOsm/kg (285-295); Potassium 4.5 mmol/L (3.5-5.1); Sodium 134 mmol/L (136-145); Total Bilirubin 0.6 mg/dL (0.15-1.2); Total Protein 7.3 g/dL (6.6-8.7)
[2024-05-17] MEDS: ciprofloxacin 500 mg Tablet PO (21:20)
[2024-05-17 21:22] VITALS: BP 162/94; PULSE 97; O2SAT 96
== END 2024-05-17 21:23 | disposition home or self-care (01) ==
PROVIDERS: Emergency Medicine; Physician Assistant; Emergency Provider Emergency Medicine; PCP Nurse Practitioner Family
DX: N20.0 Calculus of kidney (principal); Z79.02 Long term (current) use of antithrombotics/antiplatelets; Z79.85 Long-term (current) use of injectable non-insulin antidiabetic drugs; Z79.84 Long term (current) use of oral hypoglycemic drugs; I25.10 Atherosclerotic heart disease of native coronary artery without angina pectoris; I10 Essential (primary) hypertension; E11.9 Type 2 diabetes mellitus without complications
CPT/HCPCS: 36415; 74176; 80053; 81001; 85025; 99284

== ENCOUNTER 2024-06-30 20:24 | Emergency (ER) | payer MEDICARE, SELFPAY ==
[2020-01-11 11:16] VITALS: BP 150/85; BMI 53.7
[2024-06-30 20:25] VITALS: BP 150/87; PULSE 78; RESP 15; TEMP 36.8; O2SAT 100; BMI 53.0
--- NOTE | 2024-06-30 21:10 | W.ED.DIZZY ---
HPI - Dizziness General: Chief Complaint: Dizziness Stated Complaint: dizzy, spinning, lump in throat and nausea Time Seen by Provider: 06/30/24 21:10 History of Present Illness: HPI Narrative: 53-year-old female comes in today for complaints of dizziness starting this morning when she awakened. Patient reports that it felt like she was falling even after she laid down and continue to follow-up. Patient appears nontoxic. Patient reports some nasal drainage and a lump in her throat. Patient has a history of hypothyroidism, obesity, CAD, diabetes, and hypercholesterolemia. Related Data Home Medications Medication Instructions Recorded Confirmed hydrocodone 10 mg-acetaminophen 1 tab PO QID PRN Pain 09/10/22 05/06/24 325 mg tablet metformin 1,000 mg tablet 1,000 mg PO BID 09/10/22 05/06/24 tirzepatide 2.5 mg/0.5 mL mg SUBCUT 04/12/24 05/06/24 subcutaneous pen injector (Migdalia) Previous Rx's Medication Instructions Recorded metoprolol succinate 25 mg 25 mg PO DAILY #30 tabs 10/14/22 tablet,extended release 24 hr atorvastatin 40 mg tablet 40 mg PO DAILY #90 tabs 02/11/23 levothyroxine 100 mcg capsule 100 mcg PO DAILY #90 caps 02/11/23 clopidogrel 75 mg tablet See Rx Instructions .Route 03/22/23 .COMPLEX #90 tabs famotidine 40 mg tablet (Pepcid) 40 mg PO BID #10 tabs 02/05/24 ciprofloxacin HCl 500 mg tablet 500 mg PO Q12H #20 tabs 05/17/24 meclizine 25 mg tablet 25 mg PO TID PRN dizziness #10 tabs 06/30/24 Allergies Allergy/AdvReac Type Severity Reaction Status Date / Time bee venom protein (honey bee) Allergy Severe ALGY-Anaphy Verified 05/06/24 11:33 laxis hydromorphone [From Dilaudid] Allergy Severe ALGY-Difficulty Verified 05/06/24 11:33 Breathing Iodine and Iodide Containing Allergy Severe ALGY-Swell Verified 05/06/24 11:33 Produc Lip/Tongue/Throat tramadol Allergy Intermediate ADR-Nausea Verified 05/06/24 11:33 gabapentin AdvReac Intermediate RASH Verified 05/06/24 11:33 Review of Systems General: Reports: 10 or more systems reviewed and unremarkable except in HPI and below Neuro: Reports: dizziness PFSH ED PFSH: Medical History Acquired hypothyroidism Atherosclerosis of coronary artery of [place] heart without angina pectoris Scleral ectasia of right eye Opioid contract exists Muscle spasm of back Status post extracorporeal shock wave therapy Urolithiasis HTN (hypertension) with goal to be determined Encounter for long-term use of opiate analgesic Chronic back pain Diabetes Surgical History Hx of umbilical hernia repair 01/12/22 lap poss open umbilical hernia S/P skin cancer resection Nose Hx of heart artery stent x 2 Hx of hysterectomy Total - due to endometrial CA. Family History Father Cancer Stroke Family/Other Cancer Grandmother Diabetes Sister Diabetes Brother Diabetes Sister Diabetes Denies family history of CAD (coronary artery disease) Clotting disorder Dementia Chronic kidney disease (CKD) Suicide Anesthesia complication Bleeding disorder Lung disease Social History Smoking and tobacco/nicotine status: never used tobacco/nicotine Second hand smoke exposure: No Alcohol intake: never Substance/Drug Use: never Adopted: No Caregiver/support person: No Lives independently: No Household members: spouse Marital status: Current occupational status: disabled Physical Exam Const: COMMON NORMALS: alert HENMT: COMMON NORMALS: atraumatic and TM's normal bilaterally HEAD & SCALP: atraumatic TYMPANIC MEMBRANE: TM's normal bilaterally THROAT: posterior oropharynx normal Neck/C-Spine: COMMON NORMALS: full ROM Resp: COMMON NORMALS: normal respiratory effort Cardio: COMMON NORMALS: regular rate and regular rhythm RATE: regular rate RHYTHM: regular rhythm GI: COMMON NORMALS: non-tender Extremity: COMMON NORMALS: no pedal edema Neuro: SENSORIUM/ORIENTATION: Yes alert Skin: COMMON NORMALS: turgor normal GENERAL SKIN EXAM: turgor normal Course Vital Signs: Vital signs: Vital Signs Temperature 98.2 F 06/30/24 20:25 Pulse Rate 73 06/30/24 21:50 Respiratory Rate 18 06/30/24 21:50 Blood Pressure 157/90 06/30/24 21:50 Pulse Oximetry 100 06/30/24 21:50 Oxygen Delivery Me thod Room Air 06/30/24 21:50 MDM - Dizziness Medical Decision Making 53-year-old female comes in today for complaints of dizziness. Patient reports symptoms started this morning. Patient reports that whenever she sits down or lays down and feels like she continues to fall after coming in contact with furniture. Patient appears nontoxic. Patient reports no difficult pain. No focal neurodeficits noted. Vital signs are normal except for some elevated blood pressure at 150 systolic. Differential diagnosis includes not limited to labyrinthitis, sinusitis, electrolyte imbalance, unlikely stroke syndrome. CT of the head was unchanged from last year's exam. CBC CMP was normal. Urinalysis was normal. 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 I recommended at this time patient can plenty of fluids and use meclizine to help with dizziness. Recommend the patient return to the ER for worsening symptoms such as severe headache, difficulty with speech or walking. Patient reported understanding agreed to plan. Lab Data 06/30/24 21:48 06/30/24 21:[address] 06/30/24 21:16 IMPRESSION: 1. No acute intracranial findings. Correlate and follow-up as clinically indicated. 2. Chronic/incidental findings as described above. Laboratory Results WBC 8.73 10^3/uL (3.29-11.43) 06/30/24 21:48 RBC 4.40 10^6/uL (3.85-5.65) 06/30/24 21:48 Hgb 12.00 g/dL (11.27-16.99) 06/30/24 21:48 Hct 37.9 % (36-47) 06/30/24 21:48 MCV 86.1 fl (85-98) 06/30/24 21:48 MCH 27.3 pg (27-33) 06/30/24 21:48 MCHC 31.7 g/dL (30-55) 06/30/24 21:48 RDW 14.3 % (12.1-15.1) 06/30/24 21:48 Plt Count 260 10^3/cmm (157-399) 06/30/24 21:48 MPV 10.8 fL (7.4-10.4) H 06/30/24 21:48 Neut % (Auto) 60.5 % 06/30/24 21:48 Lymph % (Auto) 31.0 % 06/30/24 21:48 [place] % (Auto) 6.4 % 06/30/24 21:48 Eos % (Auto) 1.7 % 06/30/24 21:48 Baso % (Auto) 0.2 % 06/30/24 21:48 Neut # (Auto) 5.27 10^3/uL (1.8-7.7) 06/30/24 21:48 Lymph # (Auto) 2.7 10^3/uL (0.8-4.8) 06/30/24 21:48 [place] # (Auto) 0.6 10^3/uL (0.2-0.9) 06/30/24 21:48 Eos # (Auto) 0.2 10^3/uL (0.0-0.8) 06/30/24 21:48 Baso # (Auto) 0.0 10^3/uL (0.0-0.1) 06/30/24 21:48 Nucleated RBC % (auto) 0 % 06/30/24 21:48 Nucleated RBCs # 0.0 /100WBC 06/30/24 21:48 Sodium 140 mmol/L (136-145) 06/30/24 21:48 Potassium 3.9 mmol/L (3.5-5.1) 06/30/24 21:48 Chloride 105 mmol/L (98-107) 06/30/24 21:48 Carbon Dioxide 26 mmol/L (22-29) 06/30/24 21:48 Anion Gap 12.9 (5-19) 06/30/24 21:48 BUN 16 mg/dL (6-20) 06/30/24 21:48 Creatinine 0.6 mg/dL (0.5-0.9) 06/30/24 21:48 GFR Calculation 104.6 mL/min (90-130) 06/30/24 21:48 Glucose 152 mg/dL (65-115) H 06/30/24 21:48 Calculated Osmolality 294 mOsm/kg (285-295) 06/30/24 21:48 Calcium 9.0 mg/dL (8.5-10.5) 06/30/24 21:48 Total Bilirubin 0.5 mg/dL (0.15-1.2) 06/30/24 21:48 AST 12 U/L (0-32) 06/30/24 21:48 ALT 11 U/L (0-33) 06/30/24 21:48 Alkaline Phosphatase 78 U/L (35-105) 06/30/24 21:48 Total Protein 6.7 g/dL (6.6-8.7) 06/30/24 21:48 Albumin 4.0 g/dL (3.5-5.2) 06/30/24 21:48 Globulin 2.7 g/dL (1.3-4.6) 06/30/24 21:48 Urine Color Yellow (Yellow) 06/30/24 22:12 Urine Appearance Clear (CLEAR) 06/30/24 22:12 Urine pH 6.0 (5-7) 06/30/24 22:12 Ur Specific [place] 1.022 (1.005-1.030) 06/30/24 22:12 Urine Protein Negative (Negative) 06/30/24 22:12 Urine Glucose (UA) Negative (Normal) 06/30/24 22:12 Urine Ketones Negative (Negative) 06/30/24 22:12 Urine Blood Negative (Negative) 06/30/24 22:12 Urine Nitrate Negative (Negative) 06/30/24 22:12 Urine Bilirubin Negative (Negative) 06/30/24 22:12 Urine Urobilinogen 1.0 mg/dL (Negative) 06/30/24 22:12 Ur Leukocyte Esterase Negative (Negative) 06/30/24 22:12 Urine RBC 0-2 /hpf (0-2) 06/30/24 22:12 Urine WBC 0-5 /hpf (0-5) 06/30/24 22:12 Ur Squamous Epith Cells 0-5 /hpf (0-5) 06/30/24 22:12 Amorphous Sediment Not Reportable 06/30/24 22:12 Urine Bacteria None seen /hpf (NONE) 06/30/24 22:12 Hyaline Casts 0.40 /lpf 06/30/24 22:12 No radiology studies performed this visit EKG Data EKG 1: I personally reviewed and interpreted this EKG as follows: EKG interpretation date: 06/30/24 EKG interpretation time: 21:25 Prior EKG tracings: not available for review Interpretation: EKG shows a sinus rhythm with a regular rate at [address] elevation or ectopy is noted. No prior exam was available for immediate comparison. Computer generated interpretation: Sinus rhythm. Left axis deviation. Pattern consistent with pulmonary disease. Septal myocardial infarction, probably old. Abnormal EKG. Unconfirmed report. Discharge Plan Discharge Patient Disposition: Home Clinical Impression: Postural dizziness Condition: Stable Prescriptions: New meclizine 25 mg tablet 25 mg PO TID PRN (Reason: dizziness) Qty: 10 0RF No Action Mounjaro 2.5 mg/0.5 mL pen injector SUBCUT famotidine [Pepcid] 40 mg tablet 40 mg PO BID Qty: 10 0RF atorvastatin 40 mg tablet 40 mg PO DAILY Qty: 90 0RF levothyroxine 100 mcg capsule 100 mcg PO DAILY MDD in the morning without food Qty: 90 0RF clopidogrel 75 mg tablet See Rx Instructions .ROUTE .COMPLEX Qty: 90 3RF Dose Instruction: Take 1 tablet by mouth once daily Rx Instructions: Take 1 tablet by mouth once daily metoprolol succinate 25 mg tablet extended release 24 hr 25 mg PO DAILY Qty: 30 0RF hydrocodone-acetaminophen 10-325 mg tablet 1 tab PO QID PRN (Reason: Pain) metformin 1,000 mg tablet 1,000 mg PO BID ciprofloxacin HCl 500 mg tablet 500 mg PO Q12H Qty: 20 0RF Discharge Orders: Discharge ED (Routine); Ordered 06/30/24 Ordered By: Castro Pierre Referrals: Emili Barrera APRN [Primary Care Provider] - Discharge Diet: Usual diet Discharge Activity: Increase activity as tolerated Patient Instructions: Dizziness (ED) Activity Restrictions/Additional Instructions: Drink plenty of water and fluids. Use meclizine as needed for dizziness. Follow-up with primary care in 3 to 5 days for recheck. Return to ED for worsening symptoms such as severe headache, difficulty speaking, or difficulty walking. 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
--- NOTE | 2024-06-30 21:16 | ECG_ITS ---
[employer] Test Date: 2024-06-30 Pat Name: Fatou Khanna Department: Room: Gender: Female Tobacco Shaker: : 1970 Requested By: Castro Ellis Order Number: [id number] Jossy MD: Panchito Fischer M.D. Measurements Intervals [place] Rate: 72 P: 14 AR: 157 QRS: -37 QRSD: 97 T: 67 QT: 379 QTc: 417 Interpretive Statements SINUS RHYTHM LEFT AXIS DEVIATION [QRS AXIS < -30] PATTERN CONSISTENT WITH PULMONARY DISEASE SEPTAL MYOCARDIAL INFARCTION , PROBABLY OLD [40+ ms Q WAVE IN V1/V2] Compared to ECG 12/25/2023 20:38:41 Left-axis deviation now present Myocardial infarct finding still present Electronically Signed On 07-01-2024 10:19:52 DESIGN MANAGER by Panchito Fischer M.D. [email or web address]
--- NOTE | 2024-06-30 21:16 | CTR_ITS ---
PROCEDURE INFORMATION: Exam: CT Head Without Contrast Exam date and time: 06/30/2024 9:31 PM Age: 53 years old Clinical indication: Patient HX: C/O dizziness TECHNIQUE: Imaging protocol: Computed tomography of the head without contrast. Radiation optimization: All CT scans at this facility use at least one of these dose optimization techniques: automated exposure control; mA and/or kV adjustment per patient size (includes targeted exams where dose is matched to clinical indication); or iterative reconstruction. COMPARISON: CT head wo con* [id number] 04/06/2023 6:11 PM RADIATION DOSE METRICS: Total DLP (mGy-cm): 1053.28 FINDINGS: Brain: No acute intracranial hemorrhage, abnormal extra-axial fluid collection, mass effect, or midline shift. Minimal periventricular and subcortical white matter hypodensities compatible with changes of minimal burden chronic small-vessel disease. Cerebral ventricles: The ventricular system is within normal limits of variation for the patient's age. Pituitary gland and sella: Pituitary is again noted to be flattened along the floor of the sella giving a so-called empty sella appearance. Paranasal sinuses: Visualized paranasal sinuses are grossly unremarkable. No air fluid levels. Mastoid air cells: Visualized mastoid air cells are well aerated. Bones: No acute fracture. Hyperostosis frontalis interna. Soft tissues: Grossly unremarkable. Vasculature: Atheromatous changes are seen within intracranial portions of the bilateral internal carotid arteries. CT/CT head wo con* [id number] IMPRESSION: 1. No acute intracranial findings. Correlate and follow-up as clinically indicated. 2. Chronic/incidental findings as described above.
[2024-06-30 21:50] VITALS: BP 157/90; PULSE 73; RESP 18; O2SAT 100
[2024-06-30 21:58] LABS: Basophils % 0.2 %; Eosinophils # 0.2 10^3/uL (0.0-0.8); Eosinophils % 1.7 %; Hematocrit 37.9 % (36-47); Lymphocytes # 2.7 10^3/uL (0.8-4.8); Mean Corpuscular HGB Conc 31.7 g/dL (30-55); Mean Corpuscular Hemoglobin 27.3 pg (27-33); Mean Corpuscular Volume 86.1 fl (85-98); Mean Platelet Volume 10.8 fL (7.4-10.4); Monocytes # 0.6 10^3/uL (0.2-0.9); Monocytes % 6.4 %; Neutrophils # 5.27 10^3/uL (1.8-7.7); Neutrophils % 60.5 %; Nucleated Red Blood Cells % 0 %; Platelet Count 260 10^3/cmm (157-399); Red Cell Distribution Width 14.3 % (12.1-15.1); White Blood Count 8.73 10^3/uL (3.29-11.43)
[2024-06-30 22:00] VITALS: PULSE 73; O2SAT 95
[2024-06-30 22:13] LABS: Alanine Aminotransferase 11 U/L (0-33); Alkaline Phosphatase 78 U/L (35-105); Anion Gap 12.9 (5-19); Aspartate Amino Transferase 12 U/L (0-32); Blood Urea Nitrogen 16 mg/dL (6-20); Carbon Dioxide 26 mmol/L (22-29); Chloride 105 mmol/L (98-107); Creatinine Clr Calc Pharmacy 152.1521; Globulin 2.7 g/dL (1.3-4.6); Glomerular Filtration Rate 104.6 mL/min (90-130); Glucose 152 mg/dL (65-115); Osmolality Calculated 294 mOsm/kg (285-295); Potassium 3.9 mmol/L (3.5-5.1); Sodium 140 mmol/L (136-145); Total Bilirubin 0.5 mg/dL (0.15-1.2); Total Protein 6.7 g/dL (6.6-8.7)
[2024-06-30 22:25] LABS: Bilirubin Urine Negative (Negative); Blood Urine Negative (Negative); Glucose Urine UA Negative (Normal); Ketones Urine Negative (Negative); Leukocyte Esterase Urine Negative (Negative); Nitrate Urine Negative (Negative); Protein Urine Negative (Negative); Specific Gravity, Urine 1.022 (1.005-1.030); Urine Appearance Clear (CLEAR); Urine Color Yellow (Yellow)
[2024-06-30 22:30] VITALS: PULSE 72; O2SAT 100
[2024-06-30 22:30] LABS: Add Urine Microscopic? YES; Bacteria Urine None Seen /hpf; RBC Urine 0-2 /hpf (0-2); Squamous Epithelial Cell Urine 0-5 /hpf (0-5); WBC Urine 0-5 /hpf (0-5)
[2024-06-30 23:00] VITALS: PULSE 76; O2SAT 99
[2024-06-30] MEDS: meclizine 25 mg tablet PO (23:04)
[2024-06-30 23:10] VITALS: BP 145/89; PULSE 76; RESP 20; O2SAT 95
== END 2024-06-30 23:10 | disposition home or self-care (01) ==
PROVIDERS: Emergency Provider Nurse Practitioner Family; PCP Nurse Practitioner Family
DX: R42 Dizziness and giddiness (principal); Z79.02 Long term (current) use of antithrombotics/antiplatelets; Z79.84 Long term (current) use of oral hypoglycemic drugs; I10 Essential (primary) hypertension; E11.9 Type 2 diabetes mellitus without complications
CPT/HCPCS: 36415; 70450; 80053; 81001; 85025; 93005; 99284; J8597

== ENCOUNTER 2024-07-09 01:55 | Emergency (ER) | payer MEDICARE, SELFPAY ==
[2020-01-11 11:16] VITALS: BP 150/85; BMI 53.7
[2024-07-09 02:34] VITALS: BP 162/91; PULSE 72; RESP 18; TEMP 36.4; O2SAT 100; BMI 53.4
--- NOTE | 2024-07-09 05:25 | CTR_ITS ---
PROCEDURE INFORMATION: Exam: CT Abdomen And Pelvis Without Contrast Exam date and time: 07/09/2024 5:40 AM Age: 53 years old Clinical indication: Constipation and nausea and vomiting; Abdominal pain; Generalized; Prior surgery; Surgery date: 6+ months; Surgery type: Hernia mesh. Hysterectomy. Patient HX: C/O diffuse abd pain with n/v and constipation. ; Additional info: Abd pain, HX of ventral hernia TECHNIQUE: Imaging protocol: Computed tomography of the abdomen and pelvis without contrast. Radiation optimization: All CT scans at this facility use at least one of these dose optimization techniques: automated exposure control; mA and/or kV adjustment per patient size (includes targeted exams where dose is matched to clinical indication); or iterative reconstruction. COMPARISON: CT kidney stone [id number] 05/17/2024 7:54 PM RADIATION DOSE METRICS: Total DLP (mGy-cm): 1497 FINDINGS: Lungs: The lung bases are clear. Liver: Unremarkable. Gallbladder and biliary ducts: No definite gallstones visible by CT. No biliary tree dilation. Pancreas: Unremarkable. Spleen: Unremarkable. Adrenal glands: Unremarkable. Kidneys and ureters: Small intrarenal calculi bilaterally, similar to the prior exam. No hydronephrosis of either kidney. No visible ureteral calculus. Mild perinephric stranding bilaterally, similar to the prior exam. This is a nonspecific appearance and could well be chronic. Possibility of pyelonephritis is not entirely excluded, please correlate clinically. Stomach and bowel: Several proximal small bowel loops are borderline prominent in size, and may have some diffuse mucosal/wall thickening. Possibly this could be a transient appearance. The overall appearance is not strongly suggestive of significant small bowel obstruction at this time. These findings could be secondary to some form of gastroenteritis. Please correlate clinically. If there is clinical suspicion for small bowel obstruction, follow-up may be helpful to exclude progression. There is diverticulosis, mainly involving the sigmoid and descending colon, without CT evidence of diverticulitis. Somewhat prominent amount of stool in the rectum, please correlate clinically. Appendix: The appendix is visualized and appears normal. Intraperitoneal space: No free intraperitoneal air, or ascites. Vasculature: No evidence for abdominal aortic aneurysm. Lymph nodes: No retroperitoneal adenopathy. Urinary bladder: No visible calculus in the urinary bladder. Reproductive: Prior hysterectomy. No definite ovarian/adnexal cyst or mass by CT. Bones/joints: No significant acute finding. Soft tissues: No significant acute finding. CT/CT abdomen pelvis wo con [id number] IMPRESSION: 1. Normal appendix. 2. Several proximal small bowel loops are borderline prominent in size, and may have some diffuse mucosal/wall thickening. See above discussion. These findings could be secondary to some form of gastroenteritis. 3. Diverticulosis, without evidence of diverticulitis. 4. Somewhat prominent amount of stool in the rectum, please correlate clinically. 5. No free intraperitoneal air. 6. Bilateral intrarenal calculi. No hydronephrosis of either kidney. No visible ureteral calculus. 7. Mild perinephric stranding bilaterally, see above discussion. 8. Other findings discussed above.
[2024-07-09] MEDS: morphine 4 mg/mL SDV 1 mL IVP ×2 (05:38→07:09)
[2024-07-09] MEDS: ondansetron 2 mg/ML SDV 2 mL 4 MG IVP (05:38)
[2024-07-09] MEDS: ketorolac 30 mg/mL INJ IVP (05:38)
[2024-07-09 05:41] LABS: Basophils % 0.4 %; Eosinophils # 0.2 10^3/uL (0.0-0.8); Eosinophils % 1.6 %; Hematocrit 39.2 % (36-47); Lymphocytes # 3.3 10^3/uL (0.8-4.8); Lymphocytes % 30.1 %; Mean Corpuscular HGB Conc 31.6 g/dL (30-55); Mean Corpuscular Hemoglobin 27.3 pg (27-33); Mean Corpuscular Volume 86.3 fl (85-98); Mean Platelet Volume 10.8 fL (7.4-10.4); Monocytes # 0.8 10^3/uL (0.2-0.9); Monocytes % 6.9 %; Neutrophils % 60.6 %; Nucleated Red Blood Cells % 0 %; Platelet Count 266 10^3/cmm (157-399); Red Blood Count 4.54 10^6/uL (3.85-5.65); Red Cell Distribution Width 14.1 % (12.1-15.1); White Blood Count 10.87 10^3/uL (3.29-11.43)
[2024-07-09 05:59] LABS: Alanine Aminotransferase 11 U/L (0-33); Aspartate Amino Transferase 12 U/L (0-32); Carbon Dioxide 24 mmol/L (22-29); Chloride 105 mmol/L (98-107); Total Bilirubin 0.6 mg/dL (0.15-1.2)
[2024-07-09 06:05] LABS: Albumin Level 4.6 g/dL (3.5-5.2); Alkaline Phosphatase 95 U/L (35-105); Blood Urea Nitrogen 19 mg/dL (6-20); C Reactive Protein 11.6 mg/L (0.0-4.9); Calcium 9.4 mg/dL (8.5-10.5); Creatinine Clr Calc Pharmacy 152.8355; Globulin 2.7 g/dL (1.3-4.6); Glomerular Filtration Rate 104.6 mL/min (90-130); Glucose 136 mg/dL (65-115); Lipase 39 U/L (13-60); Osmolality Calculated 298 mOsm/kg (285-295); Sodium 142 mmol/L (136-145); Total Protein 7.3 g/dL (6.6-8.7)
--- NOTE | 2024-07-09 06:33 | ED_ITS ---
HPI - Abdominal Pain 2 General: Chief Complaint: Abdominal Pain Stated Complaint: hernia repair possible came loose Pain n/v constip Time Seen by Provider: 07/09/24 05:13 History of Present Illness: 53-year-old female complaining of genera lized abdominal pain, mainly lower, vomiting, and increased pain with trying to have bowel movements. She denies fever. No blood in the stool or vomitus. She has a history of a head mesh hernia repair, and is concerned that she has ruptured the mesh. Related Data Home Medications Medication Instructions Recorded Confirmed hydrocodone 10 mg-acetaminophen 1 tab PO QID PRN Pain 09/10/22 05/06/24 325 mg tablet metformin 1,000 mg tablet 1,000 mg PO BID 09/10/22 05/06/24 tirzepatide 2.5 mg/0.5 mL mg SUBCUT 04/12/24 05/06/24 subcutaneous pen injector (Migdalia) Previous Rx's Medication Instructions Recorded metoprolol succinate 25 mg 25 mg PO DAILY #30 tabs 10/14/22 tablet,extended release 24 hr atorvastatin 40 mg tablet 40 mg PO DAILY #90 tabs 02/11/23 levothyroxine 100 mcg capsule 100 mcg PO DAILY #90 caps 02/11/23 famotidine 40 mg tablet (Pepcid) 40 mg PO BID #10 tabs 02/05/24 ciprofloxacin HCl 500 mg tablet 500 mg PO Q12H #20 tabs 05/17/24 meclizine 25 mg tablet 25 mg PO TID PRN dizziness #10 tabs 06/30/24 clopidogrel 75 mg tablet See Rx Instructions .Route 07/03/24 .COMPLEX #90 tabs magnesium citrate (Citrate of 296 ml PO DAILY #296 mL 07/09/24 Magnesia oral) ondansetron 4 mg disintegrating 4 mg PO Q6H PRN nausea and 07/09/24 tablet vomiting #14 tabs Allergies Allergy/AdvReac Type Severity Reaction Status Date / Time bee venom protein (honey bee) Allergy Severe ALGY-Anaphy Verified 05/06/24 11:33 laxis hydromorphone [From Dilaudid] Allergy Severe ALGY-Difficulty Verified 05/06/24 11:33 Breathing Iodine and Iodide Containing Allergy Severe ALGY-Swell Verified 05/06/24 11:33 Produc Lip/Tongue/Throat tramadol Allergy Intermediate ADR-Nausea Verified 05/06/24 11:33 gabapentin AdvReac Intermediate RASH Verified 05/06/24 11:33 PFSH ED 2 PFSH: Medical History Acquired hypothyroidism Atherosclerosis of coronary artery of nez perce heart without angina pectoris Scleral ectasia of right eye Opioid contract exists Muscle spasm of back Status post extracorporeal shock wave therapy Urolithiasis HTN (hypertension) with goal to be determined Encounter for long-term use of opiate analgesic Chronic back pain Diabetes Surgical History Hx of umbilical hernia repair 01/12/22 lap poss open umbilical hernia S/P skin cancer resection Nose Hx of heart artery stent x 2 Hx of hysterectomy Total - due to endometrial CA. Family History Father Cancer Stroke Family/Other Cancer Grandmother Diabetes Sister Diabetes Brother Diabetes Sister Diabetes Denies family history of CAD (coronary artery disease) Clotting disorder Dementia Chronic kidney disease (CKD) Suicide Anesthesia complication Bleeding disorder Lung disease Social History Smoking and tobacco/nicotine status: never used tobacco/nicotine Second hand smoke exposure: No Alcohol intake: never Substance/Drug Use: never Adopted: No Caregiver/support person: No Lives independently: No Household members: spouse Marital status: Current occupational status: disabled Physical Exam 2 Const: COMMON NORMALS: no acute distress GENERAL APPEARANCE: cooperative; not ill appearing and not frail appearing HENMT: COMMON NORMALS: normocephalic, atraumatic and Normal external nose present HEAD & SCALP: normocephalic and atraumatic FACE & SINUS: normal facial exam and face symmetric NOSE: Normal external nose present Eye: COMMON NORMALS: Equal, round and reactive pupils present and EOMs intact bilaterally PUPIL: Yes Equal, round and reactive pupils present Neck/C-Spine: GENERAL: Yes trachea midline Chest: CHEST: Yes Symmetrical chest wall rise Resp: COMMON NORMALS: normal respiratory effort, No retractions, No use of accessory muscles and clear to auscultation bilaterally AUSCULTATION: clear to auscultation bilaterally Cardio: COMMON NORMALS: regular rate and regular rhythm RATE: regular rate RHYTHM: regular rhythm GI: COMMON NORMALS: Normal to inspection, nondistended, normoactive bowel sounds present PALPATION: Yes Tenderness to palpation present (GI) (generalized) and No Guarding due to palpation present (GI) Extremity: COMMON NORMALS: no pedal edema Neuro: CHIQUITA COMA SCALE: document GCS findings Payne coma scale eye opening: Spontaneous Chiquita coma scale verbal response: Orientated Chiquita coma scale motor response: Obey commands Payne coma scale total score: 15 S ENSORY EXAM: Yes extremities (intact) Psych: COMMON NORMALS: speech normal SPEECH: Yes normal speech Skin: COMMON NORMALS: no rashes or lesions noted GENERAL SKIN EXAM: no rashes or lesions noted Course 2 Vital Signs: Vital signs: Vital Signs Temperature 97.6 F 07/09/24 02:34 Pulse Rate 72 07/09/24 07:40 Respiratory Rate 17 07/09/24 07:09 Blood Pressure 117/85 07/09/24 07:40 Pulse Oximetry 100 07/09/24 07:40 Oxygen Delivery Me thod Room Air 07/09/24 02:34 MDM - Abdominal Pain Medical Decision Making 53 year old female with generalized abdominal pain, and vomiting. She relates that she is on hydrocodone chronically. Her white blood cell count is 11. Other laboratory is not remarkable. Her vitals have been stable here. Her CT scan shows a normal appendix. There are proximal small bowel loops that are borderline prominent in size, and have some mucosal wall thickening consistent with enteritis. There's a somewhat prominent amount of stool in the rectum consistent with Constipation as well. Other findings are not related to her presentation. her CRP is only 12. Pain is relieved after morphine and toradol here. She'll be given relistor for Constipation as she is on chronic opiates, a bowl prep, and nausea medication. She'll follow a liquid diet for 24 hours. She returned for worsening symptoms. Lab Data 07/09/24 05:27 07/09/24 05:27 Labs/Radiology: Radiology Impressions Abdomen/Pelvis CT 07/09/24 05:25 IMPRESSION: 1. Normal appendix. 2. Several proximal small bowel loops are borderline prominent in size, and may have some diffuse mucosal/wall thickening. See above discussion. These findings could be secondary to some form of gastroenteritis. 3. Diverticulosis, without evidence of diverticulitis. 4. Somewhat prominent amount of stool in the rectum, please correlate clinically. 5. No free intraperitoneal air. 6. Bilateral intrarenal calculi. No hydronephrosis of either kidney. No visible ureteral calculus. 7. Mild perinephric stranding bilaterally, see above discussion. 8. Other findings discussed above. Laboratory Results WBC 10.87 10^3/uL (3.29-11.43) 07/09/24 05:27 RBC 4.54 10^6/uL (3.85-5.65) 07/09/24 05:27 Hgb 12.40 g/dL (11.27-16.99) 07/09/24 05:27 Hct 39.2 % (36-47) 07/09/24 05:27 MCV 86.3 fl (85-98) 07/09/24 05:27 MCH 27.3 pg (27-33) 07/09/24 05:27 MCHC 31.6 g/dL (30-55) 07/09/24 05:27 RDW 14.1 % (12.1-15.1) 07/09/24 05:27 Plt Count 266 10^3/cmm (157-399) 07/09/24 05:27 MPV 10.8 fL (7.4-10.4) H 07/09/24 05:27 Neut % (Auto) 60.6 % 07/09/24 05:27 Lymph % (Auto) 30.1 % 07/09/24 05:27 Williams % (Auto) 6.9 % 07/09/24 05:27 Eos % (Auto) 1.6 % 07/09/24 05:27 Baso % (Auto) 0.4 % 07/09/24 05:27 Neut # (Auto) 6.60 10^3/uL (1.8-7.7) 07/09/24 05:27 Lymph # (Auto) 3.3 10^3/uL (0.8-4.8) 07/09/24 05:27 Williams # (Auto) 0.8 10^3/uL (0.2-0.9) 07/09/24 05:27 Eos # (Auto) 0.2 10^3/uL (0.0-0.8) 07/09/24 05:27 Baso # (Auto) 0.0 10^3/uL (0.0-0.1) 07/09/24 05:27 Nucleated RBC % (auto) 0 % 07/09/24 05:27 Nucleated RBCs # 0.0 /100WBC 07/09/24 05:27 Sodium 142 mmol/L (136-145) 07/09/24 05:27 Potassium 4.0 mmol/L (3.5-5.1) 07/09/24 05:27 Chloride 105 mmol/L (98-107) 07/09/24 05:27 Carbon Dioxide 24 mmol/L (22-29) 07/09/24 05:27 Anion Gap 17.0 (5-19) 07/09/24 05:27 BUN 19 mg/dL (6-20) 07/09/24 05:27 Creatinine 0.6 mg/dL (0.5-0.9) 07/09/24 05:27 GFR Calculation 104.6 mL/min (90-130) 07/09/24 05:27 Glucose 136 mg/dL (65-115) H 07/09/24 05:27 Calculated Osmolality 298 mOsm/kg (285-295) H 07/09/24 05:27 Calcium 9.4 mg/dL (8.5-10.5) 07/09/24 05:27 Total Bilirubin 0.6 mg/dL (0.15-1.2) 07/09/24 05:27 AST 12 U/L (0-32) 07/09/24 05:27 ALT 11 U/L (0-33) 07/09/24 05:27 Alkaline Phosphatase 95 U/L (35-105) 07/09/24 05:27 C-Reactive Protein 11.6 mg/L (0.0-4.9) H 07/09/24 05:27 Total Protein 7.3 g/dL (6.6-8.7) 07/09/24 05:27 Albumin 4.6 g/dL (3.5-5.2) 07/09/24 05:27 Globulin 2.7 g/dL (1.3-4.6) 07/09/24 05:27 Lipase 39 U/L (13-60) 07/09/24 05:27 All radiology interpretation(s) finalized by discharge Discharge Plan Discharge Patient Disposition: Home Clinical Impression: Enteritis, Constipation Condition: Stable Prescriptions: New magnesium citrate [Citrate of Magnesia] Solution 296 ml PO DAILY Qty: 296 0RF ondansetron 4 mg tablet,disintegrating 4 mg PO Q6H PRN (Reason: nausea and vomiting) Qty: 14 0RF No Action Mounjaro 2.5 mg/0.5 mL pen injector SUBCUT famotidine [Pepcid] 40 mg tablet 40 mg PO BID Qty: 10 0RF atorvastatin 40 mg tablet 40 mg PO DAILY Qty: 90 0RF levothyroxine 100 mcg capsule 100 mcg PO DAILY MDD in the morning without food Qty: 90 0RF clopidogrel 75 mg tablet See Rx Instructions .ROUTE .COMPLEX Qty: 90 3RF Dose Instruction: Take 1 tablet by mouth once daily Rx Instructions: Take 1 tablet by mouth once daily metoprolol succinate 25 mg tablet extended release 24 hr 25 mg PO DAILY Qty: 30 0RF hydrocodone-acetaminophen 10-325 mg tablet 1 tab PO QID PRN (Reason: Pain) metformin 1,000 mg tablet 1,000 mg PO BID ciprofloxacin HCl 500 mg tablet 500 mg PO Q12H Qty: 20 0RF meclizine 25 mg tablet 25 mg PO TID PRN (Reason: dizziness) Qty: 10 0RF Discharge Orders: Discharge ED (Routine); Ordered 07/09/24 Ordered By: Bereket Chapman Referrals: Emili Barrera APRN [Primary Care Provider] - 1-3 days Patient Instructions: Constipation (ED), Enteritis (ED), Opioid Safety, Pain Management Activity Restrictions/Additional Instructions: Return for fever greater than 100, worsening pain despite treatment, blood in the stool, vomiting liquids or medications despite treatment, other concerning symptoms. Take the nausea medication scheduled every 4 hours while awake today, then as needed following. You may continue your pain medication. If you do not have significant bowel movements within the first 8 hours of medication given here, you may use the magnesium citrate prescribed. Call your doctor tomorrow for follow-up appointment. Coding Level of Care Code ED Securities Compliance Examiner for Glenn Zuniga
[2024-07-09 07:09] VITALS: RESP 17; O2SAT 99
[2024-07-09] MEDS: lactulose oral liq 20 gm/30 mL UDC 30 GM PO (07:09)
[2024-07-09] MEDS: mineral oil 30 mL UDC PO (07:09)
[2024-07-09] MEDS: magnesium hydroxide 30 mL UDC PO (07:09)
[2024-07-09] MEDS: methylnaltrexone 12 /0.6 mL INJ 12 MG SUBCUT (07:20)
[2024-07-09 07:39] VITALS: BP 117/85; PULSE 68; O2SAT 99
[2024-07-09 07:40] VITALS: BP 117/85; PULSE 72; O2SAT 100
== END 2024-07-09 07:42 | disposition home or self-care (01) ==
PROVIDERS: Emergency Provider Emergency Medicine; PCP Nurse Practitioner Family
DX: K52.9 Noninfective gastroenteritis and colitis, unspecified (principal); K59.00 Constipation, unspecified; Z79.02 Long term (current) use of antithrombotics/antiplatelets; I25.10 Atherosclerotic heart disease of native coronary artery without angina pectoris; I10 Essential (primary) hypertension; E11.9 Type 2 diabetes mellitus without complications
CPT/HCPCS: 74176; 80053; 83690; 85025; 86140; 96372; 96374; 96375; 96376; 99285; J1885; J2212; J2270; J2405

== ENCOUNTER 2024-08-20 13:09 | Emergency (ER) | payer MEDICARE, SELFPAY ==
[2020-01-11 11:16] VITALS: BP 150/85; BMI 53.7
[2024-08-20 13:17] VITALS: BP 169/111; PULSE 78; RESP 18; TEMP 36.4; O2SAT 99; BMI 54.1
[2024-08-20 13:41] LABS: Bilirubin Urine Negative (Negative); Blood Urine Negative (Negative); Glucose Urine UA Negative (Normal); Ketones Urine Negative (Negative); Leukocyte Esterase Urine Negative (Negative); Nitrate Urine Negative (Negative); Protein Urine Trace (Negative); Specific Gravity, Urine 1.019 (1.005-1.030); Urine Appearance Clear (CLEAR); Urine Color Yellow (Yellow)
[2024-08-20 13:43] LABS: Add Urine Microscopic? YES; Bacteria Urine None Seen /hpf; Hyaline Casts Urine 0-4 /lpf; Squamous Epithelial Cell Urine 0-5 /hpf (0-5); WBC Urine 0-5 /hpf (0-5)
[2024-08-20 13:55] VITALS: BP 162/84; PULSE 75; O2SAT 97
[2024-08-20 14:02] LABS: Basophils % 0.5 %; Eosinophils # 0.1 10^3/uL (0.0-0.8); Eosinophils % 1.9 %; Hematocrit 36.3 % (36-47); Lymphocytes # 2.1 10^3/uL (0.8-4.8); Lymphocytes % 28.9 %; Mean Corpuscular HGB Conc 30.9 g/dL (30-55); Mean Corpuscular Hemoglobin 27.3 pg (27-33); Mean Corpuscular Volume 88.5 fl (85-98); Monocytes # 0.5 10^3/uL (0.2-0.9); Neutrophils # 4.53 10^3/uL (1.8-7.7); Neutrophils % 61.4 %; Nucleated Red Blood Cells % 0 %; Platelet Count 251 10^3/cmm (157-399); Red Cell Distribution Width 14.1 % (12.1-15.1); White Blood Count 7.38 10^3/uL (3.29-11.43)
[2024-08-20 14:21] LABS: Alanine Aminotransferase 11 U/L (0-33); Albumin Level 3.8 g/dL (3.5-5.2); Alkaline Phosphatase 87 U/L (35-105); Anion Gap 14.2 (5-19); Aspartate Amino Transferase 10 U/L (0-32); Blood Urea Nitrogen 14 mg/dL (6-20); Calcium 8.9 mg/dL (8.5-10.5); Carbon Dioxide 24 mmol/L (22-29); Chloride 103 mmol/L (98-107); Creatinine Clr Calc Pharmacy 152.2456; Globulin 2.3 g/dL (1.3-4.6); Glomerular Filtration Rate 104.2 mL/min (90-130); Glucose 161 mg/dL (65-115); Lipase 43 U/L (13-60); Osmolality Calculated 288 mOsm/kg (285-295); Potassium 4.2 mmol/L (3.5-5.1); Sodium 137 mmol/L (136-145); Total Bilirubin 0.6 mg/dL (0.15-1.2); Total Protein 6.1 g/dL (6.6-8.7)
[2024-08-20 14:25] VITALS: PULSE 71; O2SAT 97
--- NOTE | 2024-08-20 14:26 | CTR_ITS ---
PROCEDURE INFORMATION: Exam: CT Abdomen And Pelvis Without Contrast Exam date and time: 08/20/2024 2:47 PM Age: 54 years old Clinical indication: Abdominal pain; Localized; Lower; Prior surgery; Surgery date: 6+ months; Surgery type: Hernia, hyster; Additional info: Flank pain, h/o kidney stones, lower abd pain TECHNIQUE: Imaging protocol: Computed tomography of the abdomen and pelvis without contrast. Radiation optimization: All CT scans at this facility use at least one of these dose optimization techniques: automated exposure control; mA and/or kV adjustment per patient size (includes targeted exams where dose is matched to clinical indication); or iterative reconstruction. COMPARISON: CT abdomen pelvis wo con [id number] 07/09/2024 5:40 AM RADIATION DOSE METRICS: Total DLP (mGy-cm): 1293.1 FINDINGS: Tubes, catheters and devices: Surgical clips overlie the bilateral pelvis. Lungs: Bilateral dependent pulmonary atelectasis is demonstrated within the lungs. Coronary arteries: Severe coronary artery calcification. Liver: Liver demonstrates irregular liver border. Findings suggesting potential hepatic parenchymal disease. Consider correlation with liver function tests. Gallbladder and biliary ducts: Unremarkable. No calcified stones. No ductal dilation. Pancreas: Unremarkable. Spleen: Unremarkable. No splenomegaly. Adrenal glands: Normal. No mass. Kidneys and ureters: Proximal left ureteral calculus demonstrated. Ureteral calculus measurement and location: 6 mm calculus on axial image 45. Evidence of mild left hydronephrosis. Bilateral nephrolithiasis is demonstrated. Punctate 1-2 mm renal calculi bilaterally.. The visualized kidneys appear otherwise unremarkable. No visualized right renal hydronephrosis. Stomach and bowel: Generalized colonic diverticulosis is demonstrated. Possible mild increased volume of colonic fecal material identified throughout the colon. The bowel appears otherwise unremarkable. Appendix: The visualized appendix appears unremarkable. Intraperitoneal space: No free air. No significant fluid collection. Vasculature: Calcifications in the pelvis, most compatible with phleboliths. Mild atherosclerotic calcification demonstrated within the aorta. Lymph nodes: No enlarged lymph nodes. Urinary bladder: Urinary bladder appears small in size, limiting further assessment. Reproductive: The uterus is not present. Bones/joints: Mild to moderate generalized bony degenerative changes. Bony structures appear otherwise unremarkable. Soft tissues: Fat containing periumbilical ventral wall hernia is demonstrated. Mild diffuse generalized anasarca. Other findings: This study is severely limited by patient's large body habitus. Clinically significant abnormalities may not be visible on this study. Recommend clinical correlation. Limited study with motion artifact. CT/CT abdomen pelvis wo con [id number] IMPRESSION: 1. Proximal left ureteral calculus, as described above. Mild left hydronephrosis. 2. Bilateral nonobstructing nephrolithiasis. 3. Colonic diverticulosis. 4. Possible mild constipation. 5. Significantly limited study. 6. Chronic findings.
--- NOTE | 2024-08-20 14:27 | ED_ITS ---
HPI - Abdominal Pain 2 General: Chief Complaint: Abdominal Pain Stated Complaint: lower abd and back pain Time Seen by Provider: 08/20/24 13:42 Source: patient Mode of arrival: ambulatory Limitations: no limitations History of Present Illness: 54yo female presents with significant ot her for evaluation of flank pain and abdominal pain. Patient reports this has been ongoing for approximately the past month. She states that her pain mainly comes at night. Reports that she has a history of kidney stones and feels as if her pain is in the kidney area. States that it will shoot down into the lower abdomen where she has a tightening. Patient does state previous history of a hernia where she did have mesh placed and is very concerned about a possible mesh failure. Patient states she does have an appointment with GI next month. She reports that she has been eating and drinking with no difficulty. Last bowel movement was last night. No difficulty passing urine. Patient denies fever, chills, body aches, vomiting, diarrhea. Previous abdominal surgical history of hernia repair with mesh and hysterectomy. Associated Symptoms: Denies chills, diarrhea, dysuria, fever(s), nausea and vomiting Related Data Home Medications Medication Instructions Recorded Confirmed hydrocodone 10 mg-acetaminophen 1 tab PO QID PRN Pain 09/10/22 05/06/24 325 mg tablet metformin 1,000 mg tablet 1,000 mg PO BID 09/10/22 05/06/24 tirzepatide 2.5 mg/0.5 mL mg SUBCUT 04/12/24 05/06/24 subcutaneous pen injector (Migdalia) Previous Rx's Medication Instructions Recorded metoprolol succinate 25 mg 25 mg PO DAILY #30 tabs 10/14/22 tablet,extended release 24 hr atorvastatin 40 mg tablet 40 mg PO DAILY #90 tabs 02/11/23 levothyroxine 100 mcg capsule 100 mcg PO DAILY #90 caps 02/11/23 famotidine 40 mg tablet (Pepcid) 40 mg PO BID #10 tabs 02/05/24 ciprofloxacin HCl 500 mg tablet 500 mg PO Q12H #20 tabs 05/17/24 meclizine 25 mg tablet 25 mg PO TID PRN dizziness #10 tabs 06/30/24 clopidogrel 75 mg tablet See Rx Instructions .Route 07/03/24 .COMPLEX #90 tabs magnesium citrate (Citrate of 296 ml PO DAILY #296 mL 07/09/24 Magnesia oral) ondansetron 4 mg disintegrating 4 mg PO Q6H PRN nausea and 07/09/24 tablet vomiting #14 tabs tamsulosin 0.4 mg capsule 0.4 mg PO DAILY #14 caps 08/20/24 Allergies Allergy/AdvReac Type Severity Reaction Status Date / Time bee venom protein (honey bee) Allergy Severe ALGY-Anaphy Verified 08/20/24 13:26 laxis hydromorphone [From Dilaudid] Allergy Severe ALGY-Difficulty Verified 08/20/24 13:26 Breathing Iodine and Iodide Containing Allergy Severe ALGY-Swell Verified 08/20/24 13:26 Produc Lip/Tongue/Throat tramadol Allergy Intermediate ADR-Nausea Verified 08/20/24 13:26 gabapentin AdvReac Intermediate RASH Verified 08/20/24 13:26 Review of Systems 2 Const: Denies: fever(s) or chills Card: Denies: chest pain Resp: Denies: dyspnea GI: Reports: abdominal pain; Denies: nausea, vomiting or diarrhea : Reports: flank pain; Denies: difficulty voiding or dysuria PFSH ED 2 PFSH: Medical History Acquired hypothyroidism Atherosclerosis of coronary artery of [place] heart without angina pectoris Scleral ectasia of right eye Opioid contract exists Muscle spasm of back Status post extracorporeal shock wave therapy Urolithiasis HTN (hypertension) with goal to be determined Encounter for long-term use of opiate analgesic Chronic back pain Diabetes Surgical History Hx of umbilical hernia repair 01/12/22 lap poss open umbilical hernia S/P skin cancer resection Nose Hx of heart artery stent x 2 Hx of hysterectomy Total - due to endometrial CA. Family History Father Cancer Stroke Family/Other Cancer Grandmother Diabetes Sister Diabetes Brother Diabetes Sister Diabetes Denies family history of CAD (coronary artery disease) Clotting disorder Dementia Chronic kidney disease (CKD) Suicide Anesthesia complication Bleeding disorder Lung disease Social History Smoking and tobacco/nicotine status: never used tobacco/nicotine Second hand smoke exposure: No Alcohol intake: never Substance/Drug Use: never Adopted: No Caregiver/support person: No Lives independently: No Household members: spouse Marital status: Current occupational status: disabled Physical Exam 2 Const: COMMON NORMALS: no acute distress, patient oriented x3 and alert G ENERAL APPEARANCE: cooperative NUTRITIONAL APPEARANCE: obese O RIENTATION/CONSCIOUSNESS: Yes awake OTHER: Patient is sitting upright on the stretcher in no acute distress. She is able to give history with no difficulty. She is interactive with exam appropriately. Family is at bedside HENMT: COMMON NORMALS: normocephalic HEAD & SCALP: normocephalic Chest: CHEST: Yes Symmetrical chest wall rise Resp: COMMON NORMALS: normal respiratory effort, No use of accessory muscles and clear to auscultation bilaterally EFFORT & INSPECTION: Yes able to speak in complete sentences AUSCULTATION: clear to auscultation bilaterally Cardio: COMMON NORMALS: regular rate and regular rhythm RATE: regular rate RHYTHM: regular rhythm GI: COMMON NORMALS: Soft to palpation INSPECTION: No abdominal distension PALPATION: Yes Soft to palpation, Yes Tenderness to palpation present (GI) (midline lower), No Guarding due to palpation present (GI) and No Rigid due to palpation : COMMON NORMALS: No no CVA tenderness BLADDER/KIDNEY EXAM: No no CVA tenderness Back/Pelvis: COMMON NORMALS: negative for no CVA tenderness Extremity: COMMON NORMALS: full ROM Neuro: COMMON NORMALS: patient oriented x3 SENSORIUM/ORIENTATION: Yes alert Psych: COMMON NORMALS: cooperative ATTITUDE: Yes calm Course 2 Vital Signs: Vital signs: Vital Signs Temperature 97.5 F L 08/20/24 13:17 Pulse Rate 78 08/20/24 13:17 Respiratory Rate 18 08/20/24 13:17 Blood Pressure 169/111 08/20/24 13:17 Pulse Oximetry 99 08/20/24 13:17 Oxygen Delivery Me thod Room Air 08/20/24 13:17 MDM - Abdominal Pain Medical Decision Making 54yo female presents with significant other for evaluation of flank pain and abdominal pain. Patient reports this has been ongoing for approximately the past month. She states that her pain mainly comes at night. Reports that she has a history of kidney stones and feels as if her pain is in the kidney area. States that it will shoot down into the lower abdomen where she has a tightening. Patient does state previous history of a hernia where she did have mesh placed and is very concerned about a possible mesh failure. Patient states she does have an appointment with GI next month. She reports that she has been eating and drinking with no difficulty. Last bowel movement was last night. No difficulty passing urine. Patient denies fever, chills, body aches, vomiting, diarrhea. Previous abdominal surgical history of hernia repair with mesh and hysterectomy. Patient is nontoxic in appearance. Vital signs are stable. No leukocytosis. Glucose noted to be mildly elevated at 161, otherwise unremarkable. UA is grossly unremarkable. Noncontrasted CTAP reveals a proximal left ureteral calculus measuring 6 mm with mild left hydronephrosis, bilateral nonobstructing nephrolithiasis, colonic diverticulosis, mild constipation. Discussed these findings with patient and family. Advised that we would refer her to urology for the kidney stone. Tamsulosin prescribed. Patient does have pain medications at home. Discussed use of MiraLAX in addition to her stool softener to help with the passage of stool. Recommend she keep her previously scheduled appointment with primary care within the next week. Advise she keep her GI appointment that is scheduled next month. Recommend return to the emergency department if any rapid worsening symptoms, onset of fever/vomiting associated with worsening, and as needed. Patient and family state understanding and have no further questions or concerns at this time. Differential Diagnosis Likely abdominal pain, calculus of kidney and constipation Medical Records I reviewed the patient's medical records. Lab Data I reviewed the patient's lab results. 08/20/24 13:53 08/20/24 13:53 Labs/Radiology: Radiology Impressions Abdomen/Pelvis CT 08/20/24 14:26 IMPRESSION: 1. Proximal left ureteral calculus, as described above. Mild left hydronephrosis. 2. Bilateral nonobstructing nephrolithiasis. 3. Colonic diverticulosis. 4. Possible mild constipation. 5. Significantly limited study. 6. Chronic findings. Laboratory Results WBC 7.38 10^3/uL (3.29-11.43) 08/20/24 13:53 RBC 4.10 10^6/uL (3.85-5.65) 08/20/24 13:53 Hgb 11.20 g/dL (11.27-16.99) L 08/20/24 13:53 Hct 36.3 % (36-47) 08/20/24 13:53 MCV 88.5 fl (85-98) 08/20/24 13:53 MCH 27.3 pg (27-33) 08/20/24 13:53 MCHC 30.9 g/dL (30-55) 08/20/24 13:53 RDW 14.1 % (12.1-15.1) 08/20/24 13:53 Plt Count 251 10^3/cmm (157-399) 08/20/24 13:53 MPV 11.0 fL (7.4-10.4) H 08/20/24 13:53 Neut % (Auto) 61.4 % 08/20/24 13:53 Lymph % (Auto) 28.9 % 08/20/24 13:53 [place] % (Auto) 7.0 % 08/20/24 13:53 Eos % (Auto) 1.9 % 08/20/24 13:53 Baso % (Auto) 0.5 % 08/20/24 13:53 Neut # (Auto) 4.53 10^3/uL (1.8-7.7) 08/20/24 13:53 Lymph # (Auto) 2.1 10^3/uL (0.8-4.8) 08/20/24 13:53 [place] # (Auto) 0.5 10^3/uL (0.2-0.9) 08/20/24 13:53 Eos # (Auto) 0.1 10^3/uL (0.0-0.8) 08/20/24 13:53 Baso # (Auto) 0.0 10^3/uL (0.0-0.1) 08/20/24 13:53 Nucleated RBC % (auto) 0 % 08/20/24 13:53 Nucleated RBCs # 0.0 /100WBC 08/20/24 13:53 Sodium 137 mmol/L (136-145) 08/20/24 13:53 Potassium 4.2 mmol/L (3.5-5.1) 08/20/24 13:53 Chloride 103 mmol/L (98-107) 08/20/24 13:53 Carbon Dioxide 24 mmol/L (22-29) 08/20/24 13:53 Anion Gap 14.2 (5-19) 08/20/24 13:53 BUN 14 mg/dL (6-20) 08/20/24 13:53 Creatinine 0.6 mg/dL (0.5-0.9) 08/20/24 13:53 GFR Calculation 104.2 mL/min (90-130) 08/20/24 13:53 Glucose 161 mg/dL (65-115) H 08/20/24 13:53 Calculated Osmolality 288 mOsm/kg (285-295) 08/20/24 13:53 Calcium 8.9 mg/dL (8.5-10.5) 08/20/24 13:53 Total Bilirubin 0.6 mg/dL (0.15-1.2) 08/20/24 13:53 AST 10 U/L (0-32) 08/20/24 13:53 ALT 11 U/L (0-33) 08/20/24 13:53 Alkaline Phosphatase 87 U/L (35-105) 08/20/24 13:53 Total Protein 6.1 g/dL (6.6-8.7) L 08/20/24 13:53 Albumin 3.8 g/dL (3.5-5.2) 08/20/24 13:53 Globulin 2.3 g/dL (1.3-4.6) 08/20/24 13:53 Lipase 43 U/L (13-60) 08/20/24 13:53 Urine Color Yellow (Yellow) 08/20/24 13:35 Urine Appearance Clear (CLEAR) 08/20/24 13:35 Urine pH 7.0 (5-7) 08/20/24 13:35 Ur Specific Orange 1.019 (1.005-1.030) 08/20/24 13:35 Urine Protein Trace (Negative) A 08/20/24 13:35 Urine Glucose (UA) Negative (Normal) 08/20/24 13:35 Urine Ketones Negative (Negative) 08/20/24 13:35 Urine Blood Negative (Negative) 08/20/24 13:35 Urine Nitrate Negative (Negative) 08/20/24 13:35 Urine Bilirubin Negative (Negative) 08/20/24 13:35 Urine Urobilinogen 1.0 mg/dL (Negative) 08/20/24 13:35 Ur Leukocyte Esterase Negative (Negative) 08/20/24 13:35 Urine RBC 3-5 /hpf (0-2) 08/20/24 13:35 Urine WBC 0-5 /hpf (0-5) 08/20/24 13:35 Ur Squamous Epith Cells 0-5 /hpf (0-5) 08/20/24 13:35 Amorphous Sediment Not Reportable 08/20/24 13:35 Urine Bacteria None seen /hpf (NONE) 08/20/24 13:35 Hyaline Casts 0-4 /lpf H 08/20/24 13:35 XR interpretation done by ED provider, pending radiology final review Discharge Plan Discharge Patient Disposition: Home Clinical Impression: Left ureteral calculus, Hydronephrosis of left kidney, Bilateral nephrolithiasis, Diverticulosis of colon Constipation Qualifiers: Constipation type: unspecified constipation type Qualified Code(s): K59.00 - Constipation, unspecified Condition: Stable Prescriptions: New tamsulosin 0.4 mg capsule 0.4 mg PO DAILY Qty: 14 0RF No Action Mounjaro 2.5 mg/0.5 mL pen injector SUBCUT famotidine [Pepcid] 40 mg tablet 40 mg PO BID Qty: 10 0RF atorvastatin 40 mg tablet 40 mg PO DAILY Qty: 90 0RF levothyroxine 100 mcg capsule 100 mcg PO DAILY MDD in the morning without food Qty: 90 0RF clopidogrel 75 mg tablet See Rx Instructions .ROUTE .COMPLEX Qty: 90 3RF Dose Instruction: Take 1 tablet by mouth once daily Rx Instructions: Take 1 tablet by mouth once daily metoprolol succinate 25 mg tablet extended release 24 hr 25 mg PO DAILY Qty: 30 0RF hydrocodone-acetaminophen 10-325 mg tablet 1 tab PO QID PRN (Reason: Pain) metformin 1,000 mg tablet 1,000 mg PO BID ciprofloxacin HCl 500 mg tablet 500 mg PO Q12H Qty: 20 0RF meclizine 25 mg tablet 25 mg PO TID PRN (Reason: dizziness) Qty: 10 0RF magnesium citrate [Citrate of Magnesia] Solution 296 ml PO DAILY Qty: 296 0RF ondansetron 4 mg tablet,disintegrating 4 mg PO Q6H PRN (Reason: nausea and vomiting) Qty: 14 0RF Discharge Orders: Discharge ED (Routine); Ordered 08/20/24 Ordered By: Willis Jaimes Referrals: Emili Barrera APRN [Primary Care Provider] - Discharge Diet: Usual diet Discharge Activity: Resume usual activity Patient Instructions: Diverticulitis (ED), Constipation (ED), Ureteral Stones (ED) Activity Restrictions/Additional Instructions: Tamsulosin has been sent to your pharmacy to help with the passage of the kidney stone. Use your home pain medications to help with pain related to the kidney stone. A referral has been placed to case management to help you find a urologist Continue using your stool softener, but begin using MiraLAX as well to help with the passage of stool Keep your previously scheduled appointment with primary care. Also keep your scheduled appointment with gastroenterology Return to the emergency department if any rapid worsening symptoms, onset of fever associated with worsening, and as needed. Coding Level of Care Code ED Corporate Scheduler for Glenn Zuniga
[2024-08-20 14:55] VITALS: PULSE 69; O2SAT 94
[2024-08-20 16:52] VITALS: BP 145/78; PULSE 67; O2SAT 100
--- NOTE | 2024-08-22 08:37 | DCPLANNER ---
Referral sent to [facility]rology
== END 2024-08-20 16:56 | disposition home or self-care (01) ==
PROVIDERS: Emergency Medicine; Emergency Provider Nurse Practitioner; PCP Nurse Practitioner Family
DX: N13.2 Hydronephrosis with renal and ureteral calculous obstruction (principal); K57.90 Diverticulosis of intestine, part unspecified, without perforation or abscess without bleeding; K59.00 Constipation, unspecified; Z79.02 Long term (current) use of antithrombotics/antiplatelets; E11.9 Type 2 diabetes mellitus without complications; I10 Essential (primary) hypertension
CPT/HCPCS: 36415; 74176; 80053; 81001; 83690; 85025; 99284

== ENCOUNTER → 2024-10-13 11:06 | Outpatient (BNVA) | payer MEDICARE, SELFPAY ==
[2020-01-11 11:16] VITALS: BP 150/85; BMI 53.7
== END ==
PROVIDERS: PCP Nurse Practitioner Family; Visit Provider Nurse Practitioner Family
DX: I25.10 Atherosclerotic heart disease of native coronary artery without angina pectoris (principal); I10 Essential (primary) hypertension; E78.5 Hyperlipidemia, unspecified; E66.01 Morbid (severe) obesity due to excess calories; E11.59 Type 2 diabetes mellitus with other circulatory complications; Z79.84 Long term (current) use of oral hypoglycemic drugs; Z68.43 Body mass index [BMI] 50.0-59.9, adult
CPT/HCPCS: 36415; 80053; 82252; 99213

== ENCOUNTER 2024-12-22 19:32 | Emergency (ER) | payer MEDICARE, SELFPAY ==
[2020-01-11 11:16] VITALS: BP 150/85; BMI 53.7
[2024-12-22 19:35] VITALS: BP 146/70; PULSE 80; RESP 16; TEMP 36.5; O2SAT 96; BMI 54.1
== END 2024-12-22 20:56 | disposition left against medical advice (07) ==
LOC: ER 19:37
PROVIDERS: Emergency Provider Family Medicine; PCP Nurse Practitioner Family
DX: Z53.21 Procedure and treatment not carried out due to patient leaving prior to being seen by health care provider (principal)

== ENCOUNTER 2025-04-20 19:22 | Emergency (ER) | payer MEDICARE, MEDICAID, SELFPAY ==
[2020-01-11 11:16] VITALS: BP 150/85; BMI 53.7
--- OUTSIDE RECORDS SUMMARY | 2024-11-27 12:00 | XMS_ITS ---
Author Organization [facility] Address [address] [place] [address] Care Team Providers Care Glue Machine Operator Name Role Phone Emili Bro Primary Care Provider Unavail able MAXIMILIANO WADDELL Unavailable [phone] ARNOLDO TELLO Unavailable [phone] REASON FOR VISIT 3 wks w/ ua/kub/christina Encounters Encounter Location Date Provider Diagnosis [facility] [address] [place] [address] 11/27/2024 ARNOLDO TELLO Plan Of Treatment Next Appt Details Provider Name:JADEN LAST, 0 01/28/2026 02:00:00 PM, [address] [facility], [address], Progress Notes * Fatou KHANNA LDOB: (54 yo F)Acc No.[id number]:11/27/2024 Progress Notes Patient: Dominic HALE Fatou Shahida Provider: Rhonda Tello APRN :1970 A ge:54 Y S ex:Female Date:11/27/2024 Address:[facility] [address] [id number] Pcp:BRET Devlin Subjective: * Chief Complaints: * 1 . 3 wks w/ ua/kub/christina. * Medical History: Objective: * Vitals: Assessment: Plan: * Treatment: * Billing Information: * Visit Code: * Procedure Codes: * Electronic signature of KIMBERLY TELLO APRN on 04/20/2025 at 07:30 PM CDT Sign off status: Pending * Provider: Rhonda Tello APRN Date: 0 11/27/2024 Generated for Terri garsia/Lucia/Timi on: 0 04/20/2025 07:30 PM CDT
--- OUTSIDE RECORDS SUMMARY | 2025-04-18 09:40 | XMS_ITS ---
Author Organization [facility] Address [address] [place] [address] Care Team Providers Care Medical Imaging Technologist Name Role Phone Freddy Phan DO Primary Care Provider Avi Abrams Unavailable [phone] December DNP-ELECTRIC ORGAN CHECKER-C, Emili Unavailable Unavailable Allergies Allergen (clinical drug ingredient) Drug/Non Drug Allergy documented on EMR Reaction Allergy Type Onset Date Status hydromorphone Dilaudid Unknown Drug Allergy Act ace Contrast Allergy PreMed Pack Unknown Drug Allergy Active gabapentin Gabapentin rash Drug Allergy Activ e tramadol traMADol rash Drug Allergy Active Reason For Referral Reason Eval and treat Lumba r Spondylosis Diagnosis 1 Spondylosis without myelopathy or radiculopathy, lumbar region (M47.816) Referral Organization [facility] Referring Provider First Name Avi Referring Provider Last Name Christelle Referring Provider Speciality Interventi onal Pain Medicine Referred Provider [facility] Referred Provider 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 Referral Priority Routine REASON FOR VISIT Ref by Mario Adams Medications Medication SIG (Take, Route, Frequency, Duration) Notes Start Date End Date Status metFORMIN HCl 1000 MG Tablet 1 tablet with a meal Orally 2 a day Active Levothyroxine Sodium 88 MCG Tablet 1 tablet in the morning on an empty stomach Orally Once a day Active Pravastatin Sodium 40 MG Tablet 1 tablet Orally Once a day Active Mounjaro 2.5 MG/0.5ML Solution Auto-injector as directed Subcutaneous 1 x a week Active Metoprolol Tartrate 25 MG Tablet 1 tablet with food Orally Twice a day Active HYDROcodone-Acetaminop hen 10-325 MG Tablet 1 tablet as needed Orally every 8 hours; Duration: 30 days As needed Not to exceed 3 per day Fill 05/02/2025 04/18/2025 06/01/2025 Active HYDROcodone-Ibuprofen 10-200 MG Tablet 1 tablet as needed Orally 3x a day Active Clopidogrel Bisulfate 75 MG Tablet 1 tablet Orally Once a day Active Reglan 10 MG Tablet 1 tablet Orally 30 minutes prior to starting colon prep; Duration: 1 day Active Golytely 236 GM Solution Reconstituted 240ml Orally [id number]; Duration: 2 days Split dose bowel prep: 24 hours prior to procedure consume only clear liquids. The evening prior to procedure, Drink 8oz every 15 minutes until 1/2 of prep in consumed. Repeat 2nd dose at directed time the morning of procedure. Active Social History Tobacco Use: Social History Observation Description Date Details (start date - stop date) Never Smoker NA - NA Social History Tobacco Use: Social Info Question Answer Notes Tobacco Control (Standard) Tobacco use: Nonsmoker Additional Details Category Social Info Options Details Drugs/Alcohol: Do you smoke marijuana? De nies Do you drink alcohol? No Problems Problem Type SNOMED Code ICD Code Onset Dates Problem Status W/U Status Risk Notes Problem Chronic pain syndrome (889719057) Chronic pain syndrome (G89.4) Active confirmed Problem Abnormal gait (96900056) Abnormality of gait and mobility (R26.9) Active confirmed Problem Peripheral neuropathy (592538973) Neuropathy, peripheral (G62.9) Active confirmed Problem Obesity (111778723) Obesity (E66.9) Active confirmed Problem Lumbar radiculopathy (791944218) Lumbar radiculopathy (M54.16) Active confirmed Vital Signs Height 65 in 04/18/2025 Weight 322 lbs 04/18/2025 BMI 53.58 kg/m2 04/18/2025 Height-cm 165.1 cm 04/18/2025 Weight-kg 146.06 kg 04/18/2025 Encounters Encounter Location Date Provider Diagnosis [facility] [address] [address] 04/18/2025 Avi Bourgeois Chronic pain syndrom e G89.4 ; Abnormality of gait and mobility R26.9 ; Neuropathy, peripheral G62.9 ; Obesity E66.9 ; Lumbar radiculopathy M54.16 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 Based on her history and physical exam, the worst of her symptoms appears consistent with lumbar spondylosis with radiculitis and peripheral neuropathy. It would seem reasonable to get her into PT; hopefully, this will help with her pain and reassert better habits for her morbid obesity. We will take over prescribing her pain medication. We will order an EMG/nerve conduction study. We will review that at the next visit. Depending on the results of the EMG/nerve conduction study, consideration may be given to updated lumbar imaging. 04/18/2025 Abnormality of gait and mobility (ICD-10 - R26.9) 04/18/2025 Neuropathy, peripheral (ICD-10 - G62.9) 04/18/2025 Obesity (ICD-10 - E66.9) 04/18/2025 Lumbar radiculopathy (ICD-10 - M54.16) 04/18/2025 [facility] (current) use of opiate analgesic (ICD-10 - Z79.891) 04/18/2025 Other I, Paulette Silverio, am scribing for Dr. Avi Bourgeois. I, Dr. Avi Bourgeois, personally performed the services described in this documentation, as scribed by Paulette Silverio, and it is both accurate and complete. Plan Of Treatment Medication Medication Name Sig Start Date Stop Date Notes HYDROcodone-Acetaminophen 10-325 MG Tablet 1 tablet as needed Orally every 8 hours; Duration: 30 days 04/18/2025 06/01/2025 Fill 05/02/2025 Treatment Notes Assessment Notes Chronic pain syndrome I had a nice visit with the patient today regarding her chronic pain issues. Based on her history and physical exam, the worst of her symptoms appears consistent with lumbar spondylosis with radiculitis and peripheral neuropathy. It would seem reasonable to get her into PT; hopefully, this will help with her pain and reassert better habits for her morbid obesity. We will take over prescribing her pain medication. We will order an EMG/nerve conduction study. We will review that at the next visit. Depending on the results of the EMG/nerve conduction study, consideration may be given to updated lumbar imaging. Other I, Paulette Silverio, am scribing for Dr. Avi Bourgeois. I, Dr. Avi Bourgeois, personally performed the services described in this documentation, as scribed by Paulette Silverio, and it is both accurate and complete. Future Test Test Name Order Date 2 Limb NCV/EMG - 35057, 76320 04/19/2025 Referrals Referral Date Details 04/18/2025 04/18/2025, Eval and treat Lumbar Spondylosis, [facility] Next Appt Details Follow Up: 6 Weeks, Reason: Provider Name:Sy Gama , 04/23/2025 01:15:00 PM, [address], [address], Provider Name:Avi Bourgeois, 05/30/2025 09:40:00 AM, [address] [place], [address], Provider Name:Patience Prescott, 06/14/2025 11:00:00 AM, [address] [place], [address], History and Physical Notes * HPI (History of Present Illness) Category Sub-Category Detail Notes Category Not es Pain Details Pain Location Low Back, Bilateral Legs Duration 1999, Greater than 1 year Onset Gradually over time without significant initiating factor, Frequency of Pain Constant, Quality Aching, 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, 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, Deep, Dull, Numbness, Hcpc-hot-eirczym, Sharp, Shooting, Spreading, Stabbing, Tender, Throbbing, Tingling Radiation B/L Legs Severity of pain at its worst 9/10, Severity of pain at its best 5/10, Severity of average pain 7/10, Severity of pain right now 5/10, Worsening factors Standing, , Walking, Lifting, Cold weather, Housework, Lying flat, Increased activity, Twisting, Bending, Rainy weather, Sometimes no particular reason Relieving factors Rest, , Medication, Massage Associated symptoms Nausea, , Numbness, Weakness, Frustration, Tingling, Crying, Insomnia, Depression, Hostility Opioid Assessment Tools Pill Count 42 [place] Prescription Monitoring Program [place] PDMP reviewed printed SOAPP-R (Screener/Opioid Ass essment for Patient) 7-20 : Indicates moderate risk for abuse . Patient will subsequently be monitored by clinic policy at least every two to three months with urine drug screen testing. Pill counts will be performed at every visit Today's SOAPP-R Score 15 Treatment History Caregivers you have visited [facility] in medicine physician (Bryan) Past medication you have taken NSAIDs; i buprofen, Aleve, Tylenol, sports creams, , Hydrocodone, Gabapentin/Neurontin Treatments you have had TENS, STOP-BANG Questionnaire Do you snore clarisa dly (louder than talking or loud enough to be heard through closed doors)? Patient reports no Do you often feel tired, fat igued, or sleepy during the day? Patient reports yes Has anyone observed you stop breathing during your sleep Patient reports no Do you have or are you being treated for high blood pressure? Patient reports yes BMI greater than 35 kg/m2? Yes Age over 50 years old? Yes Gender: Male No Neck circumference is measur ed greater than 40cm? No Score Patient has scored g reater than 3 on STOP BANG, which indicates high risk for BABAK Oxygen No CPAP No Examination Category Sub-Category Detail Notes Category Not es General Examination Constitutional: Patient appears to be appropriate looking for stated age, morbidly obese. Patient is awake, alert and oriented to person, place and time with recent/ remote memory intact. in no acute distress noted. HEENT: Atraumatic, Normocephalic,Pupils grossly normal on inspection. Respiratory: Visual Inspection: breathing equal bilaterally, trachea midline. Cardiovascular: Cardiac rhythm is regular. Gastrointestinal: Abdomen grossly normal. No obvious firmness, tenderness or masses noted. Lumbar Spine: Inspection of the lumbar spine reveals loss of normal lordosis with no obvious scoliosis or asymmetry noted. Palpation of the lumbar facets produced back pain. Range of Motion: Reduced ROM in all directions. Hyperextension of the lumbar spine reproduced lower back pain. Bilateral facet loading maneuvers (lateral flexion/extension/bending) reproduced lower back pain. Bilateral lateral rotation also causes some pain. Stooping forward slightly gives some relief. Anterior lumbar flexion causes pain. Pain during lumbar extension was observed. Left lateral flexion causes pain. Right lateral flexion causes pain. Lumbar spine: b/l paraspinal muscle tightness. Joints- Hips/ SI Joint: SI Joint Palpation : negative bilaterally. Neurology - Mental Status: Mood and affect appear to be normal. Neurology - Coordination: Patient has antalgic gait. Neurology - Straight Leg Raising: Right: 60 degrees and negative. Left: 60 degrees and positive. Neurology - Motor Strength: Left LE strength - Flexors: 4+/5. Right LE strength - Flexors: 4+/5. Left LE strength - Extensors: 4+/5. Right LE strength - Extensors: 4+/5. Left LE Tone: Normal. Right LE Tone: Normal. Neurology - Deep Tendon Reflexes: Left biceps (DTR): 2. Right biceps (DTR): 2. Left triceps (DTR): 2. Right triceps (DTR): 2. Left brachioradialis (DTR): 2. Right brachioradialis (DTR): 2. Left patellar (DTR): 2. Right patellar (DTR): 2. Left achilles (DTR): 2. 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 Duration 2 000, Greater than 1 year. Onset G radually over time without significant initiating factor, . Frequency of Pain C onstant, . Quality A rosa, Burning, Cramping, Deep, Dull, Numbness, Edyc-vtb-bgljgeb, Sharp, Shooting, Spreading, Stabbing, Tender, Throbbing, Tingling. Radiation B /L Legs. Severity of pain at its worst 9 /10, . Severity of pain at its best 5 /10, . Severity of average pain 7 /10, . Severity of pain right now 5 /10, . Worsening factors S tanding, , Walking, Lifting, Cold weather, Housework, Lying flat, Increased activity, Twisting, Bending, Rainy weather, Sometimes no particular reason. Relieving factors R est, , Medication, Massage. Associated symptoms N ausea, , Numbness, Weakness, Frustration, Tingling, Crying, Insomnia, Depression, Hostility. O pioid Assessment Tools: SOAPP-R (Screener/Opioid Assessment for Patient) 7 -20 : Indicates moderate risk for abuse. Patient will subsequently be monitored by clinic policy at least every two to three months with urine drug screen testing. Pill counts will be performed at every visit. Today's SOAPP-R Score 1 5. Pill Count 4 2. [place] Prescription Monitoring Program [place] PDMP reviewed printed. T reatment History: Caregivers you have visited [facility] medicine physician (Bryan). Past medication you have taken N SAIDs; ibuprofen, Aleve, Tylenol, sports creams, , Hydrocodone, Gabapentin/Neurontin. Treatments you have had T ENS, . S TOP-BANG Questionnaire: Do you snore loudly (louder than talking or loud enough to be heard through closed doors)? P atient reports no. Do you often feel tired, fatigued, or sleepy during the day??Patient reports yes. Has anyone observed you stop breathing during your sleep P atient reports no. Do you have or are you being treated for high blood pressure??Patient reports yes. BMI greater than 35 kg/m2? Y es. Age over 50 years old? Y es. Gender: Male N o. Neck circumference is measured greater than 40cm? N o. Score P steven has scored greater than 3 on STOP BANG, which indicates high risk for BABAK. Oxygen N o. CPAP N o. P alena Note: Pleasant woman comes in today, complaining of pain in her lower back and legs. She reports that she has been dealing with this for many years. She has been under the care of Dr. Adams since Dr. Joy retired. She did PT remotely, but was mainly maintained on hydrocodone four times daily. She has been taking it three times daily as she had built up reserves of medication until now. Some medication does remain. She struggles through many activities for daily living, especially with pain radiating down into her legs and feet. She does go to see podiatry in the near future. * ROS: G eneral - Multi System: Constitutional D eniesfever, weight gain, weight loss,Reports, fatigue, sleep difficulty. R espiratory D enies, cough, shortness of breath, COPD/emphysema, sleep apnea, wheezing, snoring. G astrointestinal?Denies, vomiting, diarrhea, abdominal pain ,Reports constipation n ausea,,. M usculoskeletal R EPORTS, joint pain, BACK PAIN. N eurologic D enies,weakness,Reportsheadaches, numbness, memory loss, . P sychiatric D enies suicidal thoughts/actions,Reports d epression, anxiety, , panic attacks. * Medical History: Bladder infections Diabetes mellitus Cancer female High Blood Pressure Hernia Back Trouble Asthma Anxiety Depression Kidney stones Medical History Verified * Surgical History: heart surgery stents cancer on nose hysterectomy Kidney stones and stents hernia surgery MESH Surgical History verified. * Hospitalization/Major Diagno stic Procedure: see surgery history Hospitalization Verified. * Family History: F ather: . M other: . F amily History Verified.. no known family history of colon cancer or colon polyps. * Social History: T obacco Use: T obacco Control (Standard) T obacco use: N onsmoker D rugs/Alcohol: D o you smoke marijuana?: Denies. Do you drink alcohol?: No. S ocial History Verified. * Medications: T akingClopidogrel Bisulfate 75 MG Tablet 1 tablet Orally Once a day Golytely 236 GM Solution Reconstituted 240ml Orally [id number] Split dose bowel prep: 24 hours prior to procedure consume only clear liquids. The evening prior to procedure, Drink 8oz every 15 minutes until 1/2 of prep in consumed. Repeat 2nd dose at directed time the morning of procedure.HYDROcodone-Ibuprofen 10-200 MG Tablet 1 tablet as needed Orally 3x a day Levothyroxine Sodium 88 MCG Tablet 1 tablet in the morning on an empty stomach Orally Once a day metFORMIN HCl 1000 MG Tablet 1 tablet with a meal Orally 2 a day Metoprolol Tartrate 25 MG Tablet 1 tablet with food Orally Twice a day Mounjaro 2.5 MG/0.5ML Solution Auto-injector as directed Subcutaneous 1 x a week Pravastatin Sodium 40 MG Tablet 1 tablet Orally Once a day Reglan 10 MG Tablet 1 tablet Orally 30 minutes prior to starting colon prep Medication List reviewed and reconciled with the patientTaking Clopidogrel Bisulfate 75 MG Tablet 1 tablet Orally Once a day Taking Golytely 236 GM Solution Reconstituted 240ml Orally [id number] Split dose bowel prep: 24 hours prior to procedure consume only clear liquids. The evening prior to procedure, Drink 8oz every 15 minutes until 1/2 of prep in consumed. Repeat 2nd dose at directed time the morning of procedure.Taking HYDROcodone-Ibuprofen 10-200 MG Tablet 1 tablet as needed Orally 3x a day Taking Levothyroxine Sodium 88 MCG Tablet 1 tablet in the morning on an empty stomach Orally Once a day Taking metFORMIN HCl 1000 MG Tablet 1 tablet with a meal Orally 2 a day Taking Metoprolol Tartrate 25 MG Tablet 1 tablet with food Orally Twice a day Taking Mounjaro 2.5 MG/0.5ML Solution Auto-injector as directed Subcutaneous 1 x a week Taking Pravastatin Sodium 40 MG Tablet 1 tablet Orally Once a day Taking Reglan 10 MG Tablet 1 tablet Orally 30 minutes prior to starting colon prep Medication List reviewed and reconciled with the patient * Allergies: D ilaudidContrast Allergy PreMed PacktraMADol: rash - AllergyGabapentin: rash - AllergyyesAllergies Verified. Objective: * Vitals: H t: 65 in, Wt:322lbs, Wt-k.06 kg, BMI:53.58Index, Ht-cm: 165.1 cm. * Examination: G eneral Examination: C onstitutional: Patient appears to be appropriate looking for stated age, morbidly obese. Patient is awake, alert and oriented to person, place and time with recent/ remote memory intact. in no acute distress noted. HEENT: Atraumatic, Normocephalic,Pupils grossly normal on inspection. Respiratory: Visual Inspection: breathing equal bilaterally, trachea midline. Cardiovascular: Cardiac rhythm is regular. Gastrointestinal: Abdomen grossly normal. No obvious firmness, tenderness or masses noted. Lumbar Spine: Inspection of the lumbar spine reveals loss of normal lordosis with no obvious scoliosis or asymmetry noted. Palpation of the lumbar facets produced back pain. Range of Motion: Reduced ROM in all directions. Hyperextension of the lumbar spine reproduced lower back pain. Bilateral facet loading maneuvers (lateral flexion/extension/bending) reproduced lower back pain. Bilateral lateral rotation also causes some pain. Stooping forward slightly gives some relief. Anterior lumbar flexion causes pain. Pain during lumbar extension was observed. Left lateral flexion causes pain. Right lateral flexion causes pain. Lumbar spine: b/l paraspinal muscle tightness. Joints- Hips/ SI Joint: SI Joint Palpation : negative bilaterally. Neurology - Mental Status: Mood and affect appear to be normal. Neurology - Coordination: Michele harris has antalgic gait. Neurology - Straight Leg Raising: Right: 60 degrees and negative. Left: 60 degrees and positive. Neurology - Motor Strength: Left LE strength - Flexors: 4+/5. Right LE strength - Flexors: 4+/5. Left LE strength - Extensors: 4+/5. Right LE strength - Extensors: 4+/5. Left LE Tone: Normal. Right LE Tone: Normal. Neurology - Deep Tendon Reflexes: Left biceps (DTR): 2. Right biceps (DTR): 2. Left triceps (DTR): 2. Right triceps (DTR): 2. Left brachioradialis (DTR): 2. Right brachioradialis (DTR): 2. Left patellar (DTR): 2. Right patellar (DTR): 2. Left achilles (DTR): 2. Right achilles (DTR): 2 Dysesthesias in b/l L4-5 distributions, with decreased sensation to light touch in b/l stocking distributions. Assessment: * Assessment: 1. C hronic pain syndrome - G89.4 (Primary) 2 . A bnormality of gait and mobility - R26.9 3 . N europathy, peripheral - G62.9 4 . O besity - E66.9 5 . L umbar radiculopathy - M54.16 6 . L bladimir term (current) use of opiate analgesic - Z79.891 Plan: * Treatment: 2. N europathy, peripheral P rocedure: 2 Limb NCV/EMG - 05275, 38170 (Ordered for 04/19/2025) 3. L umbar radiculopathy Start HYDROcodone-Acetaminophen Tablet, 10-325 MG, 1 tablet as needed, Orally, every 8 hours As needed Not to exceed 3 per day, 30 days, 90 Tablet, Start Date: 04/18/2025, Stop Date: 06/01/2025, Refills 0, Notes to Pharmacist: Fill 05/02/2025. 4. O thers Notes: IPaulette, am scribing for Dr. Avi Bourgeois. I, Dr. Avi Bourgeois, personally performed the services described in this documentation, as scribed by Paulette Silverio, and it is both accurate and complete. ? Referral To:[facility] Physical Therapist Reason:Eval and treat Lumbar Spondylosis * Follow Up: 6 Weeks Billing Information: * Procedure Codes: * Electronic signature of Avi Bourgeois DO on 04/20/2025 at 07:30 PM CDT Sign off status: Pending * Provider: Sahara Bourgeois D.O. Date: 0 04/18/2025 Generated for Terri garsia/Lucia/Noemiitting on: 0 04/20/2025 07:30 PM CDT
--- OUTSIDE RECORDS SUMMARY | 2025-04-20 19:30 | XMS_ITS | Patient Health Record ---
Author Organization [employer] Address [address] [place] [address] Care Team Providers Care Data Processing Systems Project Planner Name Role Phone December Emili QUEEN Primary Care Provider Unavail able MAXIMILIANO WADDELL Unavailable [phone] ARNOLDO TELLO Unavailable [phone] JADEN LAST Unavailable [phone] Allergies Allergen (clinical drug ingredient) Drug/Non Drug Allergy documented on EMR Reaction Allergy Type Onset Date Status hydromorphone Dilaudid Unknown Drug Allergy Act ace Bee Sting Unknown Allergy Active Iodinated contrast media (substance) Iodinated Diagnostic Agents Unknown Drug Allergy Active Tape Unknown Allergy Active Results Component Value Reference Range Notes Urinalysis, Routine Reviewed date:10/09/2024 01:49:45 PM Interpretation: Performing Lab: Notes/Report: Urine-Color yellow Appearance clear Glucose - Bilirubin - Ketones - Specific Waucoma 1.030 Occult Blood - pH 6.0 Urine Protein - Urobilinogen,Semi-Qn - Nitrite, Urine - WBC Esterase - US Renal--[id number] Reviewed date:01/23/2025 08:17:29 AM Interpretation: Performing Lab: Notes/Report: See Below For Report US Renal Read See Below For Report zzzAbdomen AP Reviewed date:01/22/2025 04:07:29 PM Interpretation: Performing Lab: Notes/Report: See Below For Report Abdomen AP Read See Below For Report Urinalysis, Routine Reviewed date:01/22/2025 01:54:10 PM Interpretation: Performing Lab: Notes/Report: Urine-Color yellow Appearance clear Glucose - Bilirubin - Ketones - Specific Waucoma 1.010 Occult Blood - pH 6.0 Urine Protein - Urobilinogen,Semi-Qn - Nitrite, Urine - WBC Esterase - Reason For Referral No Information Medications Medication SIG (Take, Route, Frequency, Duration) Notes Start Date End Date Status Metamucil 0.36 GM as directed Orally Active Multivitamin Women - as directed Orally Active HYDROcodone-Acetaminophen Active Mounjaro Active Dulcolax 5 MG 1 tablet as needed O rally Once a day Active metFORMIN HCl 500 MG 1 tablet with a javier l Orally twice a day Active Social History Tobacco Use: Social History Observation Description Date Details (start date - stop date) Never Smoker NA - NA Tobacco Control (Standard) Question Answer Notes Tobacco use: Nonsmoker AUDIT-C (Standard) Question Answer Notes Did you have a drink containing alcohol in the p ast year? No Points 0 Interpretation Negative Problems Problem Type SNOMED Code ICD Code Onset Dates Problem Status W/U Status Risk Notes Problem Type II diabetes mellitus without complication (831601687) Type 2 diabetes mellitus not at goal (E11.9) Active confirmed Problem Calculus of kidney and ureter (349248830) Calculus of kidney and ureter (N20.2) Active confirmed Problem Kidney stone (72003331) Bilateral nephrolithiasis (N20.0) Active confirmed Problem Kidney stone (39190216) Kidney stone (N20.0) Active confirmed Vital Signs Heart Rate 70 /min 10/09/2024 Blood pressure diastolic 78 mm Hg 10/09/2024 Height-cm 162.56 cm 01/22/2025 Weight-kg 147.42 kg 01/22/2025 Height 64 in 01/22/2025 Blood pressure systolic 119 mm Hg 10/09/2024 Weight 325 lbs 01/22/2025 BMI 55.78 kg/m2 01/22/2025 Encounters Encounter Location Date Provider Diagnosis [facility] [address] [place] [address] 10/09/2024 JADEN LAST Calculus of kidney a nd ureter N20.2 ; Chronic constipation K59.09 and Type 2 diabetes mellitus not at goal E11.9 [facility] [address] [place] [address] 01/22/2025 JADEN LAST Chronic constipation K59.09 ; Nephrolithiasis N20.0 and Type 2 diabetes mellitus not at goal E11.9 [facility] [address] [place] [address] 09/11/2024 JADEN LAST Assessments Encounter Date Diagnosis (ICD Code) Assessment Notes Treatment Notes Treatment Clinical Notes Section Notes 10/09/2024 Calculus of kidney and ureter (ICD-10 - N20.2) 10/09/2024 Chronic constipation (ICD-10 - K59.09) 01/22/2025 Nephrolithiasis (ICD-10 - N20.0) 01/22/2025 Chronic constipation (ICD-10 - K59.09) 01/22/2025 Type 2 diabetes mellitus not at goal (ICD-10 - E11.9) 10/09/2024 Type 2 diabetes mellitus not at goal (ICD-10 - E11.9) 10/09/2024 Other UA clear. She never visualized passage of her left ureteral stone, but all pain has resolved. Obtain imaging and RTC for review in 3 weeks. 01/22/2025 Other UA clear. KUB 01/22/25 with no obvious nephrolithiasis. MARIUSZ done, but final report not complete. On independent review it appears normal. I will await final report and call with any abnormalities. We have discussed dietary recommendations for stone prevention including increasing water to 2L per day in female/2.5L per day in males, good intake of fruits and veggies, and avoiding excess intake of sodium and animal protein. Handout given. We have also discussed the importance of stone surveillance, and if patient continues to form stones, may benefit from a full metabolic work up to prevent stone formation. Patient will RTC in 12 months with KUB. All questions that were asked were answered. Patient satisfied with plan of care. Plan Of Treatment Pending Test Test Name Order Date KUB, X-Ray: Abdomen, Kidney, Urete r, bladder 10/09/2024 Renal Ultrasound MARIUSZ [id number] 10/09/2024 Next Appt Details Provider Name:JADEN LAST, 0 01/28/2026 02:00:00 PM, [address] [place], [address], Insurance Providers Payer Name Payer Address Payer Phone Subscriber Number Group Number Insured Name Patient Relationship to Insured Coverage Start Date Coverage End Date [place] Medicare Replacement [address] [place], [place] [phone] [id number] Fatou Sarah Self - patient is the insured Medical (General) History Medical History History ICD Code kidney stone anxiety depression diabetes urinary tract infections myocardial infarction uterine cancer Surgical History Surgery Date(Month/Year) kidney stone removals (2008 - 2015) Hernia repair hysterectomy [facility] Hospitalization History Reason Date(Month/Year) see prior sx hx
--- OUTSIDE RECORDS SUMMARY | 2025-04-20 19:30 | XMS_ITS | Clinical Summary ---
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 Gender Identity Not on file Sexual Orientation Not on file Plan of Treatment Health Maintenance Due Date Last Done Comments DTAP/TDAP/TD VACCINES (1 - Tdap) 1989 HEPATITIS B VACCINES (1 of 3 - 19+ 3-dose series) 07/09 HPV/Cotest (21-29) 1991 CERVICAL CANCER SCREENING 2000 HPV/Cotest (30-65) 2000 PAP SMEAR 2000 BREAST CANCER SCREENING 2010 COLORECTAL SCREENING 2015 Colorectal Cancer Screening 2015 FIT-DNA Q 3 years 2015 FIT/FOBT Q 1 year 2015 Flex Sig/CT Colonography Q 5 years 2015 ZOSTER VACCINE (1 of 2) 2020 INFLUENZA VACCINE (#1) 2025 Care Teams Chief Jailer Relationship Specialty Start Date End Date Non-Staff, Physician NO ADDRESS ON FILE PCP - General 05/07/09
--- OUTSIDE RECORDS SUMMARY | 2025-04-20 19:30 | XMS_ITS | Clinical Summary ---
Author Organization [facility] Facility Address [address] [place] [address] Care Team Providers Care Environmental Studies Department Chair Name Role Phone Unavailable Primary Care Provider Unavailabl e Social History Tobacco Use Types Packs/Day Years Used Date Smoking Tobacco: Never Assessed Comments Unknown Sex and Gender Information Value Date Recorded Sex Assigned at Not on file Legal Sex Female 11:23 AM EDT Gender Identity Not on file Sexual Orientation Not on file Plan of Treatment Health Maintenance Due Date Last Done Comments Breast Cancer Screening 1970 Hepatitis B Vaccine (1 of 3 - 19+ 3-dose series) 07/26 Colorectal Cancer Screening: Annual FOBT 2019 Colorectal Cancer Screening: Colonoscopy 2019 Colorectal Cancer Screening: Sigmoidoscopy 2019 Pneumococcal Vaccine: 50+ Years (1 of 1 - PCV) 020 Influenza Vaccine (#1) [address] [address] Lisandro MARTEL [employer]
--- OUTSIDE RECORDS SUMMARY | 2025-04-20 19:30 | XMS_ITS | Patient Health Record ---
Author Organization [facility] Address [address] [place] [address] Care Team Providers Care Painter Helper Spray Name Role Phone Freddy Phan DO Primary Care Provider Avi Abrams Unavailable [phone] December DNP-ACID PUMPER-C, Emili Unavailable Unavailable Noah See Unavailable [phone] Taylor Leonard Unavailable [phone] Allergies Allergen (clinical drug ingredient) Drug/Non Drug Allergy documented on EMR Reaction Allergy Type Onset Date Status hydromorphone Dilaudid Unknown Drug Allergy Act ace Contrast Allergy PreMed Pack Unknown Drug Allergy Active gabapentin Gabapentin rash Drug Allergy Activ e tramadol traMADol rash Drug Allergy Active Reason For Referral Reason evaluation for possi ble treatment Diagnosis 1 Spondylosis without myelopathy or radiculopathy, lumbar region (M47.816) Diagnosis 2 Intervertebral disc disorders with radiculopathy, lumbar region (M51.16) Diagnosis 3 Vertebrogenic low ba ck pain (M54.51) Referring Provider First Name Mario Referring Provider Last Name Bryan Referring Provider Speciality Pain Medic ine Referred Organization [facility] Home Referred Provider Avi Bourgeois Referred Address [address],[facility],[place],[address], Referred Provider Specialty Intervention al Pain Medicine General Notes Judie Ibrahim 02:13:21 PM >mailed npp, patient is schedule Referral Priority Routine Reason Appt 04/23/25 HTN Diagnosis 1 Essential (primary) hypertension (I10) Referring Provider First Name Emili Referring Provider Last Name May Referring Provider Speciality Family Med michael Referred Organization [facility] Referred Provider Sy Gama Referred Address [address] [place] [address],[facility],[place],[address],[place] Referred Provider Specialty Intervention al Cardiology Referral Priority Routine Reason Eval and treat Lumba r Spondylosis Diagnosis 1 Spondylosis without myelopathy or radiculopathy, lumbar region (M47.816) Referral Organization [facility] Referring Provider First Name Avi Referring Provider Last Name Christelle Referring Provider Speciality Interventi onal Pain Medicine Referred Provider [facility] Referred Provider Specialty 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 Referral Priority Routine Medications Medication SIG (Take, Route, Frequency, Duration) Notes Start Date End Date Status metFORMIN HCl 1000 MG Tablet 1 tablet with a meal Orally 2 a day Active HYDROcodone-Acetaminop hen 10-325 MG Tablet 1 tablet as needed Orally every 8 hours; Duration: 30 days As needed Not to exceed 3 per day Fill 05/02/2025 04/18/2025 06/01/2025 Active Levothyroxine Sodium 88 MCG Tablet 1 tablet in the morning on an empty stomach Orally Once a day Active HYDROcodone-Ibuprofen 10-200 MG Tablet 1 tablet as needed Orally 3x a day Active Clopidogrel Bisulfate 75 MG Tablet 1 tablet Orally Once a day Active Pravastatin Sodium 40 MG Tablet 1 tablet Orally Once a day Active Mounjaro 2.5 MG/0.5ML Solution Auto-injector as directed Subcutaneous 1 x a week Active Metoprolol Tartrate 25 MG Tablet 1 tablet with food Orally Twice a day Active Reglan 10 MG Tablet 1 tablet Orally 30 minutes prior to starting colon prep; Duration: 1 day Active Golytely 236 GM Solution Reconstituted 240ml Orally [id number]; Duration: 2 days Split dose bowel prep: [...] Status Risk Notes Problem Chronic pain syndrome (404657509) Chronic pain syndrome (G89.4) Active confirmed Problem Essential hypertension (68219815) Essential (primary) hypertension (I10) Active confirmed Problem Lumbosacral spondylosis without myelopathy (84768137) Spondylosis without myelopathy or radiculopathy, lumbar region (M47.816) Active confirmed Problem Radiculopathy due to lumbar intervertebral disc disorder (465127881674711) Intervertebral disc disorders with radiculopathy, lumbar region (M51.16) Active confirmed Problem Lumbar radiculopathy (477345278) Lumbar radiculopathy (M54.16) Active confirmed Problem Peripheral neuropathy (516326718) Neuropathy, peripheral (G62.9) Active confirmed Problem Obesity (010285000) Obesity (E66.9) Active confirmed Problem Abnormal gait (98924822) Abnormality of gait and mobility (R26.9) Active confirmed Vital Signs Heart Rate 81 /min 09/13/2024 65 Temperature 96.6 degrees Fahrenheit 09/13/2024 65 Height-cm 165.1 cm 04/18/2025 Oximetry 97 % 09/13/2024 65 Blood pressure diastolic 80 mm Hg 09/13/2024 65 Weight-kg 146.06 kg 04/18/2025 Height 65 in 04/18/2025 Blood pressure systolic 148 mm Hg 09/13/2024 65 Weight 322 lbs 04/18/2025 BMI 53.58 kg/m2 04/18/2025 Encounters Encounter Location Date Provider Diagnosis [facility] [address] [place] [address] 04/18/2025 Avi Bourgeois Chronic pain syndrome G89.4 ; Abnormality of gait and mobility R26.9 ; Neuropathy, peripheral G62.9 ; Obesity E66.9 ; Lumbar radiculopathy M54.16 and [facility] (current) use of opiate analgesic Z79.891 [facility] [place] [address] 09/13/2024 Taylor Leonard Preprocedural examination Z01.818 ; Screening for colon cancer Z12.11 ; Hematuria, unspecified type R31.9 and Lower abdominal pain R10.30 [facility] [address] [place] [address] 09/25/2024 Noah See [facility] [address] [place] [address] 10/31/2024 Noah See Assessments Encounter Date Diagnosis (ICD Code) Assessment Notes Treatment Notes Treatment Clinical Notes Section Notes 09/13/2024 Preprocedural examination (ICD-10 - Z01.818) 04/18/2025 Chronic pain syndrome (ICD-10 - G89.4) [...] R26.9) 04/18/2025 Neuropathy, peripheral (ICD-10 - G62.9) 09/13/2024 Screening for colon cancer (ICD-10 - Z12.11) Colon cancer risks, prevention strategies, and screening guidelines discussed with the patient. Recommend screening colonoscopy. Colonoscopy procedure, risks, benefits, potential complications, and potential interventions discussed. Bowel preparation was discussed and written instructions provided. Questions answered to apparent satisfaction. Verbalizes understanding. Desires to proceed with the proposed plan. > Schedule screening colonoscopy with Dr. See following cardiac clearance to hold DAPT prior. > Colonoscopy bowel prep sent to preferred pharmacy and instructions were reviewed with the patient.> Advised to avoid any OTC supplements, NSAIDs, and aspirin 3 days prior to endoscopy.> Follow-up to be arranged based on endoscopy findings and interventions 09/13/2024 Hematuria, unspecified type (ICD-10 - R31.9) 09/13/2024 Lower abdominal pain (ICD-10 - R10.30) Records from July 2024 from [facility] reviewed and noted. CT of the abdomen without contrast noted mild small bowel wall thickening concerning for possible gastroenteritis. Small bowel obstruction was felt to be less likely. She was noted to have bilateral perinephritic stranding as well as bilateral intrarenal calculi. Certainly cannot exclude pyelonephritis versus cystitis contributing to her flank pain/lower abdominal pain. At this time, she states that this has completely resolved following antibiotic treatment for UTI in August. She was also experiencing hematuria at the time. Lab work was essentially unremarkable with the exception of elevated CRP of 12.0, again of unclear etiology. No urinalysis was available for evaluation. We will attempt to obtain CT imaging, labs, ER records from [facility] for both July and August evaluation. The patient is advised to call with any recurrent abdominal symptoms and can consider repeat labs versus repeat cross-sectional imaging. 04/18/2025 Obesity (ICD-10 - E66.9) 04/18/2025 Lumbar radiculopathy (ICD-10 - M54.16) 04/18/2025 [facility]CI (current) use of opiate analgesic (ICD-10 - Z79.891) 04/18/2025 Other Paulette Mariscal, am scribing for Dr. Avi Bourgeois. I, Dr. Avi Bourgeois, personally performed the services described in this documentation, as scribed by Paulette Silverio, and it is both accurate and complete. Plan Of Treatment Pending Test Test Name Order Date Colonoscopy, Average Risk Screening-G012 1 09/13/2024 Future Test Test Name Order Date 2 Limb NCV/EMG - [id number], [id number] 04/19/2025 Next Appt Details Provider Name:Sy Gama , 04/23/2025 01:15:00 PM, [address], [address], Provider Name:Avi Bourgeois, 05/30/2025 09:40:00 AM, [address] [place], [address], Provider Name:Patience Prescott, 06/14/2025 11:00:00 AM, [address] [place], [address], Insurance Providers Payer Name Payer Address Payer Phone Subscriber Number Group Number Insured Name Patient Relationship to Insured Coverage Start Date Coverage End Date BCBS [place] Medicare Replacement [address] [place] [address] [id number] ELHAMMARIO ALBERTO Lucas MONSERRAT Self - patient is the insured Medical (General) History Medical History History ICD Code bladder infections diabetes mellitus Cancer female High Blood Pressure hernia Back Trouble Asthma anxiety Depression kidney stones Surgical History Surgery Date(Month/Year) heart surgery stents cancer on nose hysterectomy Kidney stones and stents hernia surgery MESH Hospitalization History Reason Date(Month/Year) see surgery history
--- OUTSIDE RECORDS SUMMARY | 2025-04-20 19:30 | XMS_ITS | Encounter Summary ---
Author Organization [facility] Address [address] [facility] [address] [place] [address] Phone Care Team Providers Care Emergency Medicine Physician Assistant Name Role Phone Unavailable Primary Care Provider Unavailabl e Encounter Details Date Type Department Care Team (Late st Contact Info) Description 11/04/2022 [facility] [address] [facility] [facility] [address] [place] [address] Renal colic Social History Tobacco Use Types Packs/Day Years Used Date Smoking Tobacco: Never Assessed Comments Unknown Sex and Gender Information Value Date Recorded Sex Assigned at Not on file Legal Sex Female 11:23 AM EDT Gender Identity Not on file Sexual Orientation Not on file documented as of this encounter Plan of Treatment Not on file documented as of this encounter Visit Diagnoses Diagnosis Renal colic documented in this encounter
--- OUTSIDE RECORDS SUMMARY | 2025-04-20 19:30 | XMS_ITS | Clinical Summary ---
Author Organization [facility] Address [address] [place] [address] Phone Care Team Providers Care Commercial Credit Portfolio Manager Name Role Phone Non-Staff, Physician Primary Care Provider Unava ilable Allergies Active Allergy Reactions Criticality Noted Date Comments Iodinated Contrast Media Rash Low 04/23/2009 Tramadol Nausea and Vomiting Low 04/24/2009 Medications levothyroxine (SYNTHROID) 50 mcg Oral Tab Take 50 mcg by mouth daily. Active cabergoline (DOSTINEX) 0.5 mg Oral Tab Take 0.5 mg by mouth every 7 days. Active metformin (GLUCOPHAGE XR) 500 mg Oral Tb24 Take 500 mg by mouth 2 times daily. Active DOCUSATE SODIUM (COLACE PO) Take by mouth. Active zolpidem (AMBIEN) 10 mg Oral tablet Take 10 mg by mouth nightly as needed for Insomnia. Active SERTRALINE HCL (ZOLOFT PO) Take 5 mg by mouth. Active CYCLOBENZAPRINE HCL (FLEXERIL PO) Take by mouth. Active GABAPENTIN (NEURONTIN PO) Take by mouth. 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 Family History Medical History Relation Name Comments Stroke Father Diabetes Sister 1 Thyroid Disease Sister 2 Relation Name Status Comments Father Sister 1 Sister 2 Social History Tobacco Use Types Packs/Day Years Used Date Smoking Tobacco: Never Alcohol Use Standard Drinks/Week Comments No 0 (1 standard drink = 0.6 oz pur e alcohol) Comments No Sex and Gender Information Value Date Recorded Sex Assigned at Not on file Legal Sex Female 7:26 AM SIDE DOOR WORKER Gender Identity Not on file Sexual Orientation Not on file Last Filed Vital Signs Vital Sign Reading Time Taken Comments Blood Pressure 120/70 09/18/2009 1:44 PM SIDE DOOR WORKER Pulse 89 09/18/2009 1:44 PM SIDE DOOR WORKER Temperature 36.2 C (97.1 F) 06/19/2009 10:13 AM SIDE DOOR WORKER Respiratory Rate 20 06/19/2009 10:13 AM SIDE DOOR WORKER Oxygen Saturation 100% 09/18/2009 1:44 PM SIDE DOOR WORKER Inhaled Oxygen Concentration - - Weight 161.9 kg (357 lb) 09/18/2009 1:44 PM SIDE DOOR WORKER Height 167.6 cm (5' 6 ) 09/18/2009 1:44 PM SIDE DOOR WORKER Body Mass Index 57.62 09/18/2009 1:44 PM SIDE DOOR WORKER Plan of Treatment Health Maintenance Due Date Last Done Comments DTAP/TDAP/TD VACCINES (1 - Tdap) 1989 HEPATITIS B VACCINES (1 of 3 - 19+ 3-dose series) 07/09 BREAST CANCER SCREENING 2010 COLORECTAL SCREENING 2015 Colorectal Cancer Screening 2015 FIT-DNA Q 3 years 2015 FIT/FOBT Q 1 year 2015 Flex Sig/CT Colonography Q 5 years 2015 ZOSTER VACCINE (1 of 2) 2020 INFLUENZA VACCINE (#1) 2025 Insurance [employer] [facility] Advance Directives For more information, please contact: [phone] * Full Code (Latest Code Status on File) Date Activated Date Inactivated Comments 05/13/2009 5:43 PM 05/18/2009 4:00 PM * Full Code Date Activated Date Inactivated Comments 05/13/2009 9:55 AM 05/13/2009 5:43 PM * Full Code Date Activated Date Inactivated Comments 05/13/2009 6:36 AM 05/13/2009 9:55 AM Care Teams Commercial Credit Portfolio Manager Relationship Specialty Start Date End Date Non-Staff, Physician NO ADDRESS ON FILE PCP - General 05/07/09
[2025-04-20 19:31] VITALS: BP 168/100; PULSE 75; RESP 16; TEMP 36.7; O2SAT 100; BMI 53.6
== END 2025-04-20 20:37 | disposition left against medical advice (07) ==
PROVIDERS: Emergency Provider Emergency Medicine; PCP Nurse Practitioner Family
DX: Z53.21 Procedure and treatment not carried out due to patient leaving prior to being seen by health care provider (principal)

== ENCOUNTER → 2025-06-28 17:33 | Outpatient (BNVA) | payer MEDICARE, MEDICAID, SELFPAY ==
[2020-01-11 11:16] VITALS: BP 150/85; BMI 53.7
== END ==
PROVIDERS: PCP Nurse Practitioner Family; Visit Provider Registered Nurse Neonatal Intensive Care
DX: M25.531 Pain in right wrist (principal); M19.031 Primary osteoarthritis, right wrist
CPT/HCPCS: 73110

== ENCOUNTER 2025-07-01 06:42 | Emergency (ER) | payer MEDICARE, SELFPAY ==
[2020-01-11 11:16] VITALS: BP 150/85; BMI 53.7
--- OUTSIDE RECORDS SUMMARY | 2024-11-27 11:00 | XMS_ITS ---
Author Organization [facility] Address [address] [place] [address] Care Team Providers Care Operations Executive Name Role Phone Emili Bro Primary Care Provider Unavail able MAXIMILIANO WADDELL Unavailable [phone] ARNOLDO TELLO Unavailable [phone] REASON FOR VISIT 3 wks w/ ua/kub/christina Encounters Encounter Location Date Provider Diagnosis [facility] [address] [place] [address] 11/27/2024 ARNOLDO TELLO Plan Of Treatment Next Appt Details Provider Name:JADEN LAST, 0 01/28/2026 02:00:00 PM, [address] [place], [address], Progress Notes * Fatou KHANNA LDOB: (54 yo F)Acc No.[id number]:11/27/2024 Progress Notes Patient: Dominic HALE Fatou Shahida Provider: Rhonda Tello APRN :1970 A ge:54 Y S ex:Female Date:11/27/2024 Address:[facility] [address] [id number] Pcp:BRET Devlin Subjective: * Chief Complaints: * 1 . 3 wks w/ ua/kub/christina. * Medical History: Objective: * Vitals: Assessment: Plan: * Treatment: * Billing Information: * Visit Code: * Procedure Codes: * Electronic signature of KIMBERLY TELLO APRN on 07/01/2025 at 06:50 AM DIRECTOR OF ACCOUNTS PAYABLE Sign off status: Pending * Provider: Rhonda Tello APRN Date: 0 11/27/2024 Generated for Terri garsia/Lucia/Timi on: 08/31/2024 06:50 AM DIRECTOR OF ACCOUNTS PAYABLE
--- OUTSIDE RECORDS SUMMARY | 2025-04-23 07:15 | XMS_ITS ---
Author Organization [facility] Address [address] [place] [address] Care Team Providers Care Business Insurance Agent Name Role Phone Freddy Phan DO Primary Care Provider Desrie Martinez Unavailable [phone] December DNP-DIPLOMATIC COURIER-C, Emili Unavailable Unavailable Sy Gama Unavailable [phone] REASON FOR VISIT HTN, DM2, HLD per Emili December- 03/21/25 Encounters Encounter Location Date Provider Diagnosis [facility] [address] [place] [address], [place] [address] 04/23/2025 Sy Gama Plan Of Treatment Next Appt Details Provider Name:Desire singer, 07/09/2025 02:00:00 PM, [address] [place] [address], [place], [address], Provider Name:Avi Bourgeois, 08/15/2025 10:20:00 AM, [address] [place], [address], Progress Notes * MONSERRAT HILL LDOB: (54 yo F)Acc No.[id number]:04/23/2025 Progress Notes Patient: MONSERRAT OSMAN Provider: Jose Gama M.D. :1970 A ge:54 Y S ex:Female Date:04/23/2025 [facility] [id number] Pcp:Freddy Phan DO Subjective: * Chief Complaints: * H TN, DM2, HLD per Emili December- 03/21/25 * Surgical History: heart surgery stents cancer on nose hysterectomy Kidney stones and stents hernia surgery MESH * Hospitalization/Major Diagno stic Procedure: see surgery history Billing Information: * Procedure Codes: * Electronic signature of Sy Gama MD on 07/01/2025 at 06:49 AM CARD ROOM MANAGER Sign off status: Pending * Provider: Jose Gama M.D. Date: 0 04/23/2025 Generated for Terri garsia/Lucia/Timi on: 08/31/2024 06:49 AM CARD ROOM MANAGER
--- OUTSIDE RECORDS SUMMARY | 2025-06-01 04:45 | XMS_ITS ---
Author Organization [facility] Address [address] [place] [address] Care Team Providers Care Senior Ios Software Engineer Name Role Phone Freddy Phan DO Primary Care Provider Desire Martinez Unavailable [phone] December DNP-NEWSPAPER CARRIER-C, Emili Unavailable Unavailable Sy Gama Unavailable [phone] REASON FOR VISIT HTN, DM2, HLD per Emili December- 03/21/25 Encounters Encounter Location Date Provider Diagnosis [facility] [address] [place] [address], [place] [address] 06/01/2025 Sy Gama Plan Of Treatment Next Appt Details Provider Name:Desire singer, 07/09/2025 02:00:00 PM, [address] [place] [address], [place], [address], Provider Name:Avi Bourgeois, 08/15/2025 10:20:00 AM, [address] [place], [address], Progress Notes * MONSERRAT HILL LDOB: (54 yo F)Acc No.[id number]:06/01/2025 Progress Notes Patient: MONSERRAT OSMAN Provider: Jose Gama M.D. :1970 A ge:54 Y S ex:Female Date:06/01/2025 [address] [facility] [id number] Pcp:Freddy Phan DO Subjective: * Chief Complaints: * H TN, DM2, HLD per Emili December- 03/21/25 * Electronic signature of Sy Gama MD on 07/01/2025 at 06:49 AM AQUATICS LIFEGUARD Sign off status: Pending * Provider: Jose Gama M.D. Date: Generated for Terri garsia/Lucia/Lonniesmitting on: 08/31/2024 06:49 AM AQUATICS LIFEGUARD
--- OUTSIDE RECORDS SUMMARY | 2025-06-15 04:45 | XMS_ITS ---
Author Organization [facility] Address [address] [place] [address] Care Team Providers Care Supervisor Canvas Products Name Role Phone Freddy Phan DO Primary Care Provider Desire Martinez Unavailable [phone] December DNP-CYTOGENETICS TECHNOLOGIST-C, Emili Unavailable Unavailable Sy Gama Unavailable [phone] REASON FOR VISIT HTN, DM2, HLD per Emili December- 03/21/25 Encounters Encounter Location Date Provider Diagnosis [facility] [address] [place] [address], [place] [address] 06/15/2025 Sy Gama Plan Of Treatment Next Appt Details Provider Name:Desire singer, 07/09/2025 02:00:00 PM, [address] [place], [address], Provider Name:Avi Bourgeois, 08/15/2025 10:20:00 AM, [address] [place], [address], Progress Notes * MONSERRAT HILL LDOB: (54 yo F)Acc No.[id number]:06/15/2025 Progress Notes Patient: MONSERRAT OSMAN Provider: Jose Gama M.D. :1970 A ge:54 Y S ex:Female Date:06/15/2025 [facility] [facility] [id number] Pcp:Freddy Phan DO Subjective: * Chief Complaints: * H TN, DM2, HLD per Emili December- 03/21/25 * Electronic signature of Sy Gama MD on 07/01/2025 at 06:50 AM TANK CREWMEMBER Sign off status: Pending * Provider: Jose Gama M.D. Date: 08/15/2024 Generated for Terri garsia/Lucia/Lonniesmitting on: 08/31/2024 06:50 AM TANK CREWMEMBER
[2025-07-01 06:47] VITALS: BP 173/83; PULSE 84; RESP 16; TEMP 36.7; O2SAT 97; BMI 53.6
--- OUTSIDE RECORDS SUMMARY | 2025-07-01 06:49 | XMS_ITS | Clinical Summary ---
Author Organization [facility] Address [address] [place] [address] Care Team Providers Care All Purpose Clerk Name Role Phone Unavailable Primary Care Provider [...] Vaccine (#1) [address] [place] [id number] Lisandro MARTEL Dual Snp
--- OUTSIDE RECORDS SUMMARY | 2025-07-01 06:49 | XMS_ITS | Encounter Summary ---
Author Organization [facility], [facility] Address [address] [facility] [address] [place] [address] Phone Care Team Providers Care Dehorner Name Role Phone Unavailable Primary Care Provider Unavailabl e Encounter Details Date Type Department Care Team (Late st Contact Info) Description 11/04/2022 [facility] [address] [facility] [address] [place] [address] Renal colic Social History Tobacco [...]
--- OUTSIDE RECORDS SUMMARY | 2025-07-01 06:49 | XMS_ITS | Patient Health Record ---
Author Organization [facility] Address [address] [facility] [place] [address] Care Team Providers Care Senior Accountant Cpa Name Role Phone December Emili QUEEN Primary Care Provider Unavail able MAXIMILIANO WADDELL Unavailable [phone] ARNOLDO TELLO Unavailable [phone] JADEN LAST Unavailable [phone] Allergies Allergen (clinical drug ingredient) Drug/Non Drug Allergy documented on EMR Reaction Allergy Type Onset Date Status hydromorphone Dilaudid Unknown Drug Allergy Act ace Bee Sting Unknown Allergy Active Iodinated contrast media (substance) Iodinated Diagnostic Agents Unknown Drug Allergy Active Tape Unknown Allergy Active Results Component Value Reference Range Notes Urinalysis, Routine Reviewed date:01/22/2025 01:54:10 PM Interpretation: Performing Lab: Notes/Report: Urine-Color yellow Appearance clear Glucose - Bilirubin - Ketones - Specific [place] 1.010 Occult Blood - pH 6.0 Urine Protein - Urobilinogen,Semi-Qn - Nitrite, Urine - WBC Esterase - zzzAbdomen AP Reviewed date:01/22/2025 04:07:29 PM Interpretation: Performing Lab: Notes/Report: See Below For Report Abdomen AP Read See Below For Report US Renal--[id number] Reviewed date:01/23/2025 08:17:29 AM Interpretation: Performing Lab: Notes/Report: See Below For Report US Renal Read See Below For Report Urinalysis, Routine Reviewed date:10/09/2024 01:49:45 PM Interpretation: Performing Lab: Notes/Report: Urine-Color yellow Appearance clear Glucose - Bilirubin - Ketones - Specific [place] 1.030 Occult Blood - pH 6.0 Urine [...] Problem Type II diabetes mellitus without complication (974044795) Type 2 diabetes mellitus not at goal (E11.9) Active confirmed Problem Calculus of kidney and ureter (083351387) Calculus of kidney and ureter (N20.2) Active confirmed Problem Kidney stone (34006722) Bilateral nephrolithiasis (N20.0) Active confirmed Problem Kidney stone (10185456) Kidney stone (N20.0) Active confirmed Vital Signs Heart Rate 70 /min 10/09/2024 Blood pressure diastolic 78 mm Hg 10/09/2024 Height-cm 162.56 cm 01/22/2025 Weight-kg 147.42 kg 01/22/2025 Height 64 in 01/22/2025 Blood pressure systolic 119 mm Hg 10/09/2024 Weight 325 lbs 01/22/2025 BMI 55.78 kg/m2 01/22/2025 Encounters Encounter Location Date Provider Diagnosis [facility] [address] [place] [address] 10/09/2024 JADEN LAST Calculus of kidney a nd ureter N20.2 ; Chronic constipation K59.09 and Type 2 diabetes mellitus not at goal E11.9 [facility] [address] [place] [address] 01/22/2025 JADEN LAST Chronic constipation K59.09 ; Nephrolithiasis N20.0 and Type 2 diabetes mellitus not at goal E11.9 [facility], [facility] [address] [place] [address] 09/11/2024 JADEN LAST Assessments Encounter Date Diagnosis (ICD Code) Assessment Notes Treatment Notes Treatment Clinical Notes Section Notes 01/22/2025 Nephrolithiasis (ICD-10 - N20.0) 01/22/2025 Chronic constipation (ICD-10 - K59.09) 10/09/2024 Calculus of kidney and ureter (ICD-10 - N20.2) 10/09/2024 Chronic constipation (ICD-10 - K59.09) 10/09/2024 Type 2 diabetes mellitus not at goal (ICD-10 - E11.9) 01/22/2025 Type 2 diabetes mellitus not at [...] Urete r, bladder 10/09/2024 Renal Ultrasound [facility] [id number] 10/09/2024 Next Appt Details Provider Name:JADEN LAST, 0 01/28/2026 02:00:00 PM, [address] [place], [address], Insurance Providers Payer Name Payer Address Payer Phone Subscriber Number Group Number Insured Name Patient Relationship to Insured Coverage Start Date Coverage End Date [place] Replacement [address] [place], [place] [id number] Fatou Sarah Self - patient is the insured Medical (General) History Medical History History ICD Code kidney stone anxiety depression diabetes urinary tract infections myocardial infarction uterine cancer Surgical History Surgery Date(Month/Year) kidney stone removals (2008 - 2015) Hernia repair hysterectomy ESWL Hospitalization History Reason Date(Month/Year) see prior sx hx
--- NOTE | 2025-07-01 06:50 | XRR_ITS ---
PROCEDURE INFORMATION: Exam: XR Chest Exam date and time: 07/01/2025 6:52 AM Age: 54 years old Clinical indication: Shortness of breath; Prior surgery; Surgery date: 6+ months; Surgery type: Cardiac stents; Additional info: SOB TECHNIQUE: Imaging protocol: Radiologic exam of the chest. Views: 1 view. COMPARISON: CR XR chest 1V portable [id number] 12/25/2023 7:35 PM FINDINGS: Lungs: Unremarkable. No consolidation. Pleural spaces: Unremarkable. No pleural effusion. No pneumothorax. Heart/Mediastinum: Unremarkable. No cardiomegaly. Bones/joints: Unremarkable. XR/XR chest 1V portable [id number] IMPRESSION: No acute findings.
--- OUTSIDE RECORDS SUMMARY | 2025-07-01 06:50 | XMS_ITS | Patient Health Record ---
Author Organization [facility] Address [address] [place] [address] Care Team Providers Care Osteopathic Medicine Teacher Name Role Phone Freddy Phan DO Primary Care Provider Desire Martinez Unavailable [phone]MIN[address] JUSTICE-C, Emili Unavailable Unavailable Noah See Unavailable [phone] Taylor Leonard Unavailable [phone] Avi Bourgeois Unavailable [phone] Lyuksykylee-Patience Concepcion Unavailable [phone] Alirhayim, Sy Unavailable [phone] Allergies Allergen (clinical drug ingredient) Drug/Non Drug Allergy documented on EMR Reaction Allergy Type Onset Date Status hydromorphone Dilaudid Unknown Drug Allergy Act ace Contrast Allergy PreMed Pack Unknown Drug Allergy Active gabapentin Gabapentin rash Drug Allergy Activ e tramadol traMADol rash Drug Allergy Active Results Component Value Reference Range Flag Notes Tox Results Reviewed date:06/05/2025 12:08:50 PM Interpretation: Performing Lab: Notes/Report: Urine Confirmation Panel (in strument) - [id number] Reviewed date:06/05/2025 12:44:27 PM Interpretation: Performing Lab: Notes/Report: 6-Acetylmorphine 0 <6 ng/mL N This neo t was developed and its performance characteristics determined by [facility]. It has not been cleared or approved by the U.S. Food and Drug Administration. 7-Aminoclonazepam 0 <60 ng/mL N This te st was developed and its performance characteristics determined by [facility]. It has not been cleared or approved by the U.S. Food and Drug Administration. Alprazolam 0 <60 ng/mL N This test was developed and its performance characteristics determined by [facility]. It has not been cleared or approved by the U.S. Food and Drug Administration. Amphetamine 0 <75 ng/mL N This test was developed and its performance characteristics determined by [facility]. It has not been cleared or approved by the U.S. Food and Drug Administration. aOH-Alprazolam 0 <60 ng/mL N This test was developed and its performance characteristics determined by [facility]. It has not been cleared or approved by the U.S. Food and Drug Administration. Buprenorphine 0.0 <7.5 ng/mL N This test w as developed and its performance characteristics determined by [facility]. It has not been cleared or approved by the U.S. Food and Drug Administration. Norbuprenorphine 0.0 <37.5 ng/mL N This te st was developed and its performance characteristics determined by [facility]. It has not been cleared or approved by the U.S. Food and Drug Administration. Carisoprodol 6 <75 ng/mL N This test wa s developed and its performance characteristics determined by [facility]. It has not been cleared or approved by the U.S. Food and Drug Administration. Codeine 0 <75 ng/mL N This test was developed and its performance characteristics determined by [facility]. It has not been cleared or approved by the U.S. Food and Drug Administration. EDDP 0 <75 ng/mL N This test was developed and its performance characteristics determined by [facility]. It has not been cleared or approved by the U.S. Food and Drug Administration. Fentanyl 0 <6 ng/mL N This test was developed and its performance characteristics determined by [facility]. It has not been cleared or approved by the U.S. Food and Drug Administration. Hydrocodone 2720 <75 ng/mL H This test was developed and its performance characteristics determined by [facility]. It has not been cleared or approved by the U.S. Food and Drug Administration. Hydromorphone 177 <75 ng/mL H This test w as developed and its performance characteristics determined by [facility]. It has not been cleared or approved by the U.S. Food and Drug Administration. Lorazepam 0 <60 ng/mL N This test was developed and its performance characteristics determined by [facility]. It has not been cleared or approved by the U.S. Food and Drug Administration. MDMA 0 <75 ng/mL N This test was developed and its performance characteristics determined by [facility]. It has not been cleared or approved by the U.S. Food and Drug Administration. Meperidine 0.0 <37.5 ng/mL N This test was developed and its performance characteristics determined by [facility]. It has not been cleared or approved by the U.S. Food and Drug Administration. Meprobamate 0 <75 ng/mL N This test was developed and its performance characteristics determined by [facility]. It has not been cleared or approved by the U.S. Food and Drug Administration. Methamphetamine 0 <75 ng/mL N This test was developed and its performance characteristics determined by [facility]. It has not been cleared or approved by the U.S. Food and Drug Administration. Methadone 0 <75 ng/mL N This test was developed and its performance characteristics determined by [facility]. It has not been cleared or approved by the U.S. Food and Drug Administration. Morphine 0 <75 ng/mL N This test was developed and its performance characteristics determined by [facility]. It has not been cleared or approved by the U.S. Food and Drug Administration. Nordiazepam 0 <60 ng/mL N This test was developed and its performance characteristics determined by [facility]. It has not been cleared or approved by the U.S. Food and Drug Administration. Norfentanyl 0 <6 ng/mL N This test was developed and its performance characteristics determined by [facility]. It has not been cleared or approved by the U.S. Food and Drug Administration. Normeperidine 0.0 <37.5 ng/mL N This test was developed and its performance characteristics determined by [facility]. It has not been cleared or approved by the U.S. Food and Drug Administration. O-desmethyltramadol 0 <75 ng/mL N This test was developed and its performance characteristics determined by [facility]. It has not been cleared or approved by the U.S. Food and Drug Administration. Oxazepam 0 <60 ng/mL N This test was developed and its performance characteristics determined by [facility]. It has not been cleared or approved by the U.S. Food and Drug Administration. Oxycodone 0.0 <37.5 ng/mL N This test was developed and its performance characteristics determined by [facility]. It has not been cleared or approved by the U.S. Food and Drug Administration. Oxymorphone 0 <75 ng/mL N This test was developed and its performance characteristics determined by [facility]. It has not been cleared or approved by the U.S. Food and Drug Administration. Phencyclidine 0.0 <7.5 ng/mL N This test w as developed and its performance characteristics determined by [facility]. It has not been cleared or approved by the U.S. Food and Drug Administration. Tapentadol 4.2 <37.5 ng/mL N This test was developed and its performance characteristics determined by [facility]. It has not been cleared or approved by the U.S. Food and Drug Administration. Temazepam 0 <60 ng/mL N This test was developed and its performance characteristics determined by [facility]. It has not been cleared or approved by the U.S. Food and Drug Administration. Tramadol 7 <75 ng/mL N This test was developed and its performance characteristics determined by [facility]. It has not been cleared or approved by the U.S. Food and Drug Administration. Norhydrocodone >5000 <75 ng/mL > This test was developed and its performance characteristics determined by [facility]. It has not been cleared or approved by the U.S. Food and Drug Administration. Noroxycodone 0 <38 ng/mL N This test wa s developed and its performance characteristics determined by [facility]. It has not been cleared or approved by the U.S. Food and Drug Administration. Pregabalin 0 <225 ng/mL N This test was developed and its performance characteristics determined by [facility]. It has not been cleared or approved by the U.S. Food and Drug Administration. Gabapentin 0 <225 ng/mL N This test was developed and its performance characteristics determined by [facility]. It has not been cleared or approved by the U.S. Food and Drug Administration. Benzoylecgonine 0.0 <37.5 ng/mL N This neo t was developed and its performance characteristics determined by [facility]. It has not been cleared or approved by the U.S. Food and Drug Administration. 4-Hydroxy Xylazine 0 <25 ng/mL N This t est was developed and its performance characteristics determined by [facility]. It has not been cleared or approved by the U.S. Food and Drug Administration. Urine Drug Screen (cup read) - 44569 Reviewed date:05/30/2025 09:57:37 AM Interpretation: Performing Lab: Notes/Report: OPI Pos Reason For Referral Reason evaluation for possi ble treatment Diagnosis 1 Spondylosis without myelopathy or radiculopathy, lumbar region (M47.816) Diagnosis 2 Intervertebral disc disorders with radiculopathy, lumbar region (M51.16) Diagnosis 3 Vertebrogenic low ba ck pain (M54.51) Referring Provider First Name Mario Referring Provider Last Name Bryan Referring Provider Speciality Pain Medic ine Referred Organization [facility] Referred Provider Avi Bourgeois Referred Address [address] [place] [address],[place],[phone], Referred Provider Specialty [facility] General Notes Judie Ibrahim 02:13:21 PM >mailed npp, patient is schedule Referral Priority Routine Reason Appt 06/01/25 HTN Diagnosis 1 Essential (primary) hypertension (I10) Referring Provider First Name Emili Referring Provider Last Name December Referring Provider Speciality Family Med icine Referred Organization [facility] Referred Provider Sy Gama Referred Address [address] [place] [address],[place],[phone], Referred Provider Specialty Intervention [facility] Referral Priority Routine Reason Eval and treat Lumba r Spondylosis Diagnosis 1 Spondylosis without myelopathy or radiculopathy, lumbar region (M47.816) Referral Organization [facility] Referring Provider First Name Avi Referring Provider Last Name Christelle Referring Provider Speciality Interventi onal Pain Medicine Referred Provider Referred Provider Specialty 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 Referral Priority Routine Reason eval and treat lumba r Diagnosis 1 Lumbar radiculopathy (M54.16) Referral Organization [facility] Referring Provider First Name Avi Referring Provider Last Name Christelle Referring Provider Speciality Interventi onal Pain Medicine Referred Provider [facility] Referred Provider Specialty Preventive M edicine Referral Priority Routine Medications Medication SIG (Take, Route, Frequency, Duration) Notes Start Date End Date Status HYDROcodone-Ibuprofen 10-200 MG Tablet 1 tablet as needed Orally 3x a day Active HYDROcodone-Acetaminop hen 10-325 MG Tablet 1 tablet as needed Orally every 6 hours; Duration: 30 days As needed Not to exceed 4 per day Fill 06/01/2025 05/30/2025 07/01/2025 Active Golytely 236 GM Solution Reconstituted 240ml Orally [id number]; Duration: 2 days Split dose bowel prep: 24 hours prior to procedure consume only clear liquids. The evening prior to procedure, Drink 8oz every 15 minutes until 1/2 of prep in consumed. Repeat 2nd dose at directed time the morning of procedure. Active Reglan 10 MG Tablet 1 tablet Orally 30 minutes prior to starting colon prep; Duration: 1 day Active Clopidogrel Bisulfate 75 MG Tablet 1 tablet Orally Once a day Active Pravastatin Sodium 40 MG Tablet 1 tablet Orally Once a day Active Mounjaro 2.5 MG/0.5ML Solution Auto-injector as directed Subcutaneous 1 x a week Active Metoprolol Tartrate 25 MG Tablet 1 tablet with food Orally Twice a day Active metFORMIN HCl 1000 MG Tablet 1 tablet with a meal Orally 2 a day Active Levothyroxine Sodium 88 MCG Tablet 1 tablet in the morning on an empty stomach Orally Once a day Active Social History Tobacco Use: [...] Status Risk Notes Problem Chronic pain syndrome (248256300) Chronic pain syndrome (G89.4) Active confirmed Problem Essential hypertension (10025043) Essential (primary) hypertension (I10) Active confirmed Problem Lumbosacral spondylosis without myelopathy (66156687) Spondylosis without myelopathy or radiculopathy, lumbar region (M47.816) Active confirmed Problem Radiculopathy due to lumbar intervertebral disc disorder (714694553402538) Intervertebral disc disorders with radiculopathy, lumbar region (M51.16) Active confirmed Problem Lumbar radiculopathy (844358462) Lumbar radiculopathy (M54.16) Active confirmed Problem Peripheral neuropathy (775999587) Neuropathy, peripheral (G62.9) Active confirmed Problem Obesity (840788387) Obesity (E66.9) Active confirmed Problem Abnormal gait (49884942) Abnormality of gait and mobility (R26.9) Active confirmed Vital Signs Heart Rate 81 /min 09/13/2024 65 Temperature 96.6 degrees Fahrenheit 09/13/2024 65 Height-cm 165.1 cm 05/30/2025 Oximetry 97 % 09/13/2024 65 Blood pressure diastolic 80 mm Hg 09/13/2024 65 Weight-kg 146.97 kg 05/30/2025 Height 65 in 05/30/2025 Blood pressure systolic 148 mm Hg 09/13/2024 65 Weight 324 lbs 05/30/2025 BMI 53.91 kg/m2 05/30/2025 Encounters Encounter Location Date Provider Diagnosis [facility] [address] [address] 05/30/2025 Avi Mendelfft Chronic pain syndrome G89.4 ; Neuropathy, peripheral G62.9 ; Lumbar radiculopathy M54.16 ; long term care phlebotomist (current) use of opiate analgesic Z79.891 ; Obesity E66.9 and Abnormality of gait and mobility R26.9 [facility] [address] [place] [address] 04/18/2025 Avi Oglesbyfft Chronic pain syndrome G89.4 ; Neuropathy, peripheral G62.9 ; Lumbar radiculopathy M54.16 ; Abnormality of gait and mobility R26.9 ; Obesity E66.9 and long term care phlebotomist (current) use of opiate analgesic Z79.891 [facility] [address] [place] [address] 09/13/2024 Taylor Leonard Preprocedural examination Z01.818 ; Screening for colon cancer Z12.11 ; Hematuria, unspecified type R31.9 and Lower abdominal pain R10.30 [facility] [address] [place] [address] 10/31/2024 Noah See [facility] [address] [place] [address] 09/25/2024 Noah See Assessments Encounter Date Diagnosis (ICD Code) Assessment Notes Treatment Notes Treatment Clinical Notes Section Notes 05/30/2025 Chronic pain syndrome (ICD-10 - G89.4) I had a nice visit with the patient regarding her chronic pain issues. The patient reports that she never heard back from physical therapy, so she didn't complete any PT. However, she did complete her bilateral EMG/nerve conduction study a couple of weeks ago. We discussed her recent weight gain, as she has gained a few more pounds. She plans to try lifestyle modifications to address this. I will prescribe a few extra tablets to be used on days when she is more active and feels she would benefit from a fourth dose. She continues to find her current pain medication regimen relatively effective overall. Her pill counts have been consistent with her current treatment regimen. We will obtain UDS today. We will follow up in a month and proceed accordingly. 05/30/2025 Neuropathy, peripheral (ICD-10 - G62.9) 04/18/2025 Chronic pain syndrome (ICD-10 - G89.4) [...] be given to updated lumbar imaging. 04/18/2025 Neuropathy, peripheral (ICD-10 - G62.9) 09/13/2024 Preprocedural examination (ICD-10 - Z01.818) 09/13/2024 Screening for colon cancer (ICD-10 - Z12.11) Colon cancer risks, prevention strategies, and screening guidelines discussed with the patient. Recommend screening colonoscopy. Colonoscopy procedure, risks, benefits, potential complications, and potential interventions discussed. Bowel preparation was discussed and written instructions provided. Questions answered to apparent satisfaction. Verbalizes understanding. Desires to proceed with the proposed plan. > Schedule screening colonoscopy with Dr. Badejo following cardiac clearance to hold DAPT prior. > Colonoscopy bowel prep sent to preferred pharmacy and instructions were reviewed with the patient.> Advised to avoid any OTC supplements, NSAIDs, and aspirin 3 days prior to endoscopy.> Follow-up to be arranged based on endoscopy findings and interventions 09/13/2024 Hematuria, unspecified type (ICD-10 - R31.9) 05/30/2025 Lumbar radiculopathy (ICD-10 - M54.16) 04/18/2025 Lumbar radiculopathy (ICD-10 - M54.16) 05/30/2025 long term care phlebotomist (current) use of opiate analgesic (ICD-10 - Z79.891) 09/13/2024 Lower abdominal pain (ICD-10 - R10.30) Records from July 2024 from [facility] reviewed and noted. CT of the [...] obtain CT imaging, labs, ER records from [facility] for both July and August evaluation. The patient is advised to call with any recurrent abdominal symptoms and can consider repeat labs versus repeat cross-sectional imaging. 04/18/2025 Abnormality of gait and mobility (ICD-10 - R26.9) 04/18/2025 Obesity (ICD-10 - E66.9) 05/30/2025 Obesity (ICD-10 - E66.9) 05/30/2025 Abnormality of gait and mobility (ICD-10 - R26.9) 04/18/2025 long term care phlebotomist (current) use of opiate analgesic (ICD-10 - Z79.891) 04/18/2025 Other I, Paulette Silverio, am scribing for Dr. Avi Bourgeois. I, Dr. Avi Bourgeois, personally performed the services described in this documentation, as scribed by Paulette Silverio, and it is both accurate and complete. 05/30/2025 Other I, Paulette Silverio, am scribing for Dr. Avi Bourgeois. I, Dr. Avi Bourgeois, personally performed the services described in this documentation, as scribed by Paulette Silverio, and it is both accurate and complete. Plan Of Treatment Pending Test Test Name Order Date Colonoscopy, Average Risk Screening-G012 1 09/13/2024 Future Test Test Name Order Date 2 Limb NCV/EMG - 68340, [id number] 04/19/2025 Next Appt Details Provider Name:Desire singer, 07/09/2025 02:00:00 PM, [address], [address], Provider Name:Avi Bourgeois, 08/15/2025 10:20:00 AM, [address] [place], [address], Insurance Providers Payer Name Payer Address Payer Phone Subscriber Number Group Number Insured Name Patient Relationship to Insured Coverage Start Date Coverage End Date [employer] Replacement [address] [place] [address] [phone] [id number] [employer] Lucas Self - patient is the insured Medical (General) History Medical History History ICD Code bladder infections diabetes mellitus Cancer female High Blood Pressure hernia Back Trouble Asthma anxiety Depression kidney stones Surgical History Surgery Date(Month/Year) heart surgery stents cancer on nose hysterectomy Kidney stones and stents hernia surgery [facility]ESH Hospitalization History Reason Date(Month/Year) see surgery history
--- OUTSIDE RECORDS SUMMARY | 2025-07-01 06:50 | XMS_ITS | Clinical Summary ---
Author Organization [facility] Address [address] [place] [address] Phone Care Team Providers Care Microbiology Supervisor Name Role Phone Non-Staff, Physician Primary Care [...] on file Legal Sex Female 7:26 AM REQUIREMENTS ANALYST Gender Identity Not on file Sexual Orientation Not on file Last Filed Vital Signs Vital Sign Reading Time Taken Comments Blood Pressure 120/70 09/18/2009 1:44 PM REQUIREMENTS ANALYST Pulse 89 09/18/2009 1:44 PM REQUIREMENTS ANALYST Temperature 36.2 C (97.1 F) 06/19/2009 10:13 AM REQUIREMENTS ANALYST Respiratory Rate 20 06/19/2009 10:13 AM REQUIREMENTS ANALYST Oxygen Saturation 100% 09/18/2009 1:44 PM REQUIREMENTS ANALYST Inhaled Oxygen Concentration - - Weight 161.9 kg (357 lb) 09/18/2009 1:44 PM REQUIREMENTS ANALYST Height 167.6 cm (5' 6 ) 09/18/2009 1:44 PM REQUIREMENTS ANALYST Body Mass Index 57.62 09/18/2009 1:44 PM REQUIREMENTS ANALYST Plan of Treatment Health Maintenance Due Date [...] 2) 2020 INFLUENZA VACCINE (#1) 2025 Insurance [email or web address] [facility] Advance Directives For more information, please contact: [phone] * Full Code (Latest Code Status on File) Date Activated Date Inactivated Comments 05/13/2009 5:43 PM 05/18/2009 4:00 PM * Full Code Date Activated Date Inactivated Comments 05/13/2009 9:55 AM 05/13/2009 5:43 PM * Full Code Date Activated Date Inactivated Comments 05/13/2009 6:36 AM 05/13/2009 9:55 AM Care Teams Microbiology Supervisor Relationship Specialty Start Date End Date Non-Staff, Physician NO ADDRESS ON FILE PCP - General 05/07/09
--- OUTSIDE RECORDS SUMMARY | 2025-07-01 06:51 | XMS_ITS | Clinical Summary ---
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 Family History Medical History Relation [...] on file Legal Sex Female 4:55 AM CAPACITY ANALYST Gender Identity Not on file Sexual [...] 2020 INFLUENZA VACCINE (#1) 2025 Care Teams Shift Mechanic Relationship Specialty Start Date End Date Non-Staff, Physician NO ADDRESS ON FILE PCP - General 05/07/09
--- OUTSIDE RECORDS SUMMARY | 2025-07-01 06:51 | XMS_ITS | Patient Health Record ---
Author Organization [facility] Address [address] [facility] [place] [facility], [place] [address] Care Team Providers Care Cake Knocker Name Role Phone PARRIS DOSHI Primary Care Provider Luis Jimenez Jr [phone] Allergies Allergen (clinical drug ingredient) Drug/Non Drug Allergy documented on EMR Reaction Allergy Type Onset Date Status Latex Latex (uncoded) Unknown Allergy Acti ve hydromorphone Dilaudid Unknown Drug Allergy Act ace Iodinated contrast media (substance) Iodinated Contrast Media Unknown Drug Allergy Active tramadol traMADol Unknown Drug Allergy Active Reason For Referral No Information Medications Medication SIG (Take, Route, Frequency, Duration) Notes Start Date End Date Status Pravastatin Sodium 40 MG Oral; Duration: 90 Days Active Mounjaro 2.5 MG/0.5ML INJECT ONE SYRINGE UNDER THE SKIN ONCE WEEKLY Subcutaneous; Duration: 28 Days Active metFORMIN HCl 1000 MG TAKE 1 TABLET BY M OUTH TWICE DAILY WITH MEALS Oral; Duration: 90 Days Active HYDROcodone-Acetaminophen 10-325 MG Oral; Duration: 28 Days Acti ve PEG-3350/Electrolytes 236 GM Oral; Duration: 2 Days Active Plavix 75 MG 1 tablet Orally Once a day Active Metoprolol Tartrate 25 MG TAKE 1/2 (ONE- HALF) TABLET BY MOUTH ONCE DAILY Oral; Duration: 30 Days Active Levothyroxine Sodium 88 MCG Oral; Duration: 90 Days Active Social History Tobacco Use: Social History Observation Description Date Details (start date - stop date) Never Smoker NA - NA Tobacco Control (Standard) Question Answer Notes Tobacco use: Nonsmoker Additional Findings: Tobacco non-user Current no nsmoker Problems Problem Type SNOMED Code ICD Code Onset Dates Problem Status W/U Status Risk Notes Problem Diabetic peripheral neuropathy associated with type 2 diabetes mellitus (9623464034356) Type 2 diabetes mellitus with diabetic neuropathy, unspecified whether 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 control service representative insulin use (E11.40) Active confirmed Problem Lymphedema (333965120) Lymphedema (I89.0) Active confirmed Vital Signs Respiratory Rate 22 /min 04/30/2025 Height 64 in 04/30/2025 Weight 323 lbs 04/30/2025 BMI 55.44 kg/m2 04/30/2025 Encounters Encounter Location Date Provider Diagnosis [facility] [address] [place] [phone] 04/30/2025 Luis Jernigan Jr Type 2 diabetes mellitus with diabetic neuropathy, unspecified whether senior care insulin use E11.40 ; Tinea unguium B35.1 ; Pain in left toe(s) M79.675 ; Pain in right toe(s) M79.674 and Lymphedema I89.0 Assessments Encounter Date Diagnosis (ICD Code) Assessment Notes Treatment Notes Treatment Clinical Notes Section Notes 04/30/2025 Tinea unguium (ICD-10 - B35.1) Discussed diabetic foot care, routine foot care, and termite control service representative blood sugar control. Debridement of nails 1 through 5 bilateral down 2mm as close to normal thickness as possible using mechanical and manual means. Advised the patient on preventative care. Patient to apply topical antifungals to the nails. 04/30/2025 Type 2 diabetes mellitus with diabetic neuropathy, unspecified whether termite control service representative insulin use (ICD-10 - E11.40) Discussed treatment of neuropathy, including top.matheus and oral medications and laser therapy. Recommended vitamin B complex supplements. 04/30/2025 Pain in left toe(s) (ICD-10 - M79.675) 04/30/2025 Pain in right toe(s) (ICD-10 - M79.674) 04/30/2025 Lymphedema (ICD-10 - I89.0) Rx for compression socks. 04/30/2025 Other Plan Of Treatment Next Appt Details Provider Name:Luis Zelaya Jr, 07/16/2025 01:15:00 PM, [address], [place], [phone], Insurance Providers Payer Name Payer Address Payer Phone Subscriber Number Group Number Insured Name Patient Relationship to Insured Coverage Start Date Coverage End Date [facility] [address] [place] [phone] [id number] [facility] 0 MONSERRAT LORENZO Self - patient is the insured Medical (General) History Medical History History ICD Code Back Pain Cancer (CERVICAL) Heart Attack High Blood Pressure DIABETIC (TYPE 2) Basal Cell Carcinoma Surgical History Surgery Date(Month/Year) HEART STENTS
[2025-07-01 07:00] LABS: Hematocrit 38.9 % (36-47); Hemoglobin 12.10 g/dL (11.27-16.99); Mean Corpuscular HGB Conc 31.1 g/dL (30-55); Mean Corpuscular Hemoglobin 26.7 pg (27-33); Mean Corpuscular Volume 85.9 fl (85-98); Nucleated Red Blood Cells % 0 %; Platelet Count 270 10^3/cmm (157-399); Red Blood Count 4.53 10^6/uL (3.85-5.65); White Blood Count 9.43 10^3/uL (3.29-11.43)
--- NOTE | 2025-07-01 07:02 | ED_ITS ---
HPI - Allergic Reaction 2 General: Chief complaint: Allergic Reaction Stated complaint: allergic reaction to medication, trouble breathing Related Data Home Medications ?Medication ?Instructions ?Recorded ?Confirmed hydrocodone 10 mg-acetaminophen 1 tab PO QID PRN Pain 09/10/22 06/30/25 325 mg tablet metformin 1,000 mg tablet 1,000 mg PO BID 09/10/22 tirzepatide 2.5 mg/0.5 mL mg SUBCUT 10/13/24 06/30/25 subcutaneous pen injector (Migdalia) Previous Rx's ?Medication ?Instructions ?Recorded metoprolol succinate 25 mg 25 mg PO DAILY #30 tabs 03/31 tablet,extended release 24 hr atorvastatin 40 mg tablet 40 mg PO DAILY #90 tabs 01/29 levothyroxine 100 mcg capsule 100 mcg PO DAILY #90 cap s 02/11/23 famotidine 40 mg tablet (Pepcid) 40 mg PO BID #10 tabs 02/05/24 clopidogrel 75 mg tablet See Rx Instructions .Route 1 09/02/23 .COMPLEX #90 tabs magnesium citrate (Citrate of 296 ml PO DAILY #296 mL 07/09/24 Magnesia oral) tamsulosin 0.4 mg capsule 0.4 mg PO DAILY #14 caps 08/02 amoxicillin 875 mg-potassium 1 tab PO BID 10 days #20 tabs 06/30/25 clavulanate 125 mg tablet fluconazole 150 mg tablet 150 mg PO Q3D 3 days #2 tabs 06/30/25 Allergies Allergy/AdvReac Type Severity Reaction Status Date / Time bee venom protein (honey bee) Allergy Severe ALGY-Anaphy Verified 06/30/25 15:08 laxis hydromorphone (From Dilaudid) Allergy Severe ALGY-Difficulty Verified 06/30/25 15:08 Breathing Iodine and Iodide Containing Allergy Severe ALGY-Swell Verified 06/30/25 15:08 Produc Lip/Tongue/Throat tramadol Allergy Intermediate ADR-Nausea Verified 06/30/25 15:08 gabapentin AdvReac Intermediate RASH Verified 06/30/25 15:08 [facility] ED 2 PFSH: Medical History Clicking tinnitus of right ear Acquired hypothyroidism Atherosclerosis of coronary artery of [place] heart without angina pectoris Scleral ectasia of right eye Opioid contract exists Muscle spasm of back Status post extracorporeal shock wave therapy Urolithiasis HTN (hypertension) with goal to be determined Encounter for long-term use of opiate analgesic Chronic back pain Diabetes Surgical History Hx of umbilical hernia repair 01/12/22 lap poss open umbilical hernia S/P skin cancer resection Nose Hx of heart artery stent x 2 Hx of hysterectomy Total - due to endometrial CA. Family History Father Cancer Stroke Family/Other Cancer Grandmother Diabetes Sister Diabetes Brother Diabetes Sister Diabetes Denies family history of CAD (coronary artery disease) Clotting disorder Dementia Chronic kidney disease (CKD) Suicide Anesthesia complication Bleeding disorder Lung disease Social History Smoking and tobacco/nicotine status: never used tobacco/nicotine Second hand smoke exposure: No Alcohol intake: never Substance/Drug Use: never Adopted: No Caregiver/support person: No Lives independently: No Household members: spouse Marital status: Current occupational status: disabled Course 2 Vital Signs: Vital signs: Vital Signs Temperature 98.1 F 07/01/25 06:47 Pulse Rate 84 07/01/25 06:47 Respiratory Rate 16 07/01/25 06:47 Blood Pressure 173/83 07/01/25 06:47 Pulse Oximetry 97 07/01/25 06:47 Oxygen Delivery Me thod Room Air 07/01/25 06:47 MDM - Allergic Reaction Lab Data 07/01/25 06:52 07/01/25 06:52 Laboratory Results WBC 9.43 10^3/uL (3.29-11.43) 07/01/25 06:52 RBC 4.53 10^6/uL (3.85-5.65) 07/01/25 06:52 Hgb 12.10 g/dL (11.27-16.99) 07/01/25 06:52 Hct 38.9 % (36-47) 07/01/25 06:52 MCV 85.9 fl (85-98) 07/01/25 06:52 MCH 26.7 pg (27-33) L 07/01/25 06:52 MCHC 31.1 g/dL (30-55) 07/01/25 06:52 RDW 14.6 % (12.1-15.1) 07/01/25 06:52 Plt Count 270 10^3/cmm (157-399) 07/01/25 06:52 MPV 10.9 fL (7.4-10.4) H 07/01/25 06:52 Neut % (Auto) 63.5 % 07/01/25 06:52 Lymph % (Auto) 28.2 % 07/01/25 06:52 [place] % (Auto) 6.0 % 07/01/25 06:52 Eos % (Auto) 1.7 % 07/01/25 06:52 Baso % (Auto) 0.4 % 07/01/25 06:52 Neut # (Auto) 5.98 10^3/uL (1.8-7.7) 07/01/25 06:52 Lymph # (Auto) 2.7 10^3/uL (0.8-4.8) 07/01/25 06:52 [place] # (Auto) 0.6 10^3/uL (0.2-0.9) 07/01/25 06:52 Eos # (Auto) 0.2 10^3/uL (0.0-0.8) 07/01/25 06:52 Baso # (Auto) 0.0 10^3/uL (0.0-0.1) 07/01/25 06:52 Nucleated RBC % (auto) 0 % 07/01/25 06:52 Nucleated RBCs # 0.0 /100WBC 07/01/25 06:52 Discharge Plan Discharge Condition: Stable Prescriptions: No Action famotidine [Pepcid] 40 mg tablet 40 mg PO BID Qty: 10 0RF Mounjaro 2.5 mg/0.5 mL pen injector SUBCUT fluconazole 150 mg tablet 150 mg PO Q3D 3 Days Qty: 2 0RF amoxicillin-pot clavulanate 875-125 mg tablet 1 tab PO BID 10 Days Qty: 20 0RF atorvastatin 40 mg tablet 40 mg PO DAILY Qty: 90 0RF levothyroxine 100 mcg capsule 100 mcg PO DAILY MDD in the morning without food Qty: 90 0RF clopidogrel 75 mg tablet See Rx Instructions .ROUTE .COMPLEX Qty: 90 3RF Dose Instruction: Take 1 tablet by mouth once daily Rx Instructions: Take 1 tablet by mouth once daily metoprolol succinate 25 mg tablet extended release 24 hr 25 mg PO DAILY Qty: 30 0RF hydrocodone-acetaminophen 10-325 mg tablet 1 tab PO QID PRN (Reason: Pain) metformin 1,000 mg tablet 1,000 mg PO BID magnesium citrate [Citrate of Magnesia] Solution 296 ml PO DAILY Qty: 296 0RF tamsulosin 0.4 mg capsule 0.4 mg PO DAILY Qty: 14 0RF Referrals: Emili Barrera APRN [Primary Care Provider] Patient Instructions: Food Allergy (ED), Allergies (ED), Blood Transfusion Reactions (ED), Adverse Drug Reaction (ED) Print Language: Estonian Coding Level of Care Code ED Modern Greek Studies Professor for Glenn Zuniga
[2025-07-01 07:19] LABS: Alanine Aminotransferase 12 U/L (0-33); Albumin Level 4.3 g/dL (3.5-5.2); Alkaline Phosphatase 89 U/L (35-105); Blood Urea Nitrogen 13 mg/dL (6-20); Calcium 9.5 mg/dL (8.5-10.5); Carbon Dioxide 26 mmol/L (22-29); Chloride 104 mmol/L (98-107); Globulin 2.9 g/dL (1.3-4.6); Glucose 157 mg/dL (65-115); Osmolality Calculated 295 mOsm/kg (285-295); Sodium 141 mmol/L (136-145); Total Protein 7.2 g/dL (6.6-8.7)
[2025-07-01 07:20] LABS: Anion Gap 15.8 (5-19); Aspartate Amino Transferase 16 U/L (0-32); Potassium 4.8 mmol/L (3.5-5.1)
--- NOTE | 2025-07-01 07:24 | ED_ITS ---
HPI - Allergic Reaction 2 General: Chief complaint: Allergic Reaction Stated complaint: allergic reaction to medication, trouble breathing History of Present Illness: HPI narrative: 54-year-old female with a history of lydia betes, obesity, hypertension, hyperlipidemia, peripheral neuropathy, coronary artery disease, depression and PTSD and chronic pain syndrome on hydrocodone therapy who presents to the emergency room with nasal congestion and dry cough. She thinks this is secondary to her lisinopril. She says she is having some difficulty breathing. No throat swelling. No chest pain. No abdominal pain. No vomiting. No fever. No oxygen requirement Related Data Home Medications ?Medication ?Instructions ?Recorded ?Confirmed hydrocodone 10 mg-acetaminophen 1 tab PO QID PRN Pain 09/10/22 07/01/25 325 mg tablet metformin 1,000 mg tablet 1,000 mg PO BID 09/10/22 tirzepatide 2.5 mg/0.5 mL 2.5 mg SUBCUT Q7D 10/13/24 1 08/31/24 subcutaneous pen injector (Migdalia) metoprolol tartrate 25 mg tablet 12.5 mg PO DAILY 06/1007/01/25 pravastatin 40 mg tablet 40 mg PO DAILY 07/01/2506/10 Previous Rx's ?Medication ?Instructions ?Recorded levothyroxine 100 mcg capsule 100 mcg PO DAILY #90 cap s 02/11/23 clopidogrel 75 mg tablet See Rx Instructions .Route 1 09/02/23 .COMPLEX #90 tabs amoxicillin 875 mg-potassium 1 tab PO BID 10 days #20 tabs 06/30/25 clavulanate 125 mg tablet fluconazole 150 mg tablet 150 mg PO Q3D 3 days #2 tabs 06/30/25 Allergies Allergy/AdvReac Type Severity Reaction Status Date / Time bee venom protein (honey bee) Allergy Severe ALGY-Anaphy Verified 06/30/25 15:08 laxis hydromorphone (From Dilaudid) Allergy Severe ALGY-Difficulty Verified 06/30/25 15:08 Breathing Iodine and Iodide Containing Allergy Severe ALGY-Swell Verified 06/30/25 15:08 Produc Lip/Tongue/Throat tramadol Allergy Intermediate ADR-Nausea Verified 06/30/25 15:08 gabapentin AdvReac Intermediate RASH Verified 06/30/25 15:08 Review of Systems 2 Narrative: Constitutional symptoms: Negative except as documented in HPI. Skin symptoms: Negative except as documented in HPI. Eye symptoms: Negative except as documented in HPI. ENMT symptoms: Negative except as documented in HPI. Respiratory symptoms: Negative except as documented in HPI. Cardiovascular symptoms: Negative except as documented in HPI. Gastrointestinal symptoms: Negative except as documented in HPI. Genitourinary symptoms: Negative except as documented in HPI. Musculoskeletal symptoms: Negative except as documented in HPI. Neurologic symptoms: Negative except as documented in HPI. Psychiatric symptoms: Negative except as documented in HPI. Endocrine symptoms: Negative except as documented in HPI. PFSH ED 2 PFSH: Medical History (Updated 07/01/25 @ 07:39 by Yadira Newton MD) Clicking tinnitus of right ear Acquired hypothyroidism Atherosclerosis of coronary artery of [place] heart without angina pectoris Scleral ectasia of right eye Opioid contract exists Muscle spasm of back Status post extracorporeal shock wave therapy Urolithiasis HTN (hypertension) with goal to be determined Encounter for long-term use of opiate analgesic Chronic back pain Diabetes Surgical History Hx of umbilical hernia repair 01/12/22 lap poss open umbilical hernia S/P skin cancer resection Nose Hx of heart artery stent x 2 Hx of hysterectomy Total - due to endometrial CA. Family History Father Cancer Stroke Family/Other Cancer Grandmother Diabetes Sister Diabetes Brother Diabetes Sister Diabetes Denies family history of CAD (coronary artery disease) Clotting disorder Dementia Chronic kidney disease (CKD) Suicide Anesthesia complication Bleeding disorder Lung disease Social History Smoking and tobacco/nicotine status: never used tobacco/nicotine Second hand smoke exposure: No Alcohol intake: never Substance/Drug Use: never Adopted: No Caregiver/support person: No Lives independently: No Household members: spouse Marital status: Current occupational status: disabled Physical Exam 2 Narrative: EXAM NARRATIVE: General: Alert, no acute distress. Skin: Warm, dry. Head: Normocephalic, atraumatic. Neck: Supple, trachea midline. Eye: Extraocular movements are intact. Ears, nose, mouth and throat: mucosa moist. Cardiovascular: Regular, Normal peripheral perfusion. Respiratory: Lungs are clear to auscultation, respirations are non-labored, breath sounds are equal, Symmetrical chest wall expansion. Gastrointestinal: Soft, Nontender, Non distended Musculoskeletal: Normal ROM, no deformity. Neurological: Alert and oriented, No focal neurological deficit observed. Psychiatric: Cooperative, appropriate mood & affect. Course 2 Vital Signs: Vital signs: Vital Signs Temperature 98.1 F 07/01/25 06:47 Pulse Rate 67 07/01/25 08:22 Respiratory Rate 16 07/01/25 06:47 Blood Pressure 166/106 07/01/25 08:22 Pulse Oximetry 98 07/01/25 08:22 Oxygen Delivery Me thod Room Air 07/01/25 06:47 MDM - Allergic Reaction Medical Decision Making Medical decision making Patient's reason for coming to the emergency room: Congestion, cough, concern for medication reaction Social determinants: Patient is disabled I reviewed the patient's medical record. 54-year-old female with a history of diabetes, obesity, hypertension, hyperlipidemia, peripheral neuropathy, coronary artery disease, depression and PTSD and chronic pain syndrome on hydrocodone therapy I reviewed the patient's current home meds Reviewed prescription monitoring. Patient is on hydrocodone 10 mg 3-4 times a day Alternate historians: None Differential diagnosis for patient with shortness of breath includes but is not limited to and based on the above HPI, review of systems and physical exam: Pneumonia. Bronchitis. Asthma or COPD with acute exacerbation. Acute coronary syndrome / CO. Pulmonary embolism. Anxiety. Congestive heart failure. Viral infections including influenza and Covid-19. Atrial fibrillation. Anxiety. Pleural effusion. Pneumothorax. Orders placed to evaluate differential diagnosis based on the above differential, HPI and physical exam Chest x-ray: No acute process. No infiltrate. No pneumothorax. This was reviewed and interpreted by myself the emergency room physician. I also reviewed the radiology report. Flu COVID and RSV are negative Lab Review: Laboratory results were reviewed and interpreted by myself the emergency room physician. No leukocytosis. No anemia. No renal failure. Assessment of risk: Level of risk: High risk patient. Multiple comorbidities. Hospitalization considerations: No indication for hospitalization today. Reexamination: Patient remained stable. No increased work of breathing. No altered mental status. No focal motor deficits. Assessment and plan: Allergic rhinitis ?Single dose of Decadron here. Recommended home allergy medications. Discussed with her doctor if she thinks lisinopril is the culprit of this but this is not typical for that kind of reaction. - Discharged home - Discussed plan with patient. Answered any questions. - Evaluation and treatment of this problem were appropriate in the emergency setting. Lab Data 07/01/25 06:52 07/01/25 06:52 Radiology Impressions Chest X-Ray 07/01/25 06:50 IMPRESSION: No acute findings. Laboratory Results WBC 9.43 10^3/uL (3.29-11.43) 07/01/25 06:52 RBC 4.53 10^6/uL (3.85-5.65) 07/01/25 06:52 Hgb 12.10 g/dL (11.27-16.99) 07/01/25 06:52 Hct 38.9 % (36-47) 07/01/25 06:52 MCV 85.9 fl (85-98) 07/01/25 06:52 MCH 26.7 pg (27-33) L 07/01/25 06:52 MCHC 31.1 g/dL (30-55) 07/01/25 06:52 RDW 14.6 % (12.1-15.1) 07/01/25 06:52 Plt Count 270 10^3/cmm (157-399) 07/01/25 06:52 MPV 10.9 fL (7.4-10.4) H 07/01/25 06:52 Neut % (Auto) 63.5 % 07/01/25 06:52 Lymph % (Auto) 28.2 % 07/01/25 06:52 [place] % (Auto) 6.0 % 07/01/25 06:52 Eos % (Auto) 1.7 % 07/01/25 06:52 Baso % (Auto) 0.4 % 07/01/25 06:52 Neut # (Auto) 5.98 10^3/uL (1.8-7.7) 07/01/25 06:52 Lymph # (Auto) 2.7 10^3/uL (0.8-4.8) 07/01/25 06:52 [place] # (Auto) 0.6 10^3/uL (0.2-0.9) 07/01/25 06:52 Eos # (Auto) 0.2 10^3/uL (0.0-0.8) 07/01/25 06:52 Baso # (Auto) 0.0 10^3/uL (0.0-0.1) 07/01/25 06:52 Nucleated RBC % (auto) 0 % 07/01/25 06:52 Nucleated RBCs # 0.0 /100WBC 07/01/25 06:52 Sodium 141 mmol/L (136-145) 07/01/25 06:52 Potassium 4.8 mmol/L (3.5-5.1) 07/01/25 06:52 Chloride 104 mmol/L (98-107) 07/01/25 06:52 Carbon Dioxide 26 mmol/L (22-29) 07/01/25 06:52 Anion Gap 15.8 (5-19) 07/01/25 06:52 BUN 13 mg/dL (6-20) 07/01/25 06:52 Creatinine 0.5 mg/dL (0.5-0.9) 07/01/25 06:52 GFR Calculation 128.6 mL/min (90-130) 07/01/25 06:52 Glucose 157 mg/dL (65-115) H 07/01/25 06:52 Calculated Osmolality 295 mOsm/kg (285-295) 07/01/25 06:52 Calcium 9.5 mg/dL (8.5-10.5) 07/01/25 06:52 Total Bilirubin 0.4 mg/dL (0.15-1.2) 07/01/25 06:52 AST 16 U/L (0-32) 07/01/25 06:52 ALT 12 U/L (0-33) 07/01/25 06:52 Alkaline Phosphatase 89 U/L (35-105) 07/01/25 06:52 Total Protein 7.2 g/dL (6.6-8.7) 07/01/25 06:52 Albumin 4.3 g/dL (3.5-5.2) 07/01/25 06:52 Globulin 2.9 g/dL (1.3-4.6) 07/01/25 06:52 Influenza A (PCR) Negative (Negative) 07/01/25 06:52 Influenza Type B (PCR) Negative (Negative) 07/01/25 06:52 RSV (PCR) Negative (Negative) 07/01/25 06:52 SARS-CoV-2 (PCR) Negative (Negative) 07/01/25 06:52 All radiology interpretation(s) finalized by discharge Discharge Plan Discharge Patient Disposition: Home Clinical Impression: Head congestion, Cough Condition: Stable Prescriptions: No Action Mounjaro 2.5 mg/0.5 mL pen injector 2.5 mg SUBCUT Q7D fluconazole 150 mg tablet 150 mg PO Q3D 3 Days Qty: 2 0RF amoxicillin-pot clavulanate 875-125 mg tablet 1 tab PO BID 10 Days Qty: 20 0RF levothyroxine 100 mcg capsule 100 mcg PO DAILY MDD in the morning without food Qty: 90 0RF clopidogrel 75 mg tablet See Rx Instructions .ROUTE .COMPLEX Qty: 90 3RF Dose Instruction: Take 1 tablet by mouth once daily Rx Instructions: Take 1 tablet by mouth once daily pravastatin 40 mg tablet 40 mg PO DAILY metoprolol tartrate 25 mg tablet 12.5 mg PO DAILY hydrocodone-acetaminophen 10-325 mg tablet 1 tab PO QID PRN (Reason: Pain) metformin 1,000 mg tablet 1,000 mg PO BID Discharge Orders: Discharge ED (Routine); Ordered 07/01/25 Ordered By: Yadira Newton Referrals: Emili Barrera APRN [Primary Care Provider] Discharge Diet: Usual diet Discharge Activity: Increase activity as tolerated Patient Instructions: Allergies (ED), Opioid Safety, Pain Management, Patient Portal & Shea Instructions Activity Restrictions/Additional Instructions: Thank you for choosing [facility] for your healthcare needs today. You have been screened and evaluated and felt safe for discharge. Health conditions do change or evolve sometimes and as such it is important that you follow up with your Primary Doctor to be re checked, 3-5 days is a general good time frame for follow up. You are always welcome to return to the ED for re assessment if your symptoms are worsening or you have new concerns Print Language: [place] Islander Coding Level of Care Code ED Heeler Machine for Glenn Zuniga
[2025-07-01 07:38] LABS: Respiratory Syncytial Virus Ce NEGATIVE (Negative); SARS-CoV-2 PCR NEGATIVE (Negative)
[2025-07-01 08:22] VITALS: BP 166/106; PULSE 67; O2SAT 98
== END 2025-07-01 08:23 | disposition home or self-care (01) ==
PROVIDERS: Emergency Provider Emergency Medicine; PCP Nurse Practitioner Family
DX: R09.81 Nasal congestion (principal); R05.9 Cough, unspecified; Z11.52 Encounter for screening for COVID-19; Z79.02 Long term (current) use of antithrombotics/antiplatelets; Z79.84 Long term (current) use of oral hypoglycemic drugs; I25.10 Atherosclerotic heart disease of native coronary artery without angina pectoris; E11.9 Type 2 diabetes mellitus without complications; I10 Essential (primary) hypertension
CPT/HCPCS: 71045; 80053; 85025; 87637; 96374; 99284; J1100

== ENCOUNTER 2025-07-30 19:11 | Emergency (ER) | payer MEDICARE, SELFPAY ==
[2020-01-11 11:16] VITALS: BP 150/85; BMI 53.7
--- OUTSIDE RECORDS SUMMARY | 2024-11-27 11:00 | XMS_ITS ---
Author Organization [facility] Address [address] [facility] [place] [address] Care Team Providers Care Strap Machine Operator Name Role Phone Emili Bro Primary Care Provider Unavail able MAXIMILIANO WADDELL Unavailable [phone] ARNOLDO TELLO Unavailable [phone] REASON FOR VISIT 3 wks w/ ua/kub/christina Encounters Encounter Location Date Provider Diagnosis [facility] [address] [place] [address] 11/27/2024 ARNOLDO TELLO Plan Of Treatment Next Appt Details Provider Name:JADEN LAST, 0 01/28/2026 02:00:00 PM, [address] [place], [address], Progress Notes * Fatou KHANNA LDOB: (55 yo F)Acc No.[id number]:11/27/2024 Progress Notes Patient: Dominic HALE Fatou Shahida Provider: Rhonda Tello APRN :1970 A ge:54 Y S ex:Female Date:11/27/2024 Address:[facility] [address] [id number] Pcp:BRET Devlin Subjective: * Chief Complaints: * 1 . 3 wks w/ ua/kub/christina. * Medical History: Objective: * Vitals: Assessment: Plan: * Treatment: * Billing Information: * Visit Code: * Procedure Codes: * Electronic signature of KIMBERLY TELLO APRN on 07/30/2025 at 07:15 PM SALES AND RETAIL MANAGEMENT RECRUITER Sign off status: Pending * Provider: Rhonda Tello APRN Date: 0 11/27/2024 Generated for Terri garsia/Lucia/Timi on: 1 09/30/2024 07:15 PM SALES AND RETAIL MANAGEMENT RECRUITER
--- OUTSIDE RECORDS SUMMARY | 2025-04-23 07:15 | XMS_ITS ---
Author Organization [facility] Address [address] [place] [address] Care Team Providers Care Export Manager Name Role Phone Freddy Phan DO Primary Care Provider Avi Abrams Unavailable [phone] D[address]-C[address] CLERK-C, Emili Unavailable Unavailable Sy Gama Unavailable [phone] REASON FOR VISIT HTN, DM2, HLD per Emili December- 03/21/25 Encounters Encounter Location Date Provider Diagnosis [facility] [address] [place] [address], [place] [address] 04/23/2025 Sy Gama Plan Of Treatment Next Appt Details Provider Name:Desire singer, 08/20/2025 02:15:00 PM, [address] [place], [address], Provider Name:Avi Bourgeois, 08/29/2025 11:00:00 AM, [address] [place], [address], Progress Notes * MONSERRAT HILL LDOB: (55 yo F)Acc No.[id number]:04/23/2025 Progress Notes Patient: MONSERRAT OSMAN Provider: Jose Gama M.D. :1970 A ge:54 Y S ex:Female Date:04/23/2025 Address:[address] [place] [address] [facility], [id number] Pcp:Freddy Phan DO Subjective: * Chief Complaints: * H TN, DM2, HLD per Emili December- 03/21/25 * Surgical History: heart surgery stents cancer on nose hysterectomy Kidney stones and stents hernia surgery MESH * Hospitalization/Major Diagno stic Procedure: see surgery history Billing Information: * Procedure Codes: * Electronic signature of Sy Gama MD on 07/30/2025 at 07:14 PM FUNERAL WORKERS Sign off status: Pending * Provider: Jose Gama M.D. Date: 0 04/23/2025 Generated for Terri garsia/Lucia/Timi on: 09/30/2024 07:14 PM FUNERAL WORKERS
--- OUTSIDE RECORDS SUMMARY | 2025-06-01 04:45 | XMS_ITS ---
Author Organization [facility] Address [address] [place] [address] Care Team Providers Care Lecturer Of Portuguese Name Role Phone Freddy Phan DO Primary Care Provider Avi Abrams Unavailable [phone] December DNP-PASSENGER CONDUCTOR-C, Emili Unavailable Unavailable Sy Gama Unavailable [phone] REASON FOR VISIT HTN, DM2, HLD per Emili December- 03/21/25 Encounters Encounter Location Date Provider Diagnosis [facility] [address] [place] [address], [place] [address] 06/01/2025 Sy Gama Plan Of Treatment Next Appt Details Provider Name:Desire singer, 08/20/2025 02:15:00 PM, [address] [place] [address], [place], [address], Provider Name:Avi Bourgeois, 08/29/2025 11:00:00 AM, [address] [place], [address], Progress Notes * MONSERRAT HILL LDOB: (55 yo F)Acc No.[id number]:06/01/2025 Progress Notes Patient: MONSERRAT OSMAN Provider: Jose Gama M.D. :1970 A ge:54 Y S ex:Female Date:06/01/2025 Address:[address] [place] [address] [facility] [id number] Pcp:Freddy Phan DO Subjective: * Chief Complaints: * H TN, DM2, HLD per Emili December- 03/21/25 * Electronic signature of Sy Gama MD on 07/30/2025 at 07:14 PM APPEALS MANAGER Sign off status: Pending * Provider: Jose Gama M.D. Date: Generated for Terri garsia/Lucia/Noemiitting on: 09/30/2024 07:14 PM APPEALS MANAGER
--- OUTSIDE RECORDS SUMMARY | 2025-06-15 04:45 | XMS_ITS ---
Author Organization [facility] Address [address] [place] [address] Care Team Providers Care Bed And Breakfast Operator Name Role Phone Freddy Phan DO Primary Care Provider Avi Abrams Unavailable [phone] December DNP-INFORMATION ASSURANCE MANAGER-C, Emili Unavailable Unavailable Sy Gama Unavailable [phone] REASON FOR VISIT HTN, DM2, HLD per Emili December- 03/21/25 Encounters Encounter Location Date Provider Diagnosis [facility] [address] [place] [address], [place] [address] 06/15/2025 Sy Gama Plan Of Treatment Next Appt Details Provider Name:Desire singer, 08/20/2025 02:15:00 PM, [address] [place], [address], Provider Name:Avi Bourgeois, 08/29/2025 11:00:00 AM, [address] [place], [address], Progress Notes * MONSERRAT HILL LDOB: (55 yo F)Acc No.[id number]:06/15/2025 Progress Notes Patient: MONSERRAT OSMAN Provider: Jose Gama M.D. :1970 A ge:54 Y S ex:Female Date:06/15/2025 Address:[address] [place] [address] [facility] [id number] Pcp:Freddy Phan DO Subjective: * Chief Complaints: * H TN, DM2, HLD per Emili December- 03/21/25 * Electronic signature of Sy Gama MD on 07/30/2025 at 07:14 PM MARKETING SERVICES COORDINATOR Sign off status: Pending * Provider: Jose Gama M.D. Date: 08/15/2024 Generated for Terri garsia/Lucia/Noemiitting on: 09/30/2024 07:14 PM MARKETING SERVICES COORDINATOR
--- OUTSIDE RECORDS SUMMARY | 2025-07-09 08:00 | XMS_ITS ---
Author Organization [facility] Address [address] [place] [address] Care Team Providers Care Airbrush Artist Name Role Phone Freddy Phan DO Primary Care Provider Avi Abrams [phone] December DNP-SOW FARM BARN TECHNICIAN-C, Emili Unavailable Unavailable Desire Hancock Unavailable [phone] REASON FOR VISIT HTN, DM2, HLD per Emili December- 03/21/25 Encounters Encounter Location Date Provider Diagnosis [facility] [address] [place] [address], [place] [address] 07/09/2025 Desire Hancock Plan Of Treatment Next Appt Details Provider Name:Desire singer, 08/20/2025 02:15:00 PM, [address] [place] [address], [place], [address], Provider Name:Avi Bourgeois, 08/29/2025 11:00:00 AM, [address] [place], [address], Progress Notes * MONSERRAT HILL LDOB: (55 yo F)Acc No.[id number]:07/09/2025 Progress Notes Patient: MONSERRAT OSMAN Provider: Marly Hancock MD :1970 A ge:54 Y S ex:Female Date:07/09/2025 [address] [facility] [id number] Pcp:Freddy Phan DO Subjective: * Chief Complaints: * H TN, DM2, HLD per Emili December- 03/21/25 * Surgical History: heart surgery stents cancer on nose hysterectomy Kidney stones and stents hernia surgery MESH * Hospitalization/Major Diagno stic Procedure: see surgery history Billing Information: * Procedure Codes: * Electronic signature of Lexy Hancock MD on 07/30/2025 at 07:14 PM PRODUCTION STATISTICAL CLERK Sign off status: Pending * Provider: Marly Hancock MD Date: 09/09/2024 Generated for Terri garsia/Lucia/Lonniesmitting on: 09/30/2024 07:14 PM PRODUCTION STATISTICAL CLERK
[2025-07-30] VITALS (8 sets, daily range): BP systolic 133–171; BP diastolic 64–107; PULSE 70–86; RESP 17; TEMP 36.4; O2SAT 96–100; BMI 53.2
--- OUTSIDE RECORDS SUMMARY | 2025-07-30 19:14 | XMS_ITS | Encounter Summary ---
Author Organization [facility], [facility] Address [address] [facility] [address] [place] [address] Phone Care Team Providers Care Violent Crimes Detective Name Role Phone Unavailable Primary Care Provider Unavailabl e Encounter Details Date Type Department Care Team (Late st Contact Info) Description 11/04/2022 [facility] [employer] [employer] [address] [facility] [address] [place] [address] Renal colic Social History Tobacco [...]
--- OUTSIDE RECORDS SUMMARY | 2025-07-30 19:14 | XMS_ITS | Patient Health Record ---
Author Organization [facility] Address [address] [place] [address] Care Team Providers Care Flight Operation Coordinator Name Role Phone December Emili QUEEN Primary Care Provider Unavail able MAXIMILIANO WADDELL Unavailable [phone] ARNOLDO TELLO Unavailable [phone] JADEN LAST Unavailable [phone] Allergies Allergen (clinical drug ingredient) Drug/Non Drug Allergy documented on EMR Reaction Allergy Type Onset Date Status hydromorphone Dilaudid Unknown Drug Allergy Act ace Bee Sting Unknown Allergy Active Iodinated contrast media (substance) Iodinated Diagnostic Agents Unknown Drug Allergy Active Tape Unknown Allergy Active Results Component Value Reference Range Notes US Renal--52079 Reviewed date:01/23/2025 08:17:29 AM Interpretation: Performing Lab: Notes/Report: See Below For Report US Renal Read See Below For Report zzzAbdomen AP Reviewed date:01/22/2025 04:07:29 PM Interpretation: Performing Lab: Notes/Report: See Below For Report Abdomen AP Read See Below For Report Urinalysis, Routine Reviewed date:01/22/2025 01:54:10 PM Interpretation: Performing Lab: Notes/Report: Urine-Color yellow Appearance clear Glucose - Bilirubin - Ketones - Specific [place] [employer] 1.010 Occult Blood - pH 6.0 Urine Protein - Urobilinogen,Semi-Qn - Nitrite, Urine - WBC Esterase - Urinalysis, Routine Reviewed date:10/09/2024 01:49:45 PM Interpretation: Performing Lab: Notes/Report: Urine-Color yellow Appearance clear Glucose - Bilirubin - Ketones - Specific [place] [employer] 1.030 Occult Blood - pH 6.0 Urine [...] Problem Type II diabetes mellitus without complication (187716205) Type 2 diabetes mellitus not at goal (E11.9) Active confirmed Problem Calculus of kidney and ureter (213272030) Calculus of kidney and ureter (N20.2) Active confirmed Problem Kidney stone (96491875) Bilateral nephrolithiasis (N20.0) Active confirmed Problem Kidney stone (25462329) Kidney stone (N20.0) Active confirmed Vital Signs Heart Rate 70 /min 10/09/2024 Blood pressure diastolic 78 mm Hg 10/09/2024 Height-cm 162.56 cm 01/22/2025 Weight-kg 147.42 kg 01/22/2025 Height 64 in 01/22/2025 Blood pressure systolic 119 mm Hg 10/09/2024 Weight 325 lbs 01/22/2025 BMI 55.78 kg/m2 01/22/2025 Encounters Encounter Location Date Provider Diagnosis [email or web address] [address] [place] [address] 10/09/2024 JADEN LAST Calculus of kidney a nd ureter N20.2 ; Chronic constipation K59.09 and Type 2 diabetes mellitus not at goal E11.9 [email or web address] [address] [place] [address] 01/22/2025 JADEN LAST Chronic constipation K59.09 ; Nephrolithiasis N20.0 and Type 2 diabetes mellitus not at goal E11.9 [facility], [facility] [address] [place] [address] 09/11/2024 JADEN LAST Assessments Encounter Date Diagnosis [...] Urete r, bladder 10/09/2024 Renal Ultrasound [facility]IUSZ [id number] 10/09/2024 Next Appt Details Provider Name:JADEN LAST, 0 01/28/2026 02:00:00 PM, [address] [place], [address], Insurance Providers Payer Name Payer Address Payer Phone Subscriber Number Group Number Insured Name Patient Relationship to Insured Coverage Start Date Coverage End Date [place] Medicare Replacement [address] [place], [place] [id number] Fatou Sarah Self - patient is the insured Medical (General) History Medical History History ICD Code kidney stone anxiety depression diabetes urinary tract infections myocardial infarction uterine cancer Surgical History Surgery Date(Month/Year) kidney stone removals (2008 - 2015) Hernia repair hysterectomy ESW[facility] Hospitalization History Reason Date(Month/Year) see prior sx hx
--- OUTSIDE RECORDS SUMMARY | 2025-07-30 19:14 | XMS_ITS | Clinical Summary ---
Author Organization [facility] Facility Address [address] [place] [address] Care Team Providers Care Roof Painter Name Role Phone Unavailable Primary Care Provider [...] Vaccine (#1) [address] [place] [id number] Lisandro MARTEL Dual Snp
--- NOTE | 2025-07-30 19:15 | W.ED.GENADLT ---
HPI - General Adult General: Chief complaint: Headache Stated complaint: Dizzy, DUGAN, Light headed, Issues with BP Time Seen by Provider: 07/30/25 19:12 History of Present Illness: 55-year-old female presents emergency room complaining of dizziness lightheadedness elevated blood pressure. States they have been working with her blood pressure medicine slightly gets her blood pressure been high she noticed when she first stands up like when she got off the toilet today she had a transient episode of lightheadedness and dizziness. There is no loss of consciousness. She denied any difficulty speech or swallowing or gait when she gets the dizziness episodes she will have brief episodes of feeling unsteady on her feet and a little bit of blurry vision that usually passes spontaneously she has no symptoms at all now. No chest pain. She did rather recently started on Mounjaro for weight loss Associated symptoms: Deny chest pain, dyspnea or rash Related Data Home Medications ?Medication ?Instructions ?Recorded ?Confirmed hydrocodone 10 mg-acetaminophen 1 tab PO QID PRN Pain 09/10/22 07/01/25 325 mg tablet metformin 1,000 mg tablet 1,000 mg PO BID 09/10/22 07/01/25 tirzepatide 2.5 mg/0.5 mL 2.5 mg SUBCUT Q7D 10/13/24 07/01/25 subcutaneous pen injector (Mounjaro) metoprolol tartrate 25 mg tablet 12.5 mg PO DAILY 07/01/25 07/01/25 pravastatin 40 mg tablet 40 mg PO DAILY 07/01/25 07/01/25 Previous Rx's ?Medication ?Instructions ?Recorded levothyroxine 100 mcg capsule 100 mcg PO DAILY #90 caps 02/11/23 clopidogrel 75 mg tablet See Rx Instructions .Route 07/03/24 .COMPLEX #90 tabs amoxicillin 875 mg-potassium 1 tab PO BID 10 days #20 tabs 06/30/25 clavulanate 125 mg tablet fluconazole 150 mg tablet 150 mg PO Q3D 3 days #2 tabs 06/30/25 losartan 50 mg tablet 50 mg PO DAILY #30 tabs 07/30/25 metoprolol succinate 25 mg 25 mg PO DAILY #30 tabs 07/30/25 tablet,extended release 24 hr (Toprol XL) Allergies Allergy/AdvReac Type Severity Reaction Status Date / Time bee venom protein (honey bee) Allergy Severe ALGY-Anaphy Verified 07/30/25 19:22 laxis hydromorphone (From Dilaudid) Allergy Severe ALGY-Difficulty Verified 07/30/25 19:22 Breathing Iodine and Iodide Containing Allergy Severe ALGY-Swell Verified 07/30/25 19:22 Produc Lip/Tongue/Throat tramadol Allergy Intermediate ADR-Nausea Verified 07/30/25 19:22 gabapentin AdvReac Intermediate RASH Verified 07/30/25 19:22 Review of Systems Const: Denies: fever(s) or chills Card: Denies: chest pain Resp: Denies: dyspnea GI: Denies: abdominal pain : Denies: dysuria, urinary frequency or urinary urgency Musc: Denies: neck pain or back pain Skin/Breast: Denies: rash PFSH ED PFSH: Medical History Clicking tinnitus of right ear Acquired hypothyroidism Atherosclerosis of coronary artery of [place] heart without angina pectoris Scleral ectasia of right eye Opioid contract exists Muscle spasm of back Status post extracorporeal shock wave therapy Urolithiasis HTN (hypertension) with goal to be determined Encounter for long-term use of opiate analgesic Chronic back pain Diabetes Surgical History Hx of umbilical hernia repair 01/12/22 lap poss open umbilical hernia S/P skin cancer resection Nose Hx of heart artery stent x 2 Hx of hysterectomy Total - due to endometrial CA. Family History Father Cancer Stroke Family/Other Cancer Grandmother Diabetes Sister Diabetes Brother Diabetes Sister Diabetes Denies family history of CAD (coronary artery disease) Clotting disorder Dementia Chronic kidney disease (CKD) Suicide Anesthesia complication Bleeding disorder Lung disease Social History Smoking and tobacco/nicotine status: never used tobacco/nicotine Second hand smoke exposure: No Alcohol intake: never Substance/Drug Use: never Adopted: No Caregiver/support person: No Lives independently: No Household members: spouse Marital status: Current occupational status: disabled Physical Exam Const: GENERAL APPEARANCE: cooperative ORIENTATION/CONSCIOUSNESS: Yes awake, Yes oriented to person, Yes oriented to place and Yes oriented to time HENMT: COMMON NORMALS: normocephalic, atraumatic and hearing grossly normal bilaterally HEAD & SCALP: normocephalic and atraumatic Resp: COMMON NORMALS: normal respiratory effort, No retractions, No use of accessory muscles and clear to auscultation bilaterally AUSCULTATION: clear to auscultation bilaterally Cardio: COMMON NORMALS: regular rate, regular rhythm and No murmurs present (Cardio) RATE: regular rate RHYTHM: regular rhythm GI: COMMON NORMALS: Soft to palpation and No hepatosplenomegaly present AUSCULTATION: Yes normoactive bowel sounds PALPATION: Yes Soft to palpation, No Tenderness to palpation present (GI), No Guarding due to palpation present (GI) and Yes No hepatosplenomegaly present Extremity: COMMON NORMALS: normal to inspection, capillary refill normal, no clubbing, cyanosis or edema, no calf tenderness and no pedal edema Neuro: SENSORIUM/ORIENTATION: Yes oriented to person, Yes oriented to place and Yes oriented to time OTHER: Neurologically intact no facial asymmetry 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 Sensorium equal bilaterally Skin: COMMON NORMALS: no rashes or lesions noted GENERAL SKIN EXAM: no rashes or lesions noted Course Vital Signs: Vital signs: Vital Signs Temperature 97.5 F L 07/30/25 19:18 Pulse Rate 79 07/30/25 21:38 Respiratory Rate 17 07/30/25 19:18 Blood Pressure 143/75 07/30/25 21:38 Pulse Oximetry 97 07/30/25 21:38 Oxygen Delivery Me thod Room Air 07/30/25 21:17 MDM - General Adult Medical Decision Making Medical decision making Social determinants: None I reviewed the patient's medical record. I reviewed the patient's current home meds. Alternate historians: None Differential diagnosis: Hypertension urgency, headache, TIA Lab Review: CBC unremarkable. Chemistry glucose 222 electrolytes BUN and creatinine are all normal. Urine negative. Imaging: Chest x-ray no acute findings mild cardiomegaly no significant change from previous chest x-ray no infiltrates no effusions no pulmonary vascular congestion Assessment of risk Level of risk: Moderate Hospitalization considerations: No need for hospitalization Reexamination: Headache improved Assessment and plan: She has no focal neurologic deficits nothing to suggest TIA or stroke at this time. As blood pressure improves symptoms improved. She is getting some side effects from medications but she is having some orthostatic episodes at times. Increase metoprolol to 25 mg once daily, losartan 50 mg once daily and follow-up with her primary care doctor within the week Lab Data 07/30/25 19:21 07/30/25 19:21 Radiology Impressions Chest X-Ray 07/30/25 19:16 IMPRESSION: No acute intrathoracic abnormality. Laboratory Results WBC 8.82 10^3/uL (3.29-11.43) 07/30/25 19: RBC 4.42 10^6/uL (3.85-5.65) 07/30/25 19:21 Hgb 11.80 g/dL (11.27-16.99) 07/30/25 19: Hct 37.7 % (36-47) 07/30/25 19: MCV 85.3 fl (85-98) 07/30/25 19:21 MCH 26.7 pg (27-33) L 07/30/25 19: MCHC 31.3 g/dL (30-55) 07/30/25 19:21 RDW 14.5 % (12.1-15.1) 07/30/25 19:21 Plt Count 285 10^3/cmm (157-399) 07/30/25 19:21 MPV 10.7 fL (7.4-10.4) H 07/30/25 19:21 Neut % (Auto) 68.2 % 07/30/25 19:21 Lymph % (Auto) 24.4 % 07/30/25 19:21 [place] % (Auto) 5.2 % 07/30/25 19: Eos % (Auto) 1.8 % 07/30/25 19: Baso % (Auto) 0.2 % 07/30/25 19: Neut # (Auto) 6.01 10^3/uL (1.8-7.7) 07/30/25 19: Lymph # (Auto) 2.2 10^3/uL (0.8-4.8) 07/30/25 19:21 [place] # (Auto) 0.5 10^3/uL (0.2-0.9) 07/30/25 19:21 Eos # (Auto) 0.2 10^3/uL (0.0-0.8) 07/30/25 19:21 Baso # (Auto) 0.0 10^3/uL (0.0-0.1) 07/30/25 19:21 Nucleated RBC % (auto) 0 % 07/30/25 19:21 Nucleated RBCs # 0.0 /100WBC 07/30/25 19:21 Sodium 139 mmol/L (136-145) 07/30/25 19:21 Potassium 4.0 mmol/L (3.5-5.1) 07/30/25 19:21 Chloride 102 mmol/L (98-107) 07/30/25 19:21 Carbon Dioxide 25 mmol/L (22-29) 07/30/25 19:21 Anion Gap 16.0 (5-19) 07/30/25 19:21 BUN 15 mg/dL (6-20) 07/30/25 19:21 Creatinine 0.7 mg/dL (0.5-0.9) 07/30/25 19:21 GFR Calculation 86.9 mL/min (90-130) L 07/30/25 19:21 Glucose 222 mg/dL (65-115) H 07/30/25 19:21 Calculated Osmolality 296 mOsm/kg (285-295) H 07/30/25 19:21 Calcium 9.2 mg/dL (8.5-10.5) 07/30/25 19:21 Urine Color Yellow (Yellow) 07/30/25 19:55 Urine Appearance Clear (CLEAR) 07/30/25 19:55 Urine pH 6.5 (5-7) 07/30/25 19:55 Ur Specific [place] 1.009 (1.005-1.030) 07/30/25 19:55 Urine Protein Negative (Negative) 07/30/25 19:55 Urine Glucose (UA) Negative (Normal) 07/30/25 19:55 Urine Ketones Negative (Negative) 07/30/25 19:55 Urine Blood Negative (Negative) 07/30/25 19: Urine Nitrate Negative (Negative) 07/30/25 19:55 Urine Bilirubin Negative (Negative) 07/30/25 19:55 Urine Urobilinogen 1.0 mg/dL (Negative) 07/30/25 19:55 Ur Leukocyte Esterase Negative (Negative) 07/30/25 19:55 Urine RBC 0-2 /hpf (0-2) 07/30/25 19:55 Urine WBC 0-5 /hpf (0-5) 07/30/25 19:55 Ur Squamous Epith Cells 0-5 /hpf (0-5) 07/30/25 19:55 Amorphous Sediment Not Reportable 07/30/25 19:55 Urine Bacteria None seen /hpf (NONE) 07/30/25 19:55 Hyaline Casts 0-4 /lpf H 07/30/25 19:55 All radiology interpretation(s) finalized by discharge EKG Data EKG 1: I personally reviewed and interpreted this EKG as follows: Interpretation: EKG 07/30/2025 1931. Sinus rhythm rate of 74 DC interval 142 QTc [address] No acute ST elevation noted. Compared to EKG 06/30/2024 changes in lead I suggest a limb lead reversal otherwise no abnormality Computer generated interpretation: Chest X-Ray 07/30/25 19:16 IMPRESSION: No acute intrathoracic abnormality. Discharge Plan Discharge Patient Disposition: Home Clinical Impression: HTN (hypertension), Headache Condition: Stable Prescriptions: New metoprolol succinate [Toprol XL] 25 mg tablet extended release 24 hr 25 mg PO DAILY Qty: 30 0RF losartan 50 mg tablet 50 mg PO DAILY Qty: 30 0RF No Action Mounjaro 2.5 mg/0.5 mL pen injector 2.5 mg SUBCUT Q7D fluconazole 150 mg tablet 150 mg PO Q3D 3 Days Qty: 2 0RF amoxicillin-pot clavulanate 875-125 mg tablet 1 tab PO BID 10 Days Qty: 20 0RF levothyroxine 100 mcg capsule 100 mcg PO DAILY MDD in the morning without food Qty: 90 0RF clopidogrel 75 mg tablet See Rx Instructions .ROUTE .COMPLEX Qty: 90 3RF Dose Instruction: Take 1 tablet by mouth once daily Rx Instructions: Take 1 tablet by mouth once daily pravastatin 40 mg tablet 40 mg PO DAILY metoprolol tartrate 25 mg tablet 12.5 mg PO DAILY hydrocodone-acetaminophen 10-325 mg tablet 1 tab PO QID PRN (Reason: Pain) metformin 1,000 mg tablet 1,000 mg PO BID Discharge Orders: Discharge ED (Routine); Ordered 07/30/25 Ordered By: Freddy Phan Referrals: Emili Barrera APRN [Primary Care Provider] Discharge Diet: Usual diet Discharge Activity: Increase activity as tolerated Patient Instructions: Opioid Safety, Pain Management, Patient Portal & [place] Instructions Activity Restrictions/Additional Instructions: Thank you for choosing [facility] for your healthcare needs today. It is very important that you follow up as instructed or that you return to the Emergency Department should you have concerns or if your condition changes or worsens in any way. Emergency department visits are focused on emergent conditions, in some cases you may require further evaluation on an outpatient basis. You were seen in the emergency room with elevated blood pressure. Improved with medications given recommend you increase your metoprolol to 25 mg once a day and add losartan 50 mg daily. Will discharge you home is to follow-up with your doctor within the next week to reevaluate your blood pressure. (Please note that included in your discharge packet is information concerning opioid safety and pain management. This information is given to all patients were discharged from the ER regardless of their discharge diagnosis or the medicines they usually take or are prescribed.) Print Language: Jordanian Coding Level of Care Code ED Packaging Designer for Glenn Zuniga
--- OUTSIDE RECORDS SUMMARY | 2025-07-30 19:15 | XMS_ITS | Patient Health Record ---
Author Organization [facility] Address [address] [place] [address] Care Team Providers Care Instructor Of Nursing Name Role Phone Freddy Phan DO Primary Care Provider Avi Abrams Unavailable [phone] December DNP-WELDING TECHNICIAN-C, Emili Unavailable Unavailable David Seein Unavailable [phone] Desire Hancock Unavailable [phone] Taylor Leonard Unavailable [phone] Lysykylee-Patience Concepcion Unavailable Alirhayim, Sy Unavailable [phone] Allergies Allergen (clinical drug ingredient) Drug/Non Drug [...] Notes/Report: Urine Confirmation Panel (in strument) - [id number] Reviewed date:06/05/2025 12:44:27 PM Interpretation: Performing Lab: [...] Administration. Urine Drug Screen (cup read) - 06269 Reviewed date:05/30/2025 09:57:37 AM Interpretation: Performing Lab: [...] Provider Speciality Pain Medic ine Referred Organization [facility] Referred Provider Avi Bourgeois Referred Address [address] [place] [address],[place],[address], Referred Provider Specialty Intervention al Pain Medicine General Notes Judie Ibrahim 02:13:21 PM >mailed npp, patient is schedule Referral Priority Routine Reason Appt 06/01/25 HTN Diagnosis 1 Essential (primary) hypertension (I10) Referring Provider First Name Emili Referring Provider Last Name December Referring Provider Speciality Family Med icine Referred Organization [facility] Referred Provider Sy Gama Referred Address [address] [place] [address],[place],[address], Referred Provider Specialty Intervention al Cardiology Referral Priority Routine Reason Eval and treat Lumba r Spondylosis Diagnosis 1 Spondylosis without myelopathy or radiculopathy, lumbar region (M47.816) Referral Organization [facility] Referring Provider First Name Avi Referring Provider Last Name Christelle Referring Provider Speciality Interventi onal Pain Medicine Referred Provider [facility] Referred Provider Specialty 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 Referral Priority Routine Reason eval and treat lumba r Diagnosis 1 Lumbar radiculopathy (M54.16) Referral Organization [facility] Referring Provider First Name Avi Referring Provider Last Name Christelle Referring Provider Speciality Interventi onal Pain Medicine Referred Provider [facility] Referred Provider Specialty Preventive M edicine Referral Priority Routine Medications Medication SIG (Take, Route, Frequency, Duration) Notes Start Date End Date Status HYDROcodone-Acetamino phen 10-325 MG Tablet 1 tablet as needed Orally every 6 hours; Duration: 30 days As needed Not to exceed 4 per day Fill 07/04/2025 07/04/2025 08/03/2025 Active HYDROcodone-Acetamino phen 10-325 MG Tablet 1 tablet as needed Orally every 6 hours; Duration: 30 days As needed Not to exceed 4 per day Fill 08/03/2025 or few days early due to weekend 07/04/2025 09/02/2025 Active Pravastatin Sodium 40 MG Tablet 1 tablet Orally Once a day Active Mounjaro 2.5 MG/0.5ML Solution Auto-injector as directed Subcutaneous 1 x a week Active Reglan 10 MG Tablet 1 tablet Orally 30 minutes prior to starting colon prep; Duration: 1 day Active Clopidogrel Bisulfate 75 MG Tablet 1 tablet Orally Once a day Active HYDROcodone-Ibuprofen 10-200 MG Tablet 1 tablet as needed Orally 3x a day Active Golytely 236 GM Solution Reconstituted 240ml Orally [id number]; Duration: 2 days Split dose bowel prep: 24 hours prior to procedure consume only clear liquids. The evening prior to procedure, Drink 8oz every 15 minutes until 1/2 of prep in consumed. Repeat 2nd dose at directed time the morning of procedure. Active metFORMIN HCl 1000 MG Tablet 1 tablet with a meal Orally 2 a day Active Levothyroxine Sodium 88 MCG Tablet 1 tablet in the morning on an empty stomach Orally Once a day Active Metoprolol Tartrate 25 MG Tablet 1 tablet with food Orally Twice a day Active Social History Tobacco Use: [...] Status Risk Notes Problem Chronic pain syndrome (947323734) Chronic pain syndrome (G89.4) Active confirmed Problem Essential hypertension (85174518) Essential (primary) hypertension (I10) Active confirmed Problem Lumbosacral spondylosis without myelopathy (19182235) Spondylosis without myelopathy or radiculopathy, lumbar region (M47.816) Active confirmed Problem Radiculopathy due to lumbar intervertebral disc disorder (643024940127602) Intervertebral disc disorders with radiculopathy, lumbar region (M51.16) Active confirmed Problem Lumbar radiculopathy (916359045) Lumbar radiculopathy (M54.16) Active confirmed Problem Peripheral neuropathy (481912033) Neuropathy, peripheral (G62.9) Active confirmed Problem Obesity (100896573) Obesity (E66.9) Active confirmed Problem Abnormal gait (42389625) Abnormality of gait and mobility (R26.9) Active confirmed Vital Signs Heart Rate 81 /min 09/13/2024 65 Temperature 96.6 degrees Fahrenheit 09/13/2024 65 Height-cm 165.1 cm 07/04/2025 Oximetry 97 % 09/13/2024 65 Blood pressure diastolic 80 mm Hg 09/13/2024 65 Weight-kg 142.43 kg 07/04/2025 Height 65 in 07/04/2025 Blood pressure systolic 148 mm Hg 09/13/2024 65 Weight 314 lbs 07/04/2025 BMI 52.25 kg/m2 07/04/2025 Encounters Encounter Location Date Provider Diagnosis [facility] [address] [address] 07/04/2025 Avi Krafft Chronic pain syndrome G89.4 ; Neuropathy, peripheral G62.9 ; Lumbar radiculopathy M54.16 ; FCI (current) use of opiate analgesic Z79.891 ; Obesity E66.9 and Abnormality of gait and mobility R26.9 [facility] [address] [address] 05/30/2025 Avi Krafft Chronic pain syndrome G89.4 ; Neuropathy, peripheral G62.9 ; Lumbar radiculopathy M54.16 ; FCI (current) use of opiate analgesic Z79.891 ; Obesity E66.9 and Abnormality of gait and mobility R26.9 [facility] [address] [address] 04/18/2025 Avi Krafft Chronic pain syndrome G89.4 ; Neuropathy, peripheral G62.9 ; Lumbar radiculopathy M54.16 ; Abnormality of gait and mobility R26.9 ; Obesity E66.9 and FCI (current) use of opiate analgesic Z79.891 [facility] [address] [place] [address] 09/13/2024 Taylor Leonard Preprocedural examination Z01.818 ; Screening for colon cancer Z12.11 ; Hematuria, unspecified type R31.9 and Lower abdominal pain R10.30 [facility] [address] [place] [address] 10/31/2024 Noah See [facility] [address] [place] [address] 09[facility]2024 [facility] Encounter Date Diagnosis (ICD Code) Assessment [...] imaging. 04/18/2025 Neuropathy, peripheral (ICD-10 - G62.9) 05/30/2025 Chronic pain syndrome (ICD-10 - G89.4) [...] accordingly. 05/30/2025 Neuropathy, peripheral (ICD-10 - G62.9) 07/04/2025 Chronic pain syndrome (ICD-10 - G89.4) I had a nice visit with the patient and her today regarding her chronic pain issues. Overall, she is doing reasonably well. She reports improved symptom control with the increased quantity of the medications. I was pleased to see that she has lost 10 pounds. We discussed all of these issues, and she would like to continue her current regimen unchanged until after the first of the year. She continues to find the current medication regimen relatively effective overall. Her UDS and pill counts have been consistent with her current treatment regimen. We will continue her medications unchanged. We will follow up in a couple of months and proceed accordingly. 05/30/2025 Lumbar radiculopathy (ICD-10 - M54.16) 09/13/2024 Screening for colon cancer (ICD-10 - [...] arranged based on endoscopy findings and interventions 04/18/2025 Lumbar radiculopathy (ICD-10 - M54.16) 09/13/2024 Hematuria, unspecified type (ICD-10 - R31.9) 07/04/2025 Neuropathy, peripheral (ICD-10 - G62.9) 07/04/2025 Lumbar radiculopathy (ICD-10 - M54.16) 09/13/2024 Lower abdominal pain (ICD-10 - R10.30) Records from July 2024 from [place] [facility] reviewed and noted. CT of the [...] obtain CT imaging, labs, ER records from [place] for both July and August evaluation. The patient is advised to call with any recurrent abdominal symptoms and can consider repeat labs versus repeat cross-sectional imaging. 04/18/2025 Abnormality of gait and mobility (ICD-10 - R26.9) 05/30/2025 continuous churn buttermaker (current) use of opiate analgesic (ICD-10 - Z79.891) 07/04/2025 FCI (current) use of opiate analgesic (ICD-10 - Z79.891) 05/30/2025 Obesity (ICD-10 - E66.9) 04/18/2025 Obesity (ICD-10 - E66.9) 04/18/2025 FCI (current) use of opiate analgesic (ICD-10 - Z79.891) 05/30/2025 Abnormality of gait and mobility (ICD-10 - R26.9) 07/04/2025 Obesity (ICD-10 - E66.9) 07/04/2025 Abnormality of gait and mobility (ICD-10 - R26.9) 04/18/2025 Other Paulette Mariscal am scribing for Dr. Avi Bourgeois. I, Dr. Avi Bourgeois, personally performed the services described in this documentation, as scribed by Paulette Silverio, and it is both accurate and complete. 05/30/2025 Paulette Gunn am scribing for Dr. Avi Bourgeois. IDr. Avi, personally performed the services described in this documentation, as scribed by Paulette Silverio, and it is both accurate and complete. 07/04/2025 Paulette Gunn am scribing for Dr. Avi Bourgeois. I, Dr. Avi Bourgeois, personally performed the services described in this documentation, as scribed by Paulette Silverio, and it is both accurate and complete. Plan Of Treatment Pending Test Test Name Order Date Colonoscopy, Average Risk Screening-G012 1 09/13/2024 Future Test Test Name Order Date 2 Limb NCV/EMG - 04877, 42179 04/19/2025 Next Appt Details Provider Name:Desire singer, 08/20/2025 02:15:00 PM, [address], [address], Provider Name:Avi Bourgeois, 08/29/2025 11:00:00 AM, [address] [place], [address], Insurance Providers Payer Name Payer Address Payer Phone Subscriber Number Group Number Insured Name Patient Relationship to Insured Coverage Start Date Coverage End Date [facility] [place] Medicare Replacement [address] [place] [address] [id number] [place] F, MONSERRAT Self - patient is the insured [...]
--- OUTSIDE RECORDS SUMMARY | 2025-07-30 19:15 | XMS_ITS | Clinical Summary ---
Author Organization [facility] Address [address] [place] [address] Phone Care Team Providers Care Bulkhead Carpenter Name Role Phone Non-Staff, Physician Primary Care [...] on file Legal Sex Female 7:26 AM BEAMSTER Gender Identity Not on file Sexual Orientation Not on file Last Filed Vital Signs Vital Sign Reading Time Taken Comments Blood Pressure 120/70 09/18/2009 1:44 PM BEAMSTER Pulse 89 09/18/2009 1:44 PM BEAMSTER Temperature 36.2 C (97.1 F) 06/19/2009 10:13 AM BEAMSTER Respiratory Rate 20 06/19/2009 10:13 AM BEAMSTER Oxygen Saturation 100% 09/18/2009 1:44 PM BEAMSTER Inhaled Oxygen Concentration - - Weight 161.9 kg (357 lb) 09/18/2009 1:44 PM BEAMSTER Height 167.6 cm (5' 6 ) 09/18/2009 1:44 PM BEAMSTER Body Mass Index 57.62 09/18/2009 1:44 PM BEAMSTER Plan of Treatment Health Maintenance Due Date [...] 2) 2020 INFLUENZA VACCINE (#1) 2025 Insurance Reeher [facility] Advance Directives For more information, please contact: [phone] * Full Code (Latest Code Status on File) Date Activated Date Inactivated Comments 05/13/2009 5:43 PM 05/18/2009 4:00 PM * Full Code Date Activated Date Inactivated Comments 05/13/2009 9:55 AM 05/13/2009 5:43 PM * Full Code Date Activated Date Inactivated Comments 05/13/2009 6:36 AM 05/13/2009 9:55 AM Care Teams Bulkhead Carpenter Relationship Specialty Start Date End Date Non-Staff, Physician NO ADDRESS ON FILE PCP - General 05/07/09
--- OUTSIDE RECORDS SUMMARY | 2025-07-30 19:15 | XMS_ITS | Patient Health Record ---
Author Organization [facility] Address [address] [facility], [place] [id number] Care Team Providers Care Class B Driver Name Role Phone PARRIS DOSHI Primary Care Provider Luis Jimenze Jr [phone] Allergies Allergen (clinical drug ingredient) Drug/Non Drug [...] Duration) Notes Start Date End Date Status PEG-3350/Electrolytes 236 GM Oral; Duration: 2 Days Active HYDROcodone-Acetaminophen 10-325 MG Oral; Duration: 28 Days Acti ve metFORMIN HCl 1000 MG TAKE 1 TABLET BY M OUTH TWICE DAILY WITH MEALS Oral; Duration: 90 Days Active Mounjaro 2.5 MG/0.5ML INJECT ONE SYRINGE UNDER THE SKIN ONCE WEEKLY Subcutaneous; Duration: 28 Days Active Pravastatin Sodium 40 MG Oral; Duration: 90 Days Active Levothyroxine Sodium 88 MCG Oral; Duration: 90 Days Active Metoprolol Tartrate 25 MG TAKE 1/2 (ONE- HALF) TABLET BY MOUTH ONCE DAILY Oral; Duration: 30 Days Active Plavix 75 MG 1 tablet Orally Once a day Active Social History Tobacco Use: Social History Observation Description Date Details (start date - stop date) Never Smoker NA - NA Tobacco Control (Standard) Question Answer Notes Tobacco use: Nonsmoker Additional Findings: Tobacco non-user Current no nsmoker Problems Problem Type SNOMED Code ICD Code Onset Dates Problem Status W/U Status Risk Notes Problem Varicose veins of bilateral lower limbs (6564683673349 9106) Varicose veins of bilateral lower extremities with other complications (I83.893) Active confirmed Problem Diabetic peripheral neuropathy associated with type 2 diabetes mellitus (9403578027711 ) Type 2 diabetes mellitus with diabetic neuropathy, unspecified whether adjunct faculty for medical terminology insulin use (E11.40) Active confirmed Problem Lymphedema (346578492) Lymphedema (I89.0) Active confirmed Problem Plantar fasciitis (618945344) Plantar fasciitis (M72.2) Active confirmed Vital Signs Respiratory Rate 22 /min 07/16/2025 Height 64 in 07/16/2025 Weight 323 lbs 07/16/2025 BMI 55.44 kg/m2 07/16/2025 Encounters Encounter Location Date Provider Diagnosis [facility] [address] [place] [phone] 04/30/2025 Luis Jernigan Jr Type 2 diabetes mellitus with diabetic neuropathy, unspecified whether assisted insulin use E11.40 ; Tinea unguium B35.1 ; Pain in left toe(s) M79.675 ; Pain in right toe(s) M79.674 and Lymphedema I89.0 [facility] [address] [place] [address], [place] [phone] 07/16/2025 Luis Jernigan Jr Type 2 diabetes mellitus with diabetic neuropathy, unspecified whether adjunct faculty for medical terminology insulin use E11.40 ; Tinea unguium B35.1 ; Pain in left toe(s) M79.675 ; Pain in right toe(s) M79.674 ; Lymphedema I89.0 ; Plantar fasciitis M72.2 ; Varicose veins of bilateral lower extremities with other complications I83.893 and Localized edema R60.0 Assessments Encounter Date Diagnosis (ICD Code) Assessment Notes Treatment Notes Treatment Clinical Notes Section Notes 04/30/2025 Tinea unguium (ICD-10 - B35.1) Discussed diabetic foot care, routine foot care, and assisted blood sugar control. Debridement of nails 1 through 5 bilateral down 2mm as close to normal thickness as possible using mechanical and manual means. Advised the patient on preventative care. Patient to apply topical antifungals to the nails. 04/30/2025 Type 2 diabetes mellitus with diabetic neuropathy, unspecified whether assisted insulin use (ICD-10 - E11.40) Discussed treatment of neuropathy, including top.matheus and oral medications and laser therapy. Recommended vitamin B complex supplements. 07/16/2025 Tinea unguium (ICD-10 - B35.1) Discussed diabetic foot care, routine foot care, and assisted blood sugar control. Debridement of nails 1 through 5 bilateral down 2mm as close to normal thickness as possible using mechanical and manual means. Again advised the patient on preventative care and to apply topical antifungals to the nails. 07/16/2025 Type 2 diabetes mellitus with diabetic neuropathy, unspecified whether assisted insulin use (ICD-10 - E11.40) 07/16/2025 Pain in left toe(s) (ICD-10 - M79.675) 04/30/2025 Pain in left toe(s) (ICD-10 - M79.675) 07/16/2025 Pain in right toe(s) (ICD-10 - M79.674) 04/30/2025 Pain in right toe(s) (ICD-10 - M79.674) 04/30/2025 Lymphedema (ICD-10 - I89.0) Rx for compression socks. 07/16/2025 Lymphedema (ICD-10 - I89.0) 07/16/2025 Plantar fasciitis (ICD-10 - M72.2) Discussed treatment, risks and complications. Discussed treatment in detail with the patient, including icing, stretching, anti-inflammator y medications, injections, supportive shoes, inserts, physical therapy and laser therapy. Demonstrated stretching exercises today; to be performed at least twice daily. Low dye taping performed on the foot with instructions on proper application. Rx for physical therapy. 07/16/2025 Varicose veins of bilateral lower extremities with other complications (ICD-10 - I83.893) 07/16/2025 Localized edema (ICD-10 - R60.0) 04/30/2025 Other Plan Of Treatment Next Appt Details Provider Name:Luis Zelaya Jr, 09/24/2025 02:15:00 PM, [address], [place], [phone], Insurance Providers Payer Name Payer Address Payer Phone Subscriber Number Group Number Insured Name Patient Relationship to Insured Coverage Start Date Coverage End Date [facility] [address] [place] [address] [id number] [facility] MONSERRAT LORENZO Self - patient is the insured Medical (General) History Medical History History ICD Code Back Pain Cancer (CERVICAL) Heart Attack High Blood Pressure DIABETIC (TYPE 2) Basal Cell Carcinoma Surgical History Surgery Date(Month/Year) HEART STENTS
--- OUTSIDE RECORDS SUMMARY | 2025-07-30 19:15 | XMS_ITS | Clinical Summary ---
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
--- NOTE | 2025-07-30 19:16 | XRR_ITS ---
PROCEDURE INFORMATION: Exam: XR Chest Exam date and time: 07/30/2025 7:20 PM Age: 55 years old Clinical indication: Other: HTN; Prior surgery; Surgery date: 6+ months; Surgery type: Cardiac stents; Additional info: Elevated blood pressure TECHNIQUE: Imaging protocol: Radiologic exam of the chest. Views: 1 view. COMPARISON: CR (CHEST, ) 07/01/2025 6:52 AM FINDINGS: Lungs: Unremarkable. No consolidation. Pleural spaces: Unremarkable. No pleural effusion. No pneumothorax. Heart/Mediastinum: Unremarkable. No cardiomegaly. Bones/joints: Osteophytes thoracic spine. No acute osseous abnormality. Other findings: No acute intrathoracic abnormality. XR/XR chest 1V portable [id number] IMPRESSION: No acute intrathoracic abnormality.
[2025-07-30 19:26] LABS: Hematocrit 37.7 % (36-47); Hemoglobin 11.80 g/dL (11.27-16.99); Mean Corpuscular HGB Conc 31.3 g/dL (30-55); Mean Corpuscular Hemoglobin 26.7 pg (27-33); Mean Corpuscular Volume 85.3 fl (85-98); Nucleated Red Blood Cells % 0 %; Platelet Count 285 10^3/cmm (157-399); Red Blood Count 4.42 10^6/uL (3.85-5.65); White Blood Count 8.82 10^3/uL (3.29-11.43)
--- NOTE | 2025-07-30 19:31 | ECG_ITS ---
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
[2025-07-30 19:43] LABS: Anion Gap 16.0 (5-19); Blood Urea Nitrogen 15 mg/dL (6-20); Calcium 9.2 mg/dL (8.5-10.5); Carbon Dioxide 25 mmol/L (22-29); Chloride 102 mmol/L (98-107); Glucose 222 mg/dL (65-115); Osmolality Calculated 296 mOsm/kg (285-295); Potassium 4.0 mmol/L (3.5-5.1); Sodium 139 mmol/L (136-145)
[2025-07-30] MEDS: hyDRALAzine 20 mg/mL INJ 1 mL 10 MG IVP (19:45)
[2025-07-30] MEDS: labetalol 5 mg/mL SDV 20mL 10 MG IVP (19:46)
[2025-07-30 20:16] LABS: Glucose Urine UA Negative (Normal); Nitrate Urine Negative (Negative); Specific Gravity, Urine 1.009 (1.005-1.030)
[2025-07-30 20:21] LABS: Add Urine Microscopic? YES
== END 2025-07-30 21:39 | disposition home or self-care (01) ==
PROVIDERS: Emergency Provider Family Medicine; PCP Nurse Practitioner Family
DX: I10 Essential (primary) hypertension (principal); R51.9 Headache, unspecified; Z79.02 Long term (current) use of antithrombotics/antiplatelets; Z79.84 Long term (current) use of oral hypoglycemic drugs; I25.10 Atherosclerotic heart disease of native coronary artery without angina pectoris; E11.9 Type 2 diabetes mellitus without complications
CPT/HCPCS: 36415; 71045; 80048; 81001; 85025; 93005; 96374; 96375; 99285; J0360; J3490; J9999